=== PATIENT | male | born 1950 | race Caucasian/White ===

== ENCOUNTER 2017-10-07 02:50 | Inpatient (IN) | payer MEDICARE, OTHER ==
[~2017-10-07] VITALS: Ht 167.6 cm; Wt 63.0 kg
[2017-10-07] VITALS (10 sets, daily range): BP systolic 112–140; BP diastolic 73–79; PULSE 90–110; RESP 16–20; TEMP 96.8–99; O2SAT 93–96
[~2017-10-07 02:50] MED LIST: METF500T PO; NALOXONE HCL 0.4 MG/ML AMP IV PUSH PRN; RESP: ALBUTEROL 2.5 MG/IPRATROPIUM 0.5 MG NEB (PRN) NEB; SODIUM CHLORIDE 0.9% FLUSH 10 ML FLUSH IV FLUSH PRN
[2017-10-07] MEDS ORDERED: methylPREDNISolone SOD SUCC 40 MG/1 ML VIAL IV PUSH SCH (06:00)
[2017-10-07] MEDS ORDERED: GLUCAGON 1 MG/ML VIAL OTHER PRN (07:45)
[2017-10-07] MEDS ORDERED: DEXTROSE 50% IN WATER 50 ML VIAL(D50) IV PUSH PRN (07:45)
[2017-10-07] MEDS: RESP: ALBUTEROL 2.5 MG/IPRATROPIUM 0.5 MG NEB (SCH) NEB ×3 (08:00→19:55)
[2017-10-07] MEDS: BUDESONIDE-FORMOTEROL 160/4.5 MCG INHALER INH SCH ×2 (09:00→20:34)
[2017-10-07] MEDS ORDERED: TIOTROPIUM BROMIDE 18 MCG INH INH SCH (09:00)
[2017-10-07] MEDS ORDERED: REMOVE OLD PATCH T-DERMAL SCH (09:00)
[2017-10-07] MEDS ORDERED: NICOTINE 21 MG/24 HR PATCH T-DERMAL SCH (09:00)
[2017-10-07] MEDS: guaiFENesin E.R. 600 MG TAB PO SCH ×2 (09:14→20:34)
[2017-10-07] MEDS: SODIUM CHLORIDE 0.9% FLUSH 10 ML FLUSH IV FLUSH SCH ×2 (09:14→20:34)
[2017-10-07] MEDS: PANTOPRAZOLE SOD 40 MG DELAYED RELEASE TAB PO SCH (09:14)
--- NOTE | 2017-10-07 09:41 | HHI.HP ---
HPI Service [facility] Primary Care Physician [facility] Admission Diagnosis Diagnoses: (1) Diabetes mellitus, type 2 (2) Emphysema of lung (3) Bronchogenic carcinoma of right lung Chief Complaint: Cough and shortness of breath Travel History International Travel<30 Days: No Contact w/Intl Traveler <30 Da: No Traveled to Known Affected Are: No History of Present Illness 67-year-old man with a history of emphysema, diabetes type 2 presented to the ED for evaluation of nonproductive cough 1 month long with shortness of breath associated with costochondritis. Patient states however that since May of last year he has been coughing but it got worse over the past 4 weeks. He denies any febrile episode, hemoptysis. He reports a 20 pound weight loss 4 weeks. She has been smoking since the age of 13, however has quit about a week ago. Initial chest x-ray in ED with finding of large right infrahilar mass and a follow-up CTA with right perihilar mass as well as evidence of metastases Review of Systems Except as stated in HPI: all other systems reviewed are Neg Past Family Social History Past Medical History Diabetes type 2 Hyperlipidemia Emphysema Past Surgical History No prior surgery Reported Medications Metformin Allergies: Coded Allergies: Penicillins (Verified Allergy, Unknown, 10/06/17) Family History Positive for heart disease, alcoholism Social History Quit smoking about a week ago however had smoked since age 13. Denies alcohol or illicit drug intake. Physical Exam Vital Signs Vital Signs Date Time Temp Pulse Resp B/P (MAP) Pulse Ox O2 Delivery O2 Flow Rate FiO2 10/07/17 04:29 109 10/07/17 04:00 98.9 92 16 140/75 (96) 95 10/07/17 03:40 93 Nasal Cannula 2.00 Physical Exam GENERAL: This is a well-nourished, well-developed patient, in no apparent distress. SKIN: No rashes, ecchymoses or lesions. Cool and dry. HEAD: Atraumatic. Normocephalic. No temporal or scalp tenderness. EYES: Pupils equal round and reactive. Extraocular motions intact. No scleral icterus. No injection or drainage. ENT: Nose without bleeding, purulent drainage or septal hematoma. Throat without erythema, tonsillar hypertrophy or exudate. Uvula midline. Airway patent. NECK: Trachea midline. No JVD or lymphadenopathy. Supple, nontender, no meningeal signs. CARDIOVASCULAR: Regular rate and rhythm without murmurs, gallops, or rubs. RESPIRATORY: Clear to auscultation. Breath sounds decrease bilaterally . No wheezes, rales, or rhonchi. GASTROINTESTINAL: Abdomen soft, non-tender, nondistended. No hepato-splenomegaly , or palpable masses. No guarding. MUSCULOSKELETAL: Extremities without clubbing, cyanosis, or edema. No joint tenderness, effusion, or edema noted. No calf tenderness. Negative Homans sign bilaterally. NEUROLOGICAL: Awake and alert. Cranial nerves II through XII intact. Motor and sensory grossly within normal limits. Five out of 5 muscle strength in all muscle groups. Normal speech. Laboratory Laboratory Tests Test 10/07/17 08:45 Septic Shock Reassessment Septic shock perfusion: reassessment completed Caprini VTE Risk Assessment Caprini VTE Risk Assessment: Mod/High Risk (score >= 2) Caprini Risk Assessment Model Point Value = 1 Point Value = 2 Point Value = 3 Point Value = 5 Age 41-60 Minor surgery BMI > 25 kg/m2 Swollen legs Varicose veins or History of unexplained or recurrent spontaneous Oral contraceptives or hormone replacement Sepsis (< 1 month) Serious lung disease, including pneumonia (< 1 month) Abnormal pulmonary function Acute myocardial infarction Congestive heart failure (< 1 month) History of inflammatory bowel disease Medical patient at bed rest Age 61-74 Arthroscopic surgery Major open surgery (> 45 min) Laparoscopic surgery (> 45 min) Malignancy Confined to bed (> 72 hours) Immobilizing plaster cast Central venous access Age >= 75 History of VTE Family history of VTE Factor V Leiden Prothrombin [id number] Lupus anticoagulant Anticardiolipin antibodies Elevated serum homocysteine Heparin-induced thrombocytopenia Other congenital or acquired thrombophilia Stroke (< 1 month) Elective arthroplasty Hip, pelvis, or leg fracture Acute spinal cord injury (< 1 month) Prophylaxis Regimen Total Risk Factor Score Risk Level Prophylaxis Regimen 0-1 Low Early ambulation 2 Moderate Order ONE of the following: *Sequential Compression Device (SCD) *Heparin 5000 units SQ BID 3-4 Higher Order ONE of the following medications: *Heparin 5000 units SQ TID *Enoxaparin/Lovenox 40 mg SQ daily (WT < 150 kg, CrCl > 30 mL/min) *Enoxaparin/Lovenox 30 mg SQ daily (WT < 150 kg, CrCl > 10-29 mL/min) *Enoxaparin/Lovenox 30 mg SQ BID (WT < 150 kg, CrCl > 30 mL/min) AND/OR *Sequential Compression Device (SCD) 5 or more Highest Order ONE of the following medications: *Heparin 5000 units SQ TID (Preferred with Epidurals) *Enoxaparin/Lovenox 40 mg SQ daily (WT < 150 kg, CrCl > 30 mL/min) *Enoxaparin/Lovenox 30 mg SQ daily (WT < 150 kg, CrCl > 10-29 mL/min) *Enoxaparin/Lovenox 30 mg SQ BID (WT < 150 kg, CrCl > 30 mL/min) AND *Sequential Compression Device (SCD) Assessment and Plan Problem List: (1) Bronchogenic carcinoma ICD Code: C34.90 - Malignant neoplasm of unspecified part of unspecified bronchus or lung (2) Postobstructive pneumonia ICD Code: J18.9 - Pneumonia, unspecified organism (3) COPD with exacerbation ICD Code: J44.1 - Chronic obstructive pulmonary disease with (acute) exacerbation (4) Diabetes mellitus, type 2 ICD Code: E11.9 - Type 2 diabetes mellitus without complications (5) Emphysema of lung ICD Code: J43.9 - Emphysema, unspecified Assessment and Plan 67-year-old man with Bronchogenic carcinoma until proven otherwise Chest x-ray noted and review by me with finding of large right infrahilar mass CT angiography noted and review by me with finding of right perihilar mass, metastases mediastinal lymph node and T1 vertebral body distal metastases Pulmonary medicine has been consulted for evaluation for possible bronchoscopy Consult medical oncology Consider Intervention radiology consultation for CT-guided biopsy Check tumor markers Check CT abdomen/pelvic as well as head CT Consider Spine CTs Post obstructive pneumonia Start Levaquin IV and monitor COPD exacerbation Currently on Solu-Medrol, add Spiriva,Symbicort, Mucinex, duo Neb scheduled and when necessary and continue with above antibiotics Consider respiratory walk test at time of discharge Tobacco cessation strongly advised Diabetes type 2 Hold oral hypoglycemic agent Start medium insulin sliding scale Check hemoglobin A1c DVT prophylaxis: B-SCDs Change admission to inpatient Code Status Full code Discussed Condition With Patient Physician Certification 2 Midnight Certification Type: Admission for Inpatient Services Order for Inpatient Services The services are ordered in accordance with Medicare regulations or non- Medicare payer requirements, as applicable. In the case of services not specified as inpatient-only, they are appropriately provided as inpatient services in accordance with the 2-midnight benchmark. Estimated LOS (days): 2 days is the estimated time the patient will need to remain in the hospital, assuming treatment plan goals are met and no additional complications. Post-Hospital Plan: Not yet determined Jaron Middleton MD Oct 07, 2017 09:41
[2017-10-07] MEDS: INSULIN ASPART SUPPLEMENTAL SCALE SQ SCH ×4 (09:52→20:45)
[2017-10-07 10:53] LABS: CARCINOEMBRYONIC ANTIGEN 6.9 NG/ML (0.2-5.0)
[2017-10-07 11:28] LABS: CA 19-9 485.6 U/ML (0.0-35.0)
[2017-10-07] MEDS: DIATRIZOATE MEGLUM/DIATRIZOATE SOD 9 ML CUP PO ONE ×2 (12:00→12:13)
[2017-10-07] MEDS: LEVOFLOXACIN 750 MG TAB PO SCH (12:13)
[2017-10-07 13:21] LABS: CHLORIDE 98 MEQ/L (98-107); SODIUM (NA) 135 MEQ/L (136-145)
[2017-10-07 13:24] LABS: ALBUMIN 2.6 GM/DL (3.4-5.0); BLOOD UREA NITROGEN 16 MG/DL (7-18); CALCIUM 8.8 MG/DL (8.5-10.1); GLUCOSE,RANDOM 164 MG/DL (74-106); PROTHROMBIN TIME - PATIENT 10.1 SEC (9.8-11.6)
[2017-10-07 13:27] LABS: ALT (GPT) 16 U/L (12-78); AST (GOT) 11 U/L (15-37)
[2017-10-07 13:28] LABS: GLOMERULAR FILTRATION RATE 96 ML/MIN (>89)
[2017-10-07 13:29] LABS: TOTAL BILIRUBIN ADULT 0.3 MG/DL (0.2-1.0); TOTAL PROTEIN 7.9 GM/DL (6.4-8.2)
[2017-10-07 13:30] LABS: ALKALINE PHOSPHATASE 89 U/L (45-117)
[2017-10-07] MEDS: methylPREDNISolone SOD SUCC 40 MG/1 ML VIAL IV PUSH SCH ×2 (15:38→20:35)
[2017-10-07] MEDS ORDERED: SODIUM CHLOR 0.45% 1000 ML INJ 1,000 ML IV SCH (16:43)
[2017-10-07] MEDS ORDERED: RESP: LIDOCAINE HCL 4% PF 5 ML NEB NEB SCH (16:45)
[2017-10-07] MEDS ORDERED: RESP: ALBUTEROL CONC 2.5 MG/0.5 ML NEB NEB SCH (16:45)
--- NOTE | 2017-10-07 17:45 | MB ---
cc: Ruiz Arellano MD DATE OF CONSULT: 10/07/2017 ATTENDING PHYSICIAN: Jaron Middleton MD REASON FOR CONSULTATION: Oncology consulted regarding patient with a lung mass. HISTORY OF PRESENT ILLNESS: The patient is a 67-year-old male with history of chronic obstructive pulmonary disease, started experiencing increased nonproductive cough about a month ago. He states that his cough is gradually getting worse and he has increased shortness of breath. He also lost about 20 pounds in the last 4 weeks. He has been seen at [facility] and was supposed to get a chest x-ray; however, symptoms progressively got worse. He went to the emergency room in [place]. A CT showed a large right perihilar mass and he was admitted. He has increased weakness. He denies any headache. Denies any visual changes. Denies any focal numbness or weakness. He denies any significant back pain, no neck pain. Denies any chest pain. Denies any nausea, vomiting, abdominal pain. He said his stool color has been dark. PAST MEDICAL HISTORY: 1. Chronic obstructive pulmonary disease. 2. Diabetes mellitus. 3. Hyperlipidemia. PAST SURGICAL HISTORY: Colonoscopy about 6 years ago. FAMILY HISTORY: Possible heart disease. One sister is healthy. One daughter is also healthy. SOCIAL HISTORY: Smoked at least a pack a day since the age of 13. He just quit a few weeks ago. He lives in a boarding home. He used to drink alcohol but quit 25 years ago. ALLERGIES: PENICILLIN. CURRENT MEDICATIONS: Solu-Medrol, Levaquin, Protonix, Spiriva, Symbicort, guaifenesin. REVIEW OF SYSTEMS: CONSTITUTIONAL: As above. EYES: Negative. ENT: Negative. CARDIOVASCULAR: No chest pressure, palpitation. RESPIRATORY: As above. GASTROINTESTINAL: As above. GENITOURINARY: No dysuria, hematuria. MUSCULOSKELETAL: As above. ENDOCRINE: Negative. HEMATOLOGIC: Negative. DERMATOLOGIC: Negative. PSYCHIATRIC: Negative. NEUROLOGIC: Negative. PHYSICAL EXAMINATION: VITAL SIGNS: Temperature 96.8, blood pressure 112/73, O2 saturation 95% on 2 L nasal cannula. GENERAL: He is alert, oriented x 3, no acute distress. HEENT: Atraumatic, normocephalic. Pupils are equal, round, reactive to light. Extraocular muscles are intact. No scleral icterus. Oropharynx dry mucosa. No lesion, no thrush, no mucositis. NECK: No thyromegaly. No palpable mass. LYMPHATIC: No palpable cervical, clavicular lymph node. He has shotty bilateral axillary lymph node and no palpable inguinal lymph node. CARDIOVASCULAR: Regular S1, S2. No murmur. LUNGS: Slight decreased breath sounds right lung base. ABDOMEN: Soft, nontender. Could not palpate liver or spleen. EXTREMITIES: No cyanosis. Right middle finger partial amputation noted. SKIN: No rash or petechia. NEUROLOGIC: Nonfocal. LABORATORY DATA: Dated 10/06/2017 was reviewed. ASSESSMENT: 1. Right lung mass suspicious for primary bronchogenic carcinoma. He has history of chronic obstructive pulmonary disease. He presented with nonproductive cough which has gradually worsened over the last month. He also has a 20-pound weight loss and increased shortness of breath. CT showed a large 7.1 x 14 x 11.1 cm right perihilar mass. There was also metastatic mediastinal lymphadenopathy with necrotic-appearing subcarinal lymph node measured 2.1 x 3.3 cm. There was AP window lymph node measuring 1.5 x 2.3 cm and a paraesophageal lymph node measuring 1.4 cm. There is also left axillary enlarged lymph node measuring 1.8 cm, which is rather unusual. There is a T1 vertebral destructive lesion associated with left T1-T2 foraminal stenosis. Clinically, however, he has no back pain or neck pain. I told the patient that this is cancer until proven otherwise. A CT abdomen and pelvis as well as CT of the brain is pending at this point, I am going to add a bone scan for further evaluation. I am going to consult radiology to biopsy the right lung mass. The patient is a [place] and is getting all his care at [facility]. He will likely need to follow up with [facility] to be [facility] the [facility] for [facility]. 2. T1 destructive lesion. Clinically, he has no symptoms. I will get a bone scan. He may need an MRI for further evaluation of the spine. 3. Chronic obstructive pulmonary disease. He has increased shortness of breath and cough, likely due to the large lung mass. He possibly has postobstructive pneumonia as well, he is currently on antibiotic. 4. Diabetes mellitus. 5. Hyperlipidemia. RECOMMENDATION: 1. Consult radiology to biopsy right lung mass. 2. Await CT abdomen and pelvis and brain. 3. Arrange for a bone scan and he may need an MRI of the spine depending on the bone scan finding. 4. Consult GI to evaluate the possible distal esophageal mass and change in bowel habit. 5. Consult case sealer as he is going to need a followup with his [facility] physician for treatment once a diagnosis is established. Thank you, Dr. Middleton, for asking me to see this patient. MD NORA Lopez/ANNEL , 05:01 PM , 05:44 PM BONNIE
[2017-10-07] MEDS ORDERED: DIATRIZOATE MEGLUM/DIATRIZOATE SOD 9 ML CUP PO ONE (21:45)
[2017-10-07] MEDS ORDERED: ONDANSETRON HCL 4 MG/2 ML VIAL IV PUSH PRN (23:00)
[2017-10-08] VITALS (9 sets, daily range): BP systolic 110–146; BP diastolic 67–79; PULSE 91–143; RESP 18–20; TEMP 97.4–99.2; O2SAT 94–96
[2017-10-08] MEDS ORDERED: IOHEXOL 350 MG/ML 10 ML VIAL (for RAD DIAG) IVCONTRAST ONE (04:30)
--- NOTE | 2017-10-08 05:15 | RADRPT ---
EXAM DATE/TIME: 10/08/2017 04:11 [facility] COMPARISON: No previous studies available for comparison. INDICATIONS : Evaluate for metastatic disease. IV CONTRAST: 100 cc Omnipaque 350 (iohexol) IV ; Cumulative dose for multiple exams. RADIATION DOSE: 65.57 CTDIvol (mGy) ; Combined studies MEDICAL HISTORY : Chronic obstructive pulmonary disease. Hypertension. Diabetes mellitus type 2. SURGICAL HISTORY : None. ENCOUNTER: Subsequent ACUITY: 2 days PAIN SCALE: 5/10 LOCATION: cranial TECHNIQUE: Multiple contiguous axial images were obtained of the head. Using automated exposure control and adj ustment of the mA and/or kV according to patient size, radiation dose was kept as low as reasonably a chievable to obtain optimal diagnostic quality images. DICOM format image data is available electro nically for review and comparison. FINDINGS: CEREBRUM: The ventricles are normal for age. No evidence of midline shift, cerebral edema or blood products. 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 No extra-axia l fluid collections are seen. POSTERIOR FOSSA: The cerebellum and brainstem are intact. The 4th ventricle is midline. The cerebellar pontine angle is unremarkable. EXTRACRANIAL: The visualized portion of the orbits is intact. SKULL: The calvaria is intact. No evidence of skull fracture. POST CONTRAST: No abnormal areas of parenchymal or dural enhancement. No evidence of blood-brain barrier breakdown. CONCLUSION: 1. 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 2. Nothing acute. Hero Shelton MD on October 08, 2017 at 5:11 Board Certified Radiologist. This report was verified electronically.
--- NOTE | 2017-10-08 05:25 | RADRPT ---
EXAM DATE/TIME: 10/08/2017 04:11 [facility] COMPARISON: No previous studies available for comparison. INDICATIONS : Evaluate for metastatic disease. IV CONTRAST: 100 cc Omnipaque 350 (iohexol) IV ; Cumulative dose for multiple exams. ORAL CONTRAST: Partial prescribed oral contrast ingested. RADIATION DOSE: 5.28 CTDIvol (mGy) MEDICAL HISTORY : Gastroesophageal reflux disease. Diabetes mellitus type 2. Hypertension. SURGICAL HISTORY : None. ENCOUNTER: Subsequent ACUITY: 2 days PAIN SCALE: 5/10 LOCATION: Bilateral upper quadrant lower quadrant TECHNIQUE: Volumetric scanning of the abdomen and pelvis was performed. Using automated exposure control and ad justment of the mA and/or kV according to patient size, radiation dose was kept as low as reasonably achievable to obtain optimal diagnostic quality images. DICOM format image data is available electro nically for review and comparison. FINDINGS: LOWER LUNGS: Confluent, low density airspace consolidation in the right lower lobe. Visualized portions of the lef t lung are clear LIVER: Homogeneous density without lesion. There is no dilation of the biliary tree. No calcified gallston es. SPLEEN: Normal size without lesion. PANCREAS: Within normal limits. KIDNEYS: Normal in size and shape. There is no mass, stone or hydronephrosis. ADRENAL GLANDS: Within normal limits. VASCULAR: There is no aortic aneurysm. BOWEL/MESENTERY: The stomach, small bowel, and colon demonstrate no acute abnormality. There is no free intraperitone al air or fluid. Stool throughout the transverse and descending colon ABDOMINAL WALL: Within normal limits. RETROPERITONEUM: There is no lymphadenopathy. BLADDER: No wall thickening or mass. REPRODUCTIVE: Prominent anterior lobe of the prostate gland. INGUINAL: There is no lymphadenopathy or hernia. MUSCULOSKELETAL: Within normal limits for patient age. There appear to be old healed fracture deformities of the lower left posterior ribs. Low-density confluent airspace disease CONCLUSION: 1. Confluent, low density airspace consolidation in the right lower lobe. 2. Stool throughout the transverse and descending colon possibly representing some degree of constipa tion. 3. Old healed fracture deformities of the posterior left lower ribs. Hero Shelton MD on October 08, 2017 at 5:19 Board Certified Radiologist. This report was verified electronically.
[2017-10-08] MEDS: methylPREDNISolone SOD SUCC 40 MG/1 ML VIAL IV PUSH SCH ×2 (06:04→21:37)
[2017-10-08 06:06] LABS: BASOPHIL % 0.3 % (0.0-2.0); EOSINOPHIL % 0.1 % (0.0-4.0); HEMATOCRIT 34.1 % (39.0-51.0); HEMOGLOBIN 11.2 GM/DL (13.0-17.0); LYMPH % 13.4 % (9.0-44.0); LYMPHOCYTE # 1.4 TH/MM3 (1.0-4.8); MEAN CELL VOLUME 82.3 FL (80.0-100.0); MEAN CORPUSCULAR HGB CONC 32.9 % (32.0-36.0); MEAN PLATELET VOLUME 8.8 FL (7.0-11.0); MONO % 9.2 % (0.0-8.0); MONOCYTE # 0.9 TH/MM3 (0-0.9); PLATELET COUNT 340 TH/MM3 (150-450); RED BLOOD COUNT 4.15 MIL/MM3 (4.50-5.90); RED CELL DISTRIBUTION WIDTH 14.4 % (11.6-17.2); WHITE BLOOD COUNT 10.3 TH/MM3 (4.0-11.0)
[2017-10-08 06:12] LABS: CHLORIDE 100 MEQ/L (98-107); SODIUM (NA) 137 MEQ/L (136-145)
[2017-10-08 06:17] LABS: BICARBONATE 27.2 MEQ/L (21.0-32.0); CALCIUM 8.1 MG/DL (8.5-10.1); GLUCOSE,RANDOM 121 MG/DL (74-106)
[2017-10-08 06:18] LABS: BLOOD UREA NITROGEN 17 MG/DL (7-18)
[2017-10-08 06:21] LABS: CREATININE 0.66 MG/DL (0.60-1.30); GLOMERULAR FILTRATION RATE 120 ML/MIN (>89)
[2017-10-08] MEDS: RESP: ALBUTEROL 2.5 MG/IPRATROPIUM 0.5 MG NEB (SCH) NEB ×3 (07:30→20:59)
[2017-10-08] MEDS: INSULIN ASPART SUPPLEMENTAL SCALE SQ SCH ×4 (08:00→21:00)
[2017-10-08] MEDS: BUDESONIDE-FORMOTEROL 160/4.5 MCG INHALER INH SCH ×2 (09:00→21:37)
[2017-10-08] MEDS: SODIUM CHLORIDE 0.9% FLUSH 10 ML FLUSH IV FLUSH SCH ×2 (09:00→21:37)
--- NOTE | 2017-10-08 09:10 | MB ---
cc: Noah Palmer MD DATE OF CONSULT: 10/07/2017 HISTORY OF PRESENT ILLNESS: Mr. Moreno is a 67-year-old male presents with shortness of breath, cough going on probably several months, although much worse within the last few weeks and on presentation to the ER, had a CT scan which was very abnormal. He has a very large right perihilar mass consistent with a central bronchogenic carcinoma, mediastinal adenopathy and lymphadenopathy in the left axilla, as well as thickening of the distal esophagus. He also has a destructive lesion in the first thoracic vertebra, consistent with a metastatic lesion. The patient has been a smoker since he was 13 years of age, only stopped smoking last week. Considering the findings on the CT scan though, he has been relatively asymptomatic. He has lost some weight, but his appetite is reasonable. He has had no pain in his chest and he denies hemoptysis. He is not particularly short of breath unless he "over exerts." His regular health care is provided at the [place] and he has not been diagnosed with COPD to date. PAST MEDICAL HISTORY: Hypercholesterolemia, type 2 diabetes. He is on metformin. ALLERGIES: PENICILLIN. He also mentions that he had 2 strokes, but they were a long time ago, in his 40s. No recurrence. No obvious residual effect. SOCIAL HISTORY: , once. from his second . He has a daughter who lives in [place]. He is retired from maintenance work. Lived in this area for about 8 years. Stopped drinking alcohol completely 25 years ago. REVIEW OF SYSTEMS: No headache. No other musculoskeletal pain, no swelling in his legs, not aware of fever. MEDICATIONS IN THE HOSPITAL: Reviewed in the EMR. PHYSICAL EXAMINATION: GENERAL: No distress. VITAL SIGNS: Temperature 97 degrees, pulse 90, blood pressure 112/73, respirations 18, O2 saturation 95%, 2 liters. HEENT: Sclerae anicteric. NECK: No adenopathy in the neck or supraclavicular region. PULMONARY: Rales and minimal congestion throughout the right lung. Left lung is clear. No wheezing. CARDIOVASCULAR: No harsh murmur. No audible. ABDOMEN: Soft. No mass or organomegaly. No peripheral edema, cyanosis or clubbing. LABORATORY DATA: Coagulation profile is normal. Arterial blood gas on room air, pO2 65, pH 7.4, pCO2 37. BUN and creatinine are normal. Sodium is 135, albumin is 2.6. Liver functions are normal. IMAGING: CT noted above. DISCUSSION: Mr. Lala presents with a probable large right lung cancer. Heavy prior smoker, probably also has underlying COPD. Actually very well compensated at present. No distress. He has been placed on nebulized aerosol treatments along with Symbicort, Levaquin and methylprednisolone, will continue those. I have had a darcy conversation with him today, told him that I think it is very probable that he has lung cancer and we need to take a biopsy. I have explained to him the options. I have also discussed this with Radiology and it looks like the best initial procedure is going to be to proceed with a diagnostic bronchoscopy. We have discussed the procedure. He is agreeable to proceed. Further diagnostic and/or therapeutic intervention will depend on the results of that study. R. MD SHIKHA Gamboa/LOVE , 05:07 PM , 05:36 PM
[2017-10-08] MEDS: guaiFENesin E.R. 600 MG TAB PO SCH ×2 (09:27→21:36)
[2017-10-08] MEDS: PANTOPRAZOLE SOD 40 MG DELAYED RELEASE TAB PO SCH (09:27)
[2017-10-08] MEDS: LEVOFLOXACIN 750 MG TAB PO SCH (09:27)
--- NOTE | 2017-10-08 09:47 | HHI.PR ---
Subjective Remarks Follow-up questionable Bronchogenic carcinoma 10/08/17-patient currently nothing by mouth [facility] No acute event overnight. Objective Vitals Vital Signs Date Time Temp Pulse Resp B/P (MAP) Pulse Ox O2 Delivery O2 Flow Rate FiO2 10/08/17 08:00 97.5 95 18 146/75 (98) 95 10/08/17 07:30 94 Nasal Cannula 2.00 10/08/17 00:00 97.4 95 18 110/74 (86) 96 10/07/17 20:00 99.0 98 18 129/75 (93) 95 10/07/17 19:55 96 Nasal Cannula 2.00 10/07/17 15:30 97.5 110 20 116/79 (91) 93 10/07/17 13:20 95 Nasal Cannula 2.00 10/07/17 11:50 96.8 90 20 112/73 (86) 96 I/O 10/07/17 10/07/17 10/07/17 10/08/17 10/08/17 10/08/17 07:00 15:00 23:00 07:00 15:00 23:00 Intake Total 240 ml 1320 ml 500 ml Balance 240 ml 1320 ml 500 ml Intake Oral 240 ml 1320 ml 500 ml # Voids 1 4 2 # Bowel Movements 0 Result Diagram: 10/08/1712 10/08/17 0512 Imaging Last Impressions Abdomen/Pelvis CT 10/08/178 Signed Impressions: Service Date/Time: Sunday, October 08, 2017 04:11 - CONCLUSION: 1. Confluent, low density airspace consolidation in the right lower lobe. 2. Stool throughout the transverse and descending colon possibly representing some degree of constipation. 3. Old healed fracture deformities of the posterior left lower ribs. Hero Shelton MD Head CT 10/08/17 0047 Signed Impressions: Service Date/Time: Sunday, October 08, 2017 04:11 - CONCLUSION: 1. 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 2. Nothing acute. Hero Shelton MD Objective Remarks GENERAL: NAD SKIN: Warm and dry. HEAD: Normocephalic. EYES: No scleral icterus. No injection or drainage. NECK: Supple, trachea midline. No JVD or lymphadenopathy. CARDIOVASCULAR: Regular rate and rhythm without murmurs, gallops, or rubs. RESPIRATORY: Breath sounds equal bilaterally. No accessory muscle use. GASTROINTESTINAL: Abdomen soft, non-tender, nondistended. MUSCULOSKELETAL: No cyanosis, or edema. BACK: Nontender without obvious deformity. No CVA tenderness. A/P Problem List: (1) Bronchogenic carcinoma ICD Code: C34.90 - Malignant neoplasm of unspecified part of unspecified bronchus or lung (2) Postobstructive pneumonia ICD Code: J18.9 - Pneumonia, unspecified organism (3) COPD with exacerbation ICD Code: J44.1 - Chronic obstructive pulmonary disease with (acute) exacerbation (4) Diabetes mellitus, type 2 ICD Code: E11.9 - Type 2 diabetes mellitus without complications (5) Emphysema of lung ICD Code: J43.9 - Emphysema, unspecified Assessment and Plan 67-year-old man with Bronchogenic carcinoma until proven otherwise Chest x-ray with finding of large right infrahilar mass CT angiography with finding of right perihilar mass, metastases mediastinal lymph node and T1 vertebral body distal metastases CT abdomen/Pelvic and CT Head reviewed by me without any evidence of metastasis disease Appreciate input from Pulmonary medicine who plan bronchoscopy today 10/08/17 Appreciate input from medical oncology Tumor markers elevated including CA 19-9, CEA and PSA Post obstructive pneumonia Continue Levaquin IV and monitor COPD exacerbation Currently on Solu-Medrol 20 mg daily Q8 hour, Spiriva,Symbicort, Mucinex, duo Neb scheduled and when necessary and continue with above antibiotics Consider respiratory walk test at time of discharge Tobacco cessation strongly advised Diabetes type 2 Hold oral hypoglycemic agent Continue medium insulin sliding scale Hemoglobin A1c pending DVT prophylaxis: B-SCDs Awaiting transfer to [facility] J[facility] Campbell MD Oct 08, 2017 09:47
--- NOTE | 2017-10-08 11:10 | EKG ---
Date Performed: 10/07/2017 Time Performed: 17:15:16 PTAGE: 67 years EKG: SINUS TACHYCARDIA NONSPECIFIC T-WAVE ABNORMALITY ABNORMAL RHYTHM ECG NO PREVIOUS TRACING DOCTOR: Rolando Randolph Interpretating Date/Time 10/08/2017 11:07:30
[2017-10-08] MEDS ORDERED: RESP: ALBUTEROL 2.5 MG/IPRATROPIUM 0.5 MG NEB (PRN) NEB (14:15)
[2017-10-08] MEDS ORDERED: RESP: ALBUTEROL 2.5 MG/3 ML NEB (SCH) ONE (14:22)
--- NOTE | 2017-10-08 14:27 | MP ---
cc: Noah Palmer MD DATE OF OPERATION: 10/08/2017 PROCEDURE PERFORMED: Bronchoscopy. INDICATION FOR PROCEDURE: Suspected lung malignancy. DESCRIPTION OF PROCEDURE: Mr. Armando Fowler underwent diagnostic bronchoscopy with general endotracheal anesthesia after informed consent was obtained. Examination of the mid to distal trachea was abnormal. The distal trachea revealed an irregular mucosa with what appeared to be obvious tumor nodules. Examination of the left main stem bronchus, left upper and lower lobes was essentially unremarkable. No obvious tumor. Examination of the right main stem bronchus was clearly abnormal, irregular nodularity with narrowing. Examination of right upper lobe revealed again narrowing with nodularity suspicious for tumor. Right middle lobe and lower lobe again were very narrow, a lot of mucosal irregularity, although no actual single lung mass was noted. Washings were obtained from the right mid and upper lung region and submitted for cytology and culture. Several needle aspirations were then obtained from various sites along the right tracheobronchial tree and submitted for cytology. Brushings were obtained as well for cytology. Several bronchial biopsies were obtained from the right upper and middle lobes and submitted for routine pathology. In summary, the patient appears to have extensive disease in the right lung, all the way up to the mainstem stef. Multiple specimens are submitted for culture, cytology and routine pathology. He tolerated the procedure well, without apparent complication. Being prepared to go to recovery. Noah Palmer MD RSW/KD , 02:17 PM , 02:26 PM
[2017-10-08] MEDS ORDERED: DO NOT ADM ANY ANTICOAGULANT DRUGS PRN (14:36)
[2017-10-08] MEDS ORDERED: *morphine SULFATE 4 MG/ML PERIprocedure ONLY ONE (14:49)
[2017-10-08 16:20] LABS: HEMOGLOBIN A1C 6.1 % (4.3-6.0)
[2017-10-09] VITALS (28 sets, daily range): BP systolic 107–124; BP diastolic 66–78; PULSE 76–138; RESP 16–20; TEMP 97.5–99.7; O2SAT 94–96
[2017-10-09] MEDS: methylPREDNISolone SOD SUCC 40 MG/1 ML VIAL IV PUSH SCH ×3 (05:38→21:32)
[2017-10-09] MEDS: RESP: ALBUTEROL 2.5 MG/IPRATROPIUM 0.5 MG NEB (SCH) NEB ×4 (07:58→19:36)
[2017-10-09] MEDS: INSULIN ASPART SUPPLEMENTAL SCALE SQ SCH ×4 (08:00→21:30)
[2017-10-09] MEDS: BUDESONIDE-FORMOTEROL 160/4.5 MCG INHALER INH SCH ×2 (09:33→21:31)
[2017-10-09] MEDS: PANTOPRAZOLE SOD 40 MG DELAYED RELEASE TAB PO SCH (09:33)
[2017-10-09] MEDS: guaiFENesin E.R. 600 MG TAB PO SCH ×2 (09:33→21:31)
[2017-10-09] MEDS: SODIUM CHLORIDE 0.9% FLUSH 10 ML FLUSH IV FLUSH SCH ×2 (09:34→21:32)
--- NOTE | 2017-10-09 12:06 | HHI.PR ---
Subjective Remarks Follow-up questionable Bronchogenic carcinoma 10/08/17-patient currently nothing by mouth pending bronchoscopy at the [facility]. No acute event overnight. 10/09/17-patient seen and examined, status post bronchoscopy 10/08/17. Patient denies any chest pain or shortness of breath. Currently afebrile. Objective Vitals Vital Signs Date Time Temp Pulse Resp B/P (MAP) Pulse Ox O2 Delivery O2 Flow Rate FiO2 10/09/17 08:00 94 Nasal Cannula 3.00 10/09/17 06:00 84 10/09/17 05:00 92 10/09/17 04:00 98.3 91 18 107/67 (80) 94 10/09/17 04:00 88 10/09/17 03:00 76 10/09/17 02:00 88 10/09/17 01:00 92 10/09/17 00:00 99.7 96 20 119/76 (90) 96 10/09/17 00:00 96 10/09/17 00:00 96 10/08/17 23:00 143 10/08/17 22:00 96 10/08/17 21:02 96 Nasal Cannula 3.00 10/08/17 21:00 126 10/08/17 20:00 99.2 91 20 115/67 (83) 96 10/08/17 20:00 91 10/08/17 20:00 91 10/08/17 16:45 20 96 Nasal Cannula 3 10/08/17 16:30 102 20 113/59 (77) 97 Nasal Cannula 3 10/08/17 16:00 97.9 100 20 120/65 (83) 95 Nasal Cannula 4 10/08/17 15:45 88 14 114/57 (76) 95 Nasal Cannula 5 10/08/17 15:30 101 14 100/68 (79) 94 Nasal Cannula 5 10/08/17 15:15 99 14 112/65 (81) 92 Nasal Cannula 5 10/08/17 15:00 100 14 107/61 (76) 90 Nasal Cannula 5 10/08/17 14:45 119 14 113/68 (83) 91 Nasal Cannula 5 10/08/17 14:30 98.0 122 14 119/83 (95) 91 Nasal Cannula 5 I/O 10/08/17 10/08/17 10/08/17 10/09/17 10/09/1717/18 07:00 15:00 23:00 07:00 15:00 23:00 Intake Total 500 ml 10 ml 50 ml Output Total 400 ml Balance 500 ml 10 ml -350 ml Intake Oral 500 ml 50 ml IV Total 10 ml Output Urine Total 400 ml # Voids 2 # Bowel Movements 0 Result Diagram: 10/08/17 0512 10/08/17 0512 Imaging Last Impressions Abdomen/Pelvis CT 10/08/178 Signed Impressions: Service Date/Time: Sunday, October 08, 2017 04:11 - CONCLUSION: 1. Confluent, low density airspace consolidation in the right lower lobe. 2. Stool throughout the transverse and descending colon possibly representing some degree of constipation. 3. Old healed fracture deformities of the posterior left lower ribs. Hero Shelton MD Head CT 10/08/17 0047 Signed Impressions: Service Date/Time: Sunday, October 08, 2017 04:11 - CONCLUSION: 1. 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 2. Nothing acute. Hero Shelton MD Objective Remarks GENERAL: NAD SKIN: Warm and dry. HEAD: Normocephalic. EYES: No scleral icterus. No injection or drainage. NECK: Supple, trachea midline. No JVD or lymphadenopathy. CARDIOVASCULAR: Regular rate and rhythm without murmurs, gallops, or rubs. RESPIRATORY: Breath sounds equal bilaterally. No accessory muscle use. GASTROINTESTINAL: Abdomen soft, non-tender, nondistended. MUSCULOSKELETAL: No cyanosis, or edema. BACK: Nontender without obvious deformity. No CVA tenderness. Procedures Bronchoscopy 10/08/17 A/P Problem List: (1) Bronchogenic carcinoma ICD Code: C34.90 - Malignant neoplasm of unspecified part of unspecified bronchus or lung (2) Postobstructive pneumonia ICD Code: J18.9 - Pneumonia, unspecified organism (3) COPD with exacerbation ICD Code: J44.1 - Chronic obstructive pulmonary disease with (acute) exacerbation (4) Diabetes mellitus, type 2 ICD Code: E11.9 - Type 2 diabetes mellitus without complications (5) Emphysema of lung ICD Code: J43.9 - Emphysema, unspecified Assessment and Plan 67-year-old man with Bronchogenic carcinoma until proven otherwise Chest x-ray with finding of large right infrahilar mass CT angiography with finding of right perihilar mass, metastases mediastinal lymph node and T1 vertebral body distal metastases CT abdomen/Pelvic and CT Head reviewed by me without any evidence of metastasis disease Appreciate input from Pulmonary medicine and s/p bronchoscopy 10/08/17 pending biopsy report Appreciate input from medical oncology Plan for bone scan whole body Tumor markers elevated including CA 19-9, CEA and PSA Post obstructive pneumonia Continue Levaquin IV and monitor COPD exacerbation Currently on Solu-Medrol 20 mg daily Q8 hour, Spiriva,Symbicort, Mucinex, duo Neb scheduled and when necessary and continue with above antibiotics Consider respiratory walk test at time of discharge Tobacco cessation strongly advised Diabetes type 2 Hold oral hypoglycemic agent Continue medium insulin sliding scale Hemoglobin A1c 6.1 DVT prophylaxis: Heparin Jaron Middleton MD Oct 09, 2017 12:06
[2017-10-09] MEDS: LEVOFLOXACIN 750 MG TAB PO SCH (12:42)
--- NOTE | 2017-10-09 13:37 | RADRPT ---
EXAM DATE/TIME: 10/09/2017 12:35 [facility] COMPARISON: CT PULMONARY ANGIOGRAM, October 06, 2017, 21:10. PRIOR BONE SCANS: No correlative bone scan available for comparison. INDICATIONS : Lung mass with metastasis. DOSE: 32.4 mCi Tc99m MDP IV MEDICAL HISTORY : Diabetes mellitus type 2. Chronic obstructive pulmonary disease. Cardiovascular disease SURGICAL HISTORY : None. ENCOUNTER: Subsequent ACUITY: 1 week PAIN SCALE: 2/10 LOCATION: Bilateral chest TECHNIQUE: Three hours post intravenous administration of radiotracer, whole body bone scan imaging was performe d. FINDINGS: Blood pool images demonstrate a homogeneous pattern of uptake in the soft tissues. No hyperemic area s are identified. Planar bone scan demonstrates a single focus of increased or decreased tracer upta ke identified within the vicinity of the left scapula with the remainder a normal pattern of uptake. CONCLUSION: Focal abnormal intense radiotracer uptake overlying the region of the right scapula concerning for a site of metastatic disease. Comparison CT demonstrated no osseous destructive process. This may repre sent a metastases to the marrow. Phuong Berger MD on October 09, 2017 at 13:31 Board Certified Radiologist. This report was verified electronically.
[2017-10-10] VITALS (16 sets, daily range): BP systolic 111–127; BP diastolic 70–85; PULSE 82–111; RESP 18–20; TEMP 98–99.1; O2SAT 94–96
[2017-10-10] MEDS: PHENOL 1.4% SOLN 180 ML BTL PO PRN ×2 (02:53→05:03)
[2017-10-10] MEDS: RESP: ALBUTEROL 2.5 MG/IPRATROPIUM 0.5 MG NEB (SCH) NEB ×4 (08:00→19:20)
[2017-10-10] MEDS: INSULIN ASPART SUPPLEMENTAL SCALE SQ SCH ×4 (08:00→21:00)
[2017-10-10] MEDS: methylPREDNISolone SOD SUCC 40 MG/1 ML VIAL IV PUSH SCH ×2 (09:14→21:55)
[2017-10-10] MEDS: PANTOPRAZOLE SOD 40 MG DELAYED RELEASE TAB PO SCH (09:14)
[2017-10-10] MEDS: SODIUM CHLORIDE 0.9% FLUSH 10 ML FLUSH IV FLUSH SCH ×2 (09:14→21:55)
[2017-10-10] MEDS: BUDESONIDE-FORMOTEROL 160/4.5 MCG INHALER INH SCH ×2 (09:20→22:05)
[2017-10-10] MEDS: guaiFENesin E.R. 600 MG TAB PO SCH ×2 (09:20→21:55)
--- NOTE | 2017-10-10 12:02 | HHI.PR ---
Subjective Remarks Follow-up questionable Bronchogenic carcinoma 10/08/17-patient currently nothing by mouth pending bronchoscopy at the [facility]. No acute event overnight. 10/09/17-patient seen and examined, status post bronchoscopy 10/08/17. Patient denies any chest pain or shortness of breath. Currently afebrile. 10/10/17-patient seen and examined, no complaint and stable. Denies any shortness of breath. Bone scan 10/09/17 with uptake in the right scapula Objective Vitals Vital Signs Date Time Temp Pulse Resp B/P (MAP) Pulse Ox O2 Delivery O2 Flow Rate FiO2 10/10/17 09:40 95 Nasal Cannula 2.00 10/10/17 08:30 98.8 102 18 120/71 (87) 95 10/10/17 07:59 90 10/10/17 06:00 90 10/10/17 05:04 98.0 106 20 111/85 (94) 96 10/10/17 05:00 82 10/10/17 04:05 89 10/10/17 03:00 100 10/10/17 02:00 92 10/10/17 01:15 98.7 100 18 127/71 (89) 96 10/10/17 01:00 88 10/10/17 00:02 105 10/09/17 23:00 96 10/09/17 22:00 100 10/09/17 21:26 98.2 102 19 124/77 (93) 95 10/09/17 21:00 94 10/09/17 20:00 99 10/09/17 19:39 96 Nasal Cannula 2.00 10/09/17 19:00 138 10/09/17 18:00 120 10/09/17 17:00 98 10/09/17 16:33 98.9 105 18 111/73 (86) 96 10/09/17 16:00 92 10/09/17 15:00 90 10/09/17 14:00 84 10/09/17 13:30 97.5 92 18 113/78 (90) 96 10/09/17 12:00 94 I/O 10/09/17 10/09/17 10/09/17 10/10/17 10/10/17 10/10/17 07:00 15:00 23:00 07:00 15:00 23:00 Intake Total 50 ml 960 ml 240 ml Output Total 400 ml 650 ml 725 ml Balance -350 ml 310 ml -485 ml Intake Oral 50 ml 960 ml 240 ml Output Urine Total 400 ml 650 ml 725 ml # Voids 2 # Bowel Movements 1 Result Diagram: 10/08/17 0510/08/17511 Imaging Last Impressions Bone Scan Nuclear Medicine 10/09/17 0822 Signed Impressions: Service Date/Time: Monday, October 09, 2017 12:35 - CONCLUSION: Focal abnormal intense radiotracer uptake overlying the region of the right scapula concerning for a site of metastatic disease. Comparison CT demonstrated no osseous destructive process. This may represent a metastases to the marrow. Phuong Berger MD Abdomen/Pelvis CT 10/08/17 0048 Signed Impressions: Service Date/Time: Sunday, October 08, 2017 04:11 - CONCLUSION: 1. Confluent, low density airspace consolidation in the right lower lobe. 2. Stool throughout the transverse and descending colon possibly representing some degree of constipation. 3. Old healed fracture deformities of the posterior left lower ribs. Hero Shelton MD Head CT 10/08/17 0047 Signed Impressions: Service Date/Time: Sunday, October 08, 2017 04:11 - CONCLUSION: 1. 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 2. Nothing acute. Hero Shelton MD Objective Remarks GENERAL: NAD SKIN: Warm and dry. HEAD: Normocephalic. EYES: No scleral icterus. No injection or drainage. NECK: Supple, trachea midline. No JVD or lymphadenopathy. CARDIOVASCULAR: Regular rate and rhythm without murmurs, gallops, or rubs. RESPIRATORY: Breath sounds equal bilaterally. No accessory muscle use. GASTROINTESTINAL: Abdomen soft, non-tender, nondistended. MUSCULOSKELETAL: No cyanosis, or edema. BACK: Nontender without obvious deformity. No CVA tenderness. Procedures Bronchoscopy 10/08/17 A/P Problem List: (1) Bronchogenic carcinoma ICD Code: C34.90 - Malignant neoplasm of unspecified part of unspecified bronchus or lung (2) Postobstructive pneumonia ICD Code: J18.9 - Pneumonia, unspecified organism (3) COPD with exacerbation ICD Code: J44.1 - Chronic obstructive pulmonary disease with (acute) exacerbation (4) Diabetes mellitus, type 2 ICD Code: E11.9 - Type 2 diabetes mellitus without complications (5) Emphysema of lung ICD Code: J43.9 - Emphysema, unspecified Assessment and Plan 67-year-old man with Bronchogenic carcinoma until proven otherwise Chest x-ray with finding of large right infrahilar mass CT angiography with finding of right perihilar mass, metastases mediastinal lymph node and T1 vertebral body distal metastases CT abdomen/Pelvic and CT Head reviewed by me without any evidence of metastasis disease Appreciate input from Pulmonary medicine and s/p bronchoscopy 10/08/17 pending biopsy report Appreciate input from medical oncology Bone scan whole body 10/09/17 with abnormal focal uptake in right scapula pointing toward metastasis disease Tumor markers elevated including CA 19-9, CEA and PSA Post obstructive pneumonia Continue Levaquin IV and monitor COPD exacerbation d/c Solu-Medrol 20 mg daily Q8 hour, start prednisone 10 mg twice a day and continue Spiriva,Symbicort, Mucinex, duo Neb scheduled and when necessary and continue with above antibiotics Tobacco cessation strongly advised Diabetes type 2 Hold oral hypoglycemic agent Continue medium insulin sliding scale Hemoglobin A1c 6.1 DVT prophylaxis: Heparin Jaron Middleton MD Oct 10, 2017 12:02
[2017-10-10] MEDS: LEVOFLOXACIN 750 MG TAB PO SCH ×2 (12:29→13:31)
[2017-10-10] MEDS ORDERED: DOCUSATE SODIUM 50 MG/SENNA 8.6 MG TAB PO PRN (13:00)
[2017-10-10] MEDS ORDERED: MAGNESIUM CITRATE SOLN 300 ML BTL PO ONE (15:00)
[2017-10-11] VITALS (9 sets, daily range): BP systolic 107–126; BP diastolic 60–76; PULSE 80–107; RESP 18–20; TEMP 97.9–101.2; O2SAT 92–95
[2017-10-11] MEDS: INSULIN ASPART SUPPLEMENTAL SCALE SQ SCH ×4 (08:00→21:24)
[2017-10-11] MEDS: RESP: ALBUTEROL 2.5 MG/IPRATROPIUM 0.5 MG NEB (SCH) NEB ×4 (08:00→20:32)
[2017-10-11] MEDS: predniSONE 10 MG TAB PO SCH ×2 (08:44→21:25)
[2017-10-11] MEDS: PANTOPRAZOLE SOD 40 MG DELAYED RELEASE TAB PO SCH (08:44)
[2017-10-11] MEDS: guaiFENesin E.R. 600 MG TAB PO SCH ×2 (08:44→21:25)
[2017-10-11] MEDS: BUDESONIDE-FORMOTEROL 160/4.5 MCG INHALER INH SCH ×2 (08:45→21:25)
[2017-10-11] MEDS: SODIUM CHLORIDE 0.9% FLUSH 10 ML FLUSH IV FLUSH SCH ×2 (08:46→21:27)
--- NOTE | 2017-10-11 10:03 | HHI.PR ---
Subjective Remarks Follow-up questionable Bronchogenic carcinoma 10/08/17-patient currently nothing by mouth pending bronchoscopy at the [facility]. No acute event overnight. 10/09/17-patient seen and examined, status post bronchoscopy 10/08/17. Patient denies any chest pain or shortness of breath. Currently afebrile. 10/10/17-patient seen and examined, no complaint and stable. Denies any shortness of breath. Bone scan 10/09/17 with uptake in the right scapula 10/11/17-patient seen and examined, awaiting for biopsy report. No issues overnight Objective Vitals Vital Signs Date Time Temp Pulse Resp B/P (MAP) Pulse Ox O2 Delivery O2 Flow Rate FiO2 10/11/17 08:29 94 21 10/11/17 04:27 98.6 91 18 126/76 (93) 95 10/11/17 00:31 98.5 95 18 123/65 (84) 95 10/10/17 21:50 98.7 89 18 124/84 (97) 95 10/10/17 19:22 94 10/10/17 16:00 98.2 111 18 123/82 (96) 94 10/10/17 12:21 99.1 99 18 111/70 (84) 96 I/O 10/10/17 10/10/17 10/10/17 10/11/17 10/11/17 10/11/17 07:00 15:00 23:00 07:00 15:00 23:00 Intake Total 240 ml 500 ml 480 ml Output Total 725 ml 750 ml 700 ml Balance -485 ml -250 ml -220 ml Intake Oral 240 ml 500 ml 480 ml Output Urine Total 725 ml 750 ml 700 ml # Bowel Movements 0 Result Diagram: 10/08/17 0512 10/08/17 0512 Objective Remarks GENERAL: NAD SKIN: Warm and dry. HEAD: Normocephalic. EYES: No scleral icterus. No injection or drainage. NECK: Supple, trachea midline. No JVD or lymphadenopathy. CARDIOVASCULAR: Regular rate and rhythm without murmurs, gallops, or rubs. RESPIRATORY: Breath sounds equal bilaterally. No accessory muscle use. GASTROINTESTINAL: Abdomen soft, non-tender, nondistended. MUSCULOSKELETAL: No cyanosis, or edema. BACK: Nontender without obvious deformity. No CVA tenderness. Procedures Bronchoscopy 10/08/17 A/P Problem List: (1) Bronchogenic carcinoma ICD Code: C34.90 - Malignant neoplasm of unspecified part of unspecified bronchus or lung (2) Postobstructive pneumonia ICD Code: J18.9 - Pneumonia, unspecified organism (3) COPD with exacerbation ICD Code: J44.1 - Chronic obstructive pulmonary disease with (acute) exacerbation (4) Diabetes mellitus, type 2 ICD Code: E11.9 - Type 2 diabetes mellitus without complications (5) Emphysema of lung ICD Code: J43.9 - Emphysema, unspecified Assessment and Plan 67-year-old man with Bronchogenic carcinoma until proven otherwise Chest x-ray with finding of large right infrahilar mass CT angiography with finding of right perihilar mass, metastases mediastinal lymph node and T1 vertebral body distal metastases CT abdomen/Pelvic and CT Head reviewed by me without any evidence of metastasis disease Appreciate input from Pulmonary medicine and s/p bronchoscopy 10/08/17 pending biopsy report Appreciate input from medical oncology Bone scan whole body 10/09/17 with abnormal focal uptake in right scapula pointing toward metastasis disease Tumor markers elevated including CA 19-9, CEA and PSA Post obstructive pneumonia Continue Levaquin IV and monitor COPD exacerbation s/p Solu-Medrol 20 mg daily Q8 hour, continue prednisone 10 mg twice a day, Spiriva,Symbicort, Mucinex, duo Neb scheduled and when necessary and continue with above antibiotics Tobacco cessation strongly advised Diabetes type 2 Hold oral hypoglycemic agent Continue medium insulin sliding scale Hemoglobin A1c 6.1 DVT prophylaxis: Heparin Jaron Middleton MD Oct 11, 2017 10:03
[2017-10-12] VITALS (8 sets, daily range): BP systolic 109–129; BP diastolic 63–78; PULSE 80–119; RESP 18; TEMP 98–100.3; O2SAT 92–97
--- NOTE | 2017-10-12 01:50 | RADRPT ---
EXAM DATE/TIME: 10/12/2017 01:10 [facility] COMPARISON: CT PULMONARY ANGIOGRAM, October 06, 2017, 21:10. CHEST PA & LAT, October 06, 2017, 20:18. INDICATIONS : Short of breath for [id number]. MEDICAL HISTORY : Diabetes mellitus type II. Chronic obstructive pulmonary disease. SURGICAL HISTORY : None. ENCOUNTER: Subsequent ACUITY: 1 week PAIN SCORE: 0/10 LOCATION: Bilateral chest FINDINGS: Large mass in the medial right chest measuring excess of 10 cm a similar appearance to prior chest x- ray. Subsequent CT had demonstrated mass highly suspicious for malignancy. The left lung is clear. Left heart border similar to prior. The pressure lateral left clavicle. CONCLUSION: Large right pulmonary mass/consolidation stable from recent chest x-ray. The left lung is clear. New Cooper MD on October 12, 2017 at 1:47 Board Certified Radiologist. This report was verified electronically.
[2017-10-12 02:15] LABS: BASOPHIL % 0.2 % (0.0-2.0); EOSINOPHIL % 0.1 % (0.0-4.0); HEMATOCRIT 34.6 % (39.0-51.0); HEMOGLOBIN 11.6 GM/DL (13.0-17.0); LYMPHOCYTE # 1.1 TH/MM3 (1.0-4.8); MEAN CELL VOLUME 80.9 FL (80.0-100.0); MEAN CORPUSCULAR HEMOGLOBIN 27.2 PG (27.0-34.0); MEAN CORPUSCULAR HGB CONC 33.6 % (32.0-36.0); MEAN PLATELET VOLUME 8.6 FL (7.0-11.0); MONO % 8.9 % (0.0-8.0); MONOCYTE # 1.2 TH/MM3 (0-0.9); NEUT % 82.8 % (16.0-70.0); PLATELET COUNT 287 TH/MM3 (150-450); RED BLOOD COUNT 4.28 MIL/MM3 (4.50-5.90); RED CELL DISTRIBUTION WIDTH 15.2 % (11.6-17.2); WHITE BLOOD COUNT 13.2 TH/MM3 (4.0-11.0)
[2017-10-12 02:17] LABS: BILIRUBIN, URINE NEG (NEG); BLOOD, URINE NEG (NEG); GLUCOSE,URINE NEG (NEG); KETONE, URINE NEG (NEG); MUCUS URINE FEW /lpf (OCC); NITRITE,URINE NEG (NEG); PH, URINE 7.5 (5.0-8.5); SQUAMOUS EPITHELIAL CELL URINE <1 /hpf (0-5); URINE COLOR YELLOW (YELLW/STRAW); URINE LEUKOCYTE ESTERASE NEG (NEG)
[2017-10-12] MEDS: ACETAMINOPHEN 325 MG TAB PO PRN (02:52)
[2017-10-12] MEDS: RESP: ALBUTEROL 2.5 MG/IPRATROPIUM 0.5 MG NEB (SCH) NEB ×4 (07:56→20:09)
[2017-10-12] MEDS: INSULIN ASPART SUPPLEMENTAL SCALE SQ SCH ×3 (08:00→16:06)
[2017-10-12] MEDS: BUDESONIDE-FORMOTEROL 160/4.5 MCG INHALER INH SCH ×2 (09:16→21:53)
[2017-10-12] MEDS: LEVOFLOXACIN 750 MG TAB PO SCH (09:16)
[2017-10-12] MEDS: predniSONE 10 MG TAB PO SCH ×2 (09:16→21:55)
[2017-10-12] MEDS: SODIUM CHLORIDE 0.9% FLUSH 10 ML FLUSH IV FLUSH SCH ×2 (09:16→21:54)
[2017-10-12] MEDS: guaiFENesin E.R. 600 MG TAB PO SCH ×2 (09:16→21:55)
[2017-10-12] MEDS: PANTOPRAZOLE SOD 40 MG DELAYED RELEASE TAB PO SCH (09:16)
--- NOTE | 2017-10-12 10:46 | HHI.PR ---
Subjective Remarks Follow-up questionable Bronchogenic carcinoma 10/08/17-patient currently nothing by mouth pending bronchoscopy at the [facility]. No acute event overnight. 10/09/17-patient seen and examined, status post bronchoscopy 10/08/17. Patient denies any chest pain or shortness of breath. Currently afebrile. 10/10/17-patient seen and examined, no complaint and stable. Denies any shortness of breath. Bone scan 10/09/17 with uptake in the right scapula 10/11/17-patient seen and examined, awaiting for biopsy report. No issues overnight 10/12/17-patient seen and examined, stable, biopsy report discussed with patient. spiking fevers. Awaiting oncology input Objective Vitals Vital Signs Date Time Temp Pulse Resp B/P (MAP) Pulse Ox O2 Delivery O2 Flow Rate FiO2 10/12/17 07:56 92 21 10/12/17 04:00 100.3 10/12/17 03:05 101 18 114/74 (87) 94 10/11/17 23:54 101.2 106 18 112/68 (83) 94 10/11/17 20:34 92 21 10/11/17 19:52 99.7 86 18 115/60 (78) 93 10/11/17 15:53 98.1 106 18 111/69 (83) 94 10/11/17 12:25 98.4 107 18 107/68 (81) 94 I/O 10/11/17 10/11/17 10/11/17 10/12/17 10/12/17 10/12/17 07:00 15:00 23:00 07:00 15:00 23:00 Intake Total 480 ml 360 ml Output Total 700 ml 900 ml 1000 ml Balance -220 ml -900 ml -640 ml Intake Oral 480 ml 360 ml Output Urine Total 700 ml 900 ml 1000 ml # Bowel Movements 0 0 Result Diagram: 10/12/17 0135 10/08/17 0512 Imaging Last Impressions Chest X-Ray 10/12/17 0000 Signed Impressions: Service Date/Time: Thursday, October 12, 2017 01:10 - CONCLUSION: Large right pulmonary mass/consolidation stable from recent chest x-ray. The left lung is clear. New Cooper MD Bone Scan Nuclear Medicine 10/09/17 0822 Signed Impressions: Service Date/Time: Monday, October 09, 2017 12:35 - CONCLUSION: Focal abnormal intense radiotracer uptake overlying the region of the right scapula concerning for a site of metastatic disease. Comparison CT demonstrated no osseous destructive process. This may represent a metastases to the marrow. Phuong Berger MD Abdomen/Pelvis CT 10/08/178 Signed Impressions: Service Date/Time: Sunday, October 08, 2017 04:11 - CONCLUSION: 1. Confluent, low density airspace consolidation in the right lower lobe. 2. Stool throughout the transverse and descending colon possibly representing some degree of constipation. 3. Old healed fracture deformities of the posterior left lower ribs. Hero Shelton MD Head CT 10/08/177 Signed Impressions: Service Date/Time: Sunday, October 08, 2017 04:11 - CONCLUSION: 1. 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 2. Nothing acute. Hero Shelton MD Objective Remarks GENERAL: NAD SKIN: Warm and dry. HEAD: Normocephalic. EYES: No scleral icterus. No injection or drainage. NECK: Supple, trachea midline. No JVD or lymphadenopathy. CARDIOVASCULAR: Regular rate and rhythm without murmurs, gallops, or rubs. RESPIRATORY: Breath sounds equal bilaterally. No accessory muscle use. GASTROINTESTINAL: Abdomen soft, non-tender, nondistended. MUSCULOSKELETAL: No cyanosis, or edema. BACK: Nontender without obvious deformity. No CVA tenderness. Procedures Bronchoscopy 10/08/17 A/P Problem List: (1) Bronchogenic carcinoma ICD Code: C34.90 - Malignant neoplasm of unspecified part of unspecified bronchus or lung (2) Postobstructive pneumonia ICD Code: J18.9 - Pneumonia, unspecified organism (3) COPD with exacerbation ICD Code: J44.1 - Chronic obstructive pulmonary disease with (acute) exacerbation (4) Diabetes mellitus, type 2 ICD Code: E11.9 - Type 2 diabetes mellitus without complications (5) Emphysema of lung ICD Code: J43.9 - Emphysema, unspecified Assessment and Plan 67-year-old man with Adenocarcinoma of the Lung Chest x-ray with finding of large right infrahilar mass CT angiography with finding of right perihilar mass, metastases mediastinal lymph node and T1 vertebral body distal metastases CT abdomen/Pelvic and CT Head reviewed by me without any evidence of metastasis disease Appreciate input from Pulmonary medicine and s/p bronchoscopy 10/08/17 with pathology report positive for adenocarcinoma Appreciate input from medical oncology Bone scan whole body 10/09/17 with abnormal focal uptake in right scapula pointing toward metastasis disease Tumor markers elevated including CA 19-9, CEA and PSA Post obstructive pneumonia-improving Continue Levaquin IV end date 10/14/17 COPD exacerbation s/p Solu-Medrol 20 mg daily Q8 hour, continue prednisone 10 mg twice a day, Spiriva,Symbicort, Mucinex, duo Neb scheduled and when necessary and continue with above antibiotics Tobacco cessation strongly advised Diabetes type 2 Hold oral hypoglycemic agent Continue medium insulin sliding scale Hemoglobin A1c 6.1 DVT prophylaxis: Heparin Jaron Middleton MD Oct 12, 2017 10:46
--- NOTE | 2017-10-12 15:43 | PD.ONC.PN ---
Subjective Subjective Remarks Tmax 101.2 overnight. Patient resting in bed in nad. No complaints. Objective Data Date Time Temp Pulse Resp B/P (MAP) Pulse Ox O2 Delivery O2 Flow Rate FiO2 10/12/17 11:14 98.3 106 18 109/63 (78) 10/12/17 08:00 98.0 80 18 112/78 (89) 96 10/12/17 07:56 92 21 10/12/17 04:00 100.3 10/12/17 03:05 101 18 114/74 (87) 94 10/11/17 23:54 101.2 106 18 112/68 (83) 94 10/11/17 20:34 92 21 10/11/17 19:52 99.7 86 18 115/60 (78) 93 10/11/17 15:53 98.1 106 18 111/69 (83) 94 10/12/17 10/12/17 10/12/17 07:00 15:00 23:00 Intake Total 360 ml Output Total 1000 ml Balance -640 ml Result Diagram: 10/12/17 0135 10/08/17 0512 Laboratory Results Laboratory Tests Test 10/12/17 01:35 10/12/17 01:50 White Blood Count 13.2 TH/MM3 Red Blood Count 4.28 MIL/MM3 Hemoglobin 11.6 GM/DL Hematocrit 34.6 % Mean Corpuscular Volume 80.9 FL Mean Corpuscular Hemoglobin 27.2 PG Mean Corpuscular Hemoglobin Concent 33.6 % Red Cell Distribution Width 15.2 % Platelet Count 287 TH/MM3 Mean Platelet Volume 8.6 FL Neutrophils (%) (Auto) 82.8 % Lymphocytes (%) (Auto) 8.0 % Monocytes (%) (Auto) 8.9 % Eosinophils (%) (Auto) 0.1 % Basophils (%) (Auto) 0.2 % Neutrophils # (Auto) 11.0 TH/MM3 Lymphocytes # (Auto) 1.1 TH/MM3 Monocytes # (Auto) 1.2 TH/MM3 Eosinophils # (Auto) 0.0 TH/MM3 Basophils # (Auto) 0.0 TH/MM3 CBC Comment DIFF FINAL Differential Comment Urine Color YELLOW Urine Turbidity CLEAR Urine pH 7.5 Urine Specific [place] 1.024 Urine Protein TRACE mg/dL Urine Glucose (UA) NEG mg/dL Urine Ketones NEG mg/dL Urine Occult Blood NEG Urine Nitrite NEG Urine Bilirubin NEG Urine Urobilinogen LESS THAN 2.0 MG/DL Urine Leukocyte Esterase NEG Urine RBC LESS THAN 1 /hpf Urine WBC 1 /hpf Urine Squamous Epithelial Cells <1 /hpf Urine Mucus FEW /lpf Microscopic Urinalysis Comment CULT NOT INDICATED Culture Results Microbiology Date/Time Source Procedure Growth Status 10/12/17 01:45 Blood Peripheral Aerobic Blood Culture Pending Received 10/12/17 01:45 Blood Peripheral Anaerobic Blood Culture Pending Received 10/12/17 01:35 Blood Peripheral Aerobic Blood Culture Pending Received 10/12/17 01:35 Blood Peripheral Anaerobic Blood Culture Pending Received Imaging Studies Last 24 hours Impressions Chest X-Ray 10/12/17 0000 Signed Impressions: Service Date/Time: Thursday, October 12, 2017 01:10 - CONCLUSION: Large right pulmonary mass/consolidation stable from recent chest x-ray. The left lung is clear. New Cooper MD Administered Medications Medications (Trade) Dose Ordered Sig/Jeremiah Route PRN Reason Start Time Stop Time Status Last Admin Dose Admin Sodium Chloride (NS Flush) 2 ml BID IV FLUSH 10/07/17 09:00 10/12/17 09:16 Pantoprazole Sodium (Protonix) 40 mg DAILY PO 10/07/17 09:00 10/12/17 09:16 Insulin Aspart (NovoLOG SUPPLEMENTAL SCALE) 1 ACHS SLIDING SCALE SQ 10/07/17 08:00 10/12/17 12:51 Levofloxacin (Levaquin) 750 mg DAILY@1100 PO 10/07/17 11:00 10/12/17 09:16 Budesonide/ Formoterol Fumarate (Symbicort 160-4.5 Mcg Inh) 2 puff Q12HR INH 10/07/17 09:00 10/12/17 09:16 Guaifenesin (Mucinex Er) 600 mg BID PO 10/07/17 09:00 10/12/17 09:16 Phenol (Chloraseptic [place]) 2 spray Q2H PRN PO SORE THROAT 10/10/17 02:00 10/10/17 05:03 Prednisone (Deltasone) 10 mg BID PO 10/11/17 09:00 10/12/17 09:16 Acetaminophen (Tylenol) 650 mg Q4H PRN PO fever >101 10/12/17 02:45 10/12/17 02:52 Albuterol/ Ipratropium (Duoneb Neb) 1 ampule QID NEB NEB 10/12/17 12:00 10/12/17 11:26 Objective Remarks GENERAL: Pleasant middle aged male, sitting up in bed in nad. SKIN: Warm and dry. HEAD: Normocephalic. EYES: No injection or drainage. NECK: Supple, trachea midline. CARDIOVASCULAR: Regular rate and rhythm RESPIRATORY: Breath sounds equal bilaterally. No accessory muscle use. GASTROINTESTINAL: Abdomen soft, non-tender, nondistended. EXTREMITIES: No cyanosis NEUROLOGICAL: awake and alert. normal speech. Assessment/Plan Problem List: (1) Bronchogenic cancer ICD Codes: C34.90 - Malignant neoplasm of unspecified part of unspecified bronchus or lung Plan: --will place port and arrange for follow up in clinic. Assessment 67y/o male with newly diagnosed lung cancer. h/o Chronic obstructive pulmonary disease. Diabetes mellitus.Hyperlipidemia. Plan 1. consult invasive radiology for port placement. 2 face sheet faxed to new patient referrals for follow up. Attending Statement The exam, history, and the medical decision-making described in the above note were completed with the assistance of the mid-level provider. I reviewed and agree with the findings presented. I attest that I had a [id number] encounter with the patient on the same day, and personally performed and documented my assessment and findings in the medical record. No CP or back pain. No neck pain. SOB/cough improving. Reviewed pathology with pt. Discussed diagnosis, staging, prognosis and treatment options. I told him he has stage IV metastatic lung carcinoma and it is not curable. Palliative chemo can prolonged his survival and palliate his symptoms. Reviewed bone scan, CT result with patient. I have also discussed his case at the [facility]. I will have pathology do mutation studies. Will consult IR to place port and plan to start him on palliative chemotherapy. Will consider radiating the T1 lesion if he has symptoms. Kristy Carlin Oct 12, 2017 15:43 Ruiz Arellano MD Oct 12, 2017 16:13
[2017-10-13] VITALS (8 sets, daily range): BP systolic 109–124; BP diastolic 64–77; PULSE 89–118; RESP 18–20; TEMP 97.8–100.1; O2SAT 93–96
[2017-10-13] MEDS: PHENOL 1.4% SOLN 180 ML BTL PO PRN (00:38)
[2017-10-13] MEDS: ACETAMINOPHEN 325 MG TAB PO PRN (00:38)
[2017-10-13] MEDS: INSULIN ASPART SUPPLEMENTAL SCALE SQ SCH ×4 (08:00→20:13)
[2017-10-13] MEDS: BUDESONIDE-FORMOTEROL 160/4.5 MCG INHALER INH SCH ×2 (09:00→20:10)
[2017-10-13] MEDS: SODIUM CHLORIDE 0.9% FLUSH 10 ML FLUSH IV FLUSH SCH ×2 (09:00→20:11)
[2017-10-13] MEDS: RESP: ALBUTEROL 2.5 MG/IPRATROPIUM 0.5 MG NEB (SCH) NEB ×4 (09:31→19:26)
[2017-10-13] MEDS: predniSONE 10 MG TAB PO SCH ×2 (09:33→20:10)
[2017-10-13] MEDS: LEVOFLOXACIN 750 MG TAB PO SCH (09:33)
[2017-10-13] MEDS: PANTOPRAZOLE SOD 40 MG DELAYED RELEASE TAB PO SCH (09:33)
[2017-10-13] MEDS: guaiFENesin E.R. 600 MG TAB PO SCH ×2 (09:33→20:10)
--- NOTE | 2017-10-13 10:16 | HHI.PR ---
Subjective Remarks Follow-up Bronchogenic carcinoma 10/08/17-patient currently nothing by mouth pending bronchoscopy at the [facility]. No acute event overnight. 10/09/17-patient seen and examined, status post bronchoscopy 10/08/17. Patient denies any chest pain or shortness of breath. Currently afebrile. 10/10/17-patient seen and examined, no complaint and stable. Denies any shortness of breath. Bone scan 10/09/17 with uptake in the right scapula 10/11/17-patient seen and examined, awaiting for biopsy report. No issues overnight 10/12/17-patient seen and examined, stable, biopsy report discussed with patient. spiking fevers. Awaiting oncology input 10/13/17-patient seen and examined him a MAXIMUM TEMPERATURE 100.1 at midnight however currently afebrile. Denies any shortness of breath. Objective Vitals Vital Signs Date Time Temp Pulse Resp B/P (MAP) Pulse Ox O2 Delivery O2 Flow Rate FiO2 10/13/17 09:33 93 Nasal Cannula 2.00 10/13/17 07:34 98.5 89 20 112/75 (87) 95 10/13/17 04:00 97.8 94 18 109/70 (83) 96 10/13/17 00:00 100.1 118 18 116/64 (81) 94 10/12/17 21:00 99.1 119 18 129/64 (85) 94 10/12/17 20:11 93 21 10/12/17 16:06 98.5 93 18 109/67 (81) 97 10/12/17 11:14 98.3 106 18 109/63 (78) I/O 10/12/17 10/12/17 10/12/17 10/13/17 10/13/17 10/13/17 07:00 15:00 23:00 07:00 15:00 23:00 Intake Total 360 ml Output Total 1000 ml 650 ml Balance -640 ml -650 ml Intake Oral 360 ml Output Urine Total 1000 ml 650 ml # Bowel Movements 0 Result Diagram: 10/12/17 0135 Objective Remarks GENERAL: NAD SKIN: Warm and dry. HEAD: Normocephalic. EYES: No scleral icterus. No injection or drainage. NECK: Supple, trachea midline. No JVD or lymphadenopathy. CARDIOVASCULAR: Regular rate and rhythm without murmurs, gallops, or rubs. RESPIRATORY: Breath sounds equal bilaterally. No accessory muscle use. GASTROINTESTINAL: Abdomen soft, non-tender, nondistended. MUSCULOSKELETAL: No cyanosis, or edema. BACK: Nontender without obvious deformity. No CVA tenderness. Procedures Bronchoscopy 10/08/17 A/P Problem List: (1) Bronchogenic carcinoma ICD Code: C34.90 - Malignant neoplasm of unspecified part of unspecified bronchus or lung (2) Postobstructive pneumonia ICD Code: J18.9 - Pneumonia, unspecified organism (3) COPD with exacerbation ICD Code: J44.1 - Chronic obstructive pulmonary disease with (acute) exacerbation (4) Diabetes mellitus, type 2 ICD Code: E11.9 - Type 2 diabetes mellitus without complications (5) Emphysema of lung ICD Code: J43.9 - Emphysema, unspecified Assessment and Plan 67-year-old man with Bronchogenic carcinoma Appreciate input from Pulmonary medicine and s/p bronchoscopy 10/08/17 with pathology report positive for adenocarcinoma Appreciate input from medical oncology Bone scan whole body 10/09/17 with abnormal focal uptake in right scapula pointing toward metastasis disease Tumor markers elevated including CA 19-9, CEA and PSA Bronchial washings positive for yeast Plan for port infusion placement 10/14/17 Post obstructive pneumonia-improving Continue Levaquin IV end date 10/14/17 COPD exacerbation s/p Solu-Medrol 20 mg daily Q8 hour, continue prednisone 10 mg twice a day, Spiriva,Symbicort, Mucinex, duo Neb scheduled and when necessary and Levaquin Tobacco cessation strongly advised Leukocytosis Likely secondary to steroid treatment versus infectious process Diabetes type 2 Hold oral hypoglycemic agent Continue medium insulin sliding scale Hemoglobin A1c 6.1 DVT prophylaxis: Heparin Jaron Middleton MD Oct 13, 2017 10:16
--- NOTE | 2017-10-13 12:00 | PD.ONC.PN ---
Subjective Subjective Remarks Afebrile overnight. Patient resting in bed in nad. No complaints. wants to know when he will go home. Objective Data Date Time Temp Pulse Resp B/P (MAP) Pulse Ox O2 Delivery O2 Flow Rate FiO2 10/13/17 09:33 93 Nasal Cannula 2.00 10/13/17 07:34 98.5 89 20 112/75 (87) 95 10/13/17 04:00 97.8 94 18 109/70 (83) 96 10/13/17 00:00 100.1 118 18 116/64 (81) 94 10/12/17 21:00 99.1 119 18 129/64 (85) 94 10/12/17 20:11 93 21 10/12/17 16:06 98.5 93 18 109/67 (81) 97 10/13/17 10/13/17 10/13/17 07:00 15:00 23:00 Output Total 650 ml Balance -650 ml Result Diagram: 10/12/17 0135 Culture Results Microbiology Date/Time Source Procedure Growth Status 10/12/17 01:45 Blood Peripheral Aerobic Blood Culture - Preliminary NO GROWTH IN 1 DAY Resulted 10/12/17 01:45 Blood Peripheral Anaerobic Blood Culture - Preliminary NO GROWTH IN 1 DAY Resulted 10/12/17 01:35 Blood Peripheral Aerobic Blood Culture - Preliminary NO GROWTH IN 1 DAY Resulted 10/12/17 01:35 Blood Peripheral Anaerobic Blood Culture - Preliminary NO GROWTH IN 1 DAY Resulted Administered Medications Medications (Trade) Dose Ordered Sig/Jeremiah Route PRN Reason Start Time Stop Time Status Last Admin Dose Admin Sodium Chloride (NS Flush) 2 ml BID IV FLUSH 10/07/17 09:00 10/13/17 09:00 Pantoprazole Sodium (Protonix) 40 mg DAILY PO 10/07/17 09:00 10/13/17 09:33 Insulin Aspart (NovoLOG SUPPLEMENTAL SCALE) 1 ACHS SLIDING SCALE SQ 10/07/17 08:00 10/13/17 11:40 Levofloxacin (Levaquin) 750 mg DAILY@1100 PO 10/07/17 11:00 10/13/17 09:33 Budesonide/ Formoterol Fumarate (Symbicort 160-4.5 Mcg Inh) 2 puff Q12HR INH 10/07/17 09:00 10/13/17 09:00 Guaifenesin (Mucinex Er) 600 mg BID PO 10/07/17 09:00 10/13/17 09:33 Phenol (Chloraseptic [place]) 2 spray Q2H PRN PO SORE THROAT 10/10/17 02:00 10/13/17 00:38 Acetaminophen (Tylenol) 650 mg Q4H PRN PO fever >101 10/12/17 02:45 10/13/17 00:38 Albuterol/ Ipratropium (Duoneb Neb) 1 ampule QID NEB NEB 10/12/17 12:00 10/13/17 11:53 Prednisone (Deltasone) 30 mg BID PO 10/12/17 21:00 10/13/17 09:33 Objective Remarks GENERAL: Middle aged male, sitting up in bed in nad. SKIN: Warm and dry. HEAD: Normocephalic. EYES: No injection or drainage. NECK: Supple, trachea midline. CARDIOVASCULAR: Regular rate and rhythm RESPIRATORY: diminished at right base. GASTROINTESTINAL: Abdomen soft, non-tender, nondistended. EXTREMITIES: No cyanosis MUSCULOSKELETAL: Adequate muscle tone. NEUROLOGICAL: awake and alert. normal speech. Assessment/Plan Problem List: (1) Bronchogenic cancer ICD Codes: C34.90 - Malignant neoplasm of unspecified part of unspecified bronchus or lung Plan: --will place port and arrange for follow up in clinic. Assessment 67y/o male with newly diagnosed lung cancer. h/o Chronic obstructive pulmonary disease. Diabetes mellitus.Hyperlipidemia. Plan 1. clear for discharge after port placement. 2. follow up in clinic once discharged Attending Statement The exam, history, and the medical decision-making described in the above note were completed with the assistance of the mid-level provider. I reviewed and agree with the findings presented. I attest that I had a [id number] encounter with the patient on the same day, and personally performed and documented my assessment and findings in the medical record. No CP. SOB/cough improved. Wanted to go home. Will have port placement today. F/u oncology clinic after d/c to start treatment. Kristy Carlin Oct 13, 2017 12:00 uRiz Arellano MD Oct 13, 2017 12:22
[2017-10-14] VITALS (9 sets, daily range): BP systolic 92–145; BP diastolic 62–89; PULSE 91–107; RESP 16–18; TEMP 97.7–98.6; O2SAT 91–95
[2017-10-14] MEDS: RESP: ALBUTEROL 2.5 MG/IPRATROPIUM 0.5 MG NEB (SCH) NEB ×3 (07:57→15:51)
[2017-10-14] MEDS: INSULIN ASPART SUPPLEMENTAL SCALE SQ SCH ×4 (08:00→17:38)
[2017-10-14 09:07] LABS: AUTOMATED NEUTROPHIL # 11.3 TH/MM3 (1.8-7.7); BASOPHIL % 0.3 % (0.0-2.0); EOSINOPHIL % 0.1 % (0.0-4.0); HEMATOCRIT 36.5 % (39.0-51.0); HEMOGLOBIN 12.1 GM/DL (13.0-17.0); LYMPH % 8.4 % (9.0-44.0); LYMPHOCYTE # 1.1 TH/MM3 (1.0-4.8); MEAN CELL VOLUME 81.3 FL (80.0-100.0); MEAN CORPUSCULAR HGB CONC 33.2 % (32.0-36.0); MEAN PLATELET VOLUME 9.1 FL (7.0-11.0); MONO % 7.4 % (0.0-8.0); NEUT % 83.8 % (16.0-70.0); PLATELET COUNT 305 TH/MM3 (150-450); RED BLOOD COUNT 4.48 MIL/MM3 (4.50-5.90); RED CELL DISTRIBUTION WIDTH 15.7 % (11.6-17.2); WHITE BLOOD COUNT 13.4 TH/MM3 (4.0-11.0)
[2017-10-14] MEDS: guaiFENesin E.R. 600 MG TAB PO SCH (09:17)
[2017-10-14] MEDS: predniSONE 10 MG TAB PO SCH (09:17)
[2017-10-14] MEDS: PANTOPRAZOLE SOD 40 MG DELAYED RELEASE TAB PO SCH (09:18)
[2017-10-14] MEDS: SODIUM CHLORIDE 0.9% FLUSH 10 ML FLUSH IV FLUSH SCH (09:19)
[2017-10-14] MEDS: BUDESONIDE-FORMOTEROL 160/4.5 MCG INHALER INH SCH (09:19)
[2017-10-14] MEDS ORDERED: VANCOMYCIN INJ 1,000 MG in SODIUM CHLOR 0.9% 250 ML INJ 250 ML IV SCH (09:30)
[2017-10-14 09:36] LABS: BICARBONATE 24.2 MEQ/L (21.0-32.0); CALCIUM 8.9 MG/DL (8.5-10.1); CREATININE 0.74 MG/DL (0.60-1.30)
--- NOTE | 2017-10-14 10:17 | HHI.PR ---
Subjective Remarks Follow-up Bronchogenic carcinoma 10/08/17-patient currently nothing by mouth pending bronchoscopy at the [facility]. No acute event overnight. 10/09/17-patient seen and examined, status post bronchoscopy 10/08/17. Patient denies any chest pain or shortness of breath. Currently afebrile. 10/10/17-patient seen and examined, no complaint and stable. Denies any shortness of breath. Bone scan 10/09/17 with uptake in the right scapula 10/11/17-patient seen and examined, awaiting for biopsy report. No issues overnight 10/12/17-patient seen and examined, stable, biopsy report discussed with patient. spiking fevers. Awaiting oncology input 10/13/17-patient seen and examined him a MAXIMUM TEMPERATURE 100.1 at midnight however currently afebrile. Denies any shortness of breath. 10/14/17-patient seen and examined, he was tearful and wanted to know about his options. He is concerned about the side effect of possible chemotherapy therapy Objective Vitals Vital Signs Date Time Temp Pulse Resp B/P (MAP) Pulse Ox O2 Delivery O2 Flow Rate FiO2 10/14/17 07:58 93 10/14/17 07:25 97.7 104 18 116/84 (95) 94 10/14/17 04:08 98.0 91 16 111/71 (84) 95 10/14/17 00:00 98.2 91 16 122/75 (91) 94 10/13/17 20:06 98.2 104 20 124/74 (91) 96 10/13/17 19:27 94 21 10/13/17 17:06 98.6 91 20 123/74 (90) 95 10/13/17 12:00 98.0 95 20 124/77 (93) 95 I/O 10/13/17 10/13/17 10/13/17 10/14/17 10/14/17 10/14/17 06:59 14:59 22:59 06:59 14:59 22:59 Output Total 650 ml 300 ml Balance -650 ml -300 ml Output Urine Total 650 ml 300 ml Result Diagram: 10/14/17 0809 10/14/17 0809 Imaging Last Impressions Chest X-Ray 10/12/17 0000 Signed Impressions: Service Date/Time: Thursday, October 12, 2017 01:10 - CONCLUSION: Large right pulmonary mass/consolidation stable from recent chest x-ray. The left lung is clear. New Cooper MD Bone Scan Nuclear Medicine 10/09/17 0822 Signed Impressions: Service Date/Time: Monday, October 09, 2017 12:35 - CONCLUSION: Focal abnormal intense radiotracer uptake overlying the region of the right scapula concerning for a site of metastatic disease. Comparison CT demonstrated no osseous destructive process. This may represent a metastases to the marrow. Phuong Berger MD Abdomen/Pelvis CT 10/08/17 0048 Signed Impressions: Service Date/Time: Sunday, October 08, 2017 04:11 - CONCLUSION: 1. Confluent, low density airspace consolidation in the right lower lobe. 2. Stool throughout the transverse and descending colon possibly representing some degree of constipation. 3. Old healed fracture deformities of the posterior left lower ribs. Hero Shelton MD Head CT 10/08/17 0047 Signed Impressions: Service Date/Time: Sunday, October 08, 2017 04:11 - CONCLUSION: 1. 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 2. Nothing acute. Hero Shelton MD Objective Remarks GENERAL: NAD SKIN: Warm and dry. HEAD: Normocephalic. EYES: No scleral icterus. No injection or drainage. NECK: Supple, trachea midline. No JVD or lymphadenopathy. CARDIOVASCULAR: Regular rate and rhythm without murmurs, gallops, or rubs. RESPIRATORY: Breath sounds equal bilaterally. No accessory muscle use. GASTROINTESTINAL: Abdomen soft, non-tender, nondistended. MUSCULOSKELETAL: No cyanosis, or edema. BACK: Nontender without obvious deformity. No CVA tenderness. Procedures Bronchoscopy 10/08/17 A/P Problem List: (1) Bronchogenic carcinoma ICD Code: C34.90 - Malignant neoplasm of unspecified part of unspecified bronchus or lung (2) Postobstructive pneumonia ICD Code: J18.9 - Pneumonia, unspecified organism (3) COPD with exacerbation ICD Code: J44.1 - Chronic obstructive pulmonary disease with (acute) exacerbation (4) Diabetes mellitus, type 2 ICD Code: E11.9 - Type 2 diabetes mellitus without complications (5) Emphysema of lung ICD Code: J43.9 - Emphysema, unspecified Assessment and Plan 67-year-old man with Bronchogenic carcinoma Appreciate input from Pulmonary medicine and s/p bronchoscopy 10/08/17 with pathology report positive for adenocarcinoma Appreciate input from medical oncology Bone scan whole body 10/09/17 with abnormal focal uptake in right scapula pointing toward metastasis disease Tumor markers elevated including CA 19-9, CEA and PSA Bronchial washings positive for yeast Plan for port infusion placement today 10/14/17 Post obstructive pneumonia-improving Continue Levaquin IV end date 10/14/17 COPD exacerbation-resolved s/p Solu-Medrol 20 mg daily Q8 hour, continue prednisone 10 mg twice a day, Spiriva,Symbicort, Mucinex, duo Neb scheduled and when necessary and Levaquin Tobacco cessation strongly advised Leukocytosis Likely secondary to steroid treatment versus infectious process Diabetes type 2 Hold oral hypoglycemic agent Continue medium insulin sliding scale Hemoglobin A1c 6.1 DVT prophylaxis: Heparin Jaron Middleton MD Oct 14, 2017 10:17
--- NOTE | 2017-10-14 10:20 | HHI.DS ---
Discharge Summary Admission Date Oct 07, 2017 at 09:47 Discharge Date: Oct 14, 2017 Admitting Diagnosis (1) Bronchogenic carcinoma ICD Code: C34.90 - Malignant neoplasm of unspecified part of unspecified bronchus or lung (2) Postobstructive pneumonia ICD Code: J18.9 - Pneumonia, unspecified organism (3) COPD with exacerbation ICD Code: J44.1 - Chronic obstructive pulmonary disease with (acute) exacerbation (4) Diabetes mellitus, type 2 ICD Code: E11.9 - Type 2 diabetes mellitus without complications (5) Emphysema of lung ICD Code: J43.9 - Emphysema, unspecified Procedures Bronchoscopy 10/08/17 Brief History - From Admission 67-year-old man with a history of emphysema, diabetes type 2 presented to the ED for evaluation of nonproductive cough 1 month long with shortness of breath associated with costochondritis. Patient states however that since May of last year he has been coughing but it got worse over the past 4 weeks. He denies any febrile episode, hemoptysis. He reports a 20 pound weight loss 4 weeks. She has been smoking since the age of 13, however has quit about a week ago. Initial chest x-ray in ED with finding of large right infrahilar mass and a follow-up CTA with right perihilar mass as well as evidence of metastases CBC/BMP: 10/14/17 0809 10/14/17 0809 Significant Findings Laboratory Tests Test 10/12/17 01:35 10/12/17 01:50 10/14/17 08:09 White Blood Count 13.2 TH/MM3 (4.0-11.0) 13.4 TH/MM3 (4.0-11.0) Red Blood Count 4.28 MIL/MM3 (4.50-5.90) 4.48 MIL/MM3 (4.50-5.90) Hemoglobin 11.6 GM/DL (13.0-17.0) 12.1 GM/DL (13.0-17.0) Hematocrit 34.6 % (39.0-51.0) 36.5 % (39.0-51.0) Neutrophils (%) (Auto) 82.8 % (16.0-70.0) 83.8 % (16.0-70.0) Lymphocytes (%) (Auto) 8.0 % (9.0-44.0) 8.4 % (9.0-44.0) Monocytes (%) (Auto) 8.9 % (0.0-8.0) Neutrophils # (Auto) 11.0 TH/MM3 (1.8-7.7) 11.3 TH/MM3 (1.8-7.7) Monocytes # (Auto) 1.2 TH/MM3 (0-0.9) 1.0 TH/MM3 (0-0.9) Urine Mucus FEW /lpf (OCC) Blood Urea Nitrogen 23 MG/DL (7-18) Random Glucose 117 MG/DL (74-106) Sodium Level 135 MEQ/L (136-145) Imaging Last Impressions Chest X-Ray 10/12/17 0000 Signed Impressions: Service Date/Time: Thursday, October 12, 2017 01:10 - CONCLUSION: Large right pulmonary mass/consolidation stable from recent chest x-ray. The left lung is clear. New Cooper MD Bone Scan Nuclear Medicine 10/09/17 0822 Signed Impressions: Service Date/Time: Monday, October 09, 2017 12:35 - CONCLUSION: Focal abnormal intense radiotracer uptake overlying the region of the right scapula concerning for a site of metastatic disease. Comparison CT demonstrated no osseous destructive process. This may represent a metastases to the marrow. Phuong Berger MD Abdomen/Pelvis CT 10/08/17 0048 Signed Impressions: Service Date/Time: Sunday, October 08, 2017 04:11 - CONCLUSION: 1. Confluent, low density airspace consolidation in the right lower lobe. 2. Stool throughout the transverse and descending colon possibly representing some degree of constipation. 3. Old healed fracture deformities of the posterior left lower ribs. Hero Shelton MD Head CT 10/08/17 0047 Signed Impressions: Service Date/Time: Sunday, October 08, 2017 04:11 - CONCLUSION: 1. 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 2. Nothing acute. Hero Shelton MD PE at Discharge GENERAL: NAD SKIN: Warm and dry. HEAD: Normocephalic. EYES: No scleral icterus. No injection or drainage. NECK: Supple, trachea midline. No JVD or lymphadenopathy. CARDIOVASCULAR: Regular rate and rhythm without murmurs, gallops, or rubs. RESPIRATORY: Breath sounds equal bilaterally. No accessory muscle use. GASTROINTESTINAL: Abdomen soft, non-tender, nondistended. MUSCULOSKELETAL: No cyanosis, or edema. BACK: Nontender without obvious deformity. No CVA tenderness. Hospital Course While in the hospital, patient was treated for Bronchogenic carcinoma Appreciate input from Pulmonary medicine and s/p bronchoscopy 10/08/17 with pathology and the report came back positive for adenocarcinoma Appreciate input from medical oncology Bone scan whole body 10/09/17 with abnormal focal uptake in right scapula pointing toward metastasis disease Tumor markers elevated including CA 19-9, CEA and PSA Bronchial washings culture negative Port infusion was placed on 10/14/17 Post obstructive pneumonia-improving Treated with Levaquin IV end date 10/14/17 COPD exacerbation-resolved Initially on Solu-Medrol IV then switched to prednisone . He responded well to Spiriva,Symbicort, Mucinex, duo Neb scheduled and when necessary and Levaquin Tobacco cessation strongly advised Diabetes type 2 Hold oral hypoglycemic agent Treated with medium insulin sliding scale Hemoglobin A1c 6.1 DVT prophylaxis: Heparin Pt Condition on Discharge: Fair Discharge Disposition: Discharge Home Discharge Time: > 30 minutes Discharge Instructions DIET: Follow Instructions for: Diabetic Diet Activities you can perform: Regular-No Restrictions Follow up Referrals: Oncology/Hematology - 1 Week with Ruiz Arellano MD PCP Follow-up - 1 Week New Medications: Albuterol 18 GM Inh (Ventolin Hfa 18 GM Inh) 90 Mcg/Act Aer 2 PUFF INH Q4-6H PRN for SHORTNESS OF BREATH, #1 INHALER 3 Refills Ipratropium HFA 12.9 GM Inh (Atrovent HFA 12.9 GM Inh) 17 Mcg/Actuation Aer 2 PUFF INH Q6HR PRN for SHORTNESS OF BREATH, #1 INHALER 3 Refills Prednisone (Prednisone) 10 Mg Tab 10 MG PO DAILY for Breathing Treatment, #7 TAB 0 Refills Tiotropium Inh (Spiriva Handihaler) 18 Mcg Cap 18 MCG INH DAILY for COPD, #30 CAP 3 Refills 1 capsule = 18 mcg [Budeson-Formot 160-4.5 Mcg Inh] () 60 PUFF AERO 2 PUFF INH Q12HR, #20 3 Refills [guaiFENesin ER] () 600 MG TABCR 600 MG PO BID for Infection, #20 Continued Medications: Metformin (Metformin) 500 Mg Tab 500 MG PO DAILY for Blood Sugar Management, #30 TAB 0 Refills With a meal Jaron Middleton MD Oct 14, 2017 10:20
[2017-10-14] MEDS ORDERED: PRED10 PO (10:25)
[2017-10-14] MEDS ORDERED: Budeson-Formot 160-4.5 Mcg Inh INH (10:25)
[2017-10-14] MEDS ORDERED: VENTAER INH (10:25)
[2017-10-14] MEDS ORDERED: SPIRCAP INH (10:25)
[2017-10-14] MEDS ORDERED: IPRA17I INH (10:25)
[2017-10-14] MEDS ORDERED: guaiFENesin ER PO (10:25)
[2017-10-14] MEDS ORDERED: MIDAZOLAM HCL 2 MG/2 ML VIAL ONE ×2 (11:50)
[2017-10-14] MEDS ORDERED: fentaNYL CITRATE 250 MCG/5 ML AMP ONE (11:51)
[2017-10-14] MEDS ORDERED: LIDOCAINE 1%/EPINEPHrine 1:100,000 SOLN 30 ML VIAL ONE (12:08)
--- NOTE | 2017-10-14 12:51 | PD.RAD ---
Post Procedure Progress Note Pre Procedure Diagnosis: (1) Bronchogenic carcinoma Post Procedure Diagnosis: (1) Bronchogenic carcinoma Procedure Date: Oct 14, 2017 Supervising Radiologist: Tawanda Faulkner Estimated blood loss: 2cc Plan of Activity Patient to Unit: [facility] Patient Condition: Fair Additional Comments: Right subclavian port placed without difficulty. New port in good position OK for use. Full dictated report to follow See PACS Report for procedural detail/treatment Tawanda Faulkner MD Oct 14, 2017 12:51
[2017-10-14] MEDS ORDERED: SODIUM CHLORIDE 0.9% FLUSH 10 ML FLUSH IVF PRN (13:00)
--- NOTE | 2017-10-14 15:29 | PD.ONC.PN ---
Subjective Subjective Remarks Denies CP. SOB/cough continue to improve. eager to go home. Objective Data Date Time Temp Pulse Resp B/P (MAP) Pulse Ox O2 Delivery O2 Flow Rate FiO2 10/14/17 13:45 105 16 145/89 (107) 92 10/14/17 13:15 103 16 135/78 (97) 94 10/14/17 13:00 97.9 107 16 127/73 (91) 91 10/14/17 11:12 98.6 104 16 105/67 (80) 94 10/14/17 07:58 93 10/14/17 07:25 97.7 104 18 116/84 (95) 94 10/14/17 04:08 98.0 91 16 111/71 (84) 95 10/14/17 00:00 98.2 91 16 122/75 (91) 94 10/13/17 20:06 98.2 104 20 124/74 (91) 96 10/13/17 19:27 94 21 10/13/17 17:06 98.6 91 20 123/74 (90) 95 Result Diagram: 10/14/17 0809 10/14/17 0809 Laboratory Results Laboratory Tests Test 10/14/17 08:09 White Blood Count 13.4 TH/MM3 Red Blood Count 4.48 MIL/MM3 Hemoglobin 12.1 GM/DL Hematocrit 36.5 % Mean Corpuscular Volume 81.3 FL Mean Corpuscular Hemoglobin 27.0 PG Mean Corpuscular Hemoglobin Concent 33.2 % Red Cell Distribution Width 15.7 % Platelet Count 305 TH/MM3 Mean Platelet Volume 9.1 FL Neutrophils (%) (Auto) 83.8 % Lymphocytes (%) (Auto) 8.4 % Monocytes (%) (Auto) 7.4 % Eosinophils (%) (Auto) 0.1 % Basophils (%) (Auto) 0.3 % Neutrophils # (Auto) 11.3 TH/MM3 Lymphocytes # (Auto) 1.1 TH/MM3 Monocytes # (Auto) 1.0 TH/MM3 Eosinophils # (Auto) 0.0 TH/MM3 Basophils # (Auto) 0.0 TH/MM3 CBC Comment DIFF FINAL Differential Comment Blood Urea Nitrogen 23 MG/DL Creatinine 0.74 MG/DL Random Glucose 117 MG/DL Calcium Level 8.9 MG/DL Sodium Level 135 MEQ/L Potassium Level 4.1 MEQ/L Chloride Level 100 MEQ/L Carbon Dioxide Level 24.2 MEQ/L Anion Gap 11 MEQ/L Estimat Glomerular Filtration Rate 106 ML/MIN Culture Results Microbiology Date/Time Source Procedure Growth Status 10/12/17 01:45 Blood Peripheral Aerobic Blood Culture - Preliminary NO GROWTH IN 2 DAYS Resulted 10/12/17 01:45 Blood Peripheral Anaerobic Blood Culture - Preliminary NO GROWTH IN 2 DAYS Resulted 10/12/17 01:35 Blood Peripheral Aerobic Blood Culture - Preliminary NO GROWTH IN 2 DAYS Resulted 10/12/17 01:35 Blood Peripheral Anaerobic Blood Culture - Preliminary NO GROWTH IN 2 DAYS Resulted Administered Medications Medications (Trade) Dose Ordered Sig/Jeremiah Route PRN Reason Start Time Stop Time Status Last Admin Dose Admin Sodium Chloride (NS Flush) 2 ml BID IV FLUSH 10/07/17 09:00 10/14/17 09:19 Pantoprazole Sodium (Protonix) 40 mg DAILY PO 10/07/17 09:00 10/14/17 09:18 Insulin Aspart (NovoLOG SUPPLEMENTAL SCALE) 1 ACHS SLIDING SCALE SQ 10/07/17 08:00 10/13/17 20:13 Levofloxacin (Levaquin) 750 mg DAILY@1100 PO 10/07/17 11:00 10/13/17 09:33 Budesonide/ Formoterol Fumarate (Symbicort 160-4.5 Mcg Inh) 2 puff Q12HR INH 10/07/17 09:00 10/14/17 09:19 Guaifenesin (Mucinex Er) 600 mg BID PO 10/07/17 09:00 10/14/17 09:17 Phenol (Chloraseptic [place]) 2 spray Q2H PRN PO SORE THROAT 10/10/17 02:00 10/13/17 00:38 Senna/Docusate Sodium (Hanh-Colace) 2 tab DAILY PRN PO CONSTIPATION 10/10/17 13:00 10/13/17 23:34 Acetaminophen (Tylenol) 650 mg Q4H PRN PO fever >101 10/12/17 02:45 10/13/17 00:38 Albuterol/ Ipratropium (Duoneb Neb) 1 ampule QID NEB NEB 10/12/17 12:00 10/14/17 11:22 Prednisone (Deltasone) 30 mg BID PO 10/12/17 21:00 10/14/17 09:17 Objective Remarks GENERAL: Well-nourished, well-developed patient. SKIN: Warm and dry. HEAD: Normocephalic. EYES: No scleral icterus. No injection or drainage. NECK: Supple, trachea midline. No JVD or lymphadenopathy. LYMPHATIC: No adenopathy. CARDIOVASCULAR: Regular rate and rhythm without murmurs. RESPIRATORY: Breath sounds equal bilaterally. No accessory muscle use. GASTROINTESTINAL: Abdomen soft, non-tender, nondistended. EXTREMITIES: No cyanosis, or edema. MUSCULOSKELETAL: Adequate muscle tone. NEUROLOGICAL: No obvious focal deficit. Awake, alert, and oriented x3. PSYCHIATRIC: Appropriate mood and affect; insight and judgment normal. Assessment/Plan Problem List: (1) Bronchogenic cancer ICD Codes: C34.90 - Malignant neoplasm of unspecified part of unspecified bronchus or lung Plan: --will place port and arrange for follow up in clinic. Assessment 67y/o male with newly diagnosed lung cancer. h/o Chronic obstructive pulmonary disease. Diabetes mellitus.Hyperlipidemia. Plan 1. clear for discharge after port placement. 2. follow up in clinic once discharged to start chemotherapy 3. Mutation studies pending. Ruiz Arellano MD Oct 14, 2017 15:29
--- NOTE | 2017-10-14 16:13 | RADRPT ---
EXAM DATE/TIME: 10/14/2017 12:10 [facility] COMPARISON: No previous studies available for comparison. INDICATIONS : Patient with right lung mass in need of [id number] placement. MEDICAL HISTORY : Diabetes, HLD, Emphysema, Right perihilar mass with metastates mediastinal lymph node and T1 vertebra l body, HTN SURGICAL HISTORY : Bronchoscopy ENCOUNTER: Initial ACUITY: 1 week PAIN SCORE: 0/10 FLUORO TIME: 1.2 minutes IMAGE SERIES: 1 SEDATION TIME: 30 minutes ACCESS: Right subclavian vein SEDATION: 1.) 3.5 mg midazolam (Versed) IV 2.) 200 mcg fentanyl (Sublimaze) IV Prophylactic antibiotics were administered with appropriate pre-procedure timing. Vancomycin within 2 hours of procedure, Ancef (or alternative) within 1 hour of procedure. DEVICE: 1. 8 [place]e single lumen Xcela plus port PROCEDURE : 1. Continuous pulse oximetry and EKG monitoring. 2. Intravenous conscious sedation. 3. Ultrasound guidance for venous access. 4. Fluoroscopic guided implantable central venous port placement. The patient was placed supine. The neck was prepped in sterile fashion. Full sterile technique was u sed, including cap, mask, sterile gloves and gown, and a large sterile sheet. Hand hygiene and 2% ch lorhexidine Betadine was utilized per protocol for cutaneous antisepsis with appropriate dry time for site. Sterile gel and sterile probe cover were utilized for ultrasound guidance. The skin and sub cutaneous tissues were infiltrated with local anesthetic solution. Under direct ultrasound guidance, central venous access was accomplished in the right subclavian vein . The ultrasound images depicting access guidance were stored and saved to PACS for permanent record . A subcutaneous pocket was created using blunt dissection. The port was introduced to the pocket. The catheter tubing was fed through a subcutaneous tunnel to the venotomy site. The catheter tubing was cut to a suitable length and then was introduced through a valved Peel-Away sheath and positione d with catheter tubing tip at the cavo-atrial junction level. The pocket incision was closed with quiles bcuticular Vicryl suture. Steri-Strips were applied. The port was flushed and locked with heparin s olution per protocol. Sterile dressing was applied to the site. The patient tolerated the procedure well. Conscious sedation was performed with the prescribed dosages and duration as above in the presence of an independent trained radiology nurse to assist in the monitoring of the patient. EKG and oximetry remained stable throughout the procedure. The patient tolerated the procedure well and there were no complications. The patient was sent to post anesthesia recovery in stable condition. CONCLUSION: Uncomplicated ultrasound and fluoroscopic guided implanted central venous port catheter placement as described in detail above. An 8 Nepalese Power port was placed. Tawanda Faulkner MD on October 14, 2017 at 16:10 Board Certified Radiologist. This report was verified electronically.
[2017-10-14] MEDS: LEVOFLOXACIN 750 MG TAB PO SCH (17:35)
== END 2017-10-14 19:08 | disposition home or self-care (01) | DRG 180 ==
LOC: PHEDDLT 02:50 → PH3B 03:00 → OBSVTOIN 09:47 → HRIP 10-08 11:19 → N07B 10-08 12:16 → HRIP 10-08 12:33 → HCIN 10-08 16:50
PROVIDERS: ADMIT Hospitalist; ATTEND Hospitalist
PROC: 0BC58ZZ Extirpation of Matter from Right Middle Lobe Bronchus, Via Natural or Artificial Opening Endoscopic (ICD-10-PCS; 2017-10-08)
PROC: 0BC48ZZ Extirpation of Matter from Right Upper Lobe Bronchus, Via Natural or Artificial Opening Endoscopic (ICD-10-PCS; 2017-10-08)
PROC: 0BC38ZZ Extirpation of Matter from Right Main Bronchus, Via Natural or Artificial Opening Endoscopic (ICD-10-PCS; 2017-10-08)
PROC: 0BD58ZX Extraction of Right Middle Lobe Bronchus, Via Natural or Artificial Opening Endoscopic, Diagnostic (ICD-10-PCS; 2017-10-08)
PROC: 0BDC8ZX Extraction of Right Upper Lung Lobe, Via Natural or Artificial Opening Endoscopic, Diagnostic (ICD-10-PCS; 2017-10-08)
PROC: 02HV33Z Insertion of Infusion Device into Superior Vena Cava, Percutaneous Approach (ICD-10-PCS; principal; 2017-10-14)
PROC: B548ZZA Ultrasonography of Superior Vena Cava, Guidance (ICD-10-PCS; 2017-10-14)
PROC: 0JHD3WZ Insertion of Totally Implantable Vascular Access Device into Right Upper Arm Subcutaneous Tissue and Fascia, Percutaneous Approach (ICD-10-PCS; 2017-10-14)
DX: C34.91 Malignant neoplasm of unspecified part of right bronchus or lung (principal); J18.9 Pneumonia, unspecified organism; J44.0 Chronic obstructive pulmonary disease with (acute) lower respiratory infection; M48.04 Spinal stenosis, thoracic region; J44.1 Chronic obstructive pulmonary disease with (acute) exacerbation; M48.8X4 Other specified spondylopathies, thoracic region; E11.9 Type 2 diabetes mellitus without complications; E78.5 Hyperlipidemia, unspecified; M94.0 Chondrocostal junction syndrome [Tietze]; R63.4 Abnormal weight loss; R59.0 Localized enlarged lymph nodes; E78.00 Pure hypercholesterolemia, unspecified; Z87.891 Personal history of nicotine dependence; Z86.73 Personal history of transient ischemic attack (TIA), and cerebral infarction without residual deficits; Z79.84 Long term (current) use of oral hypoglycemic drugs
CPT/HCPCS: 31625; 36561; 36600; 70470; 71046; 71275; 74177; 76937; 77001; 78306; 80048; 80053; 81001; 82105; 82378; 82805; 82948; 83036; 83615; 83880; 84153; 84484; 85025; 85049; 85610; 85730; 86301; 87015; 87040; 87070; 87102; 87116; 87205; 87206; 88112; 88172; 88173; 88305; 88333; 88341; 88342; 88360; 88377; 93005; 94640; 94664; 96374; 99152; 99153; A9503; C1788; J1642; J1815; J2250; J2270; J2920; J2930; J3010; J7512; J7613; Q9963; Q9967

== ENCOUNTER 2017-10-17 15:05 | Inpatient (IN) | payer MEDICARE, OTHER ==
[~2017-10-17] VITALS: Ht 167.6 cm; Wt 60.5 kg
[~2017-10-17 15:05] MED LIST changes: +Budeson-Formot 160-4.5 Mcg Inh INH; +IPRA17I INH; -NALOXONE HCL 0.4 MG/ML AMP IV PUSH PRN; +PRED10 PO; -RESP: ALBUTEROL 2.5 MG/IPRATROPIUM 0.5 MG NEB (PRN) NEB; -SODIUM CHLORIDE 0.9% FLUSH 10 ML FLUSH IV FLUSH PRN; +SPIRCAP INH; +VENTAER INH; +guaiFENesin ER PO
[2017-10-17] MEDS ORDERED: ONDANSETRON HCL 4 MG/2 ML VIAL IVP PRN (16:30)
[2017-10-17] MEDS ORDERED: MORPHINE SULFATE 2 MG/ML SYRINGE IV PUSH PRN ×2 (16:30)
[2017-10-17] MEDS ORDERED: NITROGLYCERIN 0.4 MG SL 25 TABS/BTL SL PRN (16:30)
[2017-10-17] MEDS ORDERED: NALOXONE HCL 0.4 MG/ML AMP IV PUSH PRN (16:30)
[2017-10-17] MEDS: SODIUM CHLORIDE 0.9% FLUSH 10 ML FLUSH IV FLUSH SCH (23:29)
[2017-10-17] MEDS: ENOXAPARIN SODIUM 40 MG/0.4 ML SYRINGE SQ SCH (23:29)
[2017-10-18] VITALS (10 sets, daily range): BP systolic 97–112; BP diastolic 54–67; PULSE 55–130; RESP 16–24; TEMP 97.5–98.3; O2SAT 92–98
[2017-10-18 05:33] LABS: ALBUMIN 1.7 GM/DL (3.4-5.0); AST (GOT) 19 U/L (15-37); BICARBONATE 24.2 MEQ/L (21.0-32.0); BLOOD UREA NITROGEN 17 MG/DL (7-18); CALCIUM 8.4 MG/DL (8.5-10.1); CHLORIDE 97 MEQ/L (98-107); CREATININE 0.71 MG/DL (0.60-1.30); GLOMERULAR FILTRATION RATE 111 ML/MIN (>89); GLUCOSE,RANDOM 200 MG/DL (74-106); SODIUM (NA) 133 MEQ/L (136-145)
[2017-10-18 05:39] LABS: ALKALINE PHOSPHATASE 76 U/L (45-117); ALT (GPT) 16 U/L (12-78); TOTAL BILIRUBIN ADULT 0.4 MG/DL (0.2-1.0); TOTAL PROTEIN 6.4 GM/DL (6.4-8.2); TROPONIN I LESS THAN 0.02 NG/ML (0.02-0.05)
[2017-10-18 06:20] LABS: BASOPHIL % 0.1 % (0.0-2.0); HEMATOCRIT 35.4 % (39.0-51.0); HEMOGLOBIN 11.8 GM/DL (13.0-17.0); LYMPH % 5.2 % (9.0-44.0); LYMPHOCYTE # 0.8 TH/MM3 (1.0-4.8); MEAN CELL VOLUME 81.2 FL (80.0-100.0); MEAN CORPUSCULAR HEMOGLOBIN 27.1 PG (27.0-34.0); MEAN CORPUSCULAR HGB CONC 33.4 % (32.0-36.0); MEAN PLATELET VOLUME 9.2 FL (7.0-11.0); MONO % 5.4 % (0.0-8.0); MONOCYTE # 0.8 TH/MM3 (0-0.9); NEUT % 89.3 % (16.0-70.0); PLATELET COUNT 243 TH/MM3 (150-450); RED BLOOD COUNT 4.36 MIL/MM3 (4.50-5.90); RED CELL DISTRIBUTION WIDTH 15.8 % (11.6-17.2); WHITE BLOOD COUNT 15.7 TH/MM3 (4.0-11.0)
[2017-10-18] MEDS ORDERED: IPRATROPIUM BROMIDE 17 MCG/ACT 12.9 GM INHALER INH PRN (10:15)
--- NOTE | 2017-10-18 10:24 | HHI.HP ---
[facility] Service [facility] Primary Care Physician [facility] Admission Diagnosis Diagnoses: Chief Complaint: SOB, cough, back pain Travel History International Travel<30 Days: No Contact w/Intl Traveler <30 Da: No History of Present Illness Written by Vera Johnson, acting as scribe for Dr. Judge on 10/18/17 at 10: 20. 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 The patient was recently admitted 10/07-10/14, diagnosed with metastatic bronchogenic adenocarcinoma, port placed 10/14, seen by Dr. Arellano and Dr. Palmer, discharged home with outpatient f/up planned for chemotherapy to start 10/21. The patient reports ever since he was discharged, he has had worsening symptoms. He reports increasing diffuse mid back pain, worse with deep inspiration and cough. He's also had worsening shortness of breath since discharge. He does not recall having any chest pain. He reports subjective fevers/chills with sweats. He has a dry hacking cough, no sputum production. Denies any abdominal pain, nausea, vomiting. His last BM was 3 days ago, but he does not feel constipated. Denies diarrhea. He does endorse lightheadedness that has been intermittent over the past month. He has felt like he's going to pass out a few times. He endorses 20+ lbs weight loss. He has no other medical complaints at this time. Review of Systems Except as stated in HPI: all other systems reviewed are Neg Past Family Social History Past Medical History COPD recently diagnosed stage IV adenocarcinoma of lung with metastases Hx of CVA Nephrolithiasis GERD Past Surgical History Bronchoscopy 10/08/17 Port placement 10/14/17 Reported Medications Spiriva Handihaler (Tiotropium Inh) 18 Mcg Cap 18 Mcg INH DAILY 1 capsule = 18 mcg Ventolin Hfa 18 GM Inh (Albuterol Sulfate) 90 Mcg/Act Aer 2 Puff INH Q4-6H PRN Atrovent HFA 12.9 GM Inh (Ipratropium [place]) 17 Mcg/Actuation Aer 2 Puff INH Q6HR PRN Prednisone 10 Mg Tab 10 Mg PO DAILY [Budeson-Formot 160-4.5 Mcg Inh] 60 PUFF Aero 2 Puff INH Q12HR Metformin (Metformin HCl) 500 Mg Tab 500 Mg PO DAILY With a meal Allergies: Coded Allergies: Penicillins (Verified Allergy, Unknown, 10/17/17) Active Ordered Medications Current Medications Medications (Trade) Dose Ordered Sig/Jeremiah Route Start Time Stop Time Status Last Admin (NS Flush) 2 ml UNSCH PRN IV FLUSH 10/17/17 16:30 (NS Flush) 2 ml BID IV FLUSH 10/17/17 21:00 10/18/17 12:23 (Zofran Inj) 4 mg Q6H PRN IVP 10/17/17 16:30 (Lovenox Inj) 40 mg Q24H SQ 10/17/17 17:00 10/17/17 23:29 (Morphine Inj) 2 mg Q3H PRN IV PUSH 10/17/17 16:30 (Morphine Inj) 4 mg Q3H PRN IV PUSH 10/17/17 16:30 (Narcan Inj) 0.4 mg UNSCH PRN IV PUSH 10/17/17 16:30 (Milk Of Magnesia Liq) 30 ml Q12H PRN PO 10/17/17 16:30 (Aspirin) 325 mg DAILY PO 10/19/17 09:00 (Nitrostat Sl) 0.4 mg Q5M PRN SL 10/17/17 16:30 (Symbicort 160-4.5 Mcg Inh) 2 puff Q12HR INH 10/18/17 13:00 10/18/17 12:23 (Atrovent Neb) 0.5 mg Q6HR NEB PRN NEB 10/18/17 13:00 (Deltasone) 20 mg BID PO 10/18/17 21:00 (Atrovent Neb) 0.5 mg TID NEB NEB 10/18/17 14:00 Family History Mother with alcoholism, Father with heart disease, when the patient was 9 years old Social History Quit smoking 1 week ago, previously smoked 2PPD since age 18 Quit drinking alcohol 25 years ago Denies any illicit drug use Patient is in recovery, 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 SKIN: Warm and dry. No rash. HEAD: Normocephalic. Atraumatic. EYES: Pupils equal and round. No scleral icterus. No injection or drainage. ENT: No nasal bleeding or discharge. Mucous membranes pink and moist. NECK: Supple. Trachea midline. CARDIOVASCULAR: Regular rate and rhythm. S1, S2 noted. No murmur appreciated. RESPIRATORY: No accessory muscle use. Diminished breath sounds with crackles at bilateral bases. Breath sounds equal bilaterally. GASTROINTESTINAL: Abdomen soft, non-tender, nondistended. Normoactive bowel sounds x4. MUSCULOSKELETAL: No obvious deformities. Extremities without clubbing, cyanosis , or edema. NEUROLOGICAL: Awake and alert. No obvious cranial nerve deficits. Motor grossly within normal limits. Normal speech. PSYCHIATRIC: Appropriate mood and affect; insight and judgment normal. Laboratory Laboratory Tests Test 10/17/17 23:05 10/18/17 04:16 Troponin I LESS THAN 0.02 LESS THAN 0.02 White Blood Count 15.7 Red Blood Count 4.36 Hemoglobin 11.8 Hematocrit 35.4 Mean Corpuscular Volume 81.2 Mean Corpuscular Hemoglobin 27.1 Mean Corpuscular Hemoglobin Concent 33.4 Red Cell Distribution Width 15.8 Platelet Count 243 Mean Platelet Volume 9.2 Neutrophils (%) (Auto) 89.3 Lymphocytes (%) (Auto) 5.2 Monocytes (%) (Auto) 5.4 Eosinophils (%) (Auto) 0.0 Basophils (%) (Auto) 0.1 Neutrophils # (Auto) 14.0 Lymphocytes # (Auto) 0.8 Monocytes # (Auto) 0.8 Eosinophils # (Auto) 0.0 Basophils # (Auto) 0.0 CBC Comment DIFF FINAL Differential Comment Blood Urea Nitrogen 17 Creatinine 0.71 Random Glucose 200 Total Protein 6.4 Albumin 1.7 Calcium Level 8.4 Alkaline Phosphatase 76 Aspartate Amino Transf (AST/SGOT) 19 Alanine Aminotransferase (ALT/SGPT) 16 Total Bilirubin 0.4 Sodium Level 133 Potassium Level 4.5 Chloride Level 97 Carbon Dioxide Level 24.2 Anion Gap 12 Estimat Glomerular Filtration Rate 111 Result Diagram: 10/18/176 10/18/17415 Caprini VTE Risk Assessment Caprini VTE Risk Assessment: Mod/High Risk (score >= 2) Caprini Risk Assessment Model Point Value = 1 Point Value = 2 Point Value = 3 Point Value = 5 Age 41-60 Minor surgery BMI > 25 kg/m2 Swollen legs Varicose veins or History of unexplained or recurrent spontaneous Oral contraceptives or hormone replacement Sepsis (< 1 month) Serious lung disease, including pneumonia (< 1 month) Abnormal pulmonary function Acute myocardial infarction Congestive heart failure (< 1 month) History of inflammatory bowel disease Medical patient at bed rest Age 61-74 Arthroscopic surgery Major open surgery (> 45 min) Laparoscopic surgery (> 45 min) Malignancy Confined to bed (> 72 hours) Immobilizing plaster cast Central venous access Age >= 75 History of VTE Family history of VTE Factor V Leiden Prothrombin [id number] Lupus anticoagulant Anticardiolipin antibodies Elevated serum homocysteine Heparin-induced thrombocytopenia Other congenital or acquired thrombophilia Stroke (< 1 month) Elective arthroplasty Hip, pelvis, or leg fracture Acute spinal cord injury (< 1 month) Prophylaxis Regimen Total Risk Factor Score Risk Level Prophylaxis Regimen 0-1 Low Early ambulation 2 Moderate Order ONE of the following: *Sequential Compression Device (SCD) *Heparin 5000 units SQ BID 3-4 Higher Order ONE of the following medications: *Heparin 5000 units SQ TID *Enoxaparin/Lovenox 40 mg SQ daily (WT < 150 kg, CrCl > 30 mL/min) *Enoxaparin/Lovenox 30 mg SQ daily (WT < 150 kg, CrCl > 10-29 mL/min) *Enoxaparin/Lovenox 30 mg SQ BID (WT < 150 kg, CrCl > 30 mL/min) AND/OR *Sequential Compression Device (SCD) 5 or more Highest Order ONE of the following medications: *Heparin 5000 units SQ TID (Preferred with Epidurals) *Enoxaparin/Lovenox 40 mg SQ daily (WT < 150 kg, CrCl > 30 mL/min) *Enoxaparin/Lovenox 30 mg SQ daily (WT < 150 kg, CrCl > 10-29 mL/min) *Enoxaparin/Lovenox 30 mg SQ BID (WT < 150 kg, CrCl > 30 mL/min) AND *Sequential Compression Device (SCD) Assessment and Plan Problem List: (1) Stage IV adenocarcinoma of the lung Assessment and Plan 67-year-old male with history of tobacco use, COPD, recently diagnosed stage IV adenocarcinoma of lung with metastases, presents with worsening back pain and shortness of breath. Stage IV Bronchogenic Adenocarcinoma: recently diagnosed this month September 2017. Returned to ED with worsening shortness of breath, cough, back pains. Symptoms likely all related to advanced cancer. -Repeat CT-PA today 10/18 negative for PE, showed again large infiltrative right lung mass; mediastinal and left axillary lymphadenopathy, lytic destructive lesion of left T1 vertebral body, and noncalcified nodules within LLL; no significant change compared to previous CT -Continue duonebs -Incentive spirometer -Continue pain control with [place] prn and IV morphine prn breakthrough pain -Consult palliative care, pulmonology, and oncology, appreciate assistance COPD with mild exacerbation: imaging as above. -continue duonebs -continue steroids with prednisone 20mg bid for now -monitor for improvement Tobacco use: patient quit 1 week ago. Smokes tobacco 2PPD since age 18 -counseled on continued cessation Borderline Diabetes: patient on metformin. Last HgbA1c 6.1 on 10/08/17. Expect higher blood glucose while on steroids. -monitor accu-cheks and cover with SSI Weight Loss, Protein Calorie Malnutrition: suspect secondary to cancer -consult manager dental -add Ensure to meals DVT Prophylaxis: Lovenox sq Code Status DNR He states he has an advanced directive at the [place]. Discussed Condition With Patient, patient's friend at bedside, RN Attending Statement This note was transcribed by evgeny Johnson. I, Dr. Jeet Judge personally performed the history, physical exam, and medical decision making; and confirmed the accuracy of the information in the transcribed note. Authenticated by Dr. Jeet Judge on 10/18/17 at 19:21. Vera Johnson PA-C Oct 18, 2017 10:24 Jeet Judge MD Oct 18, 2017 19:22
[2017-10-18] MEDS ORDERED: predniSONE 10 MG TAB PO SCH (12:00)
[2017-10-18] MEDS ORDERED: IOHEXOL 350 MG/ML 10 ML VIAL (for RAD DIAG) IVCONTRAST ONE (12:07)
[2017-10-18] MEDS: BUDESONIDE-FORMOTEROL 160/4.5 MCG INHALER INH SCH ×2 (12:23→22:12)
[2017-10-18] MEDS: SODIUM CHLORIDE 0.9% FLUSH 10 ML FLUSH IV FLUSH SCH ×2 (12:23→22:13)
--- NOTE | 2017-10-18 12:25 | RADRPT ---
EXAM DATE/TIME: 10/18/2017 11:56 [facility] COMPARISON: CT PULMONARY ANGIOGRAM, October 06, 2017, 21:10. INDICATIONS : Chest pain IV CONTRAST: 69 cc Omnipaque 350 (iohexol) IV RADIATION DOSE: 9.50 CTDIvol (mGy) MEDICAL HISTORY : Cerebrovascular disease. Chronic obstructive pulmonary disease. Emphysema.Diabetes, Stroke, Stage 4 l nazario cancer SURGICAL HISTORY : None. ENCOUNTER: Initial ACUITY: 1 day PAIN SCALE: 5/10 LOCATION: Bilateral chest TECHNIQUE: Volumetric scanning of the chest was performed using a pulmonary embolism protocol MIP images were re constructed. Using automated exposure control and adjustment of the mA and/or kV according to patien t size, radiation dose was kept as low as reasonably achievable to obtain optimal diagnostic quality images. DICOM format image data is available electronically for review and comparison. Follow-up recommendations for detected pulmonary nodules are based at a minimum on nodule size and pa tient risk factors according to Fleischner Society Guidelines. FINDINGS: PULMONARY ARTERIES: No filling defects are seen in the pulmonary arteries through the segmental level. LUNGS: There is no significant change in the very large infiltrative right lung mass compared to the previou s examination. Tiny noncalcified nodules are also noted within the left lower lobe measuring 10 and 6 mm. PLEURAE: There is no pleural thickening or pleural effusion. MEDIASTINUM: There is good visualization of the great vessels of the middle mediastinum. There is stable mediastin al lymphadenopathy. Left axillary lymphadenopathy is also again noted. MUSCULOSKELETAL: Lytic destructive lesion is again noted on the left at T1 and is stable. MISCELLANEOUS: The visualized upper abdominal organs demonstrate no acute abnormality. CONCLUSION: 1. No evidence of pulmonary embolism. 2. No significant change in the extensive infiltrative mass of the right lung, mediastinal and left a xillary lymphadenopathy, lytic destructive lesion of the left T1 vertebral body, and noncalcified nod ules within the left lower lobe. Yair Munguia MD on October 18, 2017 at 12:16 Board Certified Radiologist. This report was verified electronically.
[2017-10-18] MEDS ORDERED: RESP: IPRATROPIUM 0.5 MG/2.5 ML NEB NEB PRN (13:00)
--- NOTE | 2017-10-18 14:14 | PD.CONS ---
Consult Service Palliative Care Consult Requested By Chayito Johnson . Primary Care Physician [facility] . Reason for Consultation a. To assist with evaluation and management of symptoms including: Pain b. To assist medical decision maker(s) with: better understanding of current medical conditions; weighing benefits/burdens of medical treatment options; making medical treatment decisions. . HPI History of Present Illness This 67-year-old male, with a past history of stage IV adenocarcinoma of the lung, COPD, diabetes, malnutrition, and agent orange exposure, initially presented to this hospital on 10/07/17 because of cough, shortness of breath, and a 20 pound weight loss. A scan at that time revealed a 7 x 14 x 11 cm lung tumor with adenopathy and a T1 vertebral lesion. Biopsy revealed adenocarcinoma , and the patient had a port placed and was sent home on 10/14/17. Arrangements had been made to begin chemotherapy through Dr. Arellano's office on 10/21/17. He returned to the emergency department on 10/17/17 because of back pain and possible chest pain. His shortness of breath was not worse than usual, and the cough was the same. The pain was constant and not reproducible or positional. In the emergency department findings included: * Alert, oriented * Afebrile * White count 15.7, hemoglobin 11.8 * Sodium 133, creatinine 0.71, albumin 1.7 * Troponin less than 0.02 * CTA of the chest revealed the same lung mass, adenopathy, and T1 vertebral lesion, but also noted were a couple small noncalcified nodules in the left lower lobe The patient was admitted for further evaluation of his chest/back pain. Follow- up troponin remained less than 0.02. The patient has no pain today. Palliative Care was consulted to assist with symptom management, and to enter into the discussions with the patient regarding his illness, the prognosis, advanced directives, and the benefits and burdens of the various treatment choices. . Function/Cognitive Trajectory Although the patient has lost 20 pounds over the last few months and is somewhat weaker, he is independently ambulatory and provides his own self-care. . Review of Systems Constitutional: COMPLAINS OF: Weight loss Endocrine: DENIES: Polyuria Eyes: DENIES: Eye inflammation Ears, nose, mouth, throat: DENIES: Epistaxis Respiratory: COMPLAINS OF: Cough, Shortness of breath Cardiovascular: COMPLAINS OF: Chest pain, Dyspnea on Exertion, DENIES: Syncope , Lower Extremity Edema Gastrointestinal: DENIES: Black stools, Bloody stools, Constipation, Diarrhea, Vomiting Genitourinary: DENIES: Hematuria Musculoskeletal: COMPLAINS OF: Back pain Integumentary: DENIES: Rash Hematologic/Lymphatics: DENIES: Lymphadenopathy Immunologic/Allergic: DENIES: Urticaria Neurologic: DENIES: Localized weakness, Seizures Psychiatric: DENIES: Confusion, Depression, Hallucinations Past Family Social History Coded Allergies: Penicillins (Verified Allergy, Unknown, 10/17/17) Past Medical History * COPD * Agent Bailey exposure in [place] * Diabetes * Hyperlipidemia * Malnutrition, albumin 1.7 * History of alcoholism and drug abuse, sober for 25 years with the assistance of Narcotics Anonymous * Remote history of CVA * History of nephrolithiasis . Past Surgical History * Amputation, accidental, right long finger many years ago * Lung biopsy September 2017 * Port placement right chest September 2017 . Reported Medications Reported Meds & Active Scripts Active Spiriva Handihaler (Tiotropium Inh) 18 Mcg Cap 18 Mcg INH DAILY 1 capsule = 18 mcg Ventolin Hfa 18 GM Inh (Albuterol Sulfate) 90 Mcg/Act Aer 2 Puff INH Q4-6H PRN Atrovent HFA 12.9 GM Inh (Ipratropium [place]) 17 Mcg/Actuation Aer 2 Puff INH Q6HR PRN Prednisone 10 Mg Tab 10 Mg PO DAILY [Budeson-Formot 160-4.5 Mcg Inh] 60 PUFF Aero 2 Puff INH Q12HR Reported Metformin (Metformin HCl) 500 Mg Tab 500 Mg PO DAILY With a meal . Vital Signs Date Time Temp Pulse Resp B/P (MAP) Pulse Ox O2 Delivery O2 Flow Rate FiO2 10/18/17 10:53 97.5 111 24 104/59 (74) 95 10/18/17 09:16 98.3 55 16 101/67 (78) 96 10/18/17 08:00 130 10/18/17 07:27 97 Nasal Cannula 2.00 10/18/17 04:02 98.3 69 18 112/60 (77) 98 10/18/17 00:42 97.8 85 18 106/54 (71) 97 Current Medications Medications (Trade) Dose Ordered Sig/Jeremiah Route Start Time Stop Time Status Last Admin (NS Flush) 2 ml UNSCH PRN IV FLUSH 10/17/17 16:30 (NS Flush) 2 ml BID IV FLUSH 10/17/17 21:00 10/18/17 12:23 (Zofran Inj) 4 mg Q6H PRN IVP 10/17/17 16:30 (Lovenox Inj) 40 mg Q24H SQ 10/17/17 17:00 10/17/17 23:29 (Morphine Inj) 2 mg Q3H PRN IV PUSH 10/17/17 16:30 (Morphine Inj) 4 mg Q3H PRN IV PUSH 10/17/17 16:30 (Narcan Inj) 0.4 mg UNSCH PRN IV PUSH 10/17/17 16:30 (Milk Of Magnmagui Liq) 30 ml Q12H PRN PO 10/17/17 16:30 (Aspirin) 325 mg DAILY PO 10/19/17 09:00 (Nitrostat Sl) 0.4 mg Q5M PRN SL 10/17/17 16:30 (Symbicort 160-4.5 Mcg Inh) 2 puff Q12HR INH 10/18/17 13:00 10/18/17 12:23 (Atrovent Neb) 0.5 mg Q6HR NEB PRN NEB 10/18/17 13:00 (Deltasone) 20 mg BID PO 10/18/17 21:00 UNV (Atrovent Neb) 0.5 mg TID NEB NEB 10/18/17 14:00 UNV Family History The patient's father suddenly of heart disease at age 60, and his mother of complications of alcoholism. The patient has 2 brothers and a sister living in [place], but he is uncertain about their health or medical history. . Substance Use Tobacco: He has smoked since the age of 13 until he says he quit earlier this month. Alcohol: History of alcoholism, sober for 25 years Prescription med abuse: None Illicits: History of drug abuse in [place] and after the war, but off of all illicit drugs for 25 years with the help of Narcotics Anonymous . Psychosocial History Originally from [place], moved to [place] many years ago, and then came to this part of [place] about 7 years ago. He has lived in numerous places, and was [place] where he has a room now. He says he is about to move in with his former roommate in a different part of [place]. The patient was a [employer] and served in [place] for a year, where he says he was exposed to agent orange. He has been on some level of disability because of that the past several years. 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 The patient has been twice, and reports that he is still legally to his second but they have been and have not seen each other were spoken for at least 20 years. He has one daughter from his first marriage, Razia Long, living in [place], and he stays in close contact with her. . Spiritual/Cultural Factors The patient has a remote Hindu background, but says his current spirituality is due to his connection with [employer], and he has no connection with any particular quaker or denomination. He welcomes director of consumer affairs visits while he is here at the hospital. . Living Will: Completed, but not made available Health Care Surrogate: Completed, but not made available Durable Power of Qa Analyst: Never completed Health Care Surrogate(s): The patient has designated his daughter Razia as healthcare surrogate . Documented care wishes: The patient says he has a living [place], and he would "not want heroics when it will not help." . Today's verbally stated goals: The patient plans on proceeding with chemotherapy later this week: "I am hoping that it will slow it down where shrink it, but I do understand that it is stage IV." He definitely would not want to be resuscitated if he were to suffer a cardiac or respiratory arrest: "Just let me go peacefully if that happens." . Ethical and Legal Issues There are no ethical issues that would impact his care were decision-making at this time. The patient has capacity for decision-making, and he has named his daughter Razia as healthcare surrogate. . Physical Exam Vital Signs Date Time Temp Pulse Resp B/P (MAP) Pulse Ox O2 Delivery O2 Flow Rate FiO2 10/18/17 10:53 97.5 111 24 104/59 (74) 95 10/18/17 09:16 98.3 55 16 101/67 (78) 96 10/18/17 08:00 130 10/18/17 07:27 97 Nasal Cannula 2.00 10/18/17 04:02 98.3 69 18 112/60 (77) 98 10/18/17 00:42 97.8 85 18 106/54 (71) 97 Exam CONSTITUTIONAL/GENERAL: This is a thin patient, in no apparent distress. TUBES/LINES/DRAINS: Supplemental O2, peripheral IV SKIN: No jaundice, rashes, or lesions. Ecchymoses on upper extremities. No wounds seen anteriorly. Skin temperature appropriate. Not diaphoretic. HEAD: Atraumatic. Normocephalic. EYES: Pupils equal and round and reactive. Extraocular motions intact. No scleral icterus. No injection or drainage. Fundi not examined. ENT: Hearing grossly normal. Nose without bleeding or purulent drainage. Throat without visible erythema, exudates, masses, or lesions. NECK: Trachea midline. Supple, nontender. No palpable thyroid enlargement or nodularity. CARDIOVASCULAR: Regular rate and rhythm without murmurs, gallops, or rubs. No JVD. Peripheral pulses symmetric. RESPIRATORY/CHEST: Symmetric, unlabored respirations. Clear but diminished respirations. GASTROINTESTINAL: Abdomen soft, non-tender, nondistended. No hepato-splenomegaly , or palpable masses. No guarding. Bowel sounds present. GENITOURINARY: Without palpable bladder distension. Lopez catheter in place. MUSCULOSKELETAL: Extremities without clubbing, cyanosis, or edema. No joint tenderness or effusion noted. No calf tenderness. No mottling or clubbing. LYMPHATICS: No palpable cervical or supraclavicular adenopathy. NEUROLOGICAL: Awake and alert. Motor and sensory grossly within normal limits. Follows commands. Cognitively sharp. Moves all extremities. PSYCHIATRIC: No obvious anxiety/depression. no apparent hallucinations or other psychotic thought process. . Diagnostic Tests Laboratory Laboratory Tests Test 10/17/17 23:05 10/18/17 04:16 Troponin I LESS THAN 0.02 NG/ML LESS THAN 0.02 NG/ML White Blood Count 15.7 TH/MM3 (4.0-11.0) Red Blood Count 4.36 MIL/MM3 (4.50-5.90) Hemoglobin 11.8 GM/DL (13.0-17.0) Hematocrit 35.4 % (39.0-51.0) Mean Corpuscular Volume 81.2 FL (80.0-100.0) Mean Corpuscular Hemoglobin 27.1 PG (27.0-34.0) Mean Corpuscular Hemoglobin Concent 33.4 % (32.0-36.0) Red Cell Distribution Width 15.8 % (11.6-17.2) Platelet Count 243 TH/MM3 (150-450) Mean Platelet Volume 9.2 FL (7.0-11.0) Neutrophils (%) (Auto) 89.3 % (16.0-70.0) Lymphocytes (%) (Auto) 5.2 % (9.0-44.0) Monocytes (%) (Auto) 5.4 % (0.0-8.0) Eosinophils (%) (Auto) 0.0 % (0.0-4.0) Basophils (%) (Auto) 0.1 % (0.0-2.0) Neutrophils # (Auto) 14.0 TH/MM3 (1.8-7.7) Lymphocytes # (Auto) 0.8 TH/MM3 (1.0-4.8) Monocytes # (Auto) 0.8 TH/MM3 (0-0.9) Eosinophils # (Auto) 0.0 TH/MM3 (0-0.4) Basophils # (Auto) 0.0 TH/MM3 (0-0.2) CBC Comment DIFF FINAL Differential Comment Blood Urea Nitrogen 17 MG/DL (7-18) Creatinine 0.71 MG/DL (0.60-1.30) Random Glucose 200 MG/DL (74-106) Total Protein 6.4 GM/DL (6.4-8.2) Albumin 1.7 GM/DL (3.4-5.0) Calcium Level 8.4 MG/DL (8.5-10.1) Alkaline Phosphatase 76 U/L (45-117) Aspartate Amino Transf (AST/SGOT) 19 U/L (15-37) Alanine Aminotransferase (ALT/SGPT) 16 U/L (12-78) Total Bilirubin 0.4 MG/DL (0.2-1.0) Sodium Level 133 MEQ/L (136-145) Potassium Level 4.5 MEQ/L (3.5-5.1) Chloride Level 97 MEQ/L (98-107) Carbon Dioxide Level 24.2 MEQ/L (21.0-32.0) Anion Gap 12 MEQ/L (5-15) Estimat Glomerular Filtration Rate 111 ML/MIN (>89) Result Diagram: 10/18/1741510/18/17415 Imaging CTA of the chest: 1. No evidence of pulmonary embolism. 2. No significant change in the extensive infiltrative mass of the right lung, mediastinal and left axillary lymphadenopathy, lytic destructive lesion of the left T1 vertebral body, and noncalcified nodules within the left lower lobe. . Patient/Family Conference Present at Family Conference: The patient and me . Family Conference Time (mins): 58 Family Conference Location: Bedside Issues Discussed: * Palliative care role, purpose, approach * Hospice care role, purpose, approach * Additional medical, psychosocial, and spiritual history * Patients general health, functional status, and cognitive changes in the months leading up to the current hospitalization * Patient/family understanding of the current medical problems * Patient/family understanding of prognosis * Patients goals of care as best understood from advance directives and/or conversations and/or values * Current medical treatment options and benefits/burdens of those options * Likely scenarios comparing ongoing aggressive care with a transition to comfort measures only * Questions answered to the best of my ability * Palliative care contact information provided Patient requests DNR status, wants to continue with the chemotherapy that is scheduled for later this week, and will consider hospice services "when the chemo is not working or when I get too weak for chemo." . Assessment and Plan Disease Oriented Problem List: (1) Chest pain, likely noncardiac (2) Stage IV adenocarcinoma of the lung (3) Anticipating initiating chemotherapy later this week (4) COPD (5) Exposure to Agent Bailey in [place] (6) Diabetes (7) Hyperlipidemia (8) Malnutrition, albumin 1.7 (9) History of alcohol and drug abuse, sober with [employer] for 25 years (10) History of nephrolithiasis Symptom Scale: (1) Dyspnea 0-10 Scale: 0 (2) Pain 0-10 Scale: 0 (Chest pain is resolved) Pertinent Non-Medical Issues Psychosocial: Former [employer] in [place], worked various odd jobs, on disability due to COPD and agent orange exposure, legally but long-time , 1 daughter living in [place] Spiritual: The patient has a remote Hindu background, but says his current spirituality is due to his connection with Narcotics Anonymous, and he has no connection with any particular quaker or denomination. He welcomes director of consumer affairs visits while he is here at the hospital. Legal: The patient has capacity for decision-making. He has designated his daughter Razia Long as healthcare surrogate. Ethical issues impacting care: None . Important Contacts Daughter: Razia Long, in [place], . Prognosis The patient has stage IV adenocarcinoma and has underlying COPD with 20 pounds of recent weight loss, so his overall prognosis is poor. . Code Status: No Code Plan * DO NOT RESUSCITATE, per request of patient 10/18/17 * DECISION-MAKING: The patient has capacity for decision-making. He has designated his daughter Razia Long as healthcare surrogate. * GOALS: The patient clearly does not want to be resuscitated if he should suffer an arrest. He has named his daughter Razia as healthcare surrogate. He does want to proceed with the chemotherapy that is planned to start later this week. He says he would opt for hospice services if the chemotherapy does not help or if he becomes too weak for further chemotherapy or other aggressive treatment. * SYMPTOMS: His pain seems to have resolved, and he is not dyspneic now here in his hospital room. I have no additional medication recommendations at this time. * Plastic Production Machine Setter consult placed at patient's request. * Palliative Care will continue to follow the patient during this hospitalization. . Time Spent Total Floor Time (mins): 76 Face to Face Time (mins): 58 >50% Counseling/Coord of Care: Yes Thank you for the opportunity to participate in the care of Mr. Lala. Giana Cruz MD Oct 18, 2017 14:13
[2017-10-18] MEDS ORDERED: DEXTROSE 50% IN WATER 50 ML VIAL(D50) IV PUSH PRN (14:45)
[2017-10-18] MEDS ORDERED: GLUCAGON 1 MG/ML VIAL OTHER PRN (14:45)
[2017-10-18] MEDS: RESP: IPRATROPIUM 0.5 MG/2.5 ML NEB NEB SCH ×2 (14:53→20:37)
[2017-10-18] MEDS ORDERED: ACETAMINOPHEN/HYDROcodone 325 MG/7.5 MG TAB PO PRN (15:00)
[2017-10-18] MEDS ORDERED: MORPHINE SULFATE 2 MG/ML SYRINGE IV PUSH PRN (15:00)
[2017-10-18] MEDS: INSULIN ASPART SUPPLEMENTAL SCALE SQ SCH ×2 (17:00→22:25)
[2017-10-18] MEDS: ENOXAPARIN SODIUM 40 MG/0.4 ML SYRINGE SQ SCH (17:45)
[2017-10-18] MEDS: predniSONE 20 MG TAB PO SCH (22:13)
[2017-10-19] VITALS (17 sets, daily range): BP systolic 99–112; BP diastolic 61–74; PULSE 67–111; RESP 15–20; TEMP 97.6–98.2; O2SAT 94–97
[2017-10-19 07:24] LABS: AUTOMATED NEUTROPHIL # 13.2 TH/MM3 (1.8-7.7); BASOPHIL % 0.3 % (0.0-2.0); HEMATOCRIT 34.7 % (39.0-51.0); HEMOGLOBIN 11.4 GM/DL (13.0-17.0); LYMPHOCYTE # 1.1 TH/MM3 (1.0-4.8); MEAN CELL VOLUME 81.6 FL (80.0-100.0); MEAN CORPUSCULAR HEMOGLOBIN 26.7 PG (27.0-34.0); MEAN CORPUSCULAR HGB CONC 32.8 % (32.0-36.0); MEAN PLATELET VOLUME 9.4 FL (7.0-11.0); MONO % 5.5 % (0.0-8.0); MONOCYTE # 0.8 TH/MM3 (0-0.9); NEUT % 87.2 % (16.0-70.0); PLATELET COUNT 268 TH/MM3 (150-450); RED BLOOD COUNT 4.25 MIL/MM3 (4.50-5.90); RED CELL DISTRIBUTION WIDTH 15.8 % (11.6-17.2); WHITE BLOOD COUNT 15.1 TH/MM3 (4.0-11.0)
[2017-10-19] MEDS: RESP: IPRATROPIUM 0.5 MG/2.5 ML NEB NEB SCH ×3 (07:28→18:57)
[2017-10-19 07:45] LABS: BICARBONATE 26.5 MEQ/L (21.0-32.0); CALCIUM 8.1 MG/DL (8.5-10.1); CREATININE 0.68 MG/DL (0.60-1.30)
[2017-10-19] MEDS: INSULIN ASPART SUPPLEMENTAL SCALE SQ SCH ×4 (08:00→20:40)
--- NOTE | 2017-10-19 08:23 | MB ---
cc: Noah Palmer MD DATE: 10/18/2017 HISTORY OF PRESENT ILLNESS: Mr. Lala is a 67-year-old white male whom I saw earlier this month, who presented with a large lung mass in the right perihilar region, with mediastinal adenopathy very suspicious for malignancy. He was a smoker right up to the time of presentation. Regular medical care had been at the [place]. This was his first [facility] presentation. He was discharged home last week stable, with followup plans with Dr. Arellano to begin chemotherapy for an adenocarcinoma documented at bronchoscopy on October 08. The patient, however, became more short of breath, presented back to the emergency room yesterday. He has had no chest pain, no hemoptysis just shortness of breath. He probably does have underlying COPD, as well as this is a very significant lung cancer contributing to the problem. He has a prior history of type 2 diabetes and elevated cholesterol, but no significant cardiovascular history. ALLERGIES: PENICILLIN. SOCIAL HISTORY: Lives alone, has to manage his own affairs. REVIEW OF SYSTEMS: Other than that noted above, no fever, no swelling. PHYSICAL EXAMINATION: GENERAL: Comfortable at rest. VITAL SIGNS: Respirations 18, pulse 100, blood pressure 110/70, O2 saturation 95-98% on 2 liters. HEENT: Sclerae anicteric. NECK: No palpable adenopathy in the neck or supraclavicular region. PULMONARY: Breath sounds are diminished, but quite clear. No congestion or wheezing. Regular. CARDIOVASCULAR: Regular rhythm. No harsh murmur. EXTREMITIES: No peripheral edema or calf tenderness. DISCUSSION: Mr. Lala presents back with advanced malignancy, adenocarcinoma of the lung. Dyspnea is probably related to underlying COPD along with an extensive malignancy. The patient will be readmitted, continued on corticosteroids and aerosolized bronchodilators, as well as oxygen and Oncology is consulted to consider proceeding with therapy. Further diagnostic and/or therapeutic intervention will depend on his ongoing clinical course. MD SHIKHA Rodriugez/LOVE , 05:41 PM , 06:03 PM
[2017-10-19] MEDS: predniSONE 20 MG TAB PO SCH ×2 (08:30→20:33)
[2017-10-19] MEDS: SODIUM CHLORIDE 0.9% FLUSH 10 ML FLUSH IV FLUSH SCH ×2 (08:30→20:33)
[2017-10-19] MEDS: BUDESONIDE-FORMOTEROL 160/4.5 MCG INHALER INH SCH ×2 (08:30→20:35)
[2017-10-19] MEDS: ASPIRIN 325 MG TAB PO SCH (08:30)
--- NOTE | 2017-10-19 08:34 | MB ---
cc: Ruiz Arellano MD DATE: 10/19/2017 ATTENDING PHYSICIAN: Dr. Judge. REASON FOR CONSULTATION: Oncology consulted to render opinion regarding patient with a newly diagnosed lung cancer admitted with back pain and shortness of breath. HISTORY OF PRESENT ILLNESS: Mr. Lala is a 67-year-old male admitted to the hospital about 2 weeks ago with shortness of breath and cough. He was found to have a large mass in the right perihilar area with metastatic mediastinal lymphadenopathy and left axillary adenopathy. He had a bronchoscopy which showed extensive disease in the right lung bronchus all the way up to the mainstem stef. A biopsy showed adenocarcinoma. A mutation study has been sent, results are still pending. The patient, at that time, decided to try palliative chemotherapy and a port was placed. He was discharged home 5 days ago. He was supposed to follow up in the clinic to start his treatment. The patient, however, started having worsening shortness of breath again. He also had pain across his shoulder blade. The pain is worse with inspiration and cough. His cough is mostly nonproductive. He denies any hemoptysis. He still has a decreased appetite and lost about 20 pounds. He is brought in to the hospital. This morning, he is feeling better. He denies any fever or chills. He denies any chest pressure or palpitation. He denies a headache. He denies any focal weakness of his hands or feet. PAST MEDICAL HISTORY: 1. Newly diagnosed metastatic non-small cell lung carcinoma. 2. Chronic obstructive pulmonary disease. 3. Diabetes mellitus. 4. Hyperlipidemia. PAST SURGICAL HISTORY: 1. Colonoscopy 6 years ago. 2. Recent bronchoscopy and biopsy. 3. Port placement. FAMILY HISTORY: Positive for heart disease. One sister is healthy. One daughter is also healthy. SOCIAL HISTORY: He smoked at least a pack a day since age 13. He quit a few weeks ago. He lives in a boarding home. He is in the process of moving. He used to drink alcohol, but quit 25 years ago. His daughter lives in [place]. ALLERGIES: PENICILLIN. CURRENT MEDICATIONS: 1. Aspirin. 2. Prednisone. 3. Insulin sliding scale. 4. Symbicort. 5. Lovenox. REVIEW OF SYSTEMS: CONSTITUTION: As above. EYES: Negative. ENT: Negative. CARDIOVASCULAR: No chest pain or pressure, palpitation. RESPIRATORY: As above. GASTROINTESTINAL: Negative. GENITOURINARY: Negative. MUSCULOSKELETAL: As above. ENDOCRINE: Negative. HEMATOLOGY: Negative. DERMATOLOGY: Negative. PSYCHIATRIC: Negative. NEUROLOGIC: As above. PHYSICAL EXAM: VITAL SIGNS: Temperature 98, blood pressure 112/70, O2 saturation 97% on 2 liters nasal cannula. GENERAL: He is alert, oriented x 3, no acute distress. HEENT: Atraumatic, normocephalic. Pupils are equal, round, reactive to light. Extraocular muscles intact. No scleral icterus. Oropharynx dry mucosa. No lesion, no thrush or mucositis. NECK: No thyromegaly. No palpable mass. LYMPHATIC: No palpable cervical, clavicular, axillary, or inguinal lymph nodes. CARDIOVASCULAR: Regular S1, S2. No murmur. LUNGS: Decreased breath sounds right lung with no significant wheezing. ABDOMEN: Soft, nontender. Cannot palpate liver or spleen. EXTREMITIES: No cyanosis. No significant edema. No calf tenderness. BACK: No paravertebral tenderness. SKIN: Right chest wall port site. No erythema. Dressing is dry. NEUROLOGIC: Nonfocal. LABORATORY DATA: WBC 15.1, hemoglobin 11.4, platelet count 268. Creatinine 0.71. Liver transaminase within normal limits. ASSESSMENT AND PLAN: 1. Metastatic non-small cell lung carcinoma. He presented 2 weeks ago with constitutional symptoms of shortness of breath and a nonproductive cough. He has lost about 20 pounds since the onset of symptoms. A CT showed a 7.1 x 14 x 11.1 cm right perihilar mass. There was adenopathy in the subcarinal AP window in the paraesophageal and left axillary area. There was also a T1 vertebral destructive lesion associated with left T1 and T2 foraminal stenosis. He had a bronchoscopy, which showed a nodularity and irregular mucosa throughout the right lung bronchus. Biopsy showed adenocarcinoma consistent with a lung primary. We have sent for mutation study. The result is still pending. During his last admission, the patient stated he wanted aggressive palliative chemotherapy. A port was placed and he was supposed to follow up as an outpatient to plan for treatment. Unfortunately, he has progressive symptoms and was readmitted to the hospital yesterday. I had another extensive discussion with the patient regarding his diagnosis, staging, prognosis and treatment options. Given his worsening symptoms, I recommend that we start him on chemotherapy right away. I plan to treat him with carboplatin and Taxol. I went over the potential side effect, which include, but are not limited to, alopecia, myelosuppression, GI toxicity, toxicity, infusional reaction, neurotoxicity and so on. After some discussion, the patient stated that he needs some time to think over his options. He stated that he is in the process of moving out of the boarding home and he wants to talk to his daughter first before trying chemotherapy. I also talked to him about best supportive care with hospice if he decided not to try chemotherapy. He stated that he is willing to talk to hospice to explore his option. As such, we will hold off on giving him chemotherapy and consult hospice to provide him with more information. 2. Back pain. He has pain across his shoulder blade that is controlled at this point. He had a T1 destructive lesion causing foraminal stenosis at the T1 and T2 level. Bone scan did not show significant uptake, but bone scan showed another hypermetabolic area in the right scapula area concerning for another metastatic focus. If the patient does not want palliative chemotherapy and his pain is not controlled, I would consider giving him palliative radiation. 4. Chronic obstructive pulmonary disease. He appeared to have another episode of exacerbation and his symptoms have improve with steroids. 5. Diabetes mellitus. 6. Hyperlipidemia. RECOMMENDATIONS: 1. Extensive discussion with the patient as above. 2. He will need some time to think over his options and discussed with his daughter before he decides to try chemotherapy. 2. Consult hospice to provide him with more information. 3. Continue supportive care. 4. Continue deep venous thrombosis prophylaxis. Thank you, Dr. Judge, for asking me to see this patient. MD NORA Lopez/ORION , 07:45 AM , 08:32 AM BONNIE
--- NOTE | 2017-10-19 14:56 | HHI.HCPN ---
Palliative care received a call from daughter Razia Long #[phone]. She presents overwhelmed, requesting additional information regarding her father's medical condition, prognosis, options, etc. She understands he has asked to speak with hospice regarding options should he forgo chemotherapy treatment. She would like to speak with oncology. Attempted to set up meeting with patient , hospice, palliative care, and her via telephone as [place]. She declines meeting at this time due to scheduling. She requests medical follow -up, palliative care MD aware. Essentially she wants to support her father in his wishes but would like additional information regarding his medical condition , prognosis to better discuss with him. Answered her questions and concerns to the best of my ability. Palliative care MD to follow-up. Palliative care will continue to follow throughout hospitalization. Dena Mark, GEOSCIENCES ASSOCIATE PROFESSOR Oct 19, 2017 14:56
--- NOTE | 2017-10-19 15:37 | HHI.PR ---
Subjective Remarks Patient seen this afternoon around 2:30 PM. Says he is feeling all right. Denies any chest pain or shortness of breath. Reports pain is controlled. Objective Vital Signs Date Time Temp Pulse Resp B/P (MAP) Pulse Ox O2 Delivery O2 Flow Rate FiO2 10/19/17 15:20 97.9 93 18 100/69 (79) 95 10/19/17 14:00 95 10/19/17 13:09 97.7 98 18 109/74 (86) 97 10/19/17 10:51 97.6 96 20 100/61 (74) 97 10/19/17 09:14 97.7 88 16 99/62 (74) 96 10/19/17 08:00 111 10/19/17 04:00 86 10/19/17 03:52 98.0 67 16 112/70 (84) 97 10/19/17 00:39 98.2 100 18 111/67 (82) 94 10/19/17 00:00 95 10/18/17 23:45 97 Nasal Cannula 2.00 10/18/17 21:31 93 17 107/65 (79) 96 10/18/17 20:00 109 I/O 10/18/17 10/18/17 10/18/17 10/19/17 10/19/17 10/19/17 06:59 14:59 22:59 06:59 14:59 22:59 Intake Total 800 ml 500 ml Balance 800 ml 500 ml Intake Oral 800 ml 500 ml # Voids 2 Result Diagram: 10/19/17 0620 10/19/17 0612 Objective Remarks GENERAL: Patient sitting up in bed. Appears comfortable. SKIN: Warm and dry. HEAD: Normocephalic. EYES: No scleral icterus. No injection or drainage. NECK: Supple, trachea midline. No JVD. CARDIOVASCULAR: Regular rate and rhythm without murmurs, gallops, or rubs. RESPIRATORY: Breath sounds equal bilaterally. No accessory muscle use. GASTROINTESTINAL: Abdomen soft, non-tender, nondistended. MUSCULOSKELETAL: No cyanosis, or edema. BACK: Nontender without obvious deformity. No CVA tenderness. A/P Assessment and Plan 67-year-old male with history of tobacco use, COPD, recently diagnosed stage IV adenocarcinoma of lung with metastases, presents with worsening back pain and shortness of breath. Stage IV Bronchogenic Adenocarcinoma: recently diagnosed this month September 2017. Returned to ED with worsening shortness of breath, cough, back pains. Symptoms likely all related to advanced cancer. -Repeat CT-PA today 10/18 negative for PE, showed again large infiltrative right lung mass; mediastinal and left axillary lymphadenopathy, lytic destructive lesion of left T1 vertebral body, and noncalcified nodules within LLL; no significant change compared to previous CT -Continue duonebs -Incentive spirometer -Continue pain control with [place] prn and IV morphine prn breakthrough pain -Consult palliative care, pulmonology, and oncology, appreciate assistance = Hospice consult pending. Appreciate hospice, oncology, palliative care assistance. COPD with mild exacerbation: imaging as above. -continue duonebs -continue steroids with prednisone 20mg bid for now -monitor for improvement = Improving. Continue on current treatment. Tobacco use: patient quit 1 week ago. Smokes tobacco 2PPD since age 18 -counseled on continued cessation Borderline Diabetes: patient on metformin. Last HgbA1c 6.1 on 10/08/17. Expect higher blood glucose while on steroids. -monitor accu-cheks and cover with SSI Weight Loss, Protein Calorie Malnutrition: suspect secondary to cancer -consult miner operator -Continue ensure to meals DVT Prophylaxis: Lovenox sq Discharge Planning Pending hospice discussion with family Pending hospice evaluation. Pending oncology clearance. Jeet Judge MD Oct 19, 2017 15:37
--- NOTE | 2017-10-19 15:46 | HHI.HCPN ---
Reason for visit a. To assist with evaluation and management of symptoms including: Pain b. To assist medical decision maker(s) with: better understanding of current medical conditions; weighing benefits/burdens of medical treatment options; making medical treatment decisions. . Subjective/Interval History Pt on my visit endorses he feels better now compare to before this hospitalization. He does endorse some right scapular pain, made worse if raising his arm somewhat. He state that he still has not reach a decision yet regarding chemotherapy and want to speak more and discuss with his daughter. He states his pain is "manageble". He declined any narcotics at this time and prefer just prednisone. He gave me permission to speak with daughter. Family/friend interactions Daughter have spoke to palliative renal social worker. Listen to her questions and answered. She did speak with oncology earlier. Appreciative of phone call. She says she plans on arriving to [place] on wednesday with abby. Advance Directives Living Will: Completed, but not made available Health Care Surrogate: Completed, but not made available Durable Power of Consumer Banker: Never completed Advance Directive Specifics Health Care Surrogate(s): The patient has designated his daughter Razia as healthcare surrogate . Documented care wishes: The patient says he has a living will that he completed at the [facility], and he would "not want heroics when it will not help." . Objective Vital Signs Date Time Temp Pulse Resp B/P (MAP) Pulse Ox O2 Delivery O2 Flow Rate FiO2 10/19/17 15:20 97.9 93 18 100/69 (79) 95 10/19/17 14:00 95 10/19/17 13:09 97.7 98 18 109/74 (86) 97 10/19/17 10:51 97.6 96 20 100/61 (74) 97 10/19/17 09:14 97.7 88 16 99/62 (74) 96 10/19/17 08:00 111 10/19/17 04:00 86 10/19/17 03:52 98.0 67 16 112/70 (84) 97 10/19/17 00:39 98.2 100 18 111/67 (82) 94 10/19/17 00:00 95 10/18/17 23:45 97 Nasal Cannula 2.00 10/18/17 21:31 93 17 107/65 (79) 96 10/18/17 20:00 109 Intake & Output 10/19/17 10/19/17 07:00 19:00 Intake Total 500 ml Balance 500 ml Intake Oral 500 ml Physical Exam CONSTITUTIONAL/GENERAL: This is a thin patient, in no apparent distress. TUBES/LINES/DRAINS: Supplemental O2, peripheral IV SKIN: No jaundice, rashes, or lesions. Ecchymoses on upper extremities. No wounds seen anteriorly. Skin temperature appropriate. Not diaphoretic. HEAD: Atraumatic. Normocephalic. EYES: Pupils equal and round and reactive. Extraocular motions intact. No scleral icterus. No injection or drainage. Fundi not examined. ENT: Hearing grossly normal. Nose without bleeding or purulent drainage. Throat without visible erythema, exudates, masses, or lesions. NECK: Trachea midline. Supple, nontender. No palpable thyroid enlargement or nodularity. CARDIOVASCULAR: Regular rate and rhythm without murmurs, gallops, or rubs. No JVD. Peripheral pulses symmetric. RESPIRATORY/CHEST: Symmetric, unlabored respirations. Clear but diminished respirations. GASTROINTESTINAL: Abdomen soft, non-tender, nondistended. No hepato-splenomegaly , or palpable masses. No guarding. Bowel sounds present. GENITOURINARY: Without palpable bladder distension. Lopez catheter in place. MUSCULOSKELETAL: Extremities without clubbing, cyanosis, or edema. No joint tenderness or effusion noted. No calf tenderness. No mottling or clubbing. LYMPHATICS: No palpable cervical or supraclavicular adenopathy. NEUROLOGICAL: Awake and alert. Motor and sensory grossly within normal limits. Follows commands. Cognitively sharp. Moves all extremities. PSYCHIATRIC: No obvious anxiety/depression. no apparent hallucinations or other psychotic thought process. . Diagnostic Tests Laboratory Laboratory Tests Test 10/17/17 23:05 10/18/17 04:16 10/19/17 06:12 10/19/17 06:20 Troponin I LESS THAN 0.02 NG/ML LESS THAN 0.02 NG/ML White Blood Count 15.7 TH/MM3 (4.0-11.0) 15.1 TH/MM3 (4.0-11.0) Red Blood Count 4.36 MIL/MM3 (4.50-5.90) 4.25 MIL/MM3 (4.50-5.90) Hemoglobin 11.8 GM/DL (13.0-17.0) 11.4 GM/DL (13.0-17.0) Hematocrit 35.4 % (39.0-51.0) 34.7 % (39.0-51.0) Mean Corpuscular Volume 81.2 FL (80.0-100.0) 81.6 FL (80.0-100.0) Mean Corpuscular Hemoglobin 27.1 PG (27.0-34.0) 26.7 PG (27.0-34.0) Mean Corpuscular Hemoglobin Concent 33.4 % (32.0-36.0) 32.8 % (32.0-36.0) Red Cell Distribution Width 15.8 % (11.6-17.2) 15.8 % (11.6-17.2) Platelet Count 243 TH/MM3 (150-450) 268 TH/MM3 (150-450) Mean Platelet Volume 9.2 FL (7.0-11.0) 9.4 FL (7.0-11.0) Neutrophils (%) (Auto) 89.3 % (16.0-70.0) 87.2 % (16.0-70.0) Lymphocytes (%) (Auto) 5.2 % (9.0-44.0) 7.0 % (9.0-44.0) Monocytes (%) (Auto) 5.4 % (0.0-8.0) 5.5 % (0.0-8.0) Eosinophils (%) (Auto) 0.0 % (0.0-4.0) 0.0 % (0.0-4.0) Basophils (%) (Auto) 0.1 % (0.0-2.0) 0.3 % (0.0-2.0) Neutrophils # (Auto) 14.0 TH/MM3 (1.8-7.7) 13.2 TH/MM3 (1.8-7.7) Lymphocytes # (Auto) 0.8 TH/MM3 (1.0-4.8) 1.1 TH/MM3 (1.0-4.8) Monocytes # (Auto) 0.8 TH/MM3 (0-0.9) 0.8 TH/MM3 (0-0.9) Eosinophils # (Auto) 0.0 TH/MM3 (0-0.4) 0.0 TH/MM3 (0-0.4) Basophils # (Auto) 0.0 TH/MM3 (0-0.2) 0.0 TH/MM3 (0-0.2) CBC Comment DIFF FINAL DIFF FINAL Differential Comment Blood Urea Nitrogen 17 MG/DL (7-18) 19 MG/DL (7-18) Creatinine 0.71 MG/DL (0.60-1.30) 0.68 MG/DL (0.60-1.30) Random Glucose 200 MG/DL (74-106) 158 MG/DL (74-106) Total Protein 6.4 GM/DL (6.4-8.2) Albumin 1.7 GM/DL (3.4-5.0) Calcium Level 8.4 MG/DL (8.5-10.1) 8.1 MG/DL (8.5-10.1) Alkaline Phosphatase 76 U/L (45-117) Aspartate Amino Transf (AST/SGOT) 19 U/L (15-37) Alanine Aminotransferase (ALT/SGPT) 16 U/L (12-78) Total Bilirubin 0.4 MG/DL (0.2-1.0) Sodium Level 133 MEQ/L (136-145) 135 MEQ/L (136-145) Potassium Level 4.5 MEQ/L (3.5-5.1) 4.6 MEQ/L (3.5-5.1) Chloride Level 97 MEQ/L (98-107) 101 MEQ/L (98-107) Carbon Dioxide Level 24.2 MEQ/L (21.0-32.0) 26.5 MEQ/L (21.0-32.0) Anion Gap 12 MEQ/L (5-15) 8 MEQ/L (5-15) Estimat Glomerular Filtration Rate 111 ML/MIN (>89) 116 ML/MIN (>89) Result Diagram: 10/19/1720 10/19/17611 Assessment and Plan Disease Oriented Problem List: (1) Chest pain, likely noncardiac (2) Stage IV adenocarcinoma of the lung (3) Anticipating initiating chemotherapy later this week (4) COPD (5) Exposure to Agent [place] in [place] (6) Diabetes (7) Hyperlipidemia (8) Malnutrition, albumin 1.7 (9) History of alcohol and drug abuse, sober with Narcotics Anonymous for 25 years (10) History of nephrolithiasis Symptom Scale: (1) Dyspnea 0-10 Scale: 0 (2) Pain 0-10 Scale: 0 (Chest pain is resolved) Pertinent Non-Medical Issues Psychosocial: Former [employer] in [place], worked various odd jobs, on disability due to COPD and agent orange exposure, legally but long-time , 1 daughter living in [place] Spiritual: The patient has a remote [employer]ian background, but says his current spirituality is due to his connection with [employer], and he has no connection with any particular quaker or denomination. 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 Legal: The patient has capacity for decision-making. He has designated his daughter Razia Long as healthcare surrogate. Ethical issues impacting care: None . Important Contacts Daughter: Razia Long, in [place], . Prognosis The patient has stage IV adenocarcinoma and has underlying COPD with 20 pounds of recent weight loss, so his overall prognosis is poor. . Code Status: No Code Plan * DO NOT RESUSCITATE, per request of patient 10/18/17 * DECISION-MAKING: The patient has capacity for decision-making. He has designated his daughter Razia Long as healthcare surrogate. * GOALS: The patient clearly does not want to be resuscitated if he should suffer an arrest. He has named his daughter Razia as healthcare surrogate. He stated he is still deciding on chemotherapy on my visit today and wants to speak with daughter. Patient is still deciding. * Family Goals: Spoke with Razia her daughter. She said she is supportive of her dad. She has spoken with oncology just a few minuets ago. She states dad is just upset overall of his situation. Listen and offered support. * SYMPTOMS: His pain seems to have resolved, and he is not dyspneic now here in his hospital room. Pain in scapula may be muskuloskeltal vs some refered pain from mets. Continue steroids. PRN opiate available, but pt so far refuse it. * Palliative Care will continue to follow the patient during this hospitalization. . Attestation To help prompt me to consider important information that might be impacting today's encounter and assessment, information from prior notes written by myself or my colleagues may have been "brought forward" into today's note. My signature on this note, however, is an attestation that I personally performed the exam, history, and/or decision-making noted today, and, unless otherwise indicated, the interactions with patient, family, and staff as well as the review of records all occurred today. I also attest that the listed assessment and stated plan reflect my best clinical judgment today based on the combination of historical information, prior notes, and today's exam/ interactions. When time spent is documented, it refers only to time spent today by the signer, or if indicated, combined time spent today by collaborating physician/nurse practitioner. Chance Bailey MD Oct 19, 2017 15:46
[2017-10-19] MEDS: ENOXAPARIN SODIUM 40 MG/0.4 ML SYRINGE SQ SCH (17:20)
[2017-10-20] VITALS (26 sets, daily range): BP systolic 92–127; BP diastolic 47–78; PULSE 46–128; RESP 15–18; TEMP 97.6–98.5; O2SAT 94–99
[2017-10-20 06:00] LABS: AUTOMATED NEUTROPHIL # 12.8 TH/MM3 (1.8-7.7); BASOPHIL % 0.3 % (0.0-2.0); HEMATOCRIT 34.4 % (39.0-51.0); HEMOGLOBIN 11.3 GM/DL (13.0-17.0); LYMPH % 7.5 % (9.0-44.0); LYMPHOCYTE # 1.1 TH/MM3 (1.0-4.8); MEAN CELL VOLUME 82.3 FL (80.0-100.0); MEAN CORPUSCULAR HEMOGLOBIN 27.1 PG (27.0-34.0); MEAN CORPUSCULAR HGB CONC 32.9 % (32.0-36.0); MEAN PLATELET VOLUME 8.9 FL (7.0-11.0); MONO % 5.2 % (0.0-8.0); MONOCYTE # 0.8 TH/MM3 (0-0.9); PLATELET COUNT 323 TH/MM3 (150-450); RED BLOOD COUNT 4.17 MIL/MM3 (4.50-5.90); WHITE BLOOD COUNT 14.8 TH/MM3 (4.0-11.0)
[2017-10-20 06:11] LABS: BICARBONATE 23.7 MEQ/L (21.0-32.0); CALCIUM 8.4 MG/DL (8.5-10.1); CREATININE 0.63 MG/DL (0.60-1.30); MAGNESIUM 2.2 MG/DL (1.5-2.5); PHOSPHORUS 3.1 MG/DL (2.5-4.9)
[2017-10-20 06:19] LABS: ALBUMIN 1.7 GM/DL (3.4-5.0)
[2017-10-20] MEDS: predniSONE 20 MG TAB PO SCH ×2 (07:45→19:53)
[2017-10-20] MEDS: INSULIN ASPART SUPPLEMENTAL SCALE SQ SCH ×4 (07:45→19:54)
[2017-10-20] MEDS: BUDESONIDE-FORMOTEROL 160/4.5 MCG INHALER INH SCH ×2 (07:45→19:55)
[2017-10-20] MEDS: MAGNESIUM HYDROXIDE SUSP 30 ML CUP PO PRN (07:45)
[2017-10-20] MEDS: ASPIRIN 325 MG TAB PO SCH (07:45)
[2017-10-20] MEDS: SODIUM CHLORIDE 0.9% FLUSH 10 ML FLUSH IV FLUSH SCH ×2 (07:46→19:53)
[2017-10-20] MEDS: RESP: IPRATROPIUM 0.5 MG/2.5 ML NEB NEB SCH ×3 (08:59→20:35)
--- NOTE | 2017-10-20 10:37 | PD.ONC.PN ---
Subjective Subjective Remarks Afebrile "I feel ready to " Patient reports he wishes to speak with his daughter via conference call tomorrow prior to making any further decisions on treatment versus hospice Objective Data Date Time Temp Pulse Resp B/P (MAP) Pulse Ox O2 Delivery O2 Flow Rate FiO2 10/20/17 09:01 96 21 10/20/17 09:00 116 10/20/17 08:00 46 10/20/17 07:18 98.0 84 18 99/47 (64) 96 10/20/17 07:13 98.0 83 18 106/72 (83) 96 10/20/17 07:00 72 10/20/17 06:00 85 10/20/17 05:00 92 10/20/17 04:00 97.6 84 16 112/75 (87) 95 10/20/17 04:00 91 10/20/17 04:00 80 10/20/17 03:00 82 10/20/17 02:00 84 10/20/17 00:00 98.3 94 15 104/75 (85) 95 10/19/17 23:00 90 10/19/17 22:00 96 10/19/17 21:00 98 10/19/17 20:00 96 10/19/17 20:00 97.9 95 15 111/73 (86) 95 10/19/17 18:57 97 21 10/19/17 18:00 84 10/19/17 17:00 84 10/19/17 15:20 97.9 93 18 100/69 (79) 95 10/19/17 14:00 95 10/19/17 13:09 97.7 98 18 109/74 (86) 97 10/19/17 10:51 97.6 96 20 100/61 (74) 97 10/20/17 10/20/17 10/20/17 07:00 15:00 23:00 Intake Total 480 ml Balance 480 ml Result Diagram: 10/20/17 0500 10/20/17 0500 Laboratory Results Laboratory Tests Test 10/20/17 05:00 White Blood Count 14.8 TH/MM3 Red Blood Count 4.17 MIL/MM3 Hemoglobin 11.3 GM/DL Hematocrit 34.4 % Mean Corpuscular Volume 82.3 FL Mean Corpuscular Hemoglobin 27.1 PG Mean Corpuscular Hemoglobin Concent 32.9 % Red Cell Distribution Width 16.0 % Platelet Count 323 TH/MM3 Mean Platelet Volume 8.9 FL Neutrophils (%) (Auto) 87.0 % Lymphocytes (%) (Auto) 7.5 % Monocytes (%) (Auto) 5.2 % Eosinophils (%) (Auto) 0.0 % Basophils (%) (Auto) 0.3 % Neutrophils # (Auto) 12.8 TH/MM3 Lymphocytes # (Auto) 1.1 TH/MM3 Monocytes # (Auto) 0.8 TH/MM3 Eosinophils # (Auto) 0.0 TH/MM3 Basophils # (Auto) 0.0 TH/MM3 CBC Comment DIFF FINAL Differential Comment Blood Urea Nitrogen 14 MG/DL Creatinine 0.63 MG/DL Random Glucose 136 MG/DL Albumin 1.7 GM/DL Calcium Level 8.4 MG/DL Phosphorus Level 3.1 MG/DL Magnesium Level 2.2 MG/DL Sodium Level 136 MEQ/L Potassium Level 4.3 MEQ/L Chloride Level 102 MEQ/L Carbon Dioxide Level 23.7 MEQ/L Anion Gap 10 MEQ/L Estimat Glomerular Filtration Rate 127 ML/MIN Administered Medications Medications (Trade) Dose Ordered Sig/Jeremiah Route PRN Reason Start Time Stop Time Status Last Admin Dose Admin Sodium Chloride (NS Flush) 2 ml BID IV FLUSH 10/17/17 21:00 10/20/17 07:46 Enoxaparin Sodium (Lovenox Inj) 40 mg Q24H SQ 10/17/17 17:00 10/19/17 17:20 Magnesium Hydroxide (Milk Of Magnmagui Liq) 30 ml Q12H PRN PO Mild constipation 10/17/17 16:30 10/20/17 07:45 Aspirin (Aspirin) 325 mg DAILY PO 10/19/17 09:00 10/20/17 07:45 Budesonide/ Formoterol Fumarate (Symbicort 160-4.5 Mcg Inh) 2 puff Q12HR INH 10/18/17 13:00 10/20/17 07:45 Prednisone (Deltasone) 20 mg BID PO 10/18/17 21:00 10/20/17 07:45 Ipratropium [place] (Atrovent Neb) 0.5 mg TID NEB NEB 10/18/17 14:00 10/20/17 08:59 Insulin Aspart (NovoLOG SUPPLEMENTAL SCALE) 1 ACHS SLIDING SCALE SQ 10/18/17 17:00 10/20/17 07:45 Objective Remarks GENERAL: Weak, older male resting in bed in no obvious distress SKIN: Warm and dry. HEAD: Normocephalic. EYES: No injection or drainage. NECK: Supple, trachea midline. CARDIOVASCULAR: Regular rate and rhythm without murmurs. RESPIRATORY: Clear anteriorly. Breathing unlabored at rest. GASTROINTESTINAL: Abdomen soft, non-tender, nondistended. EXTREMITIES: No cyanosis, or edema. MUSCULOSKELETAL: Generalized weakness with muscle wasting noted NEUROLOGICAL: No obvious focal deficit. Awake, alert, and oriented x3. Assessment/Plan Problem List: (1) Stage IV adenocarcinoma of the lung Plan: --Patient deciding between treatment versus hospice --Patient also has a T1 destructive lesion causing foraminal stenosis at the T1- T2 level. --As he is complaining of back pain, we would ask radiation oncology to evaluate him for palliative radiation if he decides against hospice. Hx/Workup: Patient originally presented 2 weeks ago with constitutional symptoms of shortness of breath, a nonproductive cough and a [address] scan showed a 7.1 x 14 x 11.1 cm right perihilar mass. There was adenopathy in the subcarinal AP window in the periesophageal and left axillary area. Pathology showed adenocarcinoma consistent with lung primary. Mutational studies are pending. The patient was discharged home but returned as his symptoms became progressive. We are offering chemo with carboplatin and Taxol however the patient is now deciding for hospice versus chemotherapy. Assessment 67 y/o male with newer diagnosis of stage IV adenocarcinoma of the lung admitted for progressive symptoms Plan 1. Await patient's decision on hospice versus palliative treatment 2. Per the patient his daughter is not coming into town until Wednesday of next week; however he is planning to have a conference call with her tomorrow Discussed with Dr. Bailey Attending Statement The exam, history, and the medical decision-making described in the above note were completed with the assistance of the mid-level provider. I reviewed and agree with the findings presented. I attest that I had a [id number] encounter with the patient on the same day, and personally performed and documented my assessment and findings in the medical record. No CP/ SOB improved. He has not decided on whether to have chemotherapy. He wants to talk to his daughter. He stated that he is ready to and he is doing all these for his daughter. Audrey Hopper Oct 20, 2017 10:37 Ruiz Arellano MD Oct 20, 2017 16:33
--- NOTE | 2017-10-20 11:42 | HHI.HCPN ---
Reason for visit a. To assist with evaluation and management of symptoms including: Pain b. To assist medical decision maker(s) with: better understanding of current medical conditions; weighing benefits/burdens of medical treatment options; making medical treatment decisions. . Subjective/Interval History Pt endorses pain is overall well controlled. He did say he wants to do a conference call with her daughter and brother tomorrow, before making a decision on chemotherapy. He does have concern about quality of life, and home support. Reviewed with him about the option are chemotherapy or hospice. Family/friend interactions spoke with carlos Randle. Trying to set up family meeting tomorrow. Advance Directives Living Will: Completed, but not made available Health Care Surrogate: Completed, but not made available Durable Power of Pile Header: Never completed Advance Directive Specifics Health Care Surrogate(s): The patient has designated his daughter Razia as healthcare surrogate . Documented care wishes: The patient says he has a living will that he completed at the [place], and he would "not want heroics when it will not help." . Objective Vital Signs Date Time Temp Pulse Resp B/P (MAP) Pulse Ox O2 Delivery O2 Flow Rate FiO2 10/20/17 09:01 96 21 10/20/17 09:00 116 10/20/17 08:00 46 10/20/17 07:18 98.0 84 18 99/47 (64) 96 10/20/17 07:13 98.0 83 18 106/72 (83) 96 10/20/17 07:00 72 10/20/17 06:00 85 10/20/17 05:00 92 10/20/17 04:00 97.6 84 16 112/75 (87) 95 10/20/17 04:00 91 10/20/17 04:00 80 10/20/17 03:00 82 10/20/17 02:00 84 10/20/17 00:00 98.3 94 15 104/75 (85) 95 10/19/17 23:00 90 10/19/17 22:00 96 10/19/17 21:00 98 10/19/17 20:00 96 10/19/17 20:00 97.9 95 15 111/73 (86) 95 10/19/17 18:57 97 21 10/19/17 18:00 84 10/19/17 17:00 84 10/19/17 15:20 97.9 93 18 100/69 (79) 95 10/19/17 14:00 95 10/19/17 13:09 97.7 98 18 109/74 (86) 97 Intake & Output 10/20/17 10/20/17 07:00 19:00 Intake Total 480 ml Balance 480 ml Intake Oral 480 ml # Voids 2 Physical Exam CONSTITUTIONAL/GENERAL: This is a thin patient, in no apparent distress. TUBES/LINES/DRAINS: Supplemental O2, peripheral IV SKIN: No jaundice, rashes, or lesions. Ecchymoses on upper extremities. No wounds seen anteriorly. Skin temperature appropriate. Not diaphoretic. HEAD: Atraumatic. Normocephalic. EYES: Pupils equal and round and reactive. Extraocular motions intact. No scleral icterus. No injection or drainage. Fundi not examined. ENT: Hearing grossly normal. Nose without bleeding or purulent drainage. Throat without visible erythema, exudates, masses, or lesions. NECK: Trachea midline. Supple, nontender. No palpable thyroid enlargement or nodularity. CARDIOVASCULAR: Regular rate and rhythm without murmurs, gallops, or rubs. No JVD. Peripheral pulses symmetric. RESPIRATORY/CHEST: Symmetric, unlabored respirations. Clear but diminished respirations. GASTROINTESTINAL: Abdomen soft, non-tender, nondistended. No hepato-splenomegaly , or palpable masses. No guarding. Bowel sounds present. GENITOURINARY: Without palpable bladder distension. Lopze catheter in place. MUSCULOSKELETAL: Extremities without clubbing, cyanosis, or edema. No joint tenderness or effusion noted. No calf tenderness. No mottling or clubbing. LYMPHATICS: No palpable cervical or supraclavicular adenopathy. NEUROLOGICAL: Awake and alert. Motor and sensory grossly within normal limits. Follows commands. Cognitively sharp. Moves all extremities. PSYCHIATRIC: No obvious anxiety/depression. no apparent hallucinations or other psychotic thought process. . Diagnostic Tests Laboratory Laboratory Tests Test 10/17/17 23:05 10/18/17 04:16 10/19/17 06:12 10/19/17 06:20 Troponin I LESS THAN 0.02 NG/ML LESS THAN 0.02 NG/ML White Blood Count 15.7 TH/MM3 (4.0-11.0) 15.1 TH/MM3 (4.0-11.0) Red Blood Count 4.36 MIL/MM3 (4.50-5.90) 4.25 MIL/MM3 (4.50-5.90) Hemoglobin 11.8 GM/DL (13.0-17.0) 11.4 GM/DL (13.0-17.0) Hematocrit 35.4 % (39.0-51.0) 34.7 % (39.0-51.0) Mean Corpuscular Volume 81.2 FL (80.0-100.0) 81.6 FL (80.0-100.0) Mean Corpuscular Hemoglobin 27.1 PG (27.0-34.0) 26.7 PG (27.0-34.0) Mean Corpuscular Hemoglobin Concent 33.4 % (32.0-36.0) 32.8 % (32.0-36.0) Red Cell Distribution Width 15.8 % (11.6-17.2) 15.8 % (11.6-17.2) Platelet Count 243 TH/MM3 (150-450) 268 TH/MM3 (150-450) Mean Platelet Volume 9.2 FL (7.0-11.0) 9.4 FL (7.0-11.0) Neutrophils (%) (Auto) 89.3 % (16.0-70.0) 87.2 % (16.0-70.0) Lymphocytes (%) (Auto) 5.2 % (9.0-44.0) 7.0 % (9.0-44.0) Monocytes (%) (Auto) 5.4 % (0.0-8.0) 5.5 % (0.0-8.0) Eosinophils (%) (Auto) 0.0 % (0.0-4.0) 0.0 % (0.0-4.0) Basophils (%) (Auto) 0.1 % (0.0-2.0) 0.3 % (0.0-2.0) Neutrophils # (Auto) 14.0 TH/MM3 (1.8-7.7) 13.2 TH/MM3 (1.8-7.7) Lymphocytes # (Auto) 0.8 TH/MM3 (1.0-4.8) 1.1 TH/MM3 (1.0-4.8) Monocytes # (Auto) 0.8 TH/MM3 (0-0.9) 0.8 TH/MM3 (0-0.9) Eosinophils # (Auto) 0.0 TH/MM3 (0-0.4) 0.0 TH/MM3 (0-0.4) Basophils # (Auto) 0.0 TH/MM3 (0-0.2) 0.0 TH/MM3 (0-0.2) CBC Comment DIFF FINAL DIFF FINAL Differential Comment Blood Urea Nitrogen 17 MG/DL (7-18) 19 MG/DL (7-18) Creatinine 0.71 MG/DL (0.60-1.30) 0.68 MG/DL (0.60-1.30) Random Glucose 200 MG/DL (74-106) 158 MG/DL (74-106) Total Protein 6.4 GM/DL (6.4-8.2) Albumin 1.7 GM/DL (3.4-5.0) Calcium Level 8.4 MG/DL (8.5-10.1) 8.1 MG/DL (8.5-10.1) Alkaline Phosphatase 76 U/L (45-117) Aspartate Amino Transf (AST/SGOT) 19 U/L (15-37) Alanine Aminotransferase (ALT/SGPT) 16 U/L (12-78) Total Bilirubin 0.4 MG/DL (0.2-1.0) Sodium Level 133 MEQ/L (136-145) 135 MEQ/L (136-145) Potassium Level 4.5 MEQ/L (3.5-5.1) 4.6 MEQ/L (3.5-5.1) Chloride Level 97 MEQ/L (98-107) 101 MEQ/L (98-107) Carbon Dioxide Level 24.2 MEQ/L (21.0-32.0) 26.5 MEQ/L (21.0-32.0) Anion Gap 12 MEQ/L (5-15) 8 MEQ/L (5-15) Estimat Glomerular Filtration Rate 111 ML/MIN (>89) 116 ML/MIN (>89) Test 10/20/17 05:00 White Blood Count 14.8 TH/MM3 (4.0-11.0) Red Blood Count 4.17 MIL/MM3 (4.50-5.90) Hemoglobin 11.3 GM/DL (13.0-17.0) Hematocrit 34.4 % (39.0-51.0) Mean Corpuscular Volume 82.3 FL (80.0-100.0) Mean Corpuscular Hemoglobin 27.1 PG (27.0-34.0) Mean Corpuscular Hemoglobin Concent 32.9 % (32.0-36.0) Red Cell Distribution Width 16.0 % (11.6-17.2) Platelet Count 323 TH/MM3 (150-450) Mean Platelet Volume 8.9 FL (7.0-11.0) Neutrophils (%) (Auto) 87.0 % (16.0-70.0) Lymphocytes (%) (Auto) 7.5 % (9.0-44.0) Monocytes (%) (Auto) 5.2 % (0.0-8.0) Eosinophils (%) (Auto) 0.0 % (0.0-4.0) Basophils (%) (Auto) 0.3 % (0.0-2.0) Neutrophils # (Auto) 12.8 TH/MM3 (1.8-7.7) Lymphocytes # (Auto) 1.1 TH/MM3 (1.0-4.8) Monocytes # (Auto) 0.8 TH/MM3 (0-0.9) Eosinophils # (Auto) 0.0 TH/MM3 (0-0.4) Basophils # (Auto) 0.0 TH/MM3 (0-0.2) CBC Comment DIFF FINAL Differential Comment Blood Urea Nitrogen 14 MG/DL (7-18) Creatinine 0.63 MG/DL (0.60-1.30) Random Glucose 136 MG/DL (74-106) Albumin 1.7 GM/DL (3.4-5.0) Calcium Level 8.4 MG/DL (8.5-10.1) Phosphorus Level 3.1 MG/DL (2.5-4.9) Magnesium Level 2.2 MG/DL (1.5-2.5) Sodium Level 136 MEQ/L (136-145) Potassium Level 4.3 MEQ/L (3.5-5.1) Chloride Level 102 MEQ/L (98-107) Carbon Dioxide Level 23.7 MEQ/L (21.0-32.0) Anion Gap 10 MEQ/L (5-15) Estimat Glomerular Filtration Rate 127 ML/MIN (>89) Result Diagram: 10/20/17 0500 10/20/17 0500 Assessment and Plan Disease Oriented Problem List: (1) Chest pain, likely noncardiac (2) Stage IV adenocarcinoma of the lung (3) Anticipating initiating chemotherapy later this week (4) COPD (5) Exposure to Agent [place] in [place] (6) Diabetes (7) Hyperlipidemia (8) Malnutrition, albumin 1.7 (9) History of alcohol and drug abuse, sober with Narcotics Anonymous for 25 years (10) History of nephrolithiasis Symptom Scale: (1) Dyspnea 0-10 Scale: 0 (2) Pain 0-10 Scale: 0 (Chest pain is resolved) Pertinent Non-Medical Issues Psychosocial: Former [employer] in [place], worked various odd jobs, on disability due to COPD and agent orange exposure, legally but long-time , 1 daughter living in [place] Spiritual: The patient has a remote [employer] background, but says his current spirituality is due to his connection with [email or web address], and he has no connection with any particular caodaism or denomination. He welcomes student success coach visits while he is here at the hospital. Legal: The patient has capacity for decision-making. He has designated his daughter Razia Long as healthcare surrogate. Ethical issues impacting care: None . Important Contacts Daughter: Razia Long, in [place], . Prognosis The patient has stage IV adenocarcinoma and has underlying COPD with 20 pounds of recent weight loss, so his overall prognosis is poor. . Code Status: No Code Plan * DO NOT RESUSCITATE, per request of patient 10/18/17 * DECISION-MAKING: The patient has capacity for decision-making. He has designated his daughter Razia Long as healthcare surrogate. * GOALS: The patient clearly does not want to be resuscitated if he should suffer an arrest. He has named his daughter Razia as healthcare surrogate. . He did say he wants to do a conference call with her daughter and brother tomorrow at 11am before making final decision. Palliative will be there, and I have notified oncology.. He does have concern about quality of life, and home support. Reviewed with him that the option are chemotherapy or hospice. He did tell me more than likely he is opting for chemotherapy, final decision will commence tomorrow. * SYMPTOMS: His pain seems to have resolved, and he is not dyspneic now here in his hospital room. Pain in scapula may be musculoskeletal vs some refered pain from mets. Continue steroids. PRN opiate available, but pt so far refuse it. * Palliative Care will continue to follow the patient during this hospitalization. . Attestation To help prompt me to consider important information that might be impacting today's encounter and assessment, information from prior notes written by myself or my colleagues may have been "brought forward" into today's note. My signature on this note, however, is an attestation that I personally performed the exam, history, and/or decision-making noted today, and, unless otherwise indicated, the interactions with patient, family, and staff as well as the review of records all occurred today. I also attest that the listed assessment and stated plan reflect my best clinical judgment today based on the combination of historical information, prior notes, and today's exam/ interactions. When time spent is documented, it refers only to time spent today by the signer, or if indicated, combined time spent today by collaborating physician/nurse practitioner. Chance Bailey MD Oct 20, 2017 11:41
--- NOTE | 2017-10-20 13:05 | HHI.PR ---
Subjective Remarks Patient reports he is feeling okay today. Pain is controlled. Breathing comfortably. Objective Vitals Vital Signs Date Time Temp Pulse Resp B/P (MAP) Pulse Ox O2 Delivery O2 Flow Rate FiO2 10/20/17 12:02 86 10/20/17 11:35 98.4 90 18 122/71 (88) 95 10/20/17 10:00 90 10/20/17 09:01 96 21 10/20/17 09:00 116 10/20/17 08:00 46 10/20/17 07:18 98.0 84 18 99/47 (64) 96 10/20/17 07:13 98.0 83 18 106/72 (83) 96 10/20/17 07:00 72 10/20/17 06:00 85 10/20/17 05:00 92 10/20/17 04:00 97.6 84 16 112/75 (87) 95 10/20/17 04:00 91 10/20/17 04:00 80 10/20/17 03:00 82 10/20/17 02:00 84 10/20/17 00:00 98.3 94 15 104/75 (85) 95 10/19/17 23:00 90 10/19/17 22:00 96 10/19/17 21:00 98 10/19/17 20:00 96 10/19/17 20:00 97.9 95 15 111/73 (86) 95 10/19/17 18:57 97 21 10/19/17 18:00 84 10/19/17 17:00 84 10/19/17 15:20 97.9 93 18 100/69 (79) 95 10/19/17 14:00 95 10/19/17 13:09 97.7 98 18 109/74 (86) 97 I/O 10/19/17 10/19/17 10/19/17 10/20/17 10/20/17 10/20/17 07:00 15:00 23:00 07:00 15:00 23:00 Intake Total 500 ml 240 ml 480 ml Output Total 300 ml Balance 500 ml -60 ml 480 ml Intake Oral 500 ml 240 ml 480 ml Output Urine Total 300 ml # Voids 2 Result Diagram: 10/20/17 0500 10/20/17 0500 Objective Remarks GENERAL: Frail-appearing male CARDIOVASCULAR: Normal rate and regular rhythm without murmurs, gallops, or rubs. RESPIRATORY: Good respiratory efforts. Breath sounds equal and clear to auscultation bilaterally. GASTROINTESTINAL: Abdomen soft, non-tender, non-distended. Normal active bowel sounds MUSCULOSKELETAL: Extremities without cyanosis, or edema. NEURO: Alert & Oriented x4 to person, place, time, situation. Moves all ext x4 PSYCH: Appropriate mood and affect. A/P Problem List: (1) Stage IV adenocarcinoma of the lung Assessment and Plan 67-year-old male with history of tobacco use, COPD, recently diagnosed stage IV adenocarcinoma of lung with metastases, presents with worsening back pain and shortness of breath. Stage IV Bronchogenic Adenocarcinoma: recently diagnosed this month September 2017. Returned to ED with worsening shortness of breath, cough, back pains. Symptoms likely all related to advanced cancer. -Repeat CT-PA today 10/18 negative for PE, showed again large infiltrative right lung mass; mediastinal and left axillary lymphadenopathy, lytic destructive lesion of left T1 vertebral body, and noncalcified nodules within LLL; no significant change compared to previous CT -Continue duonebs -Incentive spirometer -Continue pain control with [place] prn and IV morphine prn breakthrough pain -Appreciate palliative care following. Hospice consulted: Patient seems to be agreeable to hospice but is deferring to discuss this with daughter and hospice tomorrow COPD with mild exacerbation: imaging as above. -continue duonebs -continue steroids with prednisone 20mg bid for now -monitor for improvement Improving. Continue on current treatment. Tobacco use: patient quit 1 week ago. Smokes tobacco 2PPD since age 18 -counseled on continued cessation Borderline Diabetes: patient on metformin. Last HgbA1c 6.1 on 10/08/17. Expect higher blood glucose while on steroids. -monitor accu-cheks and cover with SSI Weight Loss, Protein Calorie Malnutrition: suspect secondary to cancer -Encourage oral intake. DVT Prophylaxis: Lovenox sq Discharge Planning Family meeting with hospice plan for tomorrow. Rosaline Peacock MD Oct 20, 2017 13:05
[2017-10-20] MEDS: ENOXAPARIN SODIUM 40 MG/0.4 ML SYRINGE SQ SCH (16:24)
[2017-10-21] VITALS (22 sets, daily range): BP systolic 101–120; BP diastolic 67–79; PULSE 80–146; RESP 16–20; TEMP 97.5–98.9; O2SAT 93–98
[2017-10-21] MEDS: INSULIN ASPART SUPPLEMENTAL SCALE SQ SCH ×4 (07:55→20:35)
[2017-10-21] MEDS: predniSONE 20 MG TAB PO SCH ×2 (07:56→20:34)
[2017-10-21] MEDS: BUDESONIDE-FORMOTEROL 160/4.5 MCG INHALER INH SCH ×2 (07:57→20:35)
[2017-10-21] MEDS: ASPIRIN 325 MG TAB PO SCH (07:57)
[2017-10-21] MEDS: SODIUM CHLORIDE 0.9% FLUSH 10 ML FLUSH IV FLUSH SCH ×2 (07:57→20:34)
[2017-10-21] MEDS: RESP: IPRATROPIUM 0.5 MG/2.5 ML NEB NEB SCH ×3 (08:53→21:00)
--- NOTE | 2017-10-21 11:27 | HHI.PR ---
Subjective Remarks Patient reports he is doing okay today. Patient and family to meet with palliative care today. Objective Vitals Vital Signs Date Time Temp Pulse Resp B/P (MAP) Pulse Ox O2 Delivery O2 Flow Rate FiO2 10/21/17 09:00 88 10/21/17 08:55 93 21 10/21/17 08:30 98.4 84 16 120/79 (93) 97 10/21/17 08:00 98 10/21/17 07:28 82 10/21/17 06:00 86 10/21/17 05:00 80 10/21/17 04:50 98.2 88 17 105/75 (85) 97 10/21/17 04:00 92 10/21/17 01:00 96 10/21/17 00:00 98 10/21/17 00:00 98.9 100 17 107/78 (88) 95 10/20/17 23:00 106 10/20/17 21:00 100 10/20/17 20:36 99 Nasal Cannula 2.00 10/20/17 20:00 98 10/20/17 20:00 98.5 93 16 127/78 (94) 95 10/20/17 19:00 108 10/20/17 18:00 128 10/20/17 17:00 100 10/20/17 16:00 98 10/20/17 15:20 97.9 104 16 92/63 (73) 94 10/20/17 14:00 96 10/20/17 13:00 88 10/20/17 12:02 86 10/20/17 11:35 98.4 90 18 122/71 (88) 95 I/O 10/20/17 10/20/17 10/20/17 10/21/17 10/21/17 10/21/17 07:00 15:00 23:00 07:00 15:00 23:00 Intake Total 480 ml 960 ml 200 ml Output Total 1100 ml 1000 ml Balance 480 ml -140 ml -800 ml Intake Oral 480 ml 960 ml 200 ml Output Urine Total 1100 ml 1000 ml # Voids 2 # Bowel Movements 0 Result Diagram: 10/20/17 0500 10/20/17 0500 Objective Remarks GENERAL: Frail-appearing male CARDIOVASCULAR: Normal rate and regular rhythm without murmurs, gallops, or rubs. RESPIRATORY: Good respiratory efforts. Breath sounds equal and clear to auscultation bilaterally. GASTROINTESTINAL: Abdomen soft, non-tender, non-distended. Normal active bowel sounds MUSCULOSKELETAL: Extremities without cyanosis, or edema. NEURO: Alert & Oriented x4 to person, place, time, situation. Moves all ext x4 PSYCH: Appropriate mood and affect. A/P Problem List: (1) Stage IV adenocarcinoma of the lung Assessment and Plan 67-year-old male with history of tobacco use, COPD, recently diagnosed stage IV adenocarcinoma of lung with metastases, presents with worsening back pain and shortness of breath. Stage IV Bronchogenic Adenocarcinoma: recently diagnosed this month September 2017. Returned to ED with worsening shortness of breath, cough, back pains. Symptoms likely all related to advanced cancer. -Repeat CT-PA today 10/18 negative for PE, showed again large infiltrative right lung mass; mediastinal and left axillary lymphadenopathy, lytic destructive lesion of left T1 vertebral body, and noncalcified nodules within LLL; no significant change compared to previous CT -Continue duonebs -Incentive spirometer -Continue pain control with [place] prn and IV morphine prn breakthrough pain -Appreciate palliative care following. Discussed with oncology team. If the patient goals do not align with hospice and he wants to consider treatment, chemo can be started tomorrow. Hospice consulted: Patient seems to be agreeable to hospice but is deferring to discuss this with daughter and palliative care/hospice today COPD with mild exacerbation: imaging as above. -continue duonebs -continue steroids with prednisone 20mg bid for now -monitor for improvement Improving. Continue on current treatment. Tobacco use: patient quit 1 week prior to admission. Smokes tobacco 2PPD since age 18 -counseled on continued cessation Borderline Diabetes: patient on metformin. Last HgbA1c 6.1 on 10/08/17. Expect higher blood glucose while on steroids. -monitor accu-cheks and cover with SSI Weight Loss, Protein Calorie Malnutrition: suspect secondary to cancer -Encourage oral intake. DVT Prophylaxis: Lovenox sq Discharge Planning Pending family meeting with palliative care/hospice Rosaline Peacock MD Oct 21, 2017 11:27
--- NOTE | 2017-10-21 11:46 | HHI.HCSW ---
Mapping Supervisor Visit Cognitive Functioning Briefly met with Mr. Long prior to family meeting with palliative care and oncology. He is alert, oriented, and able to make his needs known. Gently discussed Five Wishes with him after discussion with daughter, he is amendable to copy to further assist in conversation with daughter regarding his wishes. . Significant Family/Friend 1030am-- received call from daughter Razia. She inquires to confirm meeting today at 11am. She inquires about providers to be present at meeting, wants to speak with oncology. Asks about living will. Discussed Five Wishes as well. Questioning about chemotherapy vs hospice. Answered her questions and concerns to the best of my ability and to her satisfaction. . Advance Directive Health care surrogate and Community DNR previously completed. . Proposed Soc Wrk Intervention Daughter could continue to benefit from ongoing emotional support as she is struggling with patient's overall medical condition, prognosis, and decisions to be made regarding his goals of care. While she appears to support him in his wishes, she also struggles with being out of state and receiving information/ decisions over the phone. . Follow Up Visit Palliative care will continue to follow throughout hospitalization. . Dena Mark, LUSTER REPAIRER Oct 21, 2017 11:46
--- NOTE | 2017-10-21 11:49 | HHI.HCPN ---
Reason for visit a. To assist with evaluation and management of symptoms including: Pain b. To assist medical decision maker(s) with: better understanding of current medical conditions; weighing benefits/burdens of medical treatment options; making medical treatment decisions. . Subjective/Interval History Pt endorses pain is overall well controlled. No complaints.. Family/friend interactions Had extensive family meeting with patient, oncology, palliative care, pt's daughter Razia (health care surrogate) and pt's sister. Patient has made the decision to: == want to try and pursue chemotherapy. as this is the case, it is important logistics such as transportation, care, would need to be arranged. case managment phone number had been provided to daughter, who is made aware the challenges. ==Pt will complete a living will today. == If pt does not do well with chemothearpy or does not want further chemo, he understands he can do that. In that case hospice will be brought back into the picture. Advance Directives Living Will: Completed, but not made available Health Care Surrogate: Copy in medical record Durable Power of Headmaster/Mistress: Never completed Advance Directive Specifics Health Care Surrogate(s): The patient has designated his daughter Razia as healthcare surrogate . Documented care wishes: The patient says he has a living will that he completed at the [facility], and he would "not want heroics when it will not help." . Objective Vital Signs Date Time Temp Pulse Resp B/P (MAP) Pulse Ox O2 Delivery O2 Flow Rate FiO2 10/21/17 09:00 88 10/21/17 08:55 93 21 10/21/17 08:30 98.4 84 16 120/79 (93) 97 10/21/17 08:00 98 10/21/17 07:28 82 10/21/17 06:00 86 10/21/17 05:00 80 10/21/17 04:50 98.2 88 17 105/75 (85) 97 10/21/17 04:00 92 10/21/17 01:00 96 10/21/17 00:00 98 10/21/17 00:00 98.9 100 17 107/78 (88) 95 10/20/17 23:00 106 10/20/17 21:00 100 10/20/17 20:36 99 Nasal Cannula 2.00 10/20/17 20:00 98 10/20/17 20:00 98.5 93 16 127/78 (94) 95 10/20/17 19:00 108 10/20/17 18:00 128 10/20/17 17:00 100 10/20/17 16:00 98 10/20/17 15:20 97.9 104 16 92/63 (73) 94 10/20/17 14:00 96 10/20/17 13:00 88 10/20/17 12:02 86 Intake & Output 10/21/17 10/21/17 07:00 19:00 Intake Total 200 ml Output Total 1200 ml Balance -1000 ml Intake Oral 200 ml Output Urine Total 1200 ml Physical Exam CONSTITUTIONAL/GENERAL: This is a thin patient, in no apparent distress. TUBES/LINES/DRAINS: Supplemental O2, peripheral IV SKIN: No jaundice, rashes, or lesions. Ecchymoses on upper extremities. No wounds seen anteriorly. Skin temperature appropriate. Not diaphoretic. HEAD: Atraumatic. Normocephalic. EYES: Pupils equal and round and reactive. Extraocular motions intact. No scleral icterus. No injection or drainage. Fundi not examined. ENT: Hearing grossly normal. Nose without bleeding or purulent drainage. Throat without visible erythema, exudates, masses, or lesions. NECK: Trachea midline. Supple, nontender. No palpable thyroid enlargement or nodularity. CARDIOVASCULAR: Regular rate and rhythm without murmurs, gallops, or rubs. No JVD. Peripheral pulses symmetric. RESPIRATORY/CHEST: Symmetric, unlabored respirations. Clear but diminished respirations. GASTROINTESTINAL: Abdomen soft, non-tender, nondistended. No hepato-splenomegaly , or palpable masses. No guarding. Bowel sounds present. GENITOURINARY: Without palpable bladder distension. Lopez catheter in place. MUSCULOSKELETAL: Extremities without clubbing, cyanosis, or edema. No joint tenderness or effusion noted. No calf tenderness. No mottling or clubbing. LYMPHATICS: No palpable cervical or supraclavicular adenopathy. NEUROLOGICAL: Awake and alert. Motor and sensory grossly within normal limits. Follows commands. Cognitively sharp. Moves all extremities. PSYCHIATRIC: No obvious anxiety/depression. no apparent hallucinations or other psychotic thought process. . Diagnostic Tests Laboratory Laboratory Tests Test 10/19/17 06:12 10/19/17 06:20 10/20/17 05:00 Blood Urea Nitrogen 19 MG/DL (7-18) 14 MG/DL (7-18) Creatinine 0.68 MG/DL (0.60-1.30) 0.63 MG/DL (0.60-1.30) Random Glucose 158 MG/DL (74-106) 136 MG/DL (74-106) Calcium Level 8.1 MG/DL (8.5-10.1) 8.4 MG/DL (8.5-10.1) Sodium Level 135 MEQ/L (136-145) 136 MEQ/L (136-145) Potassium Level 4.6 MEQ/L (3.5-5.1) 4.3 MEQ/L (3.5-5.1) Chloride Level 101 MEQ/L (98-107) 102 MEQ/L (98-107) Carbon Dioxide Level 26.5 MEQ/L (21.0-32.0) 23.7 MEQ/L (21.0-32.0) Anion Gap 8 MEQ/L (5-15) 10 MEQ/L (5-15) Estimat Glomerular Filtration Rate 116 ML/MIN (>89) 127 ML/MIN (>89) White Blood Count 15.1 TH/MM3 (4.0-11.0) 14.8 TH/MM3 (4.0-11.0) Red Blood Count 4.25 MIL/MM3 (4.50-5.90) 4.17 MIL/MM3 (4.50-5.90) Hemoglobin 11.4 GM/DL (13.0-17.0) 11.3 GM/DL (13.0-17.0) Hematocrit 34.7 % (39.0-51.0) 34.4 % (39.0-51.0) Mean Corpuscular Volume 81.6 FL (80.0-100.0) 82.3 FL (80.0-100.0) Mean Corpuscular Hemoglobin 26.7 PG (27.0-34.0) 27.1 PG (27.0-34.0) Mean Corpuscular Hemoglobin Concent 32.8 % (32.0-36.0) 32.9 % (32.0-36.0) Red Cell Distribution Width 15.8 % (11.6-17.2) 16.0 % (11.6-17.2) Platelet Count 268 TH/MM3 (150-450) 323 TH/MM3 (150-450) Mean Platelet Volume 9.4 FL (7.0-11.0) 8.9 FL (7.0-11.0) Neutrophils (%) (Auto) 87.2 % (16.0-70.0) 87.0 % (16.0-70.0) Lymphocytes (%) (Auto) 7.0 % (9.0-44.0) 7.5 % (9.0-44.0) Monocytes (%) (Auto) 5.5 % (0.0-8.0) 5.2 % (0.0-8.0) Eosinophils (%) (Auto) 0.0 % (0.0-4.0) 0.0 % (0.0-4.0) Basophils (%) (Auto) 0.3 % (0.0-2.0) 0.3 % (0.0-2.0) Neutrophils # (Auto) 13.2 TH/MM3 (1.8-7.7) 12.8 TH/MM3 (1.8-7.7) Lymphocytes # (Auto) 1.1 TH/MM3 (1.0-4.8) 1.1 TH/MM3 (1.0-4.8) Monocytes # (Auto) 0.8 TH/MM3 (0-0.9) 0.8 TH/MM3 (0-0.9) Eosinophils # (Auto) 0.0 TH/MM3 (0-0.4) 0.0 TH/MM3 (0-0.4) Basophils # (Auto) 0.0 TH/MM3 (0-0.2) 0.0 TH/MM3 (0-0.2) CBC Comment DIFF FINAL DIFF FINAL Differential Comment Albumin 1.7 GM/DL (3.4-5.0) Phosphorus Level 3.1 MG/DL (2.5-4.9) Magnesium Level 2.2 MG/DL (1.5-2.5) Result Diagram: 10/20/17 0500 10/20/17 [address] Angiography 10/18/17 0000 Signed Impressions: Service Date/Time: Wednesday, October 18, 2017 11:56 - CONCLUSION: 1. No evidence of pulmonary embolism. 2. No significant change in the extensive infiltrative mass of the right lung, mediastinal and left axillary lymphadenopathy, lytic destructive lesion of the left T1 vertebral body, and noncalcified nodules within the left lower lobe. Yair Munguia MD Assessment and Plan Disease Oriented Problem List: (1) Chest pain, likely noncardiac (2) Stage IV adenocarcinoma of the lung (3) Anticipating initiating chemotherapy later this week (4) COPD (5) Exposure to Agent [place] in [place] (6) Diabetes (7) Hyperlipidemia (8) Malnutrition, albumin 1.7 (9) History of alcohol and drug abuse, sober with Narcotics Anonymous for 25 years (10) History of nephrolithiasis Symptom Scale: (1) Dyspnea 0-10 Scale: 0 (2) Pain 0-10 Scale: 0 (Chest pain is resolved) Pertinent Non-Medical Issues Psychosocial: Former [employer] in [place], worked various odd jobs, on disability due to COPD and agent orange exposure, legally but long-time , 1 daughter living in [place] Spiritual: The patient has a remote Lutheran background, but says his current spirituality is due to his connection with [employer], and he has no connection with any particular alevism or denomination. 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 Legal: The patient has capacity for decision-making. He has designated his daughter Razia Long as healthcare surrogate. Ethical issues impacting care: None . Important Contacts Daughter: Razia Long, in [place], . Prognosis The patient has stage IV adenocarcinoma and has underlying COPD with 20 pounds of recent weight loss, so his overall prognosis is poor. . Code Status: No Code Plan * DO NOT RESUSCITATE, per request of patient 10/18/17. Community DNR signed. * DECISION-MAKING: The patient has capacity for decision-making. He has designated his daughter Razia Long as healthcare surrogate. * GOALS: Had extensive family meeting with patient, oncology, palliative care, pt's daughter Razia (health care surrogate) and pt's sister. Patient has made the decision to: == want to try and pursue chemotherapy. as this is the case, it is important logistics such as transportation, care, would need to be arranged. case managment phone number had been provided to daughter, who is made aware the challenges. ==Pt will complete a living will today. == If pt does not do well with chemothearpy or does not want further chemo, he understands can stop chemo. In that case he is amenable to hospice. * SYMPTOMS: His pain seems to have resolved, and he is not dyspneic now here in his hospital room. Pain in scapula may be musculoskeletal vs some referred pain from mets. Continue steroids. PRN opiate available, but pt so far refuse it. * Palliative Care will continue to follow the patient during this hospitalization. . Attestation To help prompt me to consider important information that might be impacting today's encounter and assessment, information from prior notes written by myself or my colleagues may have been "brought forward" into today's note. My signature on this note, however, is an attestation that I personally performed the exam, history, and/or decision-making noted today, and, unless otherwise indicated, the interactions with patient, family, and staff as well as the review of records all occurred today. I also attest that the listed assessment and stated plan reflect my best clinical judgment today based on the combination of historical information, prior notes, and today's exam/ interactions. When time spent is documented, it refers only to time spent today by the signer, or if indicated, combined time spent today by collaborating physician/nurse practitioner. Chance Bailey MD Oct 21, 2017 11:49
--- NOTE | 2017-10-21 11:58 | PD.ONC.PN ---
Subjective Subjective Remarks Afebrile overnight. Patient resting in bed in nad. No complaints. Objective Data Date Time Temp Pulse Resp B/P (MAP) Pulse Ox O2 Delivery O2 Flow Rate FiO2 10/21/17 09:00 88 10/21/17 08:55 93 21 10/21/17 08:30 98.4 84 16 120/79 (93) 97 10/21/17 08:00 98 10/21/17 07:28 82 10/21/17 06:00 86 10/21/17 05:00 80 10/21/17 04:50 98.2 88 17 105/75 (85) 97 10/21/17 04:00 92 10/21/17 01:00 96 10/21/17 00:00 98 10/21/17 00:00 98.9 100 17 107/78 (88) 95 10/20/17 23:00 106 10/20/17 21:00 100 10/20/17 20:36 99 Nasal Cannula 2.00 10/20/17 20:00 98 10/20/17 20:00 98.5 93 16 127/78 (94) 95 10/20/17 19:00 108 10/20/17 18:00 128 10/20/17 17:00 100 10/20/17 16:00 98 10/20/17 15:20 97.9 104 16 92/63 (73) 94 10/20/17 14:00 96 10/20/17 13:00 88 10/20/17 12:02 86 10/21/17 10/21/17 10/21/17 07:00 15:00 23:00 Intake Total 200 ml Output Total 1000 ml Balance -800 ml Result Diagram: 10/20/17 0500 10/20/17 0500 Administered Medications Medications (Trade) Dose Ordered Sig/Jeremiah Route PRN Reason Start Time Stop Time Status Last Admin Dose Admin Sodium Chloride (NS Flush) 2 ml BID IV FLUSH 10/17/17 21:00 10/21/17 07:57 Enoxaparin Sodium (Lovenox Inj) 40 mg Q24H SQ 10/17/17 17:00 10/20/17 16:24 Magnesium Hydroxide (Milk Of Magnesia Liq) 30 ml Q12H PRN PO Mild constipation 10/17/17 16:30 10/20/17 07:45 Aspirin (Aspirin) 325 mg DAILY PO 10/19/17 09:00 10/21/17 07:57 Budesonide/ Formoterol Fumarate (Symbicort 160-4.5 Mcg Inh) 2 puff Q12HR INH 10/18/17 13:00 10/21/17 07:57 Prednisone (Deltasone) 20 mg BID PO 10/18/17 21:00 10/21/17 07:56 Ipratropium [place] (Atrovent Neb) 0.5 mg TID NEB NEB 10/18/17 14:00 10/21/17 08:53 Insulin Aspart (NovoLOG SUPPLEMENTAL SCALE) 1 ACHS SLIDING SCALE SQ 10/18/17 17:00 10/20/17 19:54 Objective Remarks GENERAL: Middle aged male, sitting up in bed in nad. SKIN: Warm and dry. HEAD: Normocephalic. EYES: No injection or drainage. NECK: Supple, trachea midline. EXTREMITIES: No cyanosis NEUROLOGICAL: awake and alert. normal speech. Assessment/Plan Problem List: (1) Stage IV adenocarcinoma of the lung Plan: --plan for outpatient carbo/taxol Hx/Workup: Patient originally presented 2 weeks ago with constitutional symptoms of shortness of breath, a nonproductive cough and a [address] scan showed a 7.1 x 14 x 11.1 cm right perihilar mass. There was adenopathy in the subcarinal AP window in the periesophageal and left axillary area. Pathology showed adenocarcinoma consistent with lung primary. Mutational studies are pending. The patient was discharged home but returned as his symptoms became progressive. We are offering chemo with carboplatin and Taxol however the patient is now deciding for hospice versus chemotherapy. Assessment 67 y/o male with newer diagnosis of stage IV adenocarcinoma of the lung admitted for progressive symptoms Plan 1. family meeting held with patient, Dr. Bailey and patient's daughter Malathi on the phone. Patient would like to pursue chemotherapy. however, patient currently has nowhere to go after he leaves the hospital and will not have transportation to and from clinic appointments. If he were to take [place], he would have to be on the bus and waiting for the bus all day on clinic days since he lives in [place]. Therefore, I discussed with the patient and his daughter that until he has a place to stay and a caregiver, it is really not safe for him to have chemotherapy and be discharged from the hospital. 2. I recommended to the patient and daughter 1.) finding an oncologist close to where the patient lives, 2.) finding a place for Mr. Lala to stay and 3.) finding a caregiver for Mr. Laal while he is undergoing treatment, such as the daughter. 3. Malathi, the patient's daughter stated she would work on that today and get back to me with the name of the oncologist that they have chosen, so that I can send the patient's records over/coordinate follow up. d/w Loretta Chavez (case monitor), patient, patient's daughter and Dr. Arellano. Attending Statement The exam, history, and the medical decision-making described in the above note were completed with the assistance of the mid-level provider. I reviewed and agree with the findings presented. I attest that I had a [id number] encounter with the patient on the same day, and personally performed and documented my assessment and findings in the medical record. Pt denies CP. SOB improved. Pt has questions regarding chemotherapy which were answered. He had a conference with his daughter this morning and he has decided to try chemotherapy. However, he has no stable place to live. He lives in [place] and he has no transportation. His daughter is going to find a stable place for him to stay and find an oncologist in [place] area for treatment. Kristy Carlin Oct 21, 2017 11:58 Ruiz Arellano MD Oct 21, 2017 16:01
[2017-10-21] MEDS: ENOXAPARIN SODIUM 40 MG/0.4 ML SYRINGE SQ SCH (16:29)
[2017-10-22] VITALS (14 sets, daily range): BP systolic 105–137; BP diastolic 65–80; PULSE 73–120; RESP 16–22; TEMP 97.8–99.6; O2SAT 95–99
[2017-10-22] MEDS: ACETAMINOPHEN/HYDROcodone 325 MG/5 MG TAB PO PRN ×2 (00:30→19:20)
[2017-10-22] MEDS: RESP: IPRATROPIUM 0.5 MG/2.5 ML NEB NEB SCH ×3 (07:19→20:38)
[2017-10-22] MEDS: INSULIN ASPART SUPPLEMENTAL SCALE SQ SCH ×4 (08:00→21:29)
[2017-10-22] MEDS: SODIUM CHLORIDE 0.9% FLUSH 10 ML FLUSH IV FLUSH SCH ×2 (08:05→19:22)
[2017-10-22] MEDS: ASPIRIN 325 MG TAB PO SCH (08:05)
[2017-10-22] MEDS: predniSONE 20 MG TAB PO SCH (08:05)
[2017-10-22] MEDS: BUDESONIDE-FORMOTEROL 160/4.5 MCG INHALER INH SCH ×2 (08:05→19:21)
--- NOTE | 2017-10-22 08:28 | PD.ONC.PN ---
Subjective Subjective Remarks Afebrile overnight. Patient resting in bed in nad. No complaints. Objective Data Date Time Temp Pulse Resp B/P (MAP) Pulse Ox O2 Delivery O2 Flow Rate FiO2 10/22/17 08:07 97.8 79 16 107/69 (82) 96 10/22/17 04:30 75 10/22/17 04:09 98.7 73 18 122/73 (89) 95 10/22/17 00:23 99.6 120 22 115/66 (82) 96 10/22/17 00:09 102 10/21/17 23:00 146 10/21/17 22:00 96 10/21/17 21:01 93 21 10/21/17 21:00 98 10/21/17 20:25 98.4 112 20 117/74 (88) 94 10/21/17 20:03 95 10/21/17 19:00 116 10/21/17 16:20 98.0 98 20 110/67 (81) 95 10/21/17 16:16 111 10/21/17 13:30 96 10/21/17 11:50 97.5 88 16 101/67 (78) 98 10/21/17 09:00 88 10/21/17 08:55 93 21 10/21/17 08:30 98.4 84 16 120/79 (93) 97 10/22/17 10/22/17 10/22/17 07:00 15:00 23:00 Intake Total 240 ml Output Total 325 ml Balance -85 ml Result Diagram: 10/20/17 0500 10/20/17 0500 Administered Medications Medications (Trade) Dose Ordered Sig/Jeremiah Route PRN Reason Start Time Stop Time Status Last Admin Dose Admin Sodium Chloride (NS Flush) 2 ml BID IV FLUSH 10/17/17 21:00 10/22/17 08:05 Enoxaparin Sodium (Lovenox Inj) 40 mg Q24H SQ 10/17/17 17:00 10/21/17 16:29 Magnesium Hydroxide (Milk Of Magnesia Liq) 30 ml Q12H PRN PO Mild constipation 10/17/17 16:30 10/20/17 07:45 Aspirin (Aspirin) 325 mg DAILY PO 10/19/17 09:00 10/22/17 08:05 Budesonide/ Formoterol Fumarate (Symbicort 160-4.5 Mcg Inh) 2 puff Q12HR INH 10/18/17 13:00 10/22/17 08:05 Prednisone (Deltasone) 20 mg BID PO 10/18/17 21:00 10/22/17 08:05 Ipratropium [place] (Atrovent Neb) 0.5 mg TID NEB NEB 10/18/17 14:00 10/22/17 07:19 Acetaminophen/ Hydrocodone Bitart ([place] 5-325 Mg) 1 tab Q4H PRN PO PAIN SCALE 3 TO 5 10/18/17 15:00 10/22/17 00:30 Insulin Aspart (NovoLOG SUPPLEMENTAL SCALE) 1 ACHS SLIDING SCALE SQ 10/18/17 17:00 10/21/17 20:35 Objective Remarks GENERAL: Middle aged male, sitting up in bed in [facility]. SKIN: Warm and dry. HEAD: Normocephalic. EYES: No injection or drainage. NECK: Supple, trachea midline. CARDIOVASCULAR: Regular rate and rhythm RESPIRATORY: Breath sounds equal bilaterally. No accessory muscle use. GASTROINTESTINAL: Abdomen soft, non-tender, nondistended. EXTREMITIES: No cyanosis NEUROLOGICAL: awake and alert. normal speech. moving all extremities. Assessment/Plan Problem List: (1) Stage IV adenocarcinoma of the lung Plan: --plan for outpatient carbo/taxol Hx/Workup: Patient originally presented 2 weeks ago with constitutional symptoms of shortness of breath, a nonproductive cough and a [address] scan showed a 7.1 x 14 x 11.1 cm right perihilar mass. There was adenopathy in the subcarinal AP window in the periesophageal and left axillary area. Pathology showed adenocarcinoma consistent with lung primary. Mutational studies are pending. The patient was discharged home but returned as his symptoms became progressive. We are offering chemo with carboplatin and Taxol however the patient is now deciding for hospice versus chemotherapy. Assessment 67 y/o male with newer diagnosis of stage IV adenocarcinoma of the lung admitted for progressive symptoms Plan 1. continue supportive care. 2. plan is for outpatient carbo/taxol once patient/daughter have found an oncologist in [place], a place for him to live, and a caregiver. Attending Statement The exam, history, and the medical decision-making described in the above note were completed with the assistance of the mid-level provider. I reviewed and agree with the findings presented. I attest that I had a [id number] encounter with the patient on the same day, and personally performed and documented my assessment and findings in the medical record. Pt denies CP. SOB improved. Mild cough. He has decided to try chemotherapy but awaiting his daughter to help him find a place to stay and he will find an oncologist in [facility] for treatment. His questions were answered today. Kristy Carlin Oct 22, 2017 08:28 Ruiz Arellano MD Oct 22, 2017 11:53
--- NOTE | 2017-10-22 13:08 | HHI.PR ---
Subjective Remarks Patient reports he is doing okay. Resting in bed. Objective Vitals Vital Signs Date Time Temp Pulse Resp B/P (MAP) Pulse Ox O2 Delivery O2 Flow Rate FiO2 10/22/17 12:36 100 10/22/17 12:11 98.0 93 17 105/68 (80) 96 10/22/17 08:07 97.8 79 16 107/69 (82) 96 10/22/17 08:00 81 10/22/17 07:20 96 10/22/17 04:30 75 10/22/17 04:09 98.7 73 18 122/73 (89) 95 10/22/17 00:23 99.6 120 22 115/66 (82) 96 10/22/17 00:09 102 10/21/17 23:00 146 10/21/17 22:00 96 10/21/17 21:01 93 21 10/21/17 21:00 98 10/21/17 20:25 98.4 112 20 117/74 (88) 94 10/21/17 20:03 95 10/21/17 19:00 116 10/21/17 16:20 98.0 98 20 110/67 (81) 95 10/21/17 16:16 111 10/21/17 13:30 96 I/O 10/21/17 10/21/17 10/21/17 10/22/17 10/22/17 10/22/17 07:00 15:00 23:00 07:00 15:00 23:00 Intake Total 200 ml 940 ml 240 ml Output Total 1000 ml 1050 ml 325 ml Balance -800 ml -110 ml -85 ml Intake Oral 200 ml 240 ml IV Total 940 ml Output Urine Total 1000 ml 1050 ml 325 ml Result Diagram: 10/20/17 0500 10/20/17 0500 Objective Remarks GENERAL: Frail-appearing male CARDIOVASCULAR: Normal rate and regular rhythm without murmurs, gallops, or rubs. RESPIRATORY: Good respiratory efforts. Breath sounds equal and clear to auscultation bilaterally. GASTROINTESTINAL: Abdomen soft, non-tender, non-distended. Normal active bowel sounds MUSCULOSKELETAL: Extremities without cyanosis, or edema. NEURO: Alert & Oriented x4 to person, place, time, situation. Moves all ext x4 PSYCH: Appropriate mood and affect. A/P Problem List: (1) Stage IV adenocarcinoma of the lung Assessment and Plan 67-year-old male with history of tobacco use, COPD, recently diagnosed stage IV adenocarcinoma of lung with metastases, presents with worsening back pain and shortness of breath. Stage IV Bronchogenic Adenocarcinoma: recently diagnosed this month September 2017. Returned to ED with worsening shortness of breath, cough, back pains. Symptoms likely all related to advanced cancer. -Repeat CT-PA today 10/18 negative for PE, showed again large infiltrative right lung mass; mediastinal and left axillary lymphadenopathy, lytic destructive lesion of left T1 vertebral body, and noncalcified nodules within LLL; no significant change compared to previous CT -Continue duonebs -Incentive spirometer -Continue pain control with [place] prn and IV morphine prn breakthrough pain -Appreciate palliative care following. Discussed with oncology team. Patient and family wants to proceed with chemotherapy. He needs to find a place to stay and an oncologist in the [place] area. Case management aware. COPD with mild exacerbation: imaging as above. -continue duonebs -Wean off steroids. -monitor for improvement Improving. Continue on current treatment. Tobacco use: patient quit 1 week prior to admission. Smokes tobacco 2PPD since age 18 -counseled on continued cessation Borderline Diabetes: patient on metformin. Last HgbA1c 6.1 on 10/08/17. Expect higher blood glucose while on steroids. -monitor accu-cheks and cover with SSI Weight Loss, Protein Calorie Malnutrition: suspect secondary to cancer -Encourage oral intake. DVT Prophylaxis: Lovenox sq Discharge Planning Patient needs a safe discharge plan. Needs a place to stay. Case management will discuss with daughter. Rosaline Peacock MD Oct 22, 2017 13:08
[2017-10-22] MEDS: ENOXAPARIN SODIUM 40 MG/0.4 ML SYRINGE SQ SCH (17:11)
[2017-10-23] VITALS (22 sets, daily range): BP systolic 103–111; BP diastolic 62–70; PULSE 82–124; RESP 16–22; TEMP 98–98.4; O2SAT 95–96
[2017-10-23] MEDS: ACETAMINOPHEN/HYDROcodone 325 MG/5 MG TAB PO PRN ×3 (00:32→17:35)
[2017-10-23] MEDS: RESP: IPRATROPIUM 0.5 MG/2.5 ML NEB NEB SCH ×3 (07:37→19:56)
[2017-10-23] MEDS: INSULIN ASPART SUPPLEMENTAL SCALE SQ SCH ×4 (07:59→20:18)
[2017-10-23] MEDS: BUDESONIDE-FORMOTEROL 160/4.5 MCG INHALER INH SCH ×2 (08:43→20:18)
[2017-10-23] MEDS: predniSONE 20 MG TAB PO SCH (08:44)
[2017-10-23] MEDS: ASPIRIN 325 MG TAB PO SCH (08:44)
[2017-10-23] MEDS: SODIUM CHLORIDE 0.9% FLUSH 10 ML FLUSH IV FLUSH SCH ×2 (08:44→20:18)
--- NOTE | 2017-10-23 11:16 | HHI.PR ---
Subjective Remarks Patient reports he is feeling okay. No new complaints. Objective Vitals Vital Signs Date Time Temp Pulse Resp B/P (MAP) Pulse Ox O2 Delivery O2 Flow Rate FiO2 10/23/17 07:57 98.3 95 18 103/69 (80) 95 10/23/17 07:39 95 21 10/23/17 07:00 82 10/23/17 05:24 98.4 100 18 110/65 (80) 95 10/23/17 04:02 90 10/23/17 00:19 98.3 85 18 111/65 (80) 96 10/23/17 00:12 124 10/22/17 20:40 99 21 10/22/17 20:06 103 10/22/17 19:18 97.9 93 18 137/80 (99) 98 10/22/17 16:14 83 10/22/17 16:00 98.2 92 16 108/65 (79) 95 10/22/17 12:36 100 10/22/17 12:11 98.0 93 17 105/68 (80) 96 I/O 10/22/17 10/22/17 10/22/17 10/23/17 10/23/17 10/23/17 07:00 15:00 23:00 07:00 15:00 23:00 Intake Total 240 ml 240 ml 240 ml Output Total 325 ml 1400 ml 350 ml Balance -85 ml -1160 ml -110 ml Intake Oral 240 ml 240 ml 240 ml Output Urine Total 325 ml 1400 ml 350 ml Stool Total 0 ml # Bowel Movements 1 Result Diagram: 10/20/17 0500 10/20/17 0500 Objective Remarks GENERAL: Frail-appearing male CARDIOVASCULAR: Normal rate and regular rhythm without murmurs, gallops, or rubs. RESPIRATORY: Good respiratory efforts. Breath sounds equal and clear to auscultation bilaterally. GASTROINTESTINAL: Abdomen soft, non-tender, non-distended. Normal active bowel sounds MUSCULOSKELETAL: Extremities without cyanosis, or edema. NEURO: Alert & Oriented x4 to person, place, time, situation. Moves all ext x4 PSYCH: Appropriate mood and affect. A/P Problem List: (1) Stage IV adenocarcinoma of the lung Assessment and Plan 67-year-old male with history of tobacco use, COPD, recently diagnosed stage IV adenocarcinoma of lung with metastases, presents with worsening back pain and shortness of breath. Stage IV Bronchogenic Adenocarcinoma: recently diagnosed this month September 2017. Returned to ED with worsening shortness of breath, cough, back pains. Symptoms likely all related to advanced cancer. -Repeat CT-PA today 10/18 negative for PE, showed again large infiltrative right lung mass; mediastinal and left axillary lymphadenopathy, lytic destructive lesion of left T1 vertebral body, and noncalcified nodules within LLL; no significant change compared to previous CT -Continue duonebs -Incentive spirometer -Continue pain control with [place] prn and IV morphine prn breakthrough pain -Appreciate palliative care following. Discussed with oncology team. Patient and family wants to proceed with chemotherapy. He needs to find a place to stay and an oncologist in the [place] area. Case management aware. COPD with mild exacerbation: imaging as above. -continue duonebs -Wean off steroids. -monitor for improvement Improving. Continue on current treatment. Tobacco use: patient quit 1 week prior to admission. Smokes tobacco 2PPD since age 18 -counseled on continued cessation Borderline Diabetes: patient on metformin. Last HgbA1c 6.1 on 10/08/17. Expect higher blood glucose while on steroids. -monitor accu-cheks and cover with SSI Weight Loss, Protein Calorie Malnutrition: suspect secondary to cancer -Encourage oral intake. DVT Prophylaxis: Lovenox sq Discharge Planning Patient needs a safe discharge plan. Needs a place to stay. Case management to discuss with daughter. Rosaline Peacock MD Oct 23, 2017 11:16
[2017-10-23] MEDS: ENOXAPARIN SODIUM 40 MG/0.4 ML SYRINGE SQ SCH (17:35)
[2017-10-23] MEDS: MAGNESIUM HYDROXIDE SUSP 30 ML CUP PO PRN (20:44)
[2017-10-24] VITALS (28 sets, daily range): BP systolic 98–126; BP diastolic 67–79; PULSE 76–141; RESP 18–22; TEMP 98.1–98.7; O2SAT 94–98
[2017-10-24] MEDS: ACETAMINOPHEN/HYDROcodone 325 MG/5 MG TAB PO PRN ×3 (00:29→23:56)
[2017-10-24] MEDS: INSULIN ASPART SUPPLEMENTAL SCALE SQ SCH ×4 (08:00→20:51)
[2017-10-24] MEDS: RESP: IPRATROPIUM 0.5 MG/2.5 ML NEB NEB SCH ×3 (08:12→20:23)
[2017-10-24] MEDS: SODIUM CHLORIDE 0.9% FLUSH 10 ML FLUSH IV FLUSH SCH ×2 (08:39→20:45)
[2017-10-24] MEDS: BUDESONIDE-FORMOTEROL 160/4.5 MCG INHALER INH SCH ×2 (08:39→20:44)
[2017-10-24] MEDS: ASPIRIN 325 MG TAB PO SCH (08:39)
[2017-10-24] MEDS: predniSONE 20 MG TAB PO SCH (08:39)
--- NOTE | 2017-10-24 09:57 | HHI.PR ---
Subjective Remarks Patient reports he is feeling ok today. Pain is controlled. Objective Vitals Vital Signs Date Time Temp Pulse Resp B/P (MAP) Pulse Ox O2 Delivery O2 Flow Rate FiO2 10/24/17 08:14 95 21 10/24/17 08:07 82 10/24/17 07:58 98.1 93 18 98/78 (85) 95 10/24/17 07:00 76 10/24/17 05:59 18 10/24/17 05:02 98.2 102 22 126/73 (90) 96 10/24/17 01:19 104 10/24/17 00:33 98 20 117/79 (92) 97 10/23/17 20:30 98.3 96 22 110/70 (83) 96 10/23/17 19:57 96 21 10/23/17 18:14 113 10/23/17 17:00 90 10/23/17 16:09 98.0 91 18 106/62 (77) 96 10/23/17 16:00 82 10/23/17 15:00 89 10/23/17 14:00 108 10/23/17 13:00 92 10/23/17 12:01 98.2 95 16 104/64 (77) 96 10/23/17 12:00 98 10/23/17 11:00 83 10/23/17 10:00 98 I/O 10/23/17 10/23/17 10/23/17 10/24/17 10/24/17 10/24/17 07:00 15:00 23:00 07:00 15:00 23:00 Intake Total 240 ml 1800 ml 240 ml Output Total 350 ml 950 ml 350 ml Balance -110 ml 850 ml -110 ml Intake Oral 240 ml 1800 ml 240 ml Output Urine Total 350 ml 950 ml 350 ml # Bowel Movements 1 Result Diagram: 10/20/17 0500 10/20/17 0500 Objective Remarks GENERAL: Frail-appearing male CARDIOVASCULAR: Normal rate and regular rhythm without murmurs, gallops, or rubs. RESPIRATORY: Good respiratory efforts. Breath sounds equal and clear to auscultation bilaterally. GASTROINTESTINAL: Abdomen soft, non-tender, non-distended. Normal active bowel sounds MUSCULOSKELETAL: Extremities without cyanosis, or edema. NEURO: Alert & Oriented x4 to person, place, time, situation. Moves all ext x4 PSYCH: Appropriate mood and affect. A/P Problem List: (1) Stage IV adenocarcinoma of the lung Assessment and Plan 67-year-old male with history of tobacco use, COPD, recently diagnosed stage IV adenocarcinoma of lung with metastases, presents with worsening back pain and shortness of breath. Stage IV Bronchogenic Adenocarcinoma: recently diagnosed this month September 2017. Returned to ED with worsening shortness of breath, cough, back pains. Symptoms likely all related to advanced cancer. -Repeat CT-PA today 10/18 negative for PE, showed again large infiltrative right lung mass; mediastinal and left axillary lymphadenopathy, lytic destructive lesion of left T1 vertebral body, and noncalcified nodules within LLL; no significant change compared to previous CT -Continue duonebs -Incentive spirometer -Continue pain control with [place] prn and IV morphine prn breakthrough pain -Appreciate palliative care following. Discussed with oncology team. Patient and family wants to proceed with chemotherapy. He needs to find a place to stay and an oncologist in the [place] area. Case management aware. COPD with mild exacerbation: imaging as above. -continue duonebs -Wean off steroids. -monitor for improvement Improving. Continue on current treatment. Tobacco use: patient quit 1 week prior to admission. Smokes tobacco 2PPD since age 18 -counseled on continued cessation Borderline Diabetes: patient on metformin. Last HgbA1c 6.1 on 10/08/17. Expect higher blood glucose while on steroids. -monitor accu-cheks and cover with SSI Weight Loss, Protein Calorie Malnutrition: suspect secondary to cancer -Encourage oral intake. Colace for GI PPx. DVT Prophylaxis: Lovenox sq Discharge Planning Patient needs a safe discharge plan. Needs a place to stay. Case management will discuss with daughter. Rosaline Peacock MD Oct 24, 2017 09:56
[2017-10-24] MEDS: ENOXAPARIN SODIUM 40 MG/0.4 ML SYRINGE SQ SCH (18:13)
[2017-10-25] VITALS (22 sets, daily range): BP systolic 102–128; BP diastolic 64–73; PULSE 83–113; RESP 18–20; TEMP 98.2–100.1; O2SAT 95–98
[2017-10-25] MEDS: RESP: IPRATROPIUM 0.5 MG/2.5 ML NEB NEB SCH ×3 (07:30→20:41)
[2017-10-25] MEDS: INSULIN ASPART SUPPLEMENTAL SCALE SQ SCH ×4 (08:00→21:28)
[2017-10-25] MEDS: ASPIRIN 325 MG TAB PO SCH (08:06)
[2017-10-25] MEDS: DOCUSATE SODIUM 50 MG/SENNA 8.6 MG TAB PO SCH (08:06)
[2017-10-25] MEDS: ACETAMINOPHEN/HYDROcodone 325 MG/5 MG TAB PO PRN ×2 (08:06→21:29)
[2017-10-25] MEDS: predniSONE 20 MG TAB PO SCH (08:06)
[2017-10-25] MEDS: BUDESONIDE-FORMOTEROL 160/4.5 MCG INHALER INH SCH ×2 (08:08→21:24)
[2017-10-25] MEDS: SODIUM CHLORIDE 0.9% FLUSH 10 ML FLUSH IV FLUSH SCH ×2 (08:14→21:29)
--- NOTE | 2017-10-25 11:57 | HHI.PR ---
Subjective Remarks Patient reports he is doing okay. States his daughter will come into town tomorrow to assist with placement. Objective Vitals Vital Signs Date Time Temp Pulse Resp B/P (MAP) Pulse Ox O2 Delivery O2 Flow Rate FiO2 10/25/17 08:39 98.2 96 18 108/64 (79) 95 10/25/17 07:32 95 10/25/17 07:00 93 10/25/17 06:05 101 10/25/17 05:00 101 10/25/17 04:07 98 10/25/17 03:24 100.1 96 18 108/68 (81) 96 10/25/17 03:04 98 10/25/17 02:05 98 10/25/17 01:06 106 10/25/17 00:12 18 126/73 (90) 10/25/17 00:01 105 10/24/17 23:28 98.7 110 18 98 10/24/17 23:00 112 10/24/17 22:09 119 10/24/17 21:09 108 10/24/17 20:41 98.3 100 18 108/78 (88) 96 10/24/17 20:22 94 21 10/24/17 20:01 103 10/24/17 19:08 107 10/24/17 19:02 141 10/24/17 18:00 112 10/24/17 17:00 88 10/24/17 16:15 98.7 99 18 111/74 (86) 96 10/24/17 16:00 100 10/24/17 15:00 107 10/24/17 14:00 92 10/24/17 13:00 100 10/24/17 12:39 98.2 85 18 111/67 (82) 96 10/24/17 12:00 86 I/O 10/24/17 10/24/17 10/24/17 10/25/17 10/25/17 10/25/17 07:00 15:00 23:00 07:00 15:00 23:00 Intake Total 240 ml 240 ml 360 ml Output Total 350 ml 200 ml 1200 ml Balance -110 ml 40 ml -840 ml Intake Oral 240 ml 240 ml 360 ml Output Urine Total 350 ml 200 ml 1200 ml # Bowel Movements 1 0 Objective Remarks GENERAL: Frail-appearing male CARDIOVASCULAR: Normal rate and regular rhythm without murmurs, gallops, or rubs. RESPIRATORY: Good respiratory efforts. Breath sounds equal and clear to auscultation bilaterally. GASTROINTESTINAL: Abdomen soft, non-tender, non-distended. Normal active bowel sounds A/P Problem List: (1) Stage IV adenocarcinoma of the lung Assessment and Plan 67-year-old male with history of tobacco use, COPD, recently diagnosed stage IV adenocarcinoma of lung with metastases, presents with worsening back pain and shortness of breath. Stage IV Bronchogenic Adenocarcinoma: recently diagnosed this month September 2017. Returned to ED with worsening shortness of breath, cough, back pains. Symptoms likely all related to advanced cancer. -Repeat CT-PA today 10/18 negative for PE, showed again large infiltrative right lung mass; mediastinal and left axillary lymphadenopathy, lytic destructive lesion of left T1 vertebral body, and noncalcified nodules within LLL; no significant change compared to previous CT -Continue duonebs -Incentive spirometer -Continue pain control with [place] prn and IV morphine prn breakthrough pain -Appreciate palliative care following. Discussed with oncology team. Patient and family wants to proceed with chemotherapy. He needs to find a place to stay and an oncologist in the [place] area. Case management aware. Daughter will arrive tomorrow. Discussed with case management to have further discussions with the patient's daughter. COPD with mild exacerbation: imaging as above. -continue duonebs -Wean off steroids. -monitor for improvement Improving. Continue on current treatment. Tobacco use: patient quit 1 week prior to admission. Smokes tobacco 2PPD since age 18 -counseled on continued cessation Borderline Diabetes: patient on metformin. Last HgbA1c 6.1 on 10/08/17. Expect higher blood glucose while on steroids. -monitor accu-cheks and cover with SSI Weight Loss, Protein Calorie Malnutrition: suspect secondary to cancer -Encourage oral intake. Colace for GI PPx. DVT Prophylaxis: Lovenox sq Discharge Planning Patient needs a safe discharge plan. Needs a place to stay. Case management will discuss with daughter. Rosaline Peacock MD Oct 25, 2017 11:57
--- NOTE | 2017-10-25 16:11 | HHI.HCPN ---
Met with Mr. Long for ongoing palliative care follow-up and support. He is currently lying in bed. No friends/family at bedside. Alert and oriented, able to make his needs known, and continues to have insight into his medical condition. Inquired about completing living will, he declines stating "I think we have it all covered". Confirms he has been speaking with his daughter regarding his wishes. They have agreed to a trial of chemotherapy and understand hospice is available when they are ready. Daughter is supposed to arrive into town tomorrow, Wednesday10/26/17. Case management currently working with daughter on safe discharge, securing oncologist, caregivers, and transportation to/from oncology. In conversation with Mr. Long it appears he has been pursuing assistance from the [facility] for benefits, etc. Will provide him with information on [facility] to possible assist with benefits. Palliative care will continue to follow throughout hospitalization. Dena Mark, LEAD J[employer] J[employer]EE DEVELOPER Oct 25, 2017 16:11
[2017-10-25] MEDS: ENOXAPARIN SODIUM 40 MG/0.4 ML SYRINGE SQ SCH (17:28)
[2017-10-26] VITALS (23 sets, daily range): BP systolic 93–125; BP diastolic 57–73; PULSE 84–138; RESP 18; TEMP 98.2–101.1; O2SAT 93–97
[2017-10-26] MEDS: SODIUM CHLORIDE 0.9% FLUSH 10 ML FLUSH IV FLUSH PRN ×2 (02:24)
[2017-10-26 02:47] LABS: AUTOMATED NEUTROPHIL # 9.5 TH/MM3 (1.8-7.7); BASOPHIL # 0.1 TH/MM3 (0-0.2); BASOPHIL % 0.4 % (0.0-2.0); EOSINOPHIL % 0.3 % (0.0-4.0); LYMPH % 16.2 % (9.0-44.0); MEAN CELL VOLUME 80.9 FL (80.0-100.0); MEAN CORPUSCULAR HEMOGLOBIN 26.2 PG (27.0-34.0); MEAN CORPUSCULAR HGB CONC 32.4 % (32.0-36.0); MEAN PLATELET VOLUME 8.7 FL (7.0-11.0); MONO % 6.7 % (0.0-8.0); MONOCYTE # 0.8 TH/MM3 (0-0.9); NEUT % 76.4 % (16.0-70.0); PLATELET COUNT 338 TH/MM3 (150-450); RED CELL DISTRIBUTION WIDTH 15.9 % (11.6-17.2); WHITE BLOOD COUNT 12.4 TH/MM3 (4.0-11.0)
[2017-10-26 02:54] LABS: BILIRUBIN, URINE NEG (NEG); BLOOD, URINE NEG (NEG); GLUCOSE,URINE TRACE mg/dL (NEG); KETONE, URINE NEG (NEG); MUCUS URINE MANY /lpf (OCC); NITRITE,URINE NEG (NEG); URINE COLOR YELLOW (YELLW/STRAW); URINE LEUKOCYTE ESTERASE NEG (NEG)
[2017-10-26] MEDS: ACETAMINOPHEN 325 MG TAB PO PRN (02:56)
[2017-10-26] MEDS: ACETAMINOPHEN/HYDROcodone 325 MG/5 MG TAB PO PRN (02:57)
[2017-10-26 03:03] LABS: BICARBONATE 26.6 MEQ/L (21.0-32.0); CALCIUM 8.3 MG/DL (8.5-10.1); CREATININE 0.61 MG/DL (0.60-1.30)
--- NOTE | 2017-10-26 03:53 | RADRPT ---
EXAM DATE/TIME: 10/26/2017 03:07 [place] COMPARISON: CHEST SINGLE AP, October 17, 2017, 12:00. INDICATIONS : Short of breath. MEDICAL HISTORY : Carcinoma, lung. SURGICAL HISTORY : None. ENCOUNTER: Subsequent ACUITY: 2 weeks PAIN SCORE: 0/10 LOCATION: Bilateral chest FINDINGS: Near-complete opacification of the right chest is now present, increased in severity from the prior e xam. Left lung remains grossly clear. Right chest port is stable in satisfactory position and is acce ssed. CONCLUSION: Increasing consolidative density in the right chest. Titus Sparks MD on October 26, 2017 at 3:49 Board Certified Radiologist. This report was verified electronically.
[2017-10-26] MEDS ORDERED: VANCOMYCIN INJ 1,000 MG in SODIUM CHLOR 0.9% 250 ML INJ 250 ML IV ONE (04:00)
[2017-10-26] MEDS ORDERED: [UNRECOGNIZED DRUG - OTHER] IV ONE (04:15)
[2017-10-26] MEDS ORDERED: VANCOMYCIN 1 GM/200 ML INJ 200 ML IV ONE (04:15)
[2017-10-26] MEDS ORDERED: Vancomycin Consult Pharmacy 1 EA OTHER SCH (04:15)
[2017-10-26] MEDS ORDERED: VANCOMYCIN IV ONE (04:15)
[2017-10-26] MEDS ORDERED: RESP: ALBUTEROL 2.5 MG/IPRATROPIUM 0.5 MG NEB (PRN) NEB (04:15)
[2017-10-26] MEDS: CEFEPIME INJ 2,000 MG in SODIUM CHLORIDE 0.9% INJ 100 ML IV SCH ×3 (05:52→22:17)
[2017-10-26] MEDS: RESP: IPRATROPIUM 0.5 MG/2.5 ML NEB NEB SCH ×3 (08:00→21:04)
[2017-10-26] MEDS: BUDESONIDE-FORMOTEROL 160/4.5 MCG INHALER INH SCH ×2 (09:00→22:18)
[2017-10-26] MEDS: SODIUM CHLORIDE 0.9% FLUSH 10 ML FLUSH IV FLUSH SCH ×2 (09:00→22:18)
[2017-10-26] MEDS: ASPIRIN 325 MG TAB PO SCH (09:36)
[2017-10-26] MEDS: predniSONE 20 MG TAB PO SCH (09:36)
[2017-10-26] MEDS: DOCUSATE SODIUM 50 MG/SENNA 8.6 MG TAB PO SCH (09:37)
[2017-10-26] MEDS: INSULIN ASPART SUPPLEMENTAL SCALE SQ SCH ×4 (09:37→22:17)
[2017-10-26] MEDS: RESP: ALBUTEROL 2.5 MG/IPRATROPIUM 0.5 MG NEB (SCH) NEB ×3 (09:47→21:05)
--- NOTE | 2017-10-26 10:45 | HHI.PR ---
Subjective Remarks Fever overnight. Xray showing increasing consolidative changes right chest. States he is feeling ok this morning. No increased in SOB. Started on antibiotics. Blood cultures ordered. Objective Vitals Vital Signs Date Time Temp Pulse Resp B/P (MAP) Pulse Ox O2 Delivery O2 Flow Rate FiO2 10/26/17 09:49 97 21 10/26/17 08:00 98.7 117 18 93/66 (75) 96 10/26/17 06:05 85 10/26/17 05:04 84 10/26/17 04:03 96 10/26/17 03:30 100.9 101 18 123/69 (87) 93 10/26/17 03:14 100 10/26/17 02:13 97 10/26/17 02:01 138 10/26/17 01:05 96 10/26/17 00:52 101.1 98 18 107/64 (78) 95 10/26/17 00:05 100 10/25/17 23:04 96 10/25/17 22:08 113 10/25/17 21:01 100 10/25/17 20:41 95 21 10/25/17 20:10 103 10/25/17 19:35 98.4 97 20 128/69 (88) 95 10/25/17 19:05 101 10/25/17 17:54 98.2 85 20 112/69 (83) 98 10/25/17 17:16 92 10/25/17 12:34 98.2 83 18 102/64 (77) 95 I/O 10/25/17 10/25/17 10/25/17 10/26/17 10/26/17 10/26/17 07:00 15:00 23:00 07:00 15:00 23:00 Intake Total 240 ml 360 ml 1250 ml 220 ml 340 ml Output Total 200 ml 1200 ml 1200 ml 600 ml Balance 40 ml -840 ml 50 ml 220 ml -260 ml Intake Oral 240 ml 360 ml 1250 ml 240 ml IV Total 220 ml 100 ml Output Urine Total 200 ml 1200 ml 1200 ml 600 ml # Bowel Movements 0 Result Diagram: 10/26/1720410/26/17 020 Objective Remarks GENERAL: Frail-appearing male CARDIOVASCULAR: Normal rate and regular rhythm without murmurs, gallops, or rubs. RESPIRATORY: Good respiratory efforts. Breath sounds clear except for some occasional rhonchi on the right lower lung tam. GASTROINTESTINAL: Abdomen soft, non-tender, non-distended. Normal active bowel sounds EXT: No cyanosis or edema. A/P Problem List: (1) Stage IV adenocarcinoma of the lung Assessment and Plan 67-year-old male with history of tobacco use, COPD, recently diagnosed stage IV adenocarcinoma of lung with metastases, presents with worsening back pain and shortness of breath. Stage IV Bronchogenic Adenocarcinoma: recently diagnosed this month September 2017. Returned to ED with worsening shortness of breath, cough, back pains. Symptoms likely all related to advanced cancer. -Repeat CT-PA today 10/18 negative for PE, showed again large infiltrative right lung mass; mediastinal and left axillary lymphadenopathy, lytic destructive lesion of left T1 vertebral body, and noncalcified nodules within LLL; no significant change compared to previous CT -Continue duonebs -Incentive spirometer -Continue pain control with [place] prn and IV morphine prn breakthrough pain -Appreciate palliative care following. Discussed with oncology team. Patient and family wants to proceed with chemotherapy. He needs to find a place to stay and an oncologist in the [place] area. Case management aware. Daughter will arrive tomorrow. Discussed with case management to have further discussions with the patient's daughter. Fever:Worsening consolidation R lung. PNA vs ?Cancer burden - Started on Vanc, Cefepime. Blood cultures - Would consider transitioning to oral antibiotics if cultures neg at 48 hrs. Needs follow up outpatient for cancer treatment. COPD with mild exacerbation: imaging as above. -continue duonebs -Wean off steroids. -monitor for improvement Improving. Continue on current treatment. Tobacco use: patient quit 1 week prior to admission. Smokes tobacco 2PPD since age 18 -counseled on continued cessation Borderline Diabetes: patient on metformin. Last HgbA1c 6.1 on 10/08/17. Expect higher blood glucose while on steroids. -monitor accu-cheks and cover with SSI Weight Loss, Protein Calorie Malnutrition: suspect secondary to cancer -Encourage oral intake. Colace for GI PPx. DVT Prophylaxis: Lovenox sq Discharge Planning Patient needs a safe discharge plan. Needs a place to stay. Case management will follow up with daughter. Continue IV antibiotics for now. If blood cultures negative at 48 hours, consider transitioning to oral and resume prior discharge plans. Rosaline Peacock MD Oct 26, 2017 10:45
[2017-10-26] MEDS: VANCOMYCIN INJ 1,250 MG in SODIUM CHLOR 0.9% 250 ML INJ 250 ML IV SCH (14:28)
--- NOTE | 2017-10-26 14:40 | HHI.HCPN ---
Supportive visit and follow-up with Mr. Long in his room 234. He is standing at the door upon my arrival with IV pump beeping. Inquires about shutting alarm off. Notified nurse and she came in to provide assistance and care. Mr. Long is alert, oriented, and able to make his needs known. He is appropriate in conversation and continues with good insight into his medical condition. Denies any pain, discomfort, or concerns at this time. No questions. Provided him with information for [facility] as discussed at yesterday's visit. Mr. Long reports his daughter is supposed to arrival after 5pm tonight. Spoke with CM regarding discharge plans. CM reports daughter has been informed she needs to find an oncologist in his area ([place]) and private caregivers prior to Mr. Long discharging from the hospital. No update on this status at this time. Palliative care will continue to follow throughout hospitalization. Dena Mark, AIRLINE STEWARDESS Oct 26, 2017 14:40
[2017-10-26] MEDS: ENOXAPARIN SODIUM 40 MG/0.4 ML SYRINGE SQ SCH (17:00)
[2017-10-27] VITALS (31 sets, daily range): BP systolic 103–126; BP diastolic 66–72; PULSE 84–118; RESP 16–22; TEMP 97.9–101.2; O2SAT 95–97
[2017-10-27] MEDS: ACETAMINOPHEN 325 MG TAB PO PRN (00:49)
[2017-10-27] MEDS: RESP: ALBUTEROL 2.5 MG/IPRATROPIUM 0.5 MG NEB (SCH) NEB ×3 (03:04→20:59)
[2017-10-27] MEDS: VANCOMYCIN INJ 1,250 MG in SODIUM CHLOR 0.9% 250 ML INJ 250 ML IV SCH ×3 (03:54→23:33)
[2017-10-27] MEDS: SODIUM CHLORIDE 0.9% FLUSH 10 ML FLUSH IV FLUSH PRN ×2 (03:54→06:45)
[2017-10-27] MEDS: CEFEPIME INJ 2,000 MG in SODIUM CHLORIDE 0.9% INJ 100 ML IV SCH ×3 (05:15→20:49)
[2017-10-27] MEDS: RESP: IPRATROPIUM 0.5 MG/2.5 ML NEB NEB SCH ×2 (08:00→20:00)
[2017-10-27] MEDS: INSULIN ASPART SUPPLEMENTAL SCALE SQ SCH ×4 (09:43→21:06)
[2017-10-27] MEDS: predniSONE 20 MG TAB PO SCH (09:44)
[2017-10-27] MEDS: ASPIRIN 325 MG TAB PO SCH (09:44)
[2017-10-27] MEDS: DOCUSATE SODIUM 50 MG/SENNA 8.6 MG TAB PO SCH ×2 (09:44→20:53)
[2017-10-27] MEDS: BUDESONIDE-FORMOTEROL 160/4.5 MCG INHALER INH SCH ×2 (09:44→20:49)
[2017-10-27] MEDS: SODIUM CHLORIDE 0.9% FLUSH 10 ML FLUSH IV FLUSH SCH ×2 (09:45→20:57)
--- NOTE | 2017-10-27 10:12 | HHI.PR ---
Subjective Remarks 4-3 Fever overnight. Xray showing increasing consolidative changes right chest. States he is feeling ok this morning. No increased in SOB. Started on antibiotics. Blood cultures ordered. 4-4 NO FEVERS TODAY on vanco and cefepime DW RN AND PT AND CM PT AND CONSTIPATION MEDS Objective Vitals Vital Signs Date Time Temp Pulse Resp B/P (MAP) Pulse Ox O2 Delivery O2 Flow Rate FiO2 10/27/17 09:27 95 10/27/17 06:01 94 10/27/17 05:00 97 10/27/17 04:03 99 10/27/17 04:00 98.9 100 16 116/67 (83) 97 10/27/17 03:02 95 10/27/17 02:02 107 10/27/17 01:11 118 10/27/17 00:43 101.2 101 18 126/71 (89) 97 10/27/17 00:02 104 10/26/17 23:09 103 10/26/17 22:02 105 10/26/17 21:07 96 10/26/17 21:01 101 10/26/17 20:26 98.4 96 18 125/73 (90) 96 10/26/17 20:25 98.6 10/26/17 20:04 100 10/26/17 19:05 115 10/26/17 16:08 92 10/26/17 16:00 98.2 111 18 106/66 (79) 96 10/26/17 12:00 98.7 106 18 105/57 (73) 96 10/26/17 12:00 94 I/O 10/26/17 10/26/17 10/26/17 10/27/17 10/27/17 10/27/17 07:00 15:00 23:00 07:00 15:00 23:00 Intake Total 220 ml 340 ml 960 ml 500 ml Output Total 600 ml 500 ml 650 ml Balance 220 ml -260 ml 460 ml -150 ml Intake Oral 240 ml 960 ml 400 ml IV Total 220 ml 100 ml 100 ml Output Urine Total 600 ml 500 ml 650 ml # Voids 4 Result Diagram: 10/26/17 0205 10/26/17 0205 Other Results Laboratory Tests Test 10/26/17 02:00 10/26/17 02:05 Urine Color YELLOW Urine Turbidity CLEAR Urine pH 6.0 Urine Specific [place] 1.028 Urine Protein TRACE mg/dL Urine Glucose (UA) TRACE mg/dL Urine Ketones NEG mg/dL Urine Occult Blood NEG Urine Nitrite NEG Urine Bilirubin NEG Urine Urobilinogen LESS THAN 2.0 MG/DL Urine Leukocyte Esterase NEG Urine RBC 1 /hpf Urine WBC 2 /hpf Urine Mucus MANY /lpf Microscopic Urinalysis Comment CULT NOT INDICATED White Blood Count 12.4 TH/MM3 Red Blood Count 4.20 MIL/MM3 Hemoglobin 11.0 GM/DL Hematocrit 34.0 % Mean Corpuscular Volume 80.9 FL Mean Corpuscular Hemoglobin 26.2 PG Mean Corpuscular Hemoglobin Concent 32.4 % Red Cell Distribution Width 15.9 % Platelet Count 338 TH/MM3 Mean Platelet Volume 8.7 FL Neutrophils (%) (Auto) 76.4 % Lymphocytes (%) (Auto) 16.2 % Monocytes (%) (Auto) 6.7 % Eosinophils (%) (Auto) 0.3 % Basophils (%) (Auto) 0.4 % Neutrophils # (Auto) 9.5 TH/MM3 Lymphocytes # (Auto) 2.0 TH/MM3 Monocytes # (Auto) 0.8 TH/MM3 Eosinophils # (Auto) 0.0 TH/MM3 Basophils # (Auto) 0.1 TH/MM3 CBC Comment DIFF FINAL Differential Comment Blood Urea Nitrogen 20 MG/DL Creatinine 0.61 MG/DL Random Glucose 88 MG/DL Calcium Level 8.3 MG/DL Sodium Level 135 MEQ/L Potassium Level 4.3 MEQ/L Chloride Level 98 MEQ/L Carbon Dioxide Level 26.6 MEQ/L Anion Gap 10 MEQ/L Estimat Glomerular Filtration Rate 132 ML/MIN Imaging Last Impressions Chest X-Ray 10/26/17 0000 Signed Impressions: Service Date/Time: Thursday, October 26, 2017 03:07 - CONCLUSION: Increasing consolidative density in the right chest. Titus Sparks MD CT Angiography 10/18/17 0000 Signed Impressions: Service Date/Time: Wednesday, October 18, 2017 11:56 - CONCLUSION: 1. No evidence of pulmonary embolism. 2. No significant change in the extensive infiltrative mass of the right lung, mediastinal and left axillary lymphadenopathy, lytic destructive lesion of the left T1 vertebral body, and noncalcified nodules within the left lower lobe. Yair Munguia MD Objective Remarks GENERAL: Awake alert and oriented 3 talkative and cooperative SKIN: Warm and dry. HEAD: Atraumatic. Normocephalic. EYES: Pupils equal and round. No scleral icterus. No injection or drainage. Extraocular muscles intact ENT: No nasal bleeding or discharge. Mucous membranes pink and moist. Tongue is midline NECK: Trachea midline. No JVD. Supple CARDIOVASCULAR: Regular rate and rhythm. S1-S2 no S3 or S4 no heave or thrill or rub or gallop RESPIRATORY: No accessory muscle use. Clear to auscultation. Breath sounds equal bilaterally. GASTROINTESTINAL: Abdomen soft, non-tender, nondistended. Hepatic and splenic margins not palpable. MUSCULOSKELETAL: Extremities without clubbing, cyanosis, or edema. No obvious deformities. NEUROLOGICAL: Awake and alert. No obvious cranial nerve deficits. Motor grossly within normal limits. Five out of 5 muscle strength in the arms and legs. Normal speech. PSYCHIATRIC: Appropriate mood and affect; insight and judgment normal. Procedures NONE Medications and IVs Current Medications Sodium Chloride (NS Flush) 2 ml UNSCH PRN IV FLUSH FLUSH AFTER USING IV ACCESS Last administered on 10/27/17at 03:54; Start 10/17/17 at 16:30 Sodium Chloride (NS Flush) 2 ml BID IV FLUSH Last administered on 10/27/17at 09: 45; Start 10/17/17 at 21:00 Ondansetron HCl (Zofran Inj) 4 mg Q6H PRN IVP NAUSEA OR VOMITING; Start at 16:30 Enoxaparin Sodium (Lovenox Inj) 40 mg Q24H SQ Last administered on 10/26/17at 17: 00; Start 10/17/17 at 17:00 Morphine Sulfate (Morphine Inj) 2 mg Q3H PRN IV PUSH Pain 3-5; if unable to take PO; Start 10/17/17 at 16:30; Stop 10/18/17 at 14:40; Status DC Morphine Sulfate (Morphine Inj) 4 mg Q3H PRN IV PUSH Pain 6-10;if unable to take PO; Start 10/17/17 at 16:30; Stop 10/18/17 at 14:40; Status DC Naloxone HCl (Narcan Inj) 0.4 mg UNSCH PRN IV PUSH SEE LABEL COMMENTS; Start at 16:30 Magnesium Hydroxide (Milk Of Magnesia Liq) 30 ml Q12H PRN PO Mild constipation Last administered on 10/23/17 20:44; Start 10/17/17 at 16:30 Aspirin (Aspirin) 325 mg DAILY PO Last administered on 10/27/17 09:44; Start at 09:00 Nitroglycerin (Nitrostat Sl) 0.4 mg Q5M PRN SL X 3 doses for chest pain; Start 10/17/17 at 16:30 Ipratropium [place] (Atrovent Hfa Inh) 2 puff Q6HR PRN INH SHORTNESS OF BREATH ; Start 10/18/17 at 10:15; Status Cancel Prednisone (Deltasone) 10 mg DAILY PO Last administered on 10/18/17 12:23; Start 10/18/17 at 12:00; Stop 10/18/17 at 13:16; Status DC Budesonide/ Formoterol Fumarate (Symbicort 160-4.5 Mcg Inh) 2 puff Q12HR INH Last administered on 10/27/17 09:44; Start 10/18/17 at 13:00 Iohexol (Omnipaque 350 Inj) 69 ml STK-MED ONCE IVCONTRAST Last administered on 10/18/17 12:07; Start 10/18/17 at 12:07; Stop 10/18/17 at 12:08; Status DC Ipratropium [place] (Atrovent Neb) 0.5 mg Q6HR NEB PRN NEB SHORTNESS OF BREATH Last administered on 10/23/17 18:36; Start 10/18/17 at 13:00 Prednisone (Deltasone) 20 mg BID PO Last administered on 10/22/17 08:05; Start 10/18/17 at 21:00; Stop 10/22/17 at 15:21; Status DC Ipratropium [place] (Atrovent Neb) 0.5 mg TID NEB NEB Last administered on 10/26 21:04; Start 10/18/17 at 14:00 Acetaminophen/ Hydrocodone Bitart ([place] 5-325 Mg) 1 tab Q4H PRN PO PAIN SCALE 3 TO 5 Last administered on 10/26/17 02:57; Start 10/18/17 at 15:00 Acetaminophen/ Hydrocodone Bitart ([place] 7.5-325 Mg) 1 tab Q4H PRN PO PAIN SCALE 6 TO 10; Start 10/18/17 at 15:00 Morphine Sulfate (Morphine Inj) 2 mg Q3H PRN IV PUSH BREAKTHROUGH PAIN; Start 10/18/17 at 15:00 Dextrose (D50w (Vial) Inj) 50 ml UNSCH PRN IV PUSH HYPOGLYCEMIA-SEE COMMENTS; Start 10/18/17 at 14:45 Glucagon (Glucagon Inj) 1 mg UNSCH PRN OTHER HYPOGLYCEMIA-SEE COMMENTS; Start 10/18/17 at 14:45 Insulin Aspart (NovoLOG SUPPLEMENTAL SCALE) 1 ACHS SLIDING SCALE SQ Last administered on 10/27/17at 09:43; Start 10/18/17 at 17:00 Heparin Sodium (Porcine) (Heparin Central Flush) 250 units UNSCH PRN IV FLUSH SEE PROTOCOL TABLE; Start 10/20/17 at 11:30 Heparin Sodium (Porcine) (Heparin Central Flush) 500 units UNSCH IV FLUSH Last administered on 10/26/17at 02:24; Start 10/20/17 at 11:30 Sodium Chloride (NS Flush) 5 ml UNSCH PRN IV FLUSH SEE DOSE INSTRUCTIONS Last administered on 10/27/17at 06:45; Start 10/20/17 at 11:30 Prednisone (Deltasone) 20 mg DAILY PO Last administered on 10/27/17 09:44; Start 10/23/17 at 09:00 Senna/Docusate Sodium (Hanh-Colace) 1 tab DAILY PO Last administered on at 09:44; Start 10/25/17 at 09:00 Acetaminophen (Tylenol) 650 mg Q4H PRN PO temperature > 100.4 Last administered on 10/27/17at 00:49; Start 10/26/17 at 01:45 Vancomycin HCl 1000 mg/Sodium Chloride 250 ml @ 250 mls/hr ONCE ONCE IV ; Start 10/26/17 at 04:00; Stop 10/26/17 at 04:02; Status DC Cefepime HCl 2000 mg/Sodium Chloride 100 ml @ 200 mls/hr Q8H IV Last administered on 10/27/17at 05:15; Start 10/26/17 at 05:00 Pharmacy Profile Note 0 ml @ 0 mls/hr UNSCH OTHER ; Start 10/26/17 at 04:15 Vancomycin HCl 1000 mg/ Vancomycin/Sodium Chloride 200 ml @ 200 mls/hr ONCE ONCE IV ; Start 10/26/17 at 04:15; Stop 10/26/17 at 04:15; Status DC Albuterol/ Ipratropium (Duoneb Neb) 1 ampule Q6HR NEB NEB Last administered on 10/27/17at 09:24; Start 10/26/17 at 10:00 Albuterol/ Ipratropium (Duoneb Neb) 1 ampule Q4HR NEB PRN NEB sob/wheezing; Start 10/26/17 at 04:15 Vancomycin/Sodium Chloride 200 ml @ 200 mls/hr ONCE ONCE IV Last administered on 10/26/17at 04:54; Start 10/26/17 at 04:15; Stop 10/26/17 at 05:14; Status DC Vancomycin HCl 1250 mg/Sodium Chloride 262.5 ml @ 250 mls/hr Q12H IV Last administered on 10/27/17at 03:54; Start 10/26/17 at 15:00 Miscellaneous Information SPECIFIC LAB TO BE DRAWN:VANCOMYCIN TROUGH DATE TO... ONCE ONCE .XX ; Start 10/27/17 at 14:45; Stop 10/27/17 at 14:46 Guaifenesin (Mucinex Er) 600 mg BID PO ; Start 10/27/17 at 10:15; Status UNV A/P Problem List: (1) Stage IV adenocarcinoma of the lung Assessment and Plan 67-year-old male with history of tobacco use, COPD, recently diagnosed stage IV adenocarcinoma of lung with metastases, presents with worsening back pain and shortness of breath. Stage IV Bronchogenic Adenocarcinoma: recently diagnosed this month September 2017. Returned to ED with worsening shortness of breath, cough, back pains. Symptoms likely all related to advanced cancer. -Repeat CT-PA today 10/18 negative for PE, showed again large infiltrative right lung mass; mediastinal and left axillary lymphadenopathy, lytic destructive lesion of left T1 vertebral body, and noncalcified nodules within LLL; no significant change compared to previous CT -Continue duonebs -Incentive spirometer -Continue pain control with [place] prn and IV morphine prn breakthrough pain -Appreciate palliative care following. Discussed with oncology team. Patient and family wants to proceed with chemotherapy. He needs to find a place to stay and an oncologist in the [place] area. Case management aware. Daughter will arrive tomorrow. Discussed with case management to have further discussions with the patient's daughter. Continue on Vanco cefepime Fever:Worsening consolidation R lung. PNA vs ?Cancer burden - Started on Vanc, Cefepime. Blood cultures - Would consider transitioning to oral antibiotics if cultures neg at 48 hrs. Needs follow up outpatient for cancer treatment. Incentive spirometry Physical therapy Mucinex Duo nebs COPD with mild exacerbation: imaging as above. -continue duonebs -Wean off steroids. -monitor for improvement Duo nebs Mucinex Improving. Continue on current treatment. Tobacco use: patient quit 1 week prior to admission. Smokes tobacco 2PPD since age 18 -counseled on continued cessation Borderline Diabetes: patient on metformin. Last HgbA1c 6.1 on 10/08/17. Expect higher blood glucose while on steroids. -monitor accu-cheks and cover with SSI Weight Loss, Protein Calorie Malnutrition: suspect secondary to cancer -Encourage oral intake. Colace for GI PPx. DVT Prophylaxis: Lovenox sq Discharge Planning Pending afebrile for another day or so Anshul Ley DO Oct 27, 2017 10:12
[2017-10-27] MEDS ORDERED: BISACODYL 10 MG SUPP RECTAL PRN (10:30)
[2017-10-27] MEDS ORDERED: NALOXONE HCL 0.4 MG/ML AMP IV PUSH PRN (10:30)
[2017-10-27] MEDS ORDERED: LACTULOSE SYRUP 20 GM/30 ML CUP PO PRN (10:30)
[2017-10-27] MEDS ORDERED: MAGNESIUM HYDROXIDE SUSP 30 ML CUP PO PRN (10:30)
[2017-10-27] MEDS ORDERED: SENNOSIDES 8.6 MG TAB PO PRN (10:30)
--- NOTE | 2017-10-27 12:26 | HHI.HCPN ---
Met with Mr. Long for follow-up. Daughter and daughter's fiance at bedside. Mr. Long continues to be alert, oriented, and able to make his needs known. Verbalizes he is feeling more tired today. No other concerns. Denies pain at visit. Daughter inquires about meeting with palliative care tomorrow, at 330pm. My [place] and family would like assistance with talking to patient' s significant other. Patient and family wish to review overall medical condition and options for continued medical care vs transition to comfort focused care. Daughter continues to explore options for an oncologist in the [place] area, placement, private caregivers, etc. Again, wishing to meet tomorrow to further discuss options. Answered questions and concerns to the best of my ability. Family plans to follow-up with [facility] to assist with getting Mr. Long [facility]. Mr. Long inquires about changing his health care surrogate to appointment his significant other as alternate health care surrogate. Will provide another copy for him to complete. Palliative care will meet with Mr. Long and family tomorrow, 10/28 at 330pm. Palliative care will continue to follow throughout hospitalization. Dena Mark, BLOW PIT OPERATOR Oct 27, 2017 12:26
[2017-10-27] MEDS: guaiFENesin E.R. 600 MG TAB PO SCH ×2 (13:23→20:48)
[2017-10-27] MEDS ORDERED: PHARMACY ORDERED LAB ONE (14:45)
[2017-10-27] MEDS: ENOXAPARIN SODIUM 40 MG/0.4 ML SYRINGE SQ SCH (18:19)
[2017-10-27] MEDS: TIOTROPIUM BROMIDE 18 MCG INH INH SCH (18:20)
[2017-10-28] VITALS (28 sets, daily range): BP systolic 102–123; BP diastolic 56–73; PULSE 84–128; RESP 18–22; TEMP 97.5–100.1; O2SAT 95–98
[2017-10-28] MEDS: RESP: ALBUTEROL 2.5 MG/IPRATROPIUM 0.5 MG NEB (SCH) NEB ×4 (02:27→19:26)
[2017-10-28] MEDS: CEFEPIME INJ 2,000 MG in SODIUM CHLORIDE 0.9% INJ 100 ML IV SCH ×3 (04:07→21:14)
[2017-10-28 05:33] LABS: AUTOMATED NEUTROPHIL # 6.9 TH/MM3 (1.8-7.7); BASOPHIL % 0.3 % (0.0-2.0); EOSINOPHIL % 0.3 % (0.0-4.0); HEMATOCRIT 28.9 % (39.0-51.0); HEMOGLOBIN 9.6 GM/DL (13.0-17.0); LYMPH % 16.6 % (9.0-44.0); LYMPHOCYTE # 1.5 TH/MM3 (1.0-4.8); MEAN CELL VOLUME 81.8 FL (80.0-100.0); MEAN CORPUSCULAR HEMOGLOBIN 27.3 PG (27.0-34.0); MEAN CORPUSCULAR HGB CONC 33.4 % (32.0-36.0); MEAN PLATELET VOLUME 8.7 FL (7.0-11.0); MONO % 7.8 % (0.0-8.0); MONOCYTE # 0.7 TH/MM3 (0-0.9); PLATELET COUNT 225 TH/MM3 (150-450); RED BLOOD COUNT 3.53 MIL/MM3 (4.50-5.90); RED CELL DISTRIBUTION WIDTH 15.9 % (11.6-17.2); WHITE BLOOD COUNT 9.2 TH/MM3 (4.0-11.0)
[2017-10-28 06:06] LABS: ALBUMIN 1.5 GM/DL (3.4-5.0); ALT (GPT) 45 U/L (12-78); AST (GOT) 35 U/L (15-37); BICARBONATE 25.2 MEQ/L (21.0-32.0); BLOOD UREA NITROGEN 13 MG/DL (7-18); CALCIUM 7.8 MG/DL (8.5-10.1); CHLORIDE 101 MEQ/L (98-107); GLOMERULAR FILTRATION RATE 134 ML/MIN (>89); GLUCOSE,RANDOM 102 MG/DL (74-106); MAGNESIUM 1.9 MG/DL (1.5-2.5); SODIUM (NA) 134 MEQ/L (136-145)
[2017-10-28 06:16] LABS: ALKALINE PHOSPHATASE 76 U/L (45-117); FREE T4 1.04 NG/DL (0.76-1.46); PHOSPHORUS 2.1 MG/DL (2.5-4.9); TOTAL BILIRUBIN ADULT 0.4 MG/DL (0.2-1.0); TOTAL PROTEIN 5.8 GM/DL (6.4-8.2)
[2017-10-28] MEDS: INSULIN ASPART SUPPLEMENTAL SCALE SQ SCH ×4 (07:54→21:14)
[2017-10-28] MEDS: predniSONE 20 MG TAB PO SCH (07:55)
[2017-10-28] MEDS: VANCOMYCIN INJ 1,250 MG in SODIUM CHLOR 0.9% 250 ML INJ 250 ML IV SCH ×3 (07:55→23:25)
[2017-10-28] MEDS: ASPIRIN 325 MG TAB PO SCH (07:56)
[2017-10-28] MEDS: SODIUM CHLORIDE 0.9% FLUSH 10 ML FLUSH IV FLUSH SCH ×2 (07:56→21:15)
[2017-10-28] MEDS: TIOTROPIUM BROMIDE 18 MCG INH INH SCH (07:58)
[2017-10-28] MEDS: BUDESONIDE-FORMOTEROL 160/4.5 MCG INHALER INH SCH ×2 (07:58→21:15)
[2017-10-28] MEDS: guaiFENesin E.R. 600 MG TAB PO SCH ×2 (08:00→21:14)
[2017-10-28] MEDS: DOCUSATE SODIUM 50 MG/SENNA 8.6 MG TAB PO SCH ×2 (08:00→21:21)
[2017-10-28] MEDS: RESP: IPRATROPIUM 0.5 MG/2.5 ML NEB NEB SCH ×3 (08:00→20:00)
--- NOTE | 2017-10-28 10:51 | HHI.PR ---
Subjective Remarks 4-3 Fever overnight. Xray showing increasing consolidative changes right chest. States he is feeling ok this morning. No increased in SOB. Started on antibiotics. Blood cultures ordered. 4-4 NO FEVERS TODAY on vanco and cefepime DW RN AND PT AND CM PT AND CONSTIPATION MEDS 4-5 PATIENT MET WITH PALLIATIVE CARE YESTERDAY AND FAMILY TO MEET WITH PALLIATIVE CARE LATER TODAY CONTINUE CURRENT TREATMENTS ON ANTIBIOTICS DW RN AND PT AND CM STILL HAVING BORDERLINE FEVERS TODAY Objective Vitals Vital Signs Date Time Temp Pulse Resp B/P (MAP) Pulse Ox O2 Delivery O2 Flow Rate FiO2 10/28/17 09:57 98 21 10/28/17 07:45 99.1 104 18 113/56 (75) 96 10/28/17 04:04 100.1 111 22 107/69 (82) 95 10/28/17 04:00 114 10/28/17 03:00 106 10/28/17 02:00 102 10/28/17 01:00 128 10/28/17 00:00 98.3 100 22 115/65 (82) 96 10/28/17 00:00 100 10/27/17 23:00 108 10/27/17 22:00 106 10/27/17 21:00 98 10/27/17 20:59 96 10/27/17 20:39 98.4 100 22 114/66 (82) 95 10/27/17 20:00 111 10/27/17 19:00 114 10/27/17 18:00 84 10/27/17 18:00 98.0 86 22 107/72 (84) 95 10/27/17 17:00 86 10/27/17 16:00 86 10/27/17 15:00 92 10/27/17 14:00 88 10/27/17 13:00 92 10/27/17 12:45 97.9 95 22 103/68 (80) 97 10/27/17 12:00 90 10/27/17 11:00 102 I/O 10/27/17 10/27/17 10/27/17 10/28/17 10/28/17 10/28/17 07:00 15:00 23:00 07:00 15:00 23:00 Intake Total 500 ml 340 ml 362.5 ml Output Total 650 ml 300 ml 200 ml Balance -150 ml 40 ml 162.5 ml Intake Oral 400 ml 240 ml IV Total 100 ml 100 ml 362.5 ml Output Urine Total 650 ml 300 ml 200 ml Result Diagram: 10/28/17 0500 10/28/17 0500 Other Results Laboratory Tests Test 10/26/17 02:00 10/26/17 02:05 10/27/17 14:43 10/28/17 05:00 Urine Color YELLOW Urine Turbidity CLEAR Urine pH 6.0 Urine Specific [place] 1.028 Urine Protein TRACE mg/dL Urine Glucose (UA) TRACE mg/dL Urine Ketones NEG mg/dL Urine Occult Blood NEG Urine Nitrite NEG Urine Bilirubin NEG Urine Urobilinogen LESS THAN 2.0 MG/DL Urine Leukocyte Esterase NEG Urine RBC 1 /hpf Urine WBC 2 /hpf Urine Mucus MANY /lpf Microscopic Urinalysis Comment CULT NOT INDICATED White Blood Count 12.4 TH/MM3 9.2 TH/MM3 Red Blood Count 4.20 MIL/MM3 3.53 MIL/MM3 Hemoglobin 11.0 GM/DL 9.6 GM/DL Hematocrit 34.0 % 28.9 % Mean Corpuscular Volume 80.9 FL 81.8 FL Mean Corpuscular Hemoglobin 26.2 PG 27.3 PG Mean Corpuscular Hemoglobin Concent 32.4 % 33.4 % Red Cell Distribution Width 15.9 % 15.9 % Platelet Count 338 TH/MM3 225 TH/MM3 Mean Platelet Volume 8.7 FL 8.7 FL Neutrophils (%) (Auto) 76.4 % 75.0 % Lymphocytes (%) (Auto) 16.2 % 16.6 % Monocytes (%) (Auto) 6.7 % 7.8 % Eosinophils (%) (Auto) 0.3 % 0.3 % Basophils (%) (Auto) 0.4 % 0.3 % Neutrophils # (Auto) 9.5 TH/MM3 6.9 TH/MM3 Lymphocytes # (Auto) 2.0 TH/MM3 1.5 TH/MM3 Monocytes # (Auto) 0.8 TH/MM3 0.7 TH/MM3 Eosinophils # (Auto) 0.0 TH/MM3 0.0 TH/MM3 Basophils # (Auto) 0.1 TH/MM3 0.0 TH/MM3 CBC Comment DIFF FINAL DIFF FINAL Differential Comment Blood Urea Nitrogen 20 MG/DL 13 MG/DL Creatinine 0.61 MG/DL 0.60 MG/DL Random Glucose 88 MG/DL 102 MG/DL Calcium Level 8.3 MG/DL 7.8 MG/DL Sodium Level 135 MEQ/L 134 MEQ/L Potassium Level 4.3 MEQ/L 4.2 MEQ/L Chloride Level 98 MEQ/L 101 MEQ/L Carbon Dioxide Level 26.6 MEQ/L 25.2 MEQ/L Anion Gap 10 MEQ/L 8 MEQ/L Estimat Glomerular Filtration Rate 132 ML/MIN 134 ML/MIN Vancomycin Level Trough 9.0 MCG/ML Total Protein 5.8 GM/DL Albumin 1.5 GM/DL Phosphorus Level 2.1 MG/DL Magnesium Level 1.9 MG/DL Alkaline Phosphatase 76 U/L Aspartate Amino Transf (AST/SGOT) 35 U/L Alanine Aminotransferase (ALT/SGPT) 45 U/L Total Bilirubin 0.4 MG/DL Free Thyroxine 1.04 NG/DL Thyroid Stimulating Hormone 3rd Gen 1.640 uIU/ML Imaging Last Impressions Chest X-Ray 10/26/17 0000 Signed Impressions: Service Date/Time: Thursday, October 26, 2017 03:07 - CONCLUSION: Increasing consolidative density in the right chest. Titus Sparks MD CT Angiography 10/18/17 0000 Signed Impressions: Service Date/Time: Wednesday, October 18, 2017 11:56 - CONCLUSION: 1. No evidence of pulmonary embolism. 2. No significant change in the extensive infiltrative mass of the right lung, mediastinal and left axillary lymphadenopathy, lytic destructive lesion of the left T1 vertebral body, and noncalcified nodules within the left lower lobe. Yair Munguia MD Objective Remarks GENERAL: Awake alert and oriented 3 talkative and cooperative SKIN: Warm and dry. HEAD: Atraumatic. Normocephalic. EYES: Pupils equal and round. No scleral icterus. No injection or drainage. Extraocular muscles intact ENT: No nasal bleeding or discharge. Mucous membranes pink and moist. Tongue is midline NECK: Trachea midline. No JVD. Supple CARDIOVASCULAR: Regular rate and rhythm. S1-S2 no S3 or S4 no heave or thrill or rub or gallop RESPIRATORY: No accessory muscle use. Clear to auscultation. Breath sounds equal bilaterally. GASTROINTESTINAL: Abdomen soft, non-tender, nondistended. Hepatic and splenic margins not palpable. MUSCULOSKELETAL: Extremities without clubbing, cyanosis, or edema. No obvious deformities. NEUROLOGICAL: Awake and alert. No obvious cranial nerve deficits. Motor grossly within normal limits. Five out of 5 muscle strength in the arms and legs. Normal speech. PSYCHIATRIC: Appropriate mood and affect; insight and judgment normal. Procedures NONE Medications and IVs Current Medications Sodium Chloride (NS Flush) 2 ml UNSCH PRN IV FLUSH FLUSH AFTER USING IV ACCESS Last administered on 10/27/17 03:54; Start 10/17/17 at 16:30 Sodium Chloride (NS Flush) 2 ml BID IV FLUSH Last administered on 10/28/17 07: 56; Start 10/17/17 at 21:00 Ondansetron HCl (Zofran Inj) 4 mg Q6H PRN IVP NAUSEA OR VOMITING; Start at 16:30 Enoxaparin Sodium (Lovenox Inj) 40 mg Q24H SQ Last administered on 10/27/17 18: 19; Start 10/17/17 at 17:00 Morphine Sulfate (Morphine Inj) 2 mg Q3H PRN IV PUSH Pain 3-5; if unable to take PO; Start 10/17/17 at 16:30; Stop 10/18/17 at 14:40; Status DC Morphine Sulfate (Morphine Inj) 4 mg Q3H PRN IV PUSH Pain 6-10;if unable to take PO; Start 10/17/17 at 16:30; Stop 10/18/17 at 14:40; Status DC Naloxone HCl (Narcan Inj) 0.4 mg UNSCH PRN IV PUSH SEE LABEL COMMENTS; Start at 16:30; Stop 10/27/17 at 11:15; Status DC Magnesium Hydroxide (Milk Of Magnesia Liq) 30 ml Q12H PRN PO Mild constipation Last administered on 10/23/17at 20:44; Start 10/17/17 at 16:30; Stop 10/27/17 at 11:16; Status DC Aspirin (Aspirin) 325 mg DAILY PO Last administered on 10/28/17 07:56; Start at 09:00 Nitroglycerin (Nitrostat Sl) 0.4 mg Q5M PRN SL X 3 doses for chest pain; Start 10/17/17 at 16:30 Ipratropium [place] (Atrovent Hfa Inh) 2 puff Q6HR PRN INH SHORTNESS OF BREATH ; Start 10/18/17 at 10:15; Status Cancel Prednisone (Deltasone) 10 mg DAILY PO Last administered on 10/18/17at 12:23; Start 10/18/17 at 12:00; Stop 10/18/17 at 13:16; Status DC Budesonide/ Formoterol Fumarate (Symbicort 160-4.5 Mcg Inh) 2 puff Q12HR INH Last administered on 10/28/17 07:58; Start 10/18/17 at 13:00 Iohexol (Omnipaque 350 Inj) 69 ml STK-MED ONCE IVCONTRAST Last administered on 10/18/17at 12:07; Start 10/18/17 at 12:07; Stop 10/18/17 at 12:08; Status DC Ipratropium [place] (Atrovent Neb) 0.5 mg Q6HR NEB PRN NEB SHORTNESS OF BREATH Last administered on 10/23/17at 18:36; Start 10/18/17 at 13:00 Prednisone (Deltasone) 20 mg BID PO Last administered on 10/22/17at 08:05; Start 10/18/17 at 21:00; Stop 10/22/17 at 15:21; Status DC Ipratropium [place] (Atrovent Neb) 0.5 mg TID NEB NEB Last administered on 10/26 21:04; Start 10/18/17 at 14:00 Acetaminophen/ Hydrocodone Bitart ([place] 5-325 Mg) 1 tab Q4H PRN PO PAIN SCALE 3 TO 5 Last administered on 10/26/17 02:57; Start 10/18/17 at 15:00 Acetaminophen/ Hydrocodone Bitart ([place] 7.5-325 Mg) 1 tab Q4H PRN PO PAIN SCALE 6 TO 10; Start 10/18/17 at 15:00 Morphine Sulfate (Morphine Inj) 2 mg Q3H PRN IV PUSH BREAKTHROUGH PAIN; Start 10/18/17 at 15:00 Dextrose (D50w (Vial) Inj) 50 ml UNSCH PRN IV PUSH HYPOGLYCEMIA-SEE COMMENTS; Start 10/18/17 at 14:45 Glucagon (Glucagon Inj) 1 mg UNSCH PRN OTHER HYPOGLYCEMIA-SEE COMMENTS; Start 10/18/17 at 14:45 Insulin Aspart (NovoLOG SUPPLEMENTAL SCALE) 1 ACHS SLIDING SCALE SQ Last administered on 4/4/18at 21:06; Start 10/18/17 at 17:00 Heparin Sodium (Porcine) (Heparin Central Flush) 250 units UNSCH PRN IV FLUSH SEE PROTOCOL TABLE; Start 10/20/17 at 11:30 Heparin Sodium (Porcine) (Heparin Central Flush) 500 units UNSCH IV FLUSH Last administered on 10/26/17at 02:24; Start 10/20/17 at 11:30 Sodium Chloride (NS Flush) 5 ml UNSCH PRN IV FLUSH SEE DOSE INSTRUCTIONS Last administered on 10/27/17at 06:45; Start 10/20/17 at 11:30 Prednisone (Deltasone) 20 mg DAILY PO Last administered on 10/28/17at 07:55; Start 10/23/17 at 09:00 Senna/Docusate Sodium ([place]-Colace) 1 tab DAILY PO Last administered on at 09:44; Start 10/25/17 at 09:00; Stop 10/27/17 at 10:25; Status DC Acetaminophen (Tylenol) 650 mg Q4H PRN PO temperature > 100.4 Last administered on 10/27/17at 00:49; Start 10/26/17 at 01:45 Vancomycin HCl 1000 mg/Sodium Chloride 250 ml @ 250 mls/hr ONCE ONCE IV ; Start 10/26/17 at 04:00; Stop 10/26/17 at 04:02; Status DC Cefepime HCl 2000 mg/Sodium Chloride 100 ml @ 200 mls/hr Q8H IV Last administered on 10/28/17at 04:07; Start 10/26/17 at 05:00 Pharmacy Profile Note 0 ml @ 0 mls/hr UNSCH OTHER ; Start 10/26/17 at 04:15 Vancomycin HCl 1000 mg/ Vancomycin/Sodium Chloride 200 ml @ 200 mls/hr ONCE ONCE IV ; Start 10/26/17 at 04:15; Stop 10/26/17 at 04:15; Status DC Albuterol/ Ipratropium (Duoneb Neb) 1 ampule Q6HR NEB NEB Last administered on 10/28/17at 09:56; Start 10/26/17 at 10:00 Albuterol/ Ipratropium (Duoneb Neb) 1 ampule Q4HR NEB PRN NEB sob/wheezing; Start 10/26/17 at 04:15 Vancomycin/Sodium Chloride 200 ml @ 200 mls/hr ONCE ONCE IV Last administered on 10/26/17at 04:54; Start 10/26/17 at 04:15; Stop 10/26/17 at 05:14; Status DC Vancomycin HCl 1250 mg/Sodium Chloride 262.5 ml @ 250 mls/hr Q12H IV Last administered on 10/27/17at 14:48; Start 10/26/17 at 15:00; Stop 10/27/17 at 16:42; Status DC Miscellaneous Information SPECIFIC LAB TO BE DRAWN:VANCOMYCIN TROUGH DATE TO... ONCE ONCE .XX Last administered on 10/27/17at 14:43; Start 10/27/17 at 14:45; Stop 10/27/17 at 14:46; Status DC Guaifenesin (Mucinex Er) 600 mg BID PO Last administered on 10/28/17at 08:00; Start 10/27/17 at 11:30 Senna/Docusate Sodium (Hanh-Colace) 2 tab BID PO ; Start 10/27/17 at 21:00 Tiotropium [place] (Spiriva Inh) 18 mcg DAILY INH Last administered on at 07:58; Start 10/27/17 at 12:00 Naloxone HCl (Narcan Inj) 0.4 mg UNSCH PRN IV PUSH SEE LABEL COMMENTS; Start at 10:30 Magnesium Hydroxide (Milk Of Magnesia Liq) 30 ml Q12H PRN PO Mild constipation ; Start 10/27/17 at 10:30 Sennosides (Senokot) 17.2 mg Q12H PRN PO Moderate constipation; Start 10/27/17 at 10:30 Bisacodyl (Dulcolax Supp) 10 mg DAILY PRN RECTAL SEVERE CONSITIPATION; Start at 10:30 Lactulose (Lactulose Liq) 30 ml DAILY PRN PO SEVERE CONSITIPATION; Start at 10:30 Vancomycin HCl 1250 mg/Sodium Chloride 262.5 ml @ 250 mls/hr Q8H IV Last administered on 10/28/17at 07:55; Start 10/28/17 at 00:00 Miscellaneous Information SPECIFIC LAB TO BE DRAWN:VANCOMYCIN TROUGH DATE TO... ONCE ONCE .XX ; Start 4/5/18 at 23:45; Stop 10/28/17 at 23:46 A/P Problem List: (1) Stage IV adenocarcinoma of the lung Assessment and Plan 67-year-old male with history of tobacco use, COPD, recently diagnosed stage IV adenocarcinoma of lung with metastases, presents with worsening back pain and shortness of breath. Stage IV Bronchogenic Adenocarcinoma: recently diagnosed this month September 2017. Returned to ED with worsening shortness of breath, cough, back pains. Symptoms likely all related to advanced cancer. -Repeat CT-PA today 10/18 negative for PE, showed again large infiltrative right lung mass; mediastinal and left axillary lymphadenopathy, lytic destructive lesion of left T1 vertebral body, and noncalcified nodules within LLL; no significant change compared to previous CT -Continue duonebs -Incentive spirometer -Continue pain control with [place] prn and IV morphine prn breakthrough pain -Appreciate palliative care following. Discussed with oncology team. Patient and family wants to proceed with chemotherapy. He needs to find a place to stay and an oncologist in the [place] area. Case management aware. Daughter will arrive tomorrow. Discussed with case management to have further discussions with the patient's daughter. Continue on Vanco cefepime Fever:Worsening consolidation R lung. PNA vs ?Cancer burden - Started on Vanc, Cefepime. Blood cultures - Would consider transitioning to oral antibiotics if cultures neg at 48 hrs. Needs follow up outpatient for cancer treatment. Incentive spirometry Physical therapy Mucinex Leslie richter STILL HAD BORDERLINE FEVERS ON 5-5 COPD with mild exacerbation: imaging as above. -continue duonebs -Wean off steroids. -monitor for improvement Leslie richter Mucinex Improving. Continue on current treatment. Tobacco use: patient quit 1 week prior to admission. Smokes tobacco 2PPD since age 18 -counseled on continued cessation Borderline Diabetes: patient on metformin. Last HgbA1c 6.1 on 10/08/17. Expect higher blood glucose while on steroids. -monitor accu-cheks and cover with SSI Weight Loss, Protein Calorie Malnutrition: suspect secondary to cancer -Encourage oral intake. Colace for GI PPx. DVT Prophylaxis: Lovenox sq Discharge Planning Pending afebrile for another day or so Anshul Ley DO Oct 28, 2017 10:51
[2017-10-28 17:17] LABS: HEMOGLOBIN A1C 6.5 % (4.3-6.0)
[2017-10-28] MEDS: ENOXAPARIN SODIUM 40 MG/0.4 ML SYRINGE SQ SCH (17:49)
--- NOTE | 2017-10-28 21:09 | HHI.HCPN ---
Reason for visit a. To assist with evaluation and management of symptoms including: Pain; dyspnea b. To assist medical decision maker(s) with: better understanding of current medical conditions; weighing benefits/burdens of medical treatment options; making medical treatment decisions. . Subjective/Interval History Patient denies pain at time of my visit. He last needed opioid on 10/26/17. Tmax was 100.1 around 0400 this AM. CXR of 10/26 showed increasing consolidation. Blood cultures from 10/26 continue to show no growth. He is on vancomycin and cefepime. Patient denies SOB while resting in bed, but does become breathless with exertion. He is not using 02 at time of my visit. Appetite is poor -- he doesn't like the food either. Hg has dropped to 9.6. Albumin even lower at 1.5. Palliative care social service agency director and myself spoke to patient privately before arrival of daughter and his housemate. Patient is ambivalent about pursuing cancer directed treatment. He is most concerned about being a burden to his daughter. Patient has 20% [place] coverage but has [place] exposure and now has a cancer which may make him eligible for additional benefits. We disccussed benefits/burdens of aggressive care vs "comfort oriented care." . Family/friend interactions Spoke with daughter, housemate along with FUASTO Obando for about 50 minutes. They had multiple questions regarding aggressive care vs hospice, care at home vs facility care, VA coverage, coverage, etc. Daughter is appearing overwhelmed. We went through issues one by one. Recommended that they update VA on patient's condition and see if he is eligible for additional services given cancer diagnosis and [place] exposure. They plan on contacting elder ip attorney. Will be completing [employer] later today. . Advance Directives Living Will: Completed, but not made available Health Care Surrogate: Copy in medical record Durable Power of Online Marketing Analyst: Never completed Advance Directive Specifics Health Care Surrogate(s): The patient has designated his daughter Razia as healthcare surrogate . Documented care wishes: The patient says he has a living will that he completed at the OR, and he would "not want heroics when it will not help." . Objective Vital Signs Date Time Temp Pulse Resp B/P (MAP) Pulse Ox O2 Delivery O2 Flow Rate FiO2 10/28/17 19:00 100 10/28/17 18:04 97.5 101 18 110/66 (81) 96 10/28/17 18:00 100 10/28/17 17:00 102 10/28/17 16:00 84 10/28/17 15:00 90 10/28/17 14:00 94 10/28/17 13:00 96 10/28/17 12:07 98.1 105 20 123/72 (89) 96 10/28/17 12:00 122 10/28/17 11:00 104 10/28/17 10:00 96 10/28/17 09:57 98 21 10/28/17 09:00 96 10/28/17 08:00 100 10/28/17 07:45 99.1 104 18 113/56 (75) 96 10/28/17 04:04 100.1 111 22 107/69 (82) 95 10/28/17 04:00 114 10/28/17 03:00 106 10/28/17 02:00 102 10/28/17 01:00 128 10/28/17 00:00 98.3 100 22 115/65 (82) 96 10/28/17 00:00 100 10/27/17 23:00 108 10/27/17 22:00 106 10/27/17 21:00 98 10/27/17 20:59 96 . Physical Exam CONSTITUTIONAL/GENERAL: This is a thin patient, in no apparent distress. TUBES/LINES/DRAINS: peripheral IV SKIN: No jaundice, rashes, or lesions. No wounds seen anteriorly. Skin temperature appropriate. Not diaphoretic. EYES: Pupils equal and round. Extraocular motions intact. No scleral icterus. No injection or drainage. Fundi not examined. ENT: Hearing grossly normal. Nose without bleeding or purulent drainage. Throat without visible erythema, exudates, masses, or lesions. NECK: Trachea midline. Supple, nontender. CARDIOVASCULAR: Regular rate and rhythm without murmurs, gallops, or rubs. No JVD. RESPIRATORY/CHEST: Symmetric, unlabored respirations. Breath sounds diminished bilaterally but less air movement on right. GASTROINTESTINAL: Abdomen soft, non-tender, nondistended. No hepato-splenomegaly , or palpable masses. No guarding. Bowel sounds present. GENITOURINARY: Without palpable bladder distension. MUSCULOSKELETAL: Extremities without clubbing, cyanosis, or edema. LYMPHATICS: Not examined. NEUROLOGICAL: Awake and alert. Motor and sensory grossly within normal limits. Follows commands. Cognitively sharp. Moves all extremities. PSYCHIATRIC: No obvious anxiety/depression. no apparent hallucinations or other psychotic thought process. . Diagnostic Tests Laboratory Laboratory Tests Test 10/26/17 02:00 10/26/17 02:05 10/27/17 14:43 10/28/17 05:00 Urine Color YELLOW (YELLW/STRAW) Urine Turbidity CLEAR (CLEAR) Urine pH 6.0 (5.0-8.5) Urine Specific [place] 1.028 (1.002-1.035) Urine Protein TRACE mg/dL (NEG-TRACE) Urine Glucose (UA) TRACE mg/dL (NEG) Urine Ketones NEG mg/dL (NEG) Urine Occult Blood NEG (NEG) Urine Nitrite NEG (NEG) Urine Bilirubin NEG (NEG) Urine Urobilinogen LESS THAN 2.0 MG/DL (LESS Urine Leukocyte Esterase NEG (NEG) Urine RBC 1 /hpf (0-3) Urine WBC 2 /hpf (0-5) Urine Mucus MANY /lpf (OCC) Microscopic Urinalysis Comment CULT NOT INDICATED White Blood Count 12.4 TH/MM3 (4.0-11.0) 9.2 TH/MM3 (4.0-11.0) Red Blood Count 4.20 MIL/MM3 (4.50-5.90) 3.53 MIL/MM3 (4.50-5.90) Hemoglobin 11.0 GM/DL (13.0-17.0) 9.6 GM/DL (13.0-17.0) Hematocrit 34.0 % (39.0-51.0) 28.9 % (39.0-51.0) Mean Corpuscular Volume 80.9 FL (80.0-100.0) 81.8 FL (80.0-100.0) Mean Corpuscular Hemoglobin 26.2 PG (27.0-34.0) 27.3 PG (27.0-34.0) Mean Corpuscular Hemoglobin Concent 32.4 % (32.0-36.0) 33.4 % (32.0-36.0) Red Cell Distribution Width 15.9 % (11.6-17.2) 15.9 % (11.6-17.2) Platelet Count 338 TH/MM3 (150-450) 225 TH/MM3 (150-450) Mean Platelet Volume 8.7 FL (7.0-11.0) 8.7 FL (7.0-11.0) Neutrophils (%) (Auto) 76.4 % (16.0-70.0) 75.0 % (16.0-70.0) Lymphocytes (%) (Auto) 16.2 % (9.0-44.0) 16.6 % (9.0-44.0) Monocytes (%) (Auto) 6.7 % (0.0-8.0) 7.8 % (0.0-8.0) Eosinophils (%) (Auto) 0.3 % (0.0-4.0) 0.3 % (0.0-4.0) Basophils (%) (Auto) 0.4 % (0.0-2.0) 0.3 % (0.0-2.0) Neutrophils # (Auto) 9.5 TH/MM3 (1.8-7.7) 6.9 TH/MM3 (1.8-7.7) Lymphocytes # (Auto) 2.0 TH/MM3 (1.0-4.8) 1.5 TH/MM3 (1.0-4.8) Monocytes # (Auto) 0.8 TH/MM3 (0-0.9) 0.7 TH/MM3 (0-0.9) Eosinophils # (Auto) 0.0 TH/MM3 (0-0.4) 0.0 TH/MM3 (0-0.4) Basophils # (Auto) 0.1 TH/MM3 (0-0.2) 0.0 TH/MM3 (0-0.2) CBC Comment DIFF FINAL DIFF FINAL Differential Comment Blood Urea Nitrogen 20 MG/DL (7-18) 13 MG/DL (7-18) Creatinine 0.61 MG/DL (0.60-1.30) 0.60 MG/DL (0.60-1.30) Random Glucose 88 MG/DL (74-106) 102 MG/DL (74-106) Calcium Level 8.3 MG/DL (8.5-10.1) 7.8 MG/DL (8.5-10.1) Sodium Level 135 MEQ/L (136-145) 134 MEQ/L (136-145) Potassium Level 4.3 MEQ/L (3.5-5.1) 4.2 MEQ/L (3.5-5.1) Chloride Level 98 MEQ/L (98-107) 101 MEQ/L (98-107) Carbon Dioxide Level 26.6 MEQ/L (21.0-32.0) 25.2 MEQ/L (21.0-32.0) Anion Gap 10 MEQ/L (5-15) 8 MEQ/L (5-15) Estimat Glomerular Filtration Rate 132 ML/MIN (>89) 134 ML/MIN (>89) Vancomycin Level Trough 9.0 MCG/ML (5.0-10.0) Total Protein 5.8 GM/DL (6.4-8.2) Albumin 1.5 GM/DL (3.4-5.0) Phosphorus Level 2.1 MG/DL (2.5-4.9) Magnesium Level 1.9 MG/DL (1.5-2.5) Alkaline Phosphatase 76 U/L (45-117) Aspartate Amino Transf (AST/SGOT) 35 U/L (15-37) Alanine Aminotransferase (ALT/SGPT) 45 U/L (12-78) Total Bilirubin 0.4 MG/DL (0.2-1.0) Hemoglobin A1c 6.5 % (4.3-6.0) Free Thyroxine 1.04 NG/DL (0.76-1.46) Thyroid Stimulating Hormone 3rd Gen 1.640 uIU/ML (0.358-3.740) . Result Diagram: 10/28/17 0500 10/28/17 0500 Microbiology Microbiology Date/Time Source Procedure Growth Status 10/26/17 02:15 Blood Line Aerobic Blood Culture - Preliminary NO GROWTH IN 2 DAYS Resulted 10/26/17 02:15 Blood Line Anaerobic Blood Culture - Preliminary NO GROWTH IN 2 DAYS Resulted 10/26/17 02:05 Blood Peripheral Aerobic Blood Culture - Preliminary NO GROWTH IN 2 DAYS Resulted 10/26/17 02:05 Blood Peripheral Anaerobic Blood Culture - Preliminary NO GROWTH IN 2 DAYS Resulted . Imaging Last Impressions Chest X-Ray 10/26/17 0000 Signed Impressions: Service Date/Time: Thursday, October 26, 2017 03:07 - CONCLUSION: Increasing consolidative density in the right chest. Titus Sparks MD CT Angiography 10/18/17 0000 Signed Impressions: Service Date/Time: Wednesday, October 18, 2017 11:56 - CONCLUSION: 1. No evidence of pulmonary embolism. 2. No significant change in the extensive infiltrative mass of the right lung, mediastinal and left axillary lymphadenopathy, lytic destructive lesion of the left T1 vertebral body, and noncalcified nodules within the left lower lobe. Yair Munguia MD . Assessment and Plan Disease Oriented Problem List: (1) Chest pain, likely noncardiac (2) Stage IV adenocarcinoma of the lung (3) COPD (4) Exposure to [place] in [place] (5) Diabetes (6) Hyperlipidemia (7) Malnutrition, albumin 1.7 Comment: Now down to 1.5 . (8) History of alcohol and drug abuse, sober with Narcotics Anonymous for 25 years (9) History of nephrolithiasis Symptom Scale: (1) Dyspnea 0-10 Scale: 0 (2) Pain 0-10 Scale: 0 (Chest pain is resolved) Pertinent Non-Medical Issues Psychosocial: Former [employer] in [place], worked various odd jobs, on disability due to COPD and agent [place] exposure, legally but long-time , 1 daughter living in [place] Spiritual: The patient has a remote Jewish background, but says his current spirituality is due to his connection with [employer], and he has no connection with any particular lutheran or denomination. He welcomes technical sme visits while he is here at the hospital. Legal: The patient has capacity for decision-making. He has designated his daughter Razia Long as healthcare surrogate. Ethical issues impacting care: None . Important Contacts Daughter: Razia Long, in [place], . Prognosis The patient has stage IV adenocarcinoma and has underlying COPD with 20 pounds of recent weight loss, so his overall prognosis is poor. . Code Status: No Code Plan * DO NOT RESUSCITATE, per request of patient 10/18/17. Community DNR signed. * DECISION-MAKING: The patient has capacity for decision-making. He has designated his daughter Razia Long as healthcare surrogate. * GOALS: remains ambivalent about chemotherapy vs hospice. If he is eligible for additional services through OR given his cancer diagnosis and [place] exposure, he may choose to pursue a trial of chemo. He does not want to be a burden to his daughter. * * SYMPTOMS: His pain seems to have resolved, and he is not dyspneic now here in his hospital room. Pain in scapula may be musculoskeletal vs some referred pain from [facility]. Continue steroids. Current pain regimen appears adequate. No further recommendations at this time. * public health social worker working closely with family and case management to further define options for patient given goals. * Discharge timing will depend on finding appropriate discharge plan and adequately treating acute infection. * * Palliative care will continue to follow to assist with symptom management and to further clarify goals of medical treatment as the clinical course evolves. . . Time Spent Total Floor Time (mins): 60 (Total fluoroscopy time included chart review, patient exam, bedside conversation with patient, and meeting with healthcare surrogate as noted above.) Face to Face Time (mins): 20 >50% Counseling/Coord of Care: Yes Attestation To help prompt me to consider important information that might be impacting today's encounter and assessment, information from prior notes written by myself or my colleagues may have been "brought forward" into today's note. My signature on this note, however, is an attestation that I personally performed the exam, history, and/or decision-making noted today, and, unless otherwise indicated, the interactions with patient, family, and staff as well as the review of records all occurred today. I also attest that the listed assessment and stated plan reflect my best clinical judgment today based on the combination of historical information, prior notes, and today's exam/ interactions. When time spent is documented, it refers only to time spent today by the signer, or if indicated, combined time spent today by collaborating physician/nurse practitioner. . Jesús Lynch MD Oct 28, 2017 21:09
[2017-10-28] MEDS ORDERED: PHARMACY ORDERED LAB ONE (23:45)
[2017-10-29] VITALS (27 sets, daily range): BP systolic 98–135; BP diastolic 60–77; PULSE 86–132; RESP 16–22; TEMP 97.5–99.8; O2SAT 94–97
[2017-10-29 00:28] LABS: ALBUMIN 1.5 GM/DL (3.4-5.0); ALT (GPT) 52 U/L (12-78); AST (GOT) 37 U/L (15-37); BICARBONATE 27.2 MEQ/L (21.0-32.0); BLOOD UREA NITROGEN 11 MG/DL (7-18); CALCIUM 7.9 MG/DL (8.5-10.1); CHLORIDE 99 MEQ/L (98-107); CREATININE 0.54 MG/DL (0.60-1.30); GLOMERULAR FILTRATION RATE 152 ML/MIN (>89); GLUCOSE,RANDOM 60 MG/DL (74-106); SODIUM (NA) 134 MEQ/L (136-145)
[2017-10-29 00:31] LABS: ALKALINE PHOSPHATASE 81 U/L (45-117); PHOSPHORUS 2.1 MG/DL (2.5-4.9); TOTAL BILIRUBIN ADULT 0.4 MG/DL (0.2-1.0); TOTAL PROTEIN 6.1 GM/DL (6.4-8.2); VANCOMYCIN TROUGH 20.9 MCG/ML (5.0-10.0)
[2017-10-29] MEDS: RESP: ALBUTEROL 2.5 MG/IPRATROPIUM 0.5 MG NEB (SCH) NEB ×4 (03:30→21:17)
[2017-10-29] MEDS: CEFEPIME INJ 2,000 MG in SODIUM CHLORIDE 0.9% INJ 100 ML IV SCH ×3 (04:00→21:25)
[2017-10-29] MEDS: ACETAMINOPHEN/HYDROcodone 325 MG/5 MG TAB PO PRN (04:09)
[2017-10-29 04:51] LABS: AUTOMATED NEUTROPHIL # 7.1 TH/MM3 (1.8-7.7); BASOPHIL % 0.5 % (0.0-2.0); EOSINOPHIL % 0.1 % (0.0-4.0); HEMATOCRIT 29.5 % (39.0-51.0); HEMOGLOBIN 9.7 GM/DL (13.0-17.0); LYMPH % 17.2 % (9.0-44.0); LYMPHOCYTE # 1.6 TH/MM3 (1.0-4.8); MEAN CELL VOLUME 81.2 FL (80.0-100.0); MEAN CORPUSCULAR HEMOGLOBIN 26.7 PG (27.0-34.0); MEAN CORPUSCULAR HGB CONC 32.8 % (32.0-36.0); MEAN PLATELET VOLUME 9.6 FL (7.0-11.0); MONO % 7.6 % (0.0-8.0); MONOCYTE # 0.7 TH/MM3 (0-0.9); NEUT % 74.6 % (16.0-70.0); PLATELET COUNT 226 TH/MM3 (150-450); RED BLOOD COUNT 3.63 MIL/MM3 (4.50-5.90); RED CELL DISTRIBUTION WIDTH 15.5 % (11.6-17.2); WHITE BLOOD COUNT 9.5 TH/MM3 (4.0-11.0)
[2017-10-29] MEDS: INSULIN ASPART SUPPLEMENTAL SCALE SQ SCH ×4 (08:00→20:26)
[2017-10-29] MEDS: SODIUM CHLORIDE 0.9% FLUSH 10 ML FLUSH IV FLUSH SCH ×2 (09:07→20:27)
[2017-10-29] MEDS: guaiFENesin E.R. 600 MG TAB PO SCH ×2 (09:07→20:27)
[2017-10-29] MEDS: predniSONE 20 MG TAB PO SCH (09:07)
[2017-10-29] MEDS: ASPIRIN 325 MG TAB PO SCH (09:07)
[2017-10-29] MEDS: DOCUSATE SODIUM 50 MG/SENNA 8.6 MG TAB PO SCH ×2 (09:07→20:27)
[2017-10-29] MEDS: TIOTROPIUM BROMIDE 18 MCG INH INH SCH (09:08)
[2017-10-29] MEDS: BUDESONIDE-FORMOTEROL 160/4.5 MCG INHALER INH SCH ×2 (09:08→20:27)
[2017-10-29] MEDS: VANCOMYCIN INJ 1,250 MG in SODIUM CHLOR 0.9% 250 ML INJ 250 ML IV SCH ×2 (09:14→18:06)
--- NOTE | 2017-10-29 10:28 | HHI.PR ---
Subjective Remarks 4-3 Fever overnight. Xray showing increasing consolidative changes right chest. States he is feeling ok this morning. No increased in SOB. Started on antibiotics. Blood cultures ordered. 4-4 NO FEVERS TODAY on vanco and cefepime DW RN AND PT AND CM PT AND CONSTIPATION MEDS 4-5 PATIENT MET WITH PALLIATIVE CARE YESTERDAY AND FAMILY TO MEET WITH PALLIATIVE CARE LATER TODAY CONTINUE CURRENT TREATMENTS ON ANTIBIOTICS DW RN AND PT AND CM STILL HAVING BORDERLINE FEVERS TODAY 4-6 needs a safe discharge Lives in [place] area Still on IV antibiotics Family has not found a safe place for him to be discharged to Discussed with family caseworker and patient Patient has not selected hospice yet is considering Chemotherapy but does not have a oncologists in [place] YET Objective Vitals Vital Signs Date Time Temp Pulse Resp B/P (MAP) Pulse Ox O2 Delivery O2 Flow Rate FiO2 10/29/17 10:05 96 21 10/29/17 08:45 98.2 95 16 107/70 (82) 96 10/29/17 05:00 102 10/29/17 04:00 99.8 110 22 110/68 (82) 94 10/29/17 04:00 109 10/29/17 03:00 110 10/29/17 02:00 114 10/29/17 01:00 110 10/29/17 00:00 98.8 104 22 135/77 (96) 95 10/29/17 00:00 108 10/28/17 23:00 100 10/28/17 22:00 96 10/28/17 21:03 99.6 108 102/73 (83) 96 10/28/17 21:00 92 10/28/17 20:00 116 10/28/17 19:27 97 10/28/17 19:00 100 10/28/17 18:04 97.5 101 18 110/66 (81) 96 10/28/17 18:00 100 10/28/17 17:00 102 10/28/17 16:00 84 10/28/17 15:00 90 10/28/17 14:00 94 10/28/17 13:00 96 10/28/17 12:07 98.1 105 20 123/72 (89) 96 10/28/17 12:00 122 10/28/17 11:00 104 I/O 4/5/18 410/28/17 10/29/17 10/29/17 10/29/17 07:00 15:00 23:00 07:00 15:00 23:00 Intake Total 362.5 ml 220 ml 1362.5 ml Output Total 200 ml 1250 ml 600 ml Balance 162.5 ml -1030 ml 762.5 ml Intake Oral 120 ml 1000 ml IV Total 362.5 ml 100 ml 362.5 ml Output Urine Total 200 ml 1250 ml 600 ml Result Diagram: 10/29/17 0415 10/28/17 2330 Other Results Laboratory Tests Test 10/27/17 14:43 10/28/17 05:00 10/28/17 23:30 10/29/17 04:15 Vancomycin Level Trough 9.0 MCG/ML 20.9 MCG/ML White Blood Count 9.2 TH/MM3 9.5 TH/MM3 Red Blood Count 3.53 MIL/MM3 3.63 MIL/MM3 Hemoglobin 9.6 GM/DL 9.7 GM/DL Hematocrit 28.9 % 29.5 % Mean Corpuscular Volume 81.8 FL 81.2 FL Mean Corpuscular Hemoglobin 27.3 PG 26.7 PG Mean Corpuscular Hemoglobin Concent 33.4 % 32.8 % Red Cell Distribution Width 15.9 % 15.5 % Platelet Count 225 TH/MM3 226 TH/MM3 Mean Platelet Volume 8.7 FL 9.6 FL Neutrophils (%) (Auto) 75.0 % 74.6 % Lymphocytes (%) (Auto) 16.6 % 17.2 % Monocytes (%) (Auto) 7.8 % 7.6 % Eosinophils (%) (Auto) 0.3 % 0.1 % Basophils (%) (Auto) 0.3 % 0.5 % Neutrophils # (Auto) 6.9 TH/MM3 7.1 TH/MM3 Lymphocytes # (Auto) 1.5 TH/MM3 1.6 TH/MM3 Monocytes # (Auto) 0.7 TH/MM3 0.7 TH/MM3 Eosinophils # (Auto) 0.0 TH/MM3 0.0 TH/MM3 Basophils # (Auto) 0.0 TH/MM3 0.0 TH/MM3 CBC Comment DIFF FINAL DIFF FINAL Differential Comment Blood Urea Nitrogen 13 MG/DL 11 MG/DL Creatinine 0.60 MG/DL 0.54 MG/DL Random Glucose 102 MG/DL 60 MG/DL Total Protein 5.8 GM/DL 6.1 GM/DL Albumin 1.5 GM/DL 1.5 GM/DL Calcium Level 7.8 MG/DL 7.9 MG/DL Phosphorus Level 2.1 MG/DL 2.1 MG/DL Magnesium Level 1.9 MG/DL 2.0 MG/DL Alkaline Phosphatase 76 U/L 81 U/L Aspartate Amino Transf (AST/SGOT) 35 U/L 37 U/L Alanine Aminotransferase (ALT/SGPT) 45 U/L 52 U/L Total Bilirubin 0.4 MG/DL 0.4 MG/DL Sodium Level 134 MEQ/L 134 MEQ/L Potassium Level 4.2 MEQ/L 4.0 MEQ/L Chloride Level 101 MEQ/L 99 MEQ/L Carbon Dioxide Level 25.2 MEQ/L 27.2 MEQ/L Anion Gap 8 MEQ/L 8 MEQ/L Estimat Glomerular Filtration Rate 134 ML/MIN 152 ML/MIN Hemoglobin A1c 6.5 % Free Thyroxine 1.04 NG/DL Thyroid Stimulating Hormone 3rd Gen 1.640 uIU/ML Imaging Last Impressions Chest X-Ray 10/26/17 0000 Signed Impressions: Service Date/Time: Thursday, October 26, 2017 03:07 - CONCLUSION: Increasing consolidative density in the right chest. Titus Sparks MD CT Angiography 10/18/17 0000 Signed Impressions: Service Date/Time: Wednesday, October 18, 2017 11:56 - CONCLUSION: 1. No evidence of pulmonary embolism. 2. No significant change in the extensive infiltrative mass of the right lung, mediastinal and left axillary lymphadenopathy, lytic destructive lesion of the left T1 vertebral body, and noncalcified nodules within the left lower lobe. Yair Munguia MD Objective Remarks GENERAL: Awake alert and oriented 3 talkative and cooperative SKIN: Warm and dry. HEAD: Atraumatic. Normocephalic. EYES: Pupils equal and round. No scleral icterus. No injection or drainage. Extraocular muscles intact ENT: No nasal bleeding or discharge. Mucous membranes pink and moist. Tongue is midline NECK: Trachea midline. No JVD. Supple CARDIOVASCULAR: Regular rate and rhythm. S1-S2 no S3 or S4 no heave or thrill or rub or gallop RESPIRATORY: No accessory muscle use. Clear to auscultation. Breath sounds equal bilaterally. GASTROINTESTINAL: Abdomen soft, non-tender, nondistended. Hepatic and splenic margins not palpable. MUSCULOSKELETAL: Extremities without clubbing, cyanosis, or edema. No obvious deformities. NEUROLOGICAL: Awake and alert. No obvious cranial nerve deficits. Motor grossly within normal limits. Five out of 5 muscle strength in the arms and legs. Normal speech. PSYCHIATRIC: Appropriate mood and affect; insight and judgment normal. Procedures NONE Medications and IVs Current Medications Sodium Chloride (NS Flush) 2 ml UNSCH PRN IV FLUSH FLUSH AFTER USING IV ACCESS Last administered on 10/27/17 03:54; Start 10/17/17 at 16:30 Sodium Chloride (NS Flush) 2 ml BID IV FLUSH Last administered on 10/29/17 09: 07; Start 10/17/17 at 21:00 Ondansetron HCl (Zofran Inj) 4 mg Q6H PRN IVP NAUSEA OR VOMITING; Start at 16:30 Enoxaparin Sodium (Lovenox Inj) 40 mg Q24H SQ Last administered on 10/28/17at 17: 49; Start 10/17/17 at 17:00 Morphine Sulfate (Morphine Inj) 2 mg Q3H PRN IV PUSH Pain 3-5; if unable to take PO; Start 10/17/17 at 16:30; Stop 10/18/17 at 14:40; Status DC Morphine Sulfate (Morphine Inj) 4 mg Q3H PRN IV PUSH Pain 6-10;if unable to take PO; Start 10/17/17 at 16:30; Stop 10/18/17 at 14:40; Status DC Naloxone HCl (Narcan Inj) 0.4 mg UNSCH PRN IV PUSH SEE LABEL COMMENTS; Start at 16:30; Stop 10/27/17 at 11:15; Status DC Magnesium Hydroxide (Milk Of Magnesia Liq) 30 ml Q12H PRN PO Mild constipation Last administered on 10/23/17at 20:44; Start 10/17/17 at 16:30; Stop 10/27/17 at 11:16; Status DC Aspirin (Aspirin) 325 mg DAILY PO Last administered on 10/29/17 09:07; Start at 09:00 Nitroglycerin (Nitrostat Sl) 0.4 mg Q5M PRN SL X 3 doses for chest pain; Start 10/17/17 at 16:30 Ipratropium [place] (Atrovent Hfa Inh) 2 puff Q6HR PRN INH SHORTNESS OF BREATH ; Start 10/18/17 at 10:15; Status Cancel Prednisone (Deltasone) 10 mg DAILY PO Last administered on 10/18/17at 12:23; Start 10/18/17 at 12:00; Stop 10/18/17 at 13:16; Status DC Budesonide/ Formoterol Fumarate (Symbicort 160-4.5 Mcg Inh) 2 puff Q12HR INH Last administered on 10/29/17at 09:08; Start 10/18/17 at 13:00 Iohexol (Omnipaque 350 Inj) 69 ml STK-MED ONCE IVCONTRAST Last administered on 10/18/17at 12:07; Start 10/18/17 at 12:07; Stop 10/18/17 at 12:08; Status DC Ipratropium [place] (Atrovent Neb) 0.5 mg Q6HR NEB PRN NEB SHORTNESS OF BREATH Last administered on 10/23/17at 18:36; Start 10/18/17 at 13:00; Stop 10/29/17 at 01:32; Status DC Prednisone (Deltasone) 20 mg BID PO Last administered on 10/22/17at 08:05; Start 10/18/17 at 21:00; Stop 10/22/17 at 15:21; Status DC Ipratropium [place] (Atrovent Neb) 0.5 mg TID NEB NEB Last administered on 10/26at 21:04; Start 10/18/17 at 14:00; Stop 10/29/17 at 01:32; Status DC Acetaminophen/ Hydrocodone Bitart ([place] 5-325 Mg) 1 tab Q4H PRN PO PAIN SCALE 3 TO 5 Last administered on 10/29/17at 04:09; Start 10/18/17 at 15:00 Acetaminophen/ Hydrocodone Bitart ([place] 7.5-325 Mg) 1 tab Q4H PRN PO PAIN SCALE 6 TO 10; Start 10/18/17 at 15:00 Morphine Sulfate (Morphine Inj) 2 mg Q3H PRN IV PUSH BREAKTHROUGH PAIN; Start 10/18/17 at 15:00 Dextrose (D50w (Vial) Inj) 50 ml UNSCH PRN IV PUSH HYPOGLYCEMIA-SEE COMMENTS; Start 10/18/17 at 14:45 Glucagon (Glucagon Inj) 1 mg UNSCH PRN OTHER HYPOGLYCEMIA-SEE COMMENTS; Start 10/18/17 at 14:45 Insulin Aspart (NovoLOG SUPPLEMENTAL SCALE) 1 ACHS SLIDING SCALE SQ Last administered on 10/28/17at 21:14; Start 10/18/17 at 17:00 Heparin Sodium (Porcine) (Heparin Central Flush) 250 units UNSCH PRN IV FLUSH SEE PROTOCOL TABLE; Start 10/20/17 at 11:30 Heparin Sodium (Porcine) (Heparin Central Flush) 500 units UNSCH IV FLUSH Last administered on 10/26/17at 02:24; Start 10/20/17 at 11:30 Sodium Chloride (NS Flush) 5 ml UNSCH PRN IV FLUSH SEE DOSE INSTRUCTIONS Last administered on 10/27/17at 06:45; Start 10/20/17 at 11:30 Prednisone (Deltasone) 20 mg DAILY PO Last administered on 10/29/17at 09:07; Start 10/23/17 at 09:00 Senna/Docusate Sodium (Hanh-Colace) 1 tab DAILY PO Last administered on at 09:44; Start 10/25/17 at 09:00; Stop 10/27/17 at 10:25; Status DC Acetaminophen (Tylenol) 650 mg Q4H PRN PO temperature > 100.4 Last administered on 10/27/17at 00:49; Start 10/26/17 at 01:45 Vancomycin HCl 1000 mg/Sodium Chloride 250 ml @ 250 mls/hr ONCE ONCE IV ; Start 10/26/17 at 04:00; Stop 10/26/17 at 04:02; Status DC Cefepime HCl 2000 mg/Sodium Chloride 100 ml @ 200 mls/hr Q8H IV Last administered on 10/29/17at 04:00; Start 10/26/17 at 05:00 Pharmacy Profile Note 0 ml @ 0 mls/hr UNSCH OTHER ; Start 10/26/17 at 04:15 Vancomycin HCl 1000 mg/ Vancomycin/Sodium Chloride 200 ml @ 200 mls/hr ONCE ONCE IV ; Start 10/26/17 at 04:15; Stop 10/26/17 at 04:15; Status DC Albuterol/ Ipratropium (Duoneb Neb) 1 ampule Q6HR NEB NEB Last administered on 10/29/17at 10:03; Start 10/26/17 at 10:00 Albuterol/ Ipratropium (Duoneb Neb) 1 ampule Q4HR NEB PRN NEB sob/wheezing; Start 10/26/17 at 04:15 Vancomycin/Sodium Chloride 200 ml @ 200 mls/hr ONCE ONCE IV Last administered on 10/26/17at 04:54; Start 10/26/17 at 04:15; Stop 10/26/17 at 05:14; Status DC Vancomycin HCl 1250 mg/Sodium Chloride 262.5 ml @ 250 mls/hr Q12H IV Last administered on 10/27/17at 14:48; Start 10/26/17 at 15:00; Stop 10/27/17 at 16:42; Status DC Miscellaneous Information SPECIFIC LAB TO BE DRAWN:VANCOMYCIN TROUGH DATE TO... ONCE ONCE .XX Last administered on 10/27/17at 14:43; Start 10/27/17 at 14:45; Stop 10/27/17 at 14:46; Status DC Guaifenesin (Mucinex Er) 600 mg BID PO Last administered on 10/29/17at 09:07; Start 10/27/17 at 11:30 Senna/Docusate Sodium (Hanh-Colace) 2 tab BID PO Last administered on 10/29/17at 09:07; Start 10/27/17 at 21:00 Tiotropium [place] (Spiriva Inh) 18 mcg DAILY INH Last administered on at 09:08; Start 10/27/17 at 12:00 Naloxone HCl (Narcan Inj) 0.4 mg UNSCH PRN IV PUSH SEE LABEL COMMENTS; Start at 10:30 Magnesium Hydroxide (Milk Of Magnesia Liq) 30 ml Q12H PRN PO Mild constipation ; Start 10/27/17 at 10:30 Sennosides (Senokot) 17.2 mg Q12H PRN PO Moderate constipation; Start 10/27/17 at 10:30 Bisacodyl (Dulcolax Supp) 10 mg DAILY PRN RECTAL SEVERE CONSITIPATION; Start at 10:30 Lactulose (Lactulose Liq) 30 ml DAILY PRN PO SEVERE CONSITIPATION; Start at 10:30 Vancomycin HCl 1250 mg/Sodium Chloride 262.5 ml @ 250 mls/hr Q8H IV Last administered on 10/29/17at 09:14; Start 10/28/17 at 00:00 Miscellaneous Information SPECIFIC LAB TO BE DRAWN:VANCOMYCIN TROUGH DATE TO... ONCE ONCE .XX Last administered on 10/28/17at 23:24; Start 10/28/17 at 23:45; Stop 10/28/17 at 23:46; Status DC A/P Problem List: (1) Stage IV adenocarcinoma of the lung Assessment and Plan 67-year-old male with history of tobacco use, COPD, recently diagnosed stage IV adenocarcinoma of lung with metastases, presents with worsening back pain and shortness of breath. Stage IV Bronchogenic Adenocarcinoma: recently diagnosed this month September 2017. Returned to ED with worsening shortness of breath, cough, back pains. Symptoms likely all related to advanced cancer. -Repeat CT-PA today 10/18 negative for PE, showed again large infiltrative right lung mass; mediastinal and left axillary lymphadenopathy, lytic destructive lesion of left T1 vertebral body, and noncalcified nodules within LLL; no significant change compared to previous CT -Continue duonebs -Incentive spirometer -Continue pain control with [place] prn and IV morphine prn breakthrough pain -Appreciate palliative care following. Discussed with oncology team. Patient and family wants to proceed with chemotherapy. He needs to find a place to stay and an oncologist in the [place] area. Case management aware. Daughter will arrive tomorrow. Discussed with case management to have further discussions with the patient's daughter. Continue on Vanco cefepime Needs safe place for discharge otherwise Fever:Worsening consolidation R lung. PNA vs ?Cancer burden - Started on Vanc, Cefepime. Blood cultures - Would consider transitioning to oral antibiotics if cultures neg at 48 hrs. Needs follow up outpatient for cancer treatment. Incentive spirometry Physical therapy Mucinex Duo nebsidney STILL HAD BORDERLINE FEVERS ON 5-5 COPD with mild exacerbation: imaging as above. -continue duonebs -Wean off steroids. -monitor for improvement Duo tristans Mucinex Improving. Continue on current treatment. Tobacco use: patient quit 1 week prior to admission. Smokes tobacco 2PPD since age 18 -counseled on continued cessation Borderline Diabetes: patient on metformin. Last HgbA1c 6.1 on 3/16/18. Expect higher blood glucose while on steroids. -monitor accu-cheks and cover with SSI Weight Loss, Protein Calorie Malnutrition: suspect secondary to cancer -Encourage oral intake. Colace for GI PPx. Needs a safe place for discharge lives in [place] May need SNF versus assisted living DVT Prophylaxis: Lovenox sq Discharge Planning Pending afebrile for another day or so Anshul Ley DO Oct 29, 2017 10:28
--- NOTE | 2017-10-29 16:28 | HHI.HCPN ---
Met with Mr. Long and family. Mr. Long is in good spirits today, denies any pain, discomfort, shortness of breath. He is alert, oriented, and able to make his needs known. Daughter and daughter's fiance at bedside. She is currently working on paperwork for the [facility] to update them on patient's medical condition, new dx, and attempt to obtain additional benefits for him. Reports she met with someone from the [facility] today and has another meeting with a environmental monitoring specialist on Wednesday. Spoke with CM to inform them of possible assistance needed to provide [facility] with patient's medical records to update them on patient's medical condition. Plan to follow-up Wednesday. Daughter is planning to surprise the patient and get Wednesday at 3pm so her father can be present. Patient and family continue to work on [employer] and discuss patient's wishes regarding end of life care. Mr. Long has completed health care surrogate designation. * Razia Long, daughter, primary health care surrogate: [phone] * Jarad Mcclure, friend/roommate, alternate health care surrogate: [phone] Palliative care to continue to follow throughout hospitalization. Dena Mark [employer]ALL [employer] DEPARTMENT SUPERVISOR, [employer]ER OPERATOR HELPER Oct 29, 2017 16:28
[2017-10-29] MEDS: ENOXAPARIN SODIUM 40 MG/0.4 ML SYRINGE SQ SCH (18:01)
[2017-10-30] VITALS (18 sets, daily range): BP systolic 99–116; BP diastolic 57–96; PULSE 84–114; RESP 18–22; TEMP 97.8–100; O2SAT 95–97
[2017-10-30] MEDS: VANCOMYCIN INJ 1,250 MG in SODIUM CHLOR 0.9% 250 ML INJ 250 ML IV SCH ×3 (00:40→18:41)
[2017-10-30] MEDS: RESP: ALBUTEROL 2.5 MG/IPRATROPIUM 0.5 MG NEB (SCH) NEB ×2 (04:49→09:17)
[2017-10-30] MEDS: CEFEPIME INJ 2,000 MG in SODIUM CHLORIDE 0.9% INJ 100 ML IV SCH ×3 (05:46→20:04)
[2017-10-30] MEDS: INSULIN ASPART SUPPLEMENTAL SCALE SQ SCH ×4 (08:00→20:24)
--- NOTE | 2017-10-30 10:37 | HHI.PR ---
Subjective Remarks 4-3 Fever overnight. Xray showing increasing consolidative changes right chest. States he is feeling ok this morning. No increased in SOB. Started on antibiotics. Blood cultures ordered. 4-4 NO FEVERS TODAY on vanco and cefepime DW RN AND PT AND CM PT AND CONSTIPATION MEDS 4-5 PATIENT MET WITH PALLIATIVE CARE YESTERDAY AND FAMILY TO MEET WITH PALLIATIVE CARE LATER TODAY CONTINUE CURRENT TREATMENTS ON ANTIBIOTICS DW RN AND PT AND CM STILL HAVING BORDERLINE FEVERS TODAY 4-6 needs a safe discharge Lives in [place] area Still on IV antibiotics Family has not found a safe place for him to be discharged to Discussed with disability case manager and patient Patient has not selected hospice yet is considering Chemotherapy but does not have a oncologists in [place] YET 4-7 NOTHING SET UP OUTPATIENT YET STILL NEEDS SAFE PLACEMENT DW CM AND RN AND PT NOT SELECTED HOSPICE YET Objective Vitals Vital Signs Date Time Temp Pulse Resp B/P (MAP) Pulse Ox O2 Delivery O2 Flow Rate FiO2 10/30/17 09:17 95 21 10/30/17 09:00 99.2 105 18 99/57 (71) 96 10/30/17 06:00 94 10/30/17 05:44 98.4 101 20 116/70 (85) 96 10/30/17 05:00 98 10/30/17 04:08 97 10/30/17 03:00 110 10/30/17 03:00 16 10/30/17 02:00 114 10/30/17 01:00 114 10/30/17 00:38 100.0 111 20 114/96 (102) 97 10/29/17 23:53 110 10/29/17 23:00 106 10/29/17 22:00 108 10/29/17 21:17 94 10/29/17 21:00 132 10/29/17 20:23 98.2 103 22 123/63 (83) 96 10/29/17 20:10 106 10/29/17 19:00 120 10/29/17 17:00 98 10/29/17 16:00 100 10/29/17 16:00 98.0 103 18 111/60 (77) 95 10/29/17 15:00 99 10/29/17 14:00 92 10/29/17 13:00 92 10/29/17 12:28 97.5 92 18 108/67 (81) 97 10/29/17 12:00 93 10/29/17 12:00 92 10/29/17 11:00 100 I/O 10/29/17 10/29/17 10/29/17 10/30/17 10/30/17 10/30/17 07:00 15:00 23:00 07:00 15:00 23:00 Intake Total 1362.5 ml 250 ml 480 ml 240 ml Output Total 600 ml 300 ml 200 ml Balance 762.5 ml 250 ml 180 ml 40 ml Intake Oral 1000 ml 480 ml 240 ml IV Total 362.5 ml 250 ml Output Urine Total 600 ml 300 ml 200 ml # Bowel Movements 1 Result Diagram: 10/29/17 0415 10/28/17 2330 Other Results Laboratory Tests Test 10/27/17 14:43 10/28/17 05:00 10/28/17 23:30 10/29/17 04:15 Vancomycin Level Trough 9.0 MCG/ML 20.9 MCG/ML White Blood Count 9.2 TH/MM3 9.5 TH/MM3 Red Blood Count 3.53 MIL/MM3 3.63 MIL/MM3 Hemoglobin 9.6 GM/DL 9.7 GM/DL Hematocrit 28.9 % 29.5 % Mean Corpuscular Volume 81.8 FL 81.2 FL Mean Corpuscular Hemoglobin 27.3 PG 26.7 PG Mean Corpuscular Hemoglobin Concent 33.4 % 32.8 % Red Cell Distribution Width 15.9 % 15.5 % Platelet Count 225 TH/MM3 226 TH/MM3 Mean Platelet Volume 8.7 FL 9.6 FL Neutrophils (%) (Auto) 75.0 % 74.6 % Lymphocytes (%) (Auto) 16.6 % 17.2 % Monocytes (%) (Auto) 7.8 % 7.6 % Eosinophils (%) (Auto) 0.3 % 0.1 % Basophils (%) (Auto) 0.3 % 0.5 % Neutrophils # (Auto) 6.9 TH/MM3 7.1 TH/MM3 Lymphocytes # (Auto) 1.5 TH/MM3 1.6 TH/MM3 Monocytes # (Auto) 0.7 TH/MM3 0.7 TH/MM3 Eosinophils # (Auto) 0.0 TH/MM3 0.0 TH/MM3 Basophils # (Auto) 0.0 TH/MM3 0.0 TH/MM3 CBC Comment DIFF FINAL DIFF FINAL Differential Comment Blood Urea Nitrogen 13 MG/DL 11 MG/DL Creatinine 0.60 MG/DL 0.54 MG/DL Random Glucose 102 MG/DL 60 MG/DL Total Protein 5.8 GM/DL 6.1 GM/DL Albumin 1.5 GM/DL 1.5 GM/DL Calcium Level 7.8 MG/DL 7.9 MG/DL Phosphorus Level 2.1 MG/DL 2.1 MG/DL Magnesium Level 1.9 MG/DL 2.0 MG/DL Alkaline Phosphatase 76 U/L 81 U/L Aspartate Amino Transf (AST/SGOT) 35 U/L 37 U/L Alanine Aminotransferase (ALT/SGPT) 45 U/L 52 U/L Total Bilirubin 0.4 MG/DL 0.4 MG/DL Sodium Level 134 MEQ/L 134 MEQ/L Potassium Level 4.2 MEQ/L 4.0 MEQ/L Chloride Level 101 MEQ/L 99 MEQ/L Carbon Dioxide Level 25.2 MEQ/L 27.2 MEQ/L Anion Gap 8 MEQ/L 8 MEQ/L Estimat Glomerular Filtration Rate 134 ML/MIN 152 ML/MIN Hemoglobin A1c 6.5 % Free Thyroxine 1.04 NG/DL Thyroid Stimulating Hormone 3rd Gen 1.640 uIU/ML Imaging Last Impressions Chest X-Ray 10/26/17 0000 Signed Impressions: Service Date/Time: Thursday, October 26, 2017 03:07 - CONCLUSION: Increasing consolidative density in the right chest. Titus Sparks MD CT Angiography 10/18/17 0000 Signed Impressions: Service Date/Time: Wednesday, October 18, 2017 11:56 - CONCLUSION: 1. No evidence of pulmonary embolism. 2. No significant change in the extensive infiltrative mass of the right lung, mediastinal and left axillary lymphadenopathy, lytic destructive lesion of the left T1 vertebral body, and noncalcified nodules within the left lower lobe. Yair Munguia MD Objective Remarks GENERAL: Awake alert and oriented 3 talkative and cooperative SKIN: Warm and dry. HEAD: Atraumatic. Normocephalic. EYES: Pupils equal and round. No scleral icterus. No injection or drainage. Extraocular muscles intact ENT: No nasal bleeding or discharge. Mucous membranes pink and moist. Tongue is midline NECK: Trachea midline. No JVD. Supple CARDIOVASCULAR: Regular rate and rhythm. S1-S2 no S3 or S4 no heave or thrill or rub or gallop RESPIRATORY: No accessory muscle use. Clear to auscultation. Breath sounds equal bilaterally. GASTROINTESTINAL: Abdomen soft, non-tender, nondistended. Hepatic and splenic margins not palpable. MUSCULOSKELETAL: Extremities without clubbing, cyanosis, or edema. No obvious deformities. NEUROLOGICAL: Awake and alert. No obvious cranial nerve deficits. Motor grossly within normal limits. Five out of 5 muscle strength in the arms and legs. Normal speech. PSYCHIATRIC: Appropriate mood and affect; insight and judgment normal. Procedures NONE Medications and IVs Current Medications Sodium Chloride (NS Flush) 2 ml UNSCH PRN IV FLUSH FLUSH AFTER USING IV ACCESS Last administered on 10/27/17 03:54; Start 10/17/17 at 16:30 Sodium Chloride (NS Flush) 2 ml BID IV FLUSH Last administered on 10/29/17at 20: 27; Start 10/17/17 at 21:00 Ondansetron HCl (Zofran Inj) 4 mg Q6H PRN IVP NAUSEA OR VOMITING; Start at 16:30 Enoxaparin Sodium (Lovenox Inj) 40 mg Q24H SQ Last administered on 10/29/17at 18: 01; Start 10/17/17 at 17:00 Morphine Sulfate (Morphine Inj) 2 mg Q3H PRN IV PUSH Pain 3-5; if unable to take PO; Start 10/17/17 at 16:30; Stop 10/18/17 at 14:40; Status DC Morphine Sulfate (Morphine Inj) 4 mg Q3H PRN IV PUSH Pain 6-10;if unable to take PO; Start 10/17/17 at 16:30; Stop 10/18/17 at 14:40; Status DC Naloxone HCl (Narcan Inj) 0.4 mg UNSCH PRN IV PUSH SEE LABEL COMMENTS; Start at 16:30; Stop 10/27/17 at 11:15; Status DC Magnesium Hydroxide (Milk Of Magnesia Liq) 30 ml Q12H PRN PO Mild constipation Last administered on 10/23/17at 20:44; Start 10/17/17 at 16:30; Stop 10/27/17 at 11:16; Status DC Aspirin (Aspirin) 325 mg DAILY PO Last administered on 10/29/17at 09:07; Start at 09:00 Nitroglycerin (Nitrostat Sl) 0.4 mg Q5M PRN SL X 3 doses for chest pain; Start 10/17/17 at 16:30 Ipratropium [place] (Atrovent Hfa Inh) 2 puff Q6HR PRN INH SHORTNESS OF BREATH ; Start 10/18/17 at 10:15; Status Cancel Prednisone (Deltasone) 10 mg DAILY PO Last administered on 10/18/17at 12:23; Start 10/18/17 at 12:00; Stop 10/18/17 at 13:16; Status DC Budesonide/ Formoterol Fumarate (Symbicort 160-4.5 Mcg Inh) 2 puff Q12HR INH Last administered on 10/29/17at 20:27; Start 10/18/17 at 13:00 Iohexol (Omnipaque 350 Inj) 69 ml STK-MED ONCE IVCONTRAST Last administered on 10/18/17at 12:07; Start 10/18/17 at 12:07; Stop 10/18/17 at 12:08; Status DC Ipratropium [place] (Atrovent Neb) 0.5 mg Q6HR NEB PRN NEB SHORTNESS OF BREATH Last administered on 10/23/17at 18:36; Start 10/18/17 at 13:00; Stop 10/29/17 at 01:32; Status DC Prednisone (Deltasone) 20 mg BID PO Last administered on 10/22/17at 08:05; Start 10/18/17 at 21:00; Stop 10/22/17 at 15:21; Status DC Ipratropium [place] (Atrovent Neb) 0.5 mg TID NEB NEB Last administered on 10/26at 21:04; Start 10/18/17 at 14:00; Stop 10/29/17 at 01:32; Status DC Acetaminophen/ Hydrocodone Bitart ([place] 5-325 Mg) 1 tab Q4H PRN PO PAIN SCALE 3 TO 5 Last administered on 10/29/17at 04:09; Start 10/18/17 at 15:00 Acetaminophen/ Hydrocodone Bitart ([place] 7.5-325 Mg) 1 tab Q4H PRN PO PAIN SCALE 6 TO 10 Last administered on 10/30/17at 02:01; Start 10/18/17 at 15:00 Morphine Sulfate (Morphine Inj) 2 mg Q3H PRN IV PUSH BREAKTHROUGH PAIN; Start 10/18/17 at 15:00 Dextrose (D50w (Vial) Inj) 50 ml UNSCH PRN IV PUSH HYPOGLYCEMIA-SEE COMMENTS; Start 10/18/17 at 14:45 Glucagon (Glucagon Inj) 1 mg UNSCH PRN OTHER HYPOGLYCEMIA-SEE COMMENTS; Start 10/18/17 at 14:45 Insulin Aspart (NovoLOG SUPPLEMENTAL SCALE) 1 ACHS SLIDING SCALE SQ Last administered on 10/29/17 20:26; Start 10/18/17 at 17:00 Heparin Sodium (Porcine) (Heparin Central Flush) 250 units UNSCH PRN IV FLUSH SEE PROTOCOL TABLE Last administered on 10/29/17 21:25; Start 10/20/17 at 11:30 Heparin Sodium (Porcine) (Heparin Central Flush) 500 units UNSCH IV FLUSH Last administered on 10/26/17 02:24; Start 10/20/17 at 11:30 Sodium Chloride (NS Flush) 5 ml UNSCH PRN IV FLUSH SEE DOSE INSTRUCTIONS Last administered on 10/27/17 06:45; Start 10/20/17 at 11:30 Prednisone (Deltasone) 20 mg DAILY PO Last administered on 10/29/17 09:07; Start 10/23/17 at 09:00 Senna/Docusate Sodium (Hanh-Colace) 1 tab DAILY PO Last administered on 09:44; Start 10/25/17 at 09:00; Stop 10/27/17 at 10:25; Status DC Acetaminophen (Tylenol) 650 mg Q4H PRN PO temperature > 100.4 Last administered on 10/27/17at 00:49; Start 10/26/17 at 01:45 Vancomycin HCl 1000 mg/Sodium Chloride 250 ml @ 250 mls/hr ONCE ONCE IV ; Start 10/26/17 at 04:00; Stop 10/26/17 at 04:02; Status DC Cefepime HCl 2000 mg/Sodium Chloride 100 ml @ 200 mls/hr Q8H IV Last administered on 10/30/17at 05:46; Start 10/26/17 at 05:00 Pharmacy Profile Note 0 ml @ 0 mls/hr UNSCH OTHER ; Start 10/26/17 at 04:15 Vancomycin HCl 1000 mg/ Vancomycin/Sodium Chloride 200 ml @ 200 mls/hr ONCE ONCE IV ; Start 10/26/17 at 04:15; Stop 10/26/17 at 04:15; Status DC Albuterol/ Ipratropium (Duoneb Neb) 1 ampule Q6HR NEB NEB Last administered on 10/30/17at 04:49; Start 10/26/17 at 10:00; Stop 10/30/17 at 09:59; Status DC Albuterol/ Ipratropium (Duoneb Neb) 1 ampule Q4HR NEB PRN NEB sob/wheezing; Start 10/26/17 at 04:15 Vancomycin/Sodium Chloride 200 ml @ 200 mls/hr ONCE ONCE IV Last administered on 10/26/17at 04:54; Start 10/26/17 at 04:15; Stop 10/26/17 at 05:14; Status DC Vancomycin HCl 1250 mg/Sodium Chloride 262.5 ml @ 250 mls/hr Q12H IV Last administered on 10/27/17at 14:48; Start 10/26/17 at 15:00; Stop 10/27/17 at 16:42; Status DC Miscellaneous Information SPECIFIC LAB TO BE DRAWN:VANCOMYCIN TROUGH DATE TO... ONCE ONCE .XX Last administered on 10/27/17at 14:43; Start 10/27/17 at 14:45; Stop 10/27/17 at 14:46; Status DC Guaifenesin (Mucinex Er) 600 mg BID PO Last administered on 10/29/17at 20:27; Start 10/27/17 at 11:30 Senna/Docusate Sodium (Hanh-Colace) 2 tab BID PO Last administered on 10/29/17at 20:27; Start 10/27/17 at 21:00 Tiotropium [place] (Spiriva Inh) 18 mcg DAILY INH Last administered on at 09:08; Start 10/27/17 at 12:00 Naloxone HCl (Narcan Inj) 0.4 mg UNSCH PRN IV PUSH SEE LABEL COMMENTS; Start at 10:30 Magnesium Hydroxide (Milk Of Magnesia Liq) 30 ml Q12H PRN PO Mild constipation Last administered on 10/29/17at 18:22; Start 10/27/17 at 10:30 Sennosides (Senokot) 17.2 mg Q12H PRN PO Moderate constipation; Start 10/27/17 at 10:30 Bisacodyl (Dulcolax Supp) 10 mg DAILY PRN RECTAL SEVERE CONSITIPATION; Start at 10:30 Lactulose (Lactulose Liq) 30 ml DAILY PRN PO SEVERE CONSITIPATION; Start at 10:30 Vancomycin HCl 1250 mg/Sodium Chloride 262.5 ml @ 250 mls/hr Q8H IV Last administered on 10/30/17at 00:40; Start 10/28/17 at 00:00 Miscellaneous Information SPECIFIC LAB TO BE DRAWN:VANCOMYCIN TROUGH DATE TO... ONCE ONCE .XX Last administered on 10/28/17at 23:24; Start 10/28/17 at 23:45; Stop 10/28/17 at 23:46; Status DC A/P Problem List: (1) Stage IV adenocarcinoma of the lung Assessment and Plan 67-year-old male with history of tobacco use, COPD, recently diagnosed stage IV adenocarcinoma of lung with metastases, presents with worsening back pain and shortness of breath. Stage IV Bronchogenic Adenocarcinoma: recently diagnosed this month September 2017. Returned to ED with worsening shortness of breath, cough, back pains. Symptoms likely all related to advanced cancer. -Repeat CT-PA today 10/18 negative for PE, showed again large infiltrative right lung mass; mediastinal and left axillary lymphadenopathy, lytic destructive lesion of left T1 vertebral body, and noncalcified nodules within LLL; no significant change compared to previous CT -Continue duonebs -Incentive spirometer -Continue pain control with [place] prn and IV morphine prn breakthrough pain -Appreciate palliative care following. Discussed with oncology team. Patient and family wants to proceed with chemotherapy. He needs to find a place to stay and an oncologist in the [place] area. Case management aware. Daughter will arrive tomorrow. Discussed with case management to have further discussions with the patient's daughter. Continue on Vanco cefepime Needs safe place for discharge otherwise Fever:Worsening consolidation R lung. PNA vs ?Cancer burden - Started on Vanc, Cefepime. Blood cultures - Would consider transitioning to oral antibiotics if cultures neg at 48 hrs. Needs follow up outpatient for cancer treatment. Incentive spirometry Physical therapy Mucinex Duo nebs STILL HAD BORDERLINE FEVERS ON 5-5 COPD with mild exacerbation: imaging as above. -continue duonebs -Wean off steroids. -monitor for improvement Duo nebs Mucinex Improving. Continue on current treatment. Tobacco use: patient quit 1 week prior to admission. Smokes tobacco 2PPD since age 18 -counseled on continued cessation Borderline Diabetes: patient on metformin. Last HgbA1c 6.1 on 10/08/17. Expect higher blood glucose while on steroids. -monitor accu-cheks and cover with SSI Weight Loss, Protein Calorie Malnutrition: suspect secondary to cancer -Encourage oral intake. Colace for GI PPx. Needs a safe place for discharge lives in [place] May need SNF versus assisted living DVT Prophylaxis: Lovenox sq Discharge Planning PENDING SAFE DISCHARGE Anshul Ley DO Oct 30, 2017 10:37
[2017-10-30] MEDS: guaiFENesin E.R. 600 MG TAB PO SCH ×2 (10:44→20:03)
[2017-10-30] MEDS: ASPIRIN 325 MG TAB PO SCH (10:45)
[2017-10-30] MEDS: DOCUSATE SODIUM 50 MG/SENNA 8.6 MG TAB PO SCH ×2 (10:45→20:03)
[2017-10-30] MEDS: predniSONE 20 MG TAB PO SCH (10:45)
[2017-10-30] MEDS: SODIUM CHLORIDE 0.9% FLUSH 10 ML FLUSH IV FLUSH SCH ×2 (10:46→20:17)
[2017-10-30] MEDS: BUDESONIDE-FORMOTEROL 160/4.5 MCG INHALER INH SCH ×2 (10:46→20:04)
[2017-10-30] MEDS: TIOTROPIUM BROMIDE 18 MCG INH INH SCH (10:47)
[2017-10-30] MEDS: ENOXAPARIN SODIUM 40 MG/0.4 ML SYRINGE SQ SCH (18:41)
[2017-10-30] MEDS: ACETAMINOPHEN/HYDROcodone 325 MG/5 MG TAB PO PRN (20:03)
[2017-10-31] VITALS (16 sets, daily range): BP systolic 96–138; BP diastolic 65–82; PULSE 82–108; RESP 16–22; TEMP 98–100.1; O2SAT 95–98
[2017-10-31] MEDS: VANCOMYCIN INJ 1,250 MG in SODIUM CHLOR 0.9% 250 ML INJ 250 ML IV SCH ×3 (00:16→17:43)
[2017-10-31] MEDS: CEFEPIME INJ 2,000 MG in SODIUM CHLORIDE 0.9% INJ 100 ML IV SCH ×3 (04:32→21:22)
[2017-10-31 06:09] LABS: AUTOMATED NEUTROPHIL # 7.8 TH/MM3 (1.8-7.7); BASOPHIL % 0.3 % (0.0-2.0); EOSINOPHIL % 0.4 % (0.0-4.0); HEMATOCRIT 28.2 % (39.0-51.0); HEMOGLOBIN 9.4 GM/DL (13.0-17.0); LYMPH % 19.6 % (9.0-44.0); LYMPHOCYTE # 2.1 TH/MM3 (1.0-4.8); MEAN CELL VOLUME 80.6 FL (80.0-100.0); MEAN CORPUSCULAR HEMOGLOBIN 26.7 PG (27.0-34.0); MEAN CORPUSCULAR HGB CONC 33.1 % (32.0-36.0); MEAN PLATELET VOLUME 9.8 FL (7.0-11.0); MONO % 6.7 % (0.0-8.0); MONOCYTE # 0.7 TH/MM3 (0-0.9); PLATELET COUNT 283 TH/MM3 (150-450); RED CELL DISTRIBUTION WIDTH 15.9 % (11.6-17.2); WHITE BLOOD COUNT 10.7 TH/MM3 (4.0-11.0)
[2017-10-31] MEDS: INSULIN ASPART SUPPLEMENTAL SCALE SQ SCH ×4 (08:00→21:46)
[2017-10-31 08:03] LABS: ALBUMIN 1.4 GM/DL (3.4-5.0); ALT (GPT) 54 U/L (12-78); AST (GOT) 30 U/L (15-37); BICARBONATE 26.6 MEQ/L (21.0-32.0); BLOOD UREA NITROGEN 11 MG/DL (7-18); CALCIUM 7.8 MG/DL (8.5-10.1); CHLORIDE 100 MEQ/L (98-107); CREATININE 0.53 MG/DL (0.60-1.30); GLOMERULAR FILTRATION RATE 155 ML/MIN (>89); GLUCOSE,RANDOM 92 MG/DL (74-106); MAGNESIUM 2.1 MG/DL (1.5-2.5); PHOSPHORUS 2.2 MG/DL (2.5-4.9); SODIUM (NA) 136 MEQ/L (136-145)
[2017-10-31 08:06] LABS: ALKALINE PHOSPHATASE 77 U/L (45-117); TOTAL BILIRUBIN ADULT 0.3 MG/DL (0.2-1.0); TOTAL PROTEIN 5.8 GM/DL (6.4-8.2)
[2017-10-31] MEDS: ASPIRIN 325 MG TAB PO SCH (08:47)
[2017-10-31] MEDS: DOCUSATE SODIUM 50 MG/SENNA 8.6 MG TAB PO SCH ×2 (08:47→21:22)
[2017-10-31] MEDS: predniSONE 20 MG TAB PO SCH (08:47)
[2017-10-31] MEDS: guaiFENesin E.R. 600 MG TAB PO SCH ×2 (08:47→21:22)
[2017-10-31] MEDS: ACETAMINOPHEN/HYDROcodone 325 MG/5 MG TAB PO PRN (08:48)
--- NOTE | 2017-10-31 10:23 | HHI.PR ---
Subjective Remarks 4-3 Fever overnight. Xray showing increasing consolidative changes right chest. States he is feeling ok this morning. No increased in SOB. Started on antibiotics. Blood cultures ordered. 4-4 NO FEVERS TODAY on vanco and cefepime DW RN AND PT AND CM PT AND CONSTIPATION MEDS 4-5 PATIENT MET WITH PALLIATIVE CARE YESTERDAY AND FAMILY TO MEET WITH PALLIATIVE CARE LATER TODAY CONTINUE CURRENT TREATMENTS ON ANTIBIOTICS DW RN AND PT AND CM STILL HAVING BORDERLINE FEVERS TODAY 4-6 needs a safe discharge Lives in [place] area Still on IV antibiotics Family has not found a safe place for him to be discharged to Discussed with telephonic case manager and patient Patient has not selected hospice yet is considering Chemotherapy but does not have a oncologists in [place] YET 4-7 NOTHING SET UP OUTPATIENT YET STILL NEEDS SAFE PLACEMENT DW CM AND RN AND PT NOT SELECTED HOSPICE YET 4-[address] DC WILL NEED SNF PROBABLY DW RN AND PT AND CM LIVES ALONE DOES NOT SOUND LIKE WANTS CHEMO HAD SOME ATYPICAL PAIN IN CHEST RESOLVED AND SOME FEVERS Objective Vitals Vital Signs Date Time Temp Pulse Resp B/P (MAP) Pulse Ox O2 Delivery O2 Flow Rate FiO2 10/31/17 08:45 100.0 98 18 96/65 (75) 97 10/31/17 06:00 106 10/31/17 05:00 104 10/31/17 04:25 100.1 108 22 108/66 (80) 97 10/31/17 04:00 105 10/31/17 03:00 98 10/31/17 02:00 94 10/31/17 01:00 88 10/31/17 00:11 98.5 99 112/67 (82) 95 10/31/17 00:00 103 10/30/17 23:00 94 10/30/17 22:00 104 10/30/17 21:00 110 10/30/17 20:00 111 10/30/17 20:00 98.6 110 22 111/69 (83) 96 10/30/17 19:20 21 10/30/17 19:00 106 10/30/17 12:37 97.8 98 18 101/65 (77) 97 10/30/17 12:00 103 I/O 4/7/18 4/7/18 4/7/18 4/8/18 4/8/18 4/8/18 07:00 15:00 23:00 07:00 15:00 23:00 Intake Total 240 ml 1200 ml 922.5 ml Output Total 200 ml 1350 ml 800 ml Balance 40 ml -150 ml 122.5 ml Intake Oral 240 ml 1200 ml 460 ml IV Total 462.5 ml Output Urine Total 200 ml 1350 ml 800 ml # Voids 1 # Bowel Movements 1 0 1 Result Diagram: 10/31/17 0445 10/31/17 0445 Other Results Laboratory Tests Test 10/28/17 23:30 10/29/17 04:15 10/31/17 04:45 Blood Urea Nitrogen 11 MG/DL 11 MG/DL Creatinine 0.54 MG/DL 0.53 MG/DL Random Glucose 60 MG/DL 92 MG/DL Total Protein 6.1 GM/DL 5.8 GM/DL Albumin 1.5 GM/DL 1.4 GM/DL Calcium Level 7.9 MG/DL 7.8 MG/DL Phosphorus Level 2.1 MG/DL 2.2 MG/DL Magnesium Level 2.0 MG/DL 2.1 MG/DL Alkaline Phosphatase 81 U/L 77 U/L Aspartate Amino Transf (AST/SGOT) 37 U/L 30 U/L Alanine Aminotransferase (ALT/SGPT) 52 U/L 54 U/L Total Bilirubin 0.4 MG/DL 0.3 MG/DL Sodium Level 134 MEQ/L 136 MEQ/L Potassium Level 4.0 MEQ/L 4.2 MEQ/L Chloride Level 99 MEQ/L 100 MEQ/L Carbon Dioxide Level 27.2 MEQ/L 26.6 MEQ/L Anion Gap 8 MEQ/L 9 MEQ/L Estimat Glomerular Filtration Rate 152 ML/MIN 155 ML/MIN Vancomycin Level Trough 20.9 MCG/ML White Blood Count 9.5 TH/MM3 10.7 TH/MM3 Red Blood Count 3.63 MIL/MM3 3.50 MIL/MM3 Hemoglobin 9.7 GM/DL 9.4 GM/DL Hematocrit 29.5 % 28.2 % Mean Corpuscular Volume 81.2 FL 80.6 FL Mean Corpuscular Hemoglobin 26.7 PG 26.7 PG Mean Corpuscular Hemoglobin Concent 32.8 % 33.1 % Red Cell Distribution Width 15.5 % 15.9 % Platelet Count 226 TH/MM3 283 TH/MM3 Mean Platelet Volume 9.6 FL 9.8 FL Neutrophils (%) (Auto) 74.6 % 73.0 % Lymphocytes (%) (Auto) 17.2 % 19.6 % Monocytes (%) (Auto) 7.6 % 6.7 % Eosinophils (%) (Auto) 0.1 % 0.4 % Basophils (%) (Auto) 0.5 % 0.3 % Neutrophils # (Auto) 7.1 TH/MM3 7.8 TH/MM3 Lymphocytes # (Auto) 1.6 TH/MM3 2.1 TH/MM3 Monocytes # (Auto) 0.7 TH/MM3 0.7 TH/MM3 Eosinophils # (Auto) 0.0 TH/MM3 0.0 TH/MM3 Basophils # (Auto) 0.0 TH/MM3 0.0 TH/MM3 CBC Comment DIFF FINAL DIFF FINAL Differential Comment Imaging Last Impressions Chest X-Ray 10/26/17 0000 Signed Impressions: Service Date/Time: Thursday, October 26, 2017 03:07 - CONCLUSION: Increasing consolidative density in the right chest. Titus Sparks MD CT Angiography 10/18/17 0000 Signed Impressions: Service Date/Time: Wednesday, October 18, 2017 11:56 - CONCLUSION: 1. No evidence of pulmonary embolism. 2. No significant change in the extensive infiltrative mass of the right lung, mediastinal and left axillary lymphadenopathy, lytic destructive lesion of the left T1 vertebral body, and noncalcified nodules within the left lower lobe. Yair Munguia MD Objective Remarks GENERAL: Awake alert and oriented 3 talkative and cooperative SKIN: Warm and dry. HEAD: Atraumatic. Normocephalic. EYES: Pupils equal and round. No scleral icterus. No injection or drainage. Extraocular muscles intact ENT: No nasal bleeding or discharge. Mucous membranes pink and moist. Tongue is midline NECK: Trachea midline. No JVD. Supple CARDIOVASCULAR: Regular rate and rhythm. S1-S2 no S3 or S4 no heave or thrill or rub or gallop RESPIRATORY: No accessory muscle use. Clear to auscultation. Breath sounds equal bilaterally. GASTROINTESTINAL: Abdomen soft, non-tender, nondistended. Hepatic and splenic margins not palpable. MUSCULOSKELETAL: Extremities without clubbing, cyanosis, or edema. No obvious deformities. NEUROLOGICAL: Awake and alert. No obvious cranial nerve deficits. Motor grossly within normal limits. Five out of 5 muscle strength in the arms and legs. Normal speech. PSYCHIATRIC: Appropriate mood and affect; insight and judgment normal. Procedures NONE Medications and IVs Current Medications Sodium Chloride (NS Flush) 2 ml UNSCH PRN IV FLUSH FLUSH AFTER USING IV ACCESS Last administered on 10/27/17at 03:54; Start 10/17/17 at 16:30 Sodium Chloride (NS Flush) 2 ml BID IV FLUSH Last administered on 10/30/17at 20: 17; Start 10/17/17 at 21:00 Ondansetron HCl (Zofran Inj) 4 mg Q6H PRN IVP NAUSEA OR VOMITING; Start at 16:30 Enoxaparin Sodium (Lovenox Inj) 40 mg Q24H SQ Last administered on 10/30/17at 18: 41; Start 10/17/17 at 17:00 Morphine Sulfate (Morphine Inj) 2 mg Q3H PRN IV PUSH Pain 3-5; if unable to take PO; Start 10/17/17 at 16:30; Stop 10/18/17 at 14:40; Status DC Morphine Sulfate (Morphine Inj) 4 mg Q3H PRN IV PUSH Pain 6-10;if unable to take PO; Start 10/17/17 at 16:30; Stop 10/18/17 at 14:40; Status DC Naloxone HCl (Narcan Inj) 0.4 mg UNSCH PRN IV PUSH SEE LABEL COMMENTS; Start at 16:30; Stop 10/27/17 at 11:15; Status DC Magnesium Hydroxide (Milk Of Magnesia Liq) 30 ml Q12H PRN PO Mild constipation Last administered on 10/23/17at 20:44; Start 10/17/17 at 16:30; Stop 10/27/17 at 11:16; Status DC Aspirin (Aspirin) 325 mg DAILY PO Last administered on 10/31/17at 08:47; Start at 09:00 Nitroglycerin (Nitrostat Sl) 0.4 mg Q5M PRN SL X 3 doses for chest pain; Start 10/17/17 at 16:30 Ipratropium [place] (Atrovent Hfa Inh) 2 puff Q6HR PRN INH SHORTNESS OF BREATH ; Start 10/18/17 at 10:15; Status Cancel Prednisone (Deltasone) 10 mg DAILY PO Last administered on 10/18/17at 12:23; Start 10/18/17 at 12:00; Stop 10/18/17 at 13:16; Status DC Budesonide/ Formoterol Fumarate (Symbicort 160-4.5 Mcg Inh) 2 puff Q12HR INH Last administered on 10/30/17at 20:04; Start 10/18/17 at 13:00 Iohexol (Omnipaque 350 Inj) 69 ml STK-MED ONCE IVCONTRAST Last administered on 10/18/17at 12:07; Start 10/18/17 at 12:07; Stop 10/18/17 at 12:08; Status DC Ipratropium [place] (Atrovent Neb) 0.5 mg Q6HR NEB PRN NEB SHORTNESS OF BREATH Last administered on 10/23/17at 18:36; Start 10/18/17 at 13:00; Stop 10/29/17 at 01:32; Status DC Prednisone (Deltasone) 20 mg BID PO Last administered on 10/22/17at 08:05; Start 10/18/17 at 21:00; Stop 10/22/17 at 15:21; Status DC Ipratropium [place] (Atrovent Neb) 0.5 mg TID NEB NEB Last administered on 10/26 21:04; Start 10/18/17 at 14:00; Stop 10/29/17 at 01:32; Status DC Acetaminophen/ Hydrocodone Bitart ([place] 5-325 Mg) 1 tab Q4H PRN PO PAIN SCALE 3 TO 5 Last administered on 10/31/17at 08:48; Start 10/18/17 at 15:00 Acetaminophen/ Hydrocodone Bitart ([place] 7.5-325 Mg) 1 tab Q4H PRN PO PAIN SCALE 6 TO 10 Last administered on 10/30/17at 02:01; Start 10/18/17 at 15:00 Morphine Sulfate (Morphine Inj) 2 mg Q3H PRN IV PUSH BREAKTHROUGH PAIN; Start 10/18/17 at 15:00 Dextrose (D50w (Vial) Inj) 50 ml UNSCH PRN IV PUSH HYPOGLYCEMIA-SEE COMMENTS; Start 10/18/17 at 14:45 Glucagon (Glucagon Inj) 1 mg UNSCH PRN OTHER HYPOGLYCEMIA-SEE COMMENTS; Start 10/18/17 at 14:45 Insulin Aspart (NovoLOG SUPPLEMENTAL SCALE) 1 ACHS SLIDING SCALE SQ Last administered on 10/30/17 20:24; Start 10/18/17 at 17:00 Heparin Sodium (Porcine) (Heparin Central Flush) 250 units UNSCH PRN IV FLUSH SEE PROTOCOL TABLE Last administered on 10/29/17 21:25; Start 10/20/17 at 11:30 Heparin Sodium (Porcine) (Heparin Central Flush) 500 units UNSCH IV FLUSH Last administered on 10/26/17 02:24; Start 10/20/17 at 11:30 Sodium Chloride (NS Flush) 5 ml UNSCH PRN IV FLUSH SEE DOSE INSTRUCTIONS Last administered on 10/27/17 06:45; Start 10/20/17 at 11:30 Prednisone (Deltasone) 20 mg DAILY PO Last administered on 10/31/17 08:47; Start 10/23/17 at 09:00 Senna/Docusate Sodium (Hahn-Colace) 1 tab DAILY PO Last administered on 09:44; Start 10/25/17 at 09:00; Stop 10/27/17 at 10:25; Status DC Acetaminophen (Tylenol) 650 mg Q4H PRN PO temperature > 100.4 Last administered on 10/27/17 00:49; Start 10/26/17 at 01:45 Vancomycin HCl 1000 mg/Sodium Chloride 250 ml @ 250 mls/hr ONCE ONCE IV ; Start 10/26/17 at 04:00; Stop 10/26/17 at 04:02; Status DC Cefepime HCl 2000 mg/Sodium Chloride 100 ml @ 200 mls/hr Q8H IV Last administered on 10/31/17at 04:32; Start 10/26/17 at 05:00 Pharmacy Profile Note 0 ml @ 0 mls/hr UNSCH OTHER ; Start 10/26/17 at 04:15 Vancomycin HCl 1000 mg/ Vancomycin/Sodium Chloride 200 ml @ 200 mls/hr ONCE ONCE IV ; Start 10/26/17 at 04:15; Stop 10/26/17 at 04:15; Status DC Albuterol/ Ipratropium (Duoneb Neb) 1 ampule Q6HR NEB NEB Last administered on 10/30/17 04:49; Start 10/26/17 at 10:00; Stop 10/30/17 at 09:59; Status DC Albuterol/ Ipratropium (Duoneb Neb) 1 ampule Q4HR NEB PRN NEB sob/wheezing; Start 10/26/17 at 04:15 Vancomycin/Sodium Chloride 200 ml @ 200 mls/hr ONCE ONCE IV Last administered on 10/26/17at 04:54; Start 10/26/17 at 04:15; Stop 10/26/17 at 05:14; Status DC Vancomycin HCl 1250 mg/Sodium Chloride 262.5 ml @ 250 mls/hr Q12H IV Last administered on 10/27/17at 14:48; Start 10/26/17 at 15:00; Stop 10/27/17 at 16:42; Status DC Miscellaneous Information SPECIFIC LAB TO BE DRAWN:VANCOMYCIN TROUGH DATE TO... ONCE ONCE .XX Last administered on 10/27/17at 14:43; Start 10/27/17 at 14:45; Stop 10/27/17 at 14:46; Status DC Guaifenesin (Mucinex Er) 600 mg BID PO Last administered on 10/31/17at 08:47; Start 10/27/17 at 11:30 Senna/Docusate Sodium (Hanh-Colace) 2 tab BID PO Last administered on 10/31/17at 08:47; Start 10/27/17 at 21:00 Tiotropium [place] (Spiriva Inh) 18 mcg DAILY INH Last administered on at 10:47; Start 10/27/17 at 12:00 Naloxone HCl (Narcan Inj) 0.4 mg UNSCH PRN IV PUSH SEE LABEL COMMENTS; Start at 10:30 Magnesium Hydroxide (Milk Of Magnesia Liq) 30 ml Q12H PRN PO Mild constipation Last administered on 10/29/17at 18:22; Start 10/27/17 at 10:30 Sennosides (Senokot) 17.2 mg Q12H PRN PO Moderate constipation; Start 10/27/17 at 10:30 Bisacodyl (Dulcolax Supp) 10 mg DAILY PRN RECTAL SEVERE CONSITIPATION; Start at 10:30 Lactulose (Lactulose Liq) 30 ml DAILY PRN PO SEVERE CONSITIPATION; Start at 10:30 Vancomycin HCl 1250 mg/Sodium Chloride 262.5 ml @ 250 mls/hr Q8H IV Last administered on 10/31/17at 00:16; Start 10/28/17 at 00:00 Miscellaneous Information SPECIFIC LAB TO BE DRAWN:VANCOMYCIN TROUGH DATE TO... ONCE ONCE .XX Last administered on 10/28/17at 23:24; Start 10/28/17 at 23:45; Stop 10/28/17 at 23:46; Status DC A/P Problem List: (1) Stage IV adenocarcinoma of the lung Assessment and Plan 67-year-old male with history of tobacco use, COPD, recently diagnosed stage IV adenocarcinoma of lung with metastases, presents with worsening back pain and shortness of breath. Stage IV Bronchogenic Adenocarcinoma: recently diagnosed this month September 2017. Returned to ED with worsening shortness of breath, cough, back pains. Symptoms likely all related to advanced cancer. -Repeat CT-PA today 10/18 negative for PE, showed again large infiltrative right lung mass; mediastinal and left axillary lymphadenopathy, lytic destructive lesion of left T1 vertebral body, and noncalcified nodules within LLL; no significant change compared to previous CT -Continue duonebs -Incentive spirometer -Continue pain control with [place] prn and IV morphine prn breakthrough pain -Appreciate palliative care following. Discussed with oncology team. Patient and family wants to proceed with chemotherapy. He needs to find a place to stay and an oncologist in the [place] area. Case management aware. Daughter will arrive tomorrow. Discussed with case management to have further discussions with the patient's daughter. Continue on Vanco cefepime Needs safe place for discharge otherwise Fever:Worsening consolidation R lung. PNA vs ?Cancer burden - Started on Vanc, Cefepime. Blood cultures - Would consider transitioning to oral antibiotics if cultures neg at 48 hrs. Needs follow up outpatient for cancer treatment. Incentive spirometry Physical therapy Mucinex Leslie richter STILL HAD BORDERLINE FEVERS ON 5-5 COPD with mild exacerbation: imaging as above. -continue duonebs -Wean off steroids. -monitor for improvement Leslie richter Mucinex Improving. Continue on current treatment. Tobacco use: patient quit 1 week prior to admission. Smokes tobacco 2PPD since age 18 -counseled on continued cessation Borderline Diabetes: patient on metformin. Last HgbA1c 6.1 on 10/08/17. Expect higher blood glucose while on steroids. -monitor accu-cheks and cover with SSI Weight Loss, Protein Calorie Malnutrition: suspect secondary to cancer -Encourage oral intake. Colace for GI PPx. Needs a safe place for discharge lives in [place] May need SNF versus assisted living DVT Prophylaxis: Lovenox sq Discharge Planning PENDING SAFE DISCHARGE Anshul Ley DO Oct 31, 2017 10:23
[2017-10-31] MEDS: TIOTROPIUM BROMIDE 18 MCG INH INH SCH (11:06)
[2017-10-31] MEDS: BUDESONIDE-FORMOTEROL 160/4.5 MCG INHALER INH SCH ×2 (11:07→21:23)
[2017-10-31] MEDS: SODIUM CHLORIDE 0.9% FLUSH 10 ML FLUSH IV FLUSH SCH ×2 (11:08→21:23)
[2017-10-31] MEDS: ENOXAPARIN SODIUM 40 MG/0.4 ML SYRINGE SQ SCH (17:42)
[2017-11-01] VITALS (7 sets, daily range): BP systolic 96–135; BP diastolic 59–72; PULSE 94–110; RESP 16–18; TEMP 97.2–100; O2SAT 96–98
[2017-11-01] MEDS: VANCOMYCIN INJ 1,250 MG in SODIUM CHLOR 0.9% 250 ML INJ 250 ML IV SCH ×3 (01:21→16:00)
[2017-11-01] MEDS: ACETAMINOPHEN/HYDROcodone 325 MG/5 MG TAB PO PRN ×3 (01:24→23:22)
[2017-11-01] MEDS: ACETAMINOPHEN 325 MG TAB PO PRN (01:29)
[2017-11-01] MEDS: CEFEPIME INJ 2,000 MG in SODIUM CHLORIDE 0.9% INJ 100 ML IV SCH ×3 (05:30→21:00)
[2017-11-01 06:22] LABS: BASOPHIL # 0.1 TH/MM3 (0-0.2); BASOPHIL % 0.5 % (0.0-2.0); EOSINOPHIL % 0.3 % (0.0-4.0); HEMATOCRIT 27.7 % (39.0-51.0); HEMOGLOBIN 9.1 GM/DL (13.0-17.0); LYMPH % 19.9 % (9.0-44.0); LYMPHOCYTE # 1.9 TH/MM3 (1.0-4.8); MEAN CELL VOLUME 82.3 FL (80.0-100.0); MEAN CORPUSCULAR HGB CONC 32.8 % (32.0-36.0); MEAN PLATELET VOLUME 8.8 FL (7.0-11.0); MONO % 6.8 % (0.0-8.0); MONOCYTE # 0.7 TH/MM3 (0-0.9); NEUT % 72.5 % (16.0-70.0); PLATELET COUNT 289 TH/MM3 (150-450); RED BLOOD COUNT 3.36 MIL/MM3 (4.50-5.90); WHITE BLOOD COUNT 9.6 TH/MM3 (4.0-11.0)
[2017-11-01 06:41] LABS: ALBUMIN 1.4 GM/DL (3.4-5.0); AST (GOT) 35 U/L (15-37); BICARBONATE 26.4 MEQ/L (21.0-32.0); BLOOD UREA NITROGEN 12 MG/DL (7-18); CALCIUM 7.6 MG/DL (8.5-10.1); CHLORIDE 100 MEQ/L (98-107); CREATININE 0.55 MG/DL (0.60-1.30); GLOMERULAR FILTRATION RATE 149 ML/MIN (>89); GLUCOSE,RANDOM 103 MG/DL (74-106); SODIUM (NA) 133 MEQ/L (136-145)
[2017-11-01 06:42] LABS: ALT (GPT) 55 U/L (12-78); PHOSPHORUS 2.3 MG/DL (2.5-4.9)
[2017-11-01 06:44] LABS: ALKALINE PHOSPHATASE 74 U/L (45-117); TOTAL BILIRUBIN ADULT 0.3 MG/DL (0.2-1.0); TOTAL PROTEIN 5.7 GM/DL (6.4-8.2)
[2017-11-01] MEDS: INSULIN ASPART SUPPLEMENTAL SCALE SQ SCH ×4 (08:00→21:11)
[2017-11-01] MEDS: DOCUSATE SODIUM 50 MG/SENNA 8.6 MG TAB PO SCH ×2 (09:24→21:08)
[2017-11-01] MEDS: predniSONE 20 MG TAB PO SCH (09:24)
[2017-11-01] MEDS: guaiFENesin E.R. 600 MG TAB PO SCH ×2 (09:24→21:00)
[2017-11-01] MEDS: ASPIRIN 325 MG TAB PO SCH (09:24)
[2017-11-01] MEDS: BUDESONIDE-FORMOTEROL 160/4.5 MCG INHALER INH SCH ×2 (09:25→21:09)
[2017-11-01] MEDS: TIOTROPIUM BROMIDE 18 MCG INH INH SCH (09:25)
[2017-11-01] MEDS: SODIUM CHLORIDE 0.9% FLUSH 10 ML FLUSH IV FLUSH SCH ×2 (09:27→21:10)
--- NOTE | 2017-11-01 10:13 | HHI.PR ---
Subjective Remarks 4-3 Fever overnight. Xray showing increasing consolidative changes right chest. States he is feeling ok this morning. No increased in SOB. Started on antibiotics. Blood cultures ordered. 4-4 NO FEVERS TODAY on vanco and cefepime DW RN AND PT AND CM PT AND CONSTIPATION MEDS 4-5 PATIENT MET WITH PALLIATIVE CARE YESTERDAY AND FAMILY TO MEET WITH PALLIATIVE CARE LATER TODAY CONTINUE CURRENT TREATMENTS ON ANTIBIOTICS DW RN AND PT AND CM STILL HAVING BORDERLINE FEVERS TODAY 4-6 needs a safe discharge Lives in [place] area Still on IV antibiotics Family has not found a safe place for him to be discharged to Discussed with vocational case manager and patient Patient has not selected hospice yet is considering Chemotherapy but does not have a oncologists in [place] YET 4-7 NOTHING SET UP OUTPATIENT YET STILL NEEDS SAFE PLACEMENT DW CM AND RN AND PT NOT SELECTED HOSPICE YET 4-[address] DC WILL NEED SNF PROBABLY DW RN AND PT AND CM LIVES ALONE DOES NOT SOUND LIKE WANTS CHEMO HAD SOME ATYPICAL PAIN IN CHEST RESOLVED AND SOME FEVERS 4-9 DC TO SNF TODAY DW RN AND PT AND CM [facility] DOES NOT WANT CHEMO NEEDS OUTPT ONCOLOGY AND [facility] FOLLOW UPS DC TODAY Objective Vitals Vital Signs Date Time Temp Pulse Resp B/P (MAP) Pulse Ox O2 Delivery O2 Flow Rate FiO2 11/01/17 08:00 98.2 103 18 106/68 (81) 96 11/01/17 04:00 95 11/01/17 04:00 98.7 99 16 96/59 (71) 96 11/01/17 00:00 100.0 108 16 135/72 (93) 97 11/01/17 00:00 110 10/31/17 20:00 98.0 92 18 138/82 (100) 98 10/31/17 20:00 104 10/31/17 17:18 98.6 105 18 102/66 (78) 97 10/31/17 16:43 102 10/31/17 12:33 98.5 82 16 112/69 (83) 98 10/31/17 12:30 82 I/O 10/31/17 10/31/17 10/31/17 11/01/17 11/01/17 11/01/17 07:00 15:00 23:00 07:00 15:00 23:00 Intake Total 922.5 ml 1682.5 ml 510 ml Output Total 800 ml 1425 ml 800 ml Balance 122.5 ml 257.5 ml -290 ml Intake Oral 460 ml 1317 ml 240 ml IV Total 462.5 ml 365.5 ml 270 ml Output Urine Total 800 ml 1425 ml 800 ml # Voids 1 # Bowel Movements 1 Result Diagram: 11/01/17 0525 11/01/17 0525 Other Results Laboratory Tests Test 10/31/17 04:45 11/01/17 05:25 White Blood Count 10.7 TH/MM3 9.6 TH/MM3 Red Blood Count 3.50 MIL/MM3 3.36 MIL/MM3 Hemoglobin 9.4 GM/DL 9.1 GM/DL Hematocrit 28.2 % 27.7 % Mean Corpuscular Volume 80.6 FL 82.3 FL Mean Corpuscular Hemoglobin 26.7 PG 27.0 PG Mean Corpuscular Hemoglobin Concent 33.1 % 32.8 % Red Cell Distribution Width 15.9 % 16.0 % Platelet Count 283 TH/MM3 289 TH/MM3 Mean Platelet Volume 9.8 FL 8.8 FL Neutrophils (%) (Auto) 73.0 % 72.5 % Lymphocytes (%) (Auto) 19.6 % 19.9 % Monocytes (%) (Auto) 6.7 % 6.8 % Eosinophils (%) (Auto) 0.4 % 0.3 % Basophils (%) (Auto) 0.3 % 0.5 % Neutrophils # (Auto) 7.8 TH/MM3 7.0 TH/MM3 Lymphocytes # (Auto) 2.1 TH/MM3 1.9 TH/MM3 Monocytes # (Auto) 0.7 TH/MM3 0.7 TH/MM3 Eosinophils # (Auto) 0.0 TH/MM3 0.0 TH/MM3 Basophils # (Auto) 0.0 TH/MM3 0.1 TH/MM3 CBC Comment DIFF FINAL DIFF FINAL Differential Comment Blood Urea Nitrogen 11 MG/DL 12 MG/DL Creatinine 0.53 MG/DL 0.55 MG/DL Random Glucose 92 MG/DL 103 MG/DL Total Protein 5.8 GM/DL 5.7 GM/DL Albumin 1.4 GM/DL 1.4 GM/DL Calcium Level 7.8 MG/DL 7.6 MG/DL Phosphorus Level 2.2 MG/DL 2.3 MG/DL Magnesium Level 2.1 MG/DL 2.0 MG/DL Alkaline Phosphatase 77 U/L 74 U/L Aspartate Amino Transf (AST/SGOT) 30 U/L 35 U/L Alanine Aminotransferase (ALT/SGPT) 54 U/L 55 U/L Total Bilirubin 0.3 MG/DL 0.3 MG/DL Sodium Level 136 MEQ/L 133 MEQ/L Potassium Level 4.2 MEQ/L 4.2 MEQ/L Chloride Level 100 MEQ/L 100 MEQ/L Carbon Dioxide Level 26.6 MEQ/L 26.4 MEQ/L Anion Gap 9 MEQ/L 7 MEQ/L Estimat Glomerular Filtration Rate 155 ML/MIN 149 ML/MIN Imaging Last Impressions Chest X-Ray 10/26/17 0000 Signed Impressions: Service Date/Time: Thursday, October 26, 2017 03:07 - CONCLUSION: Increasing consolidative density in the right chest. Titus Sparks MD CT Angiography 10/18/17 0000 Signed Impressions: Service Date/Time: Wednesday, October 18, 2017 11:56 - CONCLUSION: 1. No evidence of pulmonary embolism. 2. No significant change in the extensive infiltrative mass of the right lung, mediastinal and left axillary lymphadenopathy, lytic destructive lesion of the left T1 vertebral body, and noncalcified nodules within the left lower lobe. Yair Munguia MD Objective Remarks GENERAL: Awake alert and oriented 3 talkative and cooperative SKIN: Warm and dry. HEAD: Atraumatic. Normocephalic. EYES: Pupils equal and round. No scleral icterus. No injection or drainage. Extraocular muscles intact ENT: No nasal bleeding or discharge. Mucous membranes pink and moist. Tongue is midline NECK: Trachea midline. No JVD. Supple CARDIOVASCULAR: Regular rate and rhythm. S1-S2 no S3 or S4 no heave or thrill or rub or gallop RESPIRATORY: No accessory muscle use. Clear to auscultation. Breath sounds equal bilaterally. GASTROINTESTINAL: Abdomen soft, non-tender, nondistended. Hepatic and splenic margins not palpable. MUSCULOSKELETAL: Extremities without clubbing, cyanosis, or edema. No obvious deformities. NEUROLOGICAL: Awake and alert. No obvious cranial nerve deficits. Motor grossly within normal limits. Five out of 5 muscle strength in the arms and legs. Normal speech. PSYCHIATRIC: Appropriate mood and affect; insight and judgment normal. Procedures NONE Medications and IVs Current Medications Sodium Chloride (NS Flush) 2 ml UNSCH PRN IV FLUSH FLUSH AFTER USING IV ACCESS Last administered on 10/27/17 03:54; Start 10/17/17 at 16:30 Sodium Chloride (NS Flush) 2 ml BID IV FLUSH Last administered on 11/01/17at 09: 27; Start 10/17/17 at 21:00 Ondansetron HCl (Zofran Inj) 4 mg Q6H PRN IVP NAUSEA OR VOMITING; Start at 16:30 Enoxaparin Sodium (Lovenox Inj) 40 mg Q24H SQ Last administered on 10/31/17at 17: 42; Start 10/17/17 at 17:00 Morphine Sulfate (Morphine Inj) 2 mg Q3H PRN IV PUSH Pain 3-5; if unable to take PO; Start 10/17/17 at 16:30; Stop 10/18/17 at 14:40; Status DC Morphine Sulfate (Morphine Inj) 4 mg Q3H PRN IV PUSH Pain 6-10;if unable to take PO; Start 10/17/17 at 16:30; Stop 10/18/17 at 14:40; Status DC Naloxone HCl (Narcan Inj) 0.4 mg UNSCH PRN IV PUSH SEE LABEL COMMENTS; Start at 16:30; Stop 10/27/17 at 11:15; Status DC Magnesium Hydroxide (Milk Of Magnmagui Liq) 30 ml Q12H PRN PO Mild constipation Last administered on 10/23/17at 20:44; Start 10/17/17 at 16:30; Stop 10/27/17 at 11:16; Status DC Aspirin (Aspirin) 325 mg DAILY PO Last administered on 11/01/17at 09:24; Start at 09:00 Nitroglycerin (Nitrostat Sl) 0.4 mg Q5M PRN SL X 3 doses for chest pain; Start 10/17/17 at 16:30 Ipratropium Tow (Atrovent Hfa Inh) 2 puff Q6HR PRN INH SHORTNESS OF BREATH ; Start 10/18/17 at 10:15; Status Cancel Prednisone (Deltasone) 10 mg DAILY PO Last administered on 10/18/17at 12:23; Start 10/18/17 at 12:00; Stop 10/18/17 at 13:16; Status DC Budesonide/ Formoterol Fumarate (Symbicort 160-4.5 Mcg Inh) 2 puff Q12HR INH Last administered on 11/01/17 09:25; Start 10/18/17 at 13:00 Iohexol (Omnipaque 350 Inj) 69 ml STK-MED ONCE IVCONTRAST Last administered on 10/18/17at 12:07; Start 10/18/17 at 12:07; Stop 10/18/17 at 12:08; Status DC Ipratropium Tow (Atrovent Neb) 0.5 mg Q6HR NEB PRN NEB SHORTNESS OF BREATH Last administered on 10/23/17at 18:36; Start 10/18/17 at 13:00; Stop 10/29/17 at 01:32; Status DC Prednisone (Deltasone) 20 mg BID PO Last administered on 10/22/17at 08:05; Start 10/18/17 at 21:00; Stop 10/22/17 at 15:21; Status DC Ipratropium Tow (Atrovent Neb) 0.5 mg TID NEB NEB Last administered on 10/26 21:04; Start 10/18/17 at 14:00; Stop 10/29/17 at 01:32; Status DC Acetaminophen/ Hydrocodone Bitart (Stoddard 5-325 Mg) 1 tab Q4H PRN PO PAIN SCALE 3 TO 5 Last administered on 11/01/17at 09:32; Start 10/18/17 at 15:00 Acetaminophen/ Hydrocodone Bitart (Stoddard 7.5-325 Mg) 1 tab Q4H PRN PO PAIN SCALE 6 TO 10 Last administered on 10/30/17at 02:01; Start 10/18/17 at 15:00 Morphine Sulfate (Morphine Inj) 2 mg Q3H PRN IV PUSH BREAKTHROUGH PAIN; Start 10/18/17 at 15:00 Dextrose (D50w (Vial) Inj) 50 ml UNSCH PRN IV PUSH HYPOGLYCEMIA-SEE COMMENTS; Start 10/18/17 at 14:45 Glucagon (Glucagon Inj) 1 mg UNSCH PRN OTHER HYPOGLYCEMIA-SEE COMMENTS; Start 10/18/17 at 14:45 Insulin Aspart (NovoLOG SUPPLEMENTAL SCALE) 1 ACHS SLIDING SCALE SQ Last administered on 10/31/17at 21:46; Start 10/18/17 at 17:00 Heparin Sodium (Porcine) (Heparin Central Flush) 250 units UNSCH PRN IV FLUSH SEE PROTOCOL TABLE Last administered on 10/29/17at 21:25; Start 10/20/17 at 11:30 Heparin Sodium (Porcine) (Heparin Central Flush) 500 units UNSCH IV FLUSH Last administered on 10/26/17at 02:24; Start 10/20/17 at 11:30 Sodium Chloride (NS Flush) 5 ml UNSCH PRN IV FLUSH SEE DOSE INSTRUCTIONS Last administered on 10/27/17 06:45; Start 10/20/17 at 11:30 Prednisone (Deltasone) 20 mg DAILY PO Last administered on 11/01/17 09:24; Start 10/23/17 at 09:00 Senna/Docusate Sodium (Hanh-Colace) 1 tab DAILY PO Last administered on 09:44; Start 10/25/17 at 09:00; Stop 10/27/17 at 10:25; Status DC Acetaminophen (Tylenol) 650 mg Q4H PRN PO temperature > 100.4 Last administered on 11/01/17at 01:29; Start 10/26/17 at 01:45 Vancomycin HCl 1000 mg/Sodium Chloride 250 ml @ 250 mls/hr ONCE ONCE IV ; Start 10/26/17 at 04:00; Stop 10/26/17 at 04:02; Status DC Cefepime HCl 2000 mg/Sodium Chloride 100 ml @ 200 mls/hr Q8H IV Last administered on 11/01/17at 05:30; Start 10/26/17 at 05:00 Pharmacy Profile Note 0 ml @ 0 mls/hr UNSCH OTHER ; Start 10/26/17 at 04:15 Vancomycin HCl 1000 mg/ Vancomycin/Sodium Chloride 200 ml @ 200 mls/hr ONCE ONCE IV ; Start 10/26/17 at 04:15; Stop 10/26/17 at 04:15; Status DC Albuterol/ Ipratropium (Duoneb Neb) 1 ampule Q6HR NEB NEB Last administered on 10/30/17at 04:49; Start 10/26/17 at 10:00; Stop 10/30/17 at 09:59; Status DC Albuterol/ Ipratropium (Duoneb Neb) 1 ampule Q4HR NEB PRN NEB sob/wheezing; Start 10/26/17 at 04:15 Vancomycin/Sodium Chloride 200 ml @ 200 mls/hr ONCE ONCE IV Last administered on 10/26/17at 04:54; Start 10/26/17 at 04:15; Stop 10/26/17 at 05:14; Status DC Vancomycin HCl 1250 mg/Sodium Chloride 262.5 ml @ 250 mls/hr Q12H IV Last administered on 10/27/17at 14:48; Start 10/26/17 at 15:00; Stop 10/27/17 at 16:42; Status DC Miscellaneous Information SPECIFIC LAB TO BE DRAWN:VANCOMYCIN TROUGH DATE TO... ONCE ONCE .XX Last administered on 10/27/17at 14:43; Start 10/27/17 at 14:45; Stop 10/27/17 at 14:46; Status DC Guaifenesin (Mucinex Er) 600 mg BID PO Last administered on 11/01/17 09:24; Start 10/27/17 at 11:30 Senna/Docusate Sodium (Hanh-Colace) 2 tab BID PO Last administered on 11/01/17 09:24; Start 10/27/17 at 21:00 Tiotropium Tow (Spiriva Inh) 18 mcg DAILY INH Last administered on 09:25; Start 10/27/17 at 12:00 Naloxone HCl (Narcan Inj) 0.4 mg UNSCH PRN IV PUSH SEE LABEL COMMENTS; Start at 10:30 Magnesium Hydroxide (Milk Of Magnesia Liq) 30 ml Q12H PRN PO Mild constipation Last administered on 10/29/17at 18:22; Start 10/27/17 at 10:30 Sennosides (Senokot) 17.2 mg Q12H PRN PO Moderate constipation; Start 10/27/17 at 10:30 Bisacodyl (Dulcolax Supp) 10 mg DAILY PRN RECTAL SEVERE CONSITIPATION; Start at 10:30 Lactulose (Lactulose Liq) 30 ml DAILY PRN PO SEVERE CONSITIPATION; Start at 10:30 Vancomycin HCl 1250 mg/Sodium Chloride 262.5 ml @ 250 mls/hr Q8H IV Last administered on 11/01/17at 09:24; Start 10/28/17 at 00:00 Miscellaneous Information SPECIFIC LAB TO BE DRAWN:VANCOMYCIN TROUGH DATE TO... ONCE ONCE .XX Last administered on 10/28/17at 23:24; Start 10/28/17 at 23:45; Stop 10/28/17 at 23:46; Status DC A/P Problem List: (1) Stage IV adenocarcinoma of the lung Assessment and Plan 67-year-old male with history of tobacco use, COPD, recently diagnosed stage IV adenocarcinoma of lung with metastases, presents with worsening back pain and shortness of breath. Stage IV Bronchogenic Adenocarcinoma: recently diagnosed this month September 2017. Returned to ED with worsening shortness of breath, cough, back pains. Symptoms likely all related to advanced cancer. -Repeat CT-PA today 10/18 negative for PE, showed again large infiltrative right lung mass; mediastinal and left axillary lymphadenopathy, lytic destructive lesion of left T1 vertebral body, and noncalcified nodules within LLL; no significant change compared to previous CT -Continue duonebs -Incentive spirometer -Continue pain control with Stoddard prn and IV morphine prn breakthrough pain -Appreciate palliative care following. Discussed with oncology team. Patient and family wants to proceed with chemotherapy. He needs to find a place to stay and an oncologist in the [place] area. Case management aware. Daughter will arrive tomorrow. Discussed with case management to have further discussions with the patient's daughter. Continue on Vanco cefepime Needs safe place for discharge otherwise SWITCH TO PO MEDS DC TO HOME WITH [facility] Fever:Worsening consolidation R lung. PNA vs ?Cancer burden - Started on Vanc, Cefepime. Blood cultures - Would consider transitioning to oral antibiotics if cultures neg at 48 hrs. Needs follow up outpatient for cancer treatment. Incentive spirometry Physical therapy Mucinex Duo rober STILL HAD BORDERLINE FEVERS ON 5-5 COPD with mild exacerbation: imaging as above. -continue duonebs -Wean off steroids. -monitor for improvement [facility] Mucinex Improving. Continue on current treatment. SWITCH TO PO MEDS DC TO HOME WITH [facility] Tobacco use: patient quit 1 week prior to admission. Smokes tobacco 2PPD since age 18 -counseled on continued cessation Borderline Diabetes: patient on metformin. Last HgbA1c 6.1 on 10/08/17. Expect higher blood glucose while on steroids. -monitor accu-cheks and cover with SSI Weight Loss, Protein Calorie Malnutrition: suspect secondary to cancer -Encourage oral intake. Colace for GI PPx. Needs a safe place for discharge lives in [place] May need SNF versus assisted living DVT Prophylaxis: Lovenox sq DC TO HOME WITH [facility] AND PO ANTIBIOTICS Discharge Planning DC TO HOME WITH [facility] Anshul Ley DO Nov 01, 2017 10:13
[2017-11-01] MEDS ORDERED: PRED20 PO (10:19)
[2017-11-01] MEDS ORDERED: NEBULIZER1 MI1 (10:19)
[2017-11-01] MEDS ORDERED: PERI PO (10:19)
[2017-11-01] MEDS ORDERED: IPRA17I INH (10:19)
[2017-11-01] MEDS ORDERED: SPIRCAP INH (10:19)
[2017-11-01] MEDS ORDERED: HYDR-3516 PO (10:19)
[2017-11-01] MEDS ORDERED: VENTAER INH (10:19)
[2017-11-01] MEDS ORDERED: Albuterol-Ipratropium Neb NEB (10:19)
[2017-11-01] MEDS ORDERED: AUGM875T3 PO (10:19)
[2017-11-01] MEDS ORDERED: guaiFENesin ER PO (10:19)
[2017-11-01] MEDS ORDERED: METF500T PO (10:19)
[2017-11-01] MEDS ORDERED: ASA325 PO (10:19)
[2017-11-01] MEDS ORDERED: Budeson-Formot 160-4.5 Mcg Inh INH (10:19)
--- NOTE | 2017-11-01 10:22 | HHI.FF ---
Face to Face Verification Diagnosis: (1) COPD type A (2) COPD with exacerbation (3) Bronchogenic carcinoma (4) Diabetes (5) Hyperlipidemia (6) Pain (7) Emphysema of lung (8) Postobstructive pneumonia Physical Therapy Order: Evaluate and Treat, Improve ambulation, Strength and gait training Occupational Therapy Order: Evaluate and Treat, Gross motor coordination, Fine motor coordination Home Health Nursing Order: Medical education Signs/symptoms of disease process Nursing assessment with vital signs Home Health Aide Order: To Assist In: Bathing and personal care, manager client service and meal prep I have seen patient Sacha Lala on 11/01/17. My clinical findings support the need for the requested home health care services because: Patient has SOB Deconditioned w/ increased weakness I certify that my clinical findings support that this patient is homebound because: Hx COPD- exertion dyspnea/weakness Anshul Ley DO Nov 01, 2017 10:22
--- NOTE | 2017-11-01 10:24 | HHI.DS ---
Discharge Summary Admission Date Oct 26, 2017 at 12:22 Discharge Date: Nov 01, 2017 Admitting Diagnosis LUNG CANCER PNEUMONIA (1) Stage IV adenocarcinoma of the lung Diagnosis: Principal (2) COPD with exacerbation ICD Code: J44.1 - Chronic obstructive pulmonary disease with (acute) exacerbation Diagnosis: Principal (3) COPD type A ICD Code: J43.9 - COPD type A Diagnosis: Principal (4) Postobstructive pneumonia ICD Code: J18.9 - Pneumonia, unspecified organism Diagnosis: Principal (5) Bronchogenic carcinoma ICD Code: C34.90 - Malignant neoplasm of unspecified part of unspecified bronchus or lung Diagnosis: Principal (6) Emphysema of lung ICD Code: J43.9 - Emphysema, unspecified Diagnosis: Principal (7) Diabetes Diagnosis: Secondary (8) Hyperlipidemia Diagnosis: Secondary (9) Malnutrition, albumin 1.7 Diagnosis: Secondary (10) Bronchogenic cancer ICD Code: C34.90 - Malignant neoplasm of unspecified part of unspecified bronchus or lung Diagnosis: Principal (11) Diabetes mellitus, type 2 ICD Code: E11.9 - Type 2 diabetes mellitus without complications Diagnosis: Secondary (12) Bronchogenic carcinoma of right lung ICD Code: C34.91 - Malignant neoplasm of unspecified part of right bronchus or lung Diagnosis: Principal Procedures NONE Brief History - From Admission 67-year-old male with history of tobacco use, COPD, recently diagnosed stage IV adenocarcinoma of lung with metastases, presents with worsening back pain and shortness of breath. The patient was recently admitted 10/07-10/14, diagnosed with metastatic bronchogenic adenocarcinoma, port placed 10/14, seen by Dr. Arellano and Dr. Palmer, discharged home with outpatient f/up planned for chemotherapy to start 10/21. The patient reports ever since he was discharged, he has had worsening symptoms. He reports increasing diffuse mid back pain, worse with deep inspiration and cough. He's also had worsening shortness of breath since discharge. He does not recall having any chest pain. He reports subjective fevers/chills with sweats. He has a dry hacking cough, no sputum production. Denies any abdominal pain, nausea, vomiting. His last BM was 3 days ago, but he does not feel constipated. Denies diarrhea. He does endorse lightheadedness that has been intermittent over the past month. He has felt like he's going to pass out a few times. He endorses 20+ lbs weight loss. He has no other medical complaints at this time. CBC/BMP: 11/01/17 0525 11/01/17 0525 Significant Findings Laboratory Tests Test 10/31/17 04:45 11/01/17 05:25 Red Blood Count 3.50 MIL/MM3 (4.50-5.90) 3.36 MIL/MM3 (4.50-5.90) Hemoglobin 9.4 GM/DL (13.0-17.0) 9.1 GM/DL (13.0-17.0) Hematocrit 28.2 % (39.0-51.0) 27.7 % (39.0-51.0) Mean Corpuscular Hemoglobin 26.7 PG (27.0-34.0) Neutrophils (%) (Auto) 73.0 % (16.0-70.0) 72.5 % (16.0-70.0) Neutrophils # (Auto) 7.8 TH/MM3 (1.8-7.7) Creatinine 0.53 MG/DL (0.60-1.30) 0.55 MG/DL (0.60-1.30) Total Protein 5.8 GM/DL (6.4-8.2) 5.7 GM/DL (6.4-8.2) Albumin 1.4 GM/DL (3.4-5.0) 1.4 GM/DL (3.4-5.0) Calcium Level 7.8 MG/DL (8.5-10.1) 7.6 MG/DL (8.5-10.1) Phosphorus Level 2.2 MG/DL (2.5-4.9) 2.3 MG/DL (2.5-4.9) Sodium Level 133 MEQ/L (136-145) Imaging Last Impressions Chest X-Ray 10/26/17 0000 Signed Impressions: Service Date/Time: Thursday, October 26, 2017 03:07 - CONCLUSION: Increasing consolidative density in the right chest. Titus Sparks MD CT Angiography 10/18/17 0000 Signed Impressions: Service Date/Time: Wednesday, October 18, 2017 11:56 - CONCLUSION: 1. No evidence of pulmonary embolism. 2. No significant change in the extensive infiltrative mass of the right lung, mediastinal and left axillary lymphadenopathy, lytic destructive lesion of the left T1 vertebral body, and noncalcified nodules within the left lower lobe. Yair Munguia MD PE at Discharge GENERAL: Awake alert and oriented 3 talkative and cooperative SKIN: Warm and dry. HEAD: Atraumatic. Normocephalic. EYES: Pupils equal and round. No scleral icterus. No injection or drainage. Extraocular muscles intact ENT: No nasal bleeding or discharge. Mucous membranes pink and moist. Tongue is midline NECK: Trachea midline. No JVD. Supple CARDIOVASCULAR: Regular rate and rhythm. S1-S2 no S3 or S4 no heave or thrill or rub or gallop RESPIRATORY: No accessory muscle use. Clear to auscultation. Breath sounds equal bilaterally. GASTROINTESTINAL: Abdomen soft, non-tender, nondistended. Hepatic and splenic margins not palpable. MUSCULOSKELETAL: Extremities without clubbing, cyanosis, or edema. No obvious deformities. NEUROLOGICAL: Awake and alert. No obvious cranial nerve deficits. Motor grossly within normal limits. Five out of 5 muscle strength in the arms and legs. Normal speech. PSYCHIATRIC: Appropriate mood and affect; insight and judgment normal. Hospital Course 4-3 Fever overnight. Xray showing increasing consolidative changes right chest. States he is feeling ok this morning. No increased in SOB. Started on antibiotics. Blood cultures ordered. 4-4 NO FEVERS TODAY on vanco and cefepime DW RN AND PT AND CM PT AND CONSTIPATION MEDS 4-5 PATIENT MET WITH PALLIATIVE CARE YESTERDAY AND FAMILY TO MEET WITH PALLIATIVE CARE LATER TODAY CONTINUE CURRENT TREATMENTS ON ANTIBIOTICS DW RN AND PT AND CM STILL HAVING BORDERLINE FEVERS TODAY 4-6 needs a safe discharge Lives in [place] area Still on IV antibiotics Family has not found a safe place for him to be discharged to Discussed with bottle caser and patient Patient has not selected hospice yet is considering Chemotherapy but does not have a oncologists in [place] YET 4-7 NOTHING SET UP OUTPATIENT YET STILL NEEDS SAFE PLACEMENT DW CM AND RN AND PT NOT SELECTED HOSPICE YET 4-[address] DC WILL NEED SNF PROBABLY DW RN AND PT AND CM LIVES ALONE DOES NOT SOUND LIKE WANTS CHEMO HAD SOME ATYPICAL PAIN IN CHEST RESOLVED AND SOME FEVERS 4-9 DC TO SNF TODAY DW RN AND PT AND CM [facility] DOES NOT WANT CHEMO NEEDS OUTPT ONCOLOGY AND [facility] FOLLOW UPS DC TODAY Pt Condition on Discharge: Fair Discharge Disposition: Disch w/ Home Health Serv Discharge Time: > 30 minutes Discharge Instructions DIET: Follow Instructions for: Heart Healthy Diet, Diabetic Diet Speech Therapy-Diet Recommends: Regular Activities you can perform: Regular-No Restrictions Follow up Referrals: Home Health Oncology - 1 Week PCP Follow-up - 2-3 Days @ [facility] Pulmonology - 10 Days with Noah Palmer MD New Medications: Amoxicillin-Clavulanate (Augmentin) 875-125 Mg Tab 1 TAB PO BID for Infection for 7 Days, #14 TAB 0 Refills Nebulizer (Nebulizer) 1 Mis Mis EA .XX DIRECTED for Breathing Treatment, #1 0 Refills Aspirin (Px Aspirin) 325 Mg Tab 325 MG PO DAILY for Blood Clot Prevention, #90 TAB Hydrocodone/Acetaminophen (Hydrocodone-Acetamin 5-325 mg) 5 Mg-325 Mg Tablet 1 TAB PO Q4H PRN for PAIN SCALE 3 TO 5, #30 TAB Prednisone (Prednisone) 20 Mg Tab 20 MG PO DAILY for Inflammation, #30 TAB TAKE WITH FOOD Sennosides-Docusate Sodium (Gnp Senna Plus 8.6-50 mg) 8.6 Mg-50 Mg Tab 2 TAB PO BID for Constipation, #120 TAB [Albuterol-Ipratropium Neb] () 1 AMPULE NEBU 1 AMPULE NEB Q4HR NEB PRN for sob/wheezing, #180 AMPULE [guaiFENesin ER] () 600 MG TABCR 600 MG PO BID for Cough, #60 TAB Changed Medications: [Budeson-Formot 160-4.5 Mcg Inh] () 60 PUFF AERO 2 PUFF INH Q12HR for Infection, #20 3 Refills (Changed from: [Budeson-Formot 160 -4.5 Mcg Inh] (Symbicort 160-4.5 Mcg Inh) 60 PUFF AERO 2 Puff INH Q12HR #20 Ref 3) Continued Medications: Albuterol 18 GM Inh (Ventolin Hfa 18 GM Inh) 90 Mcg/Act Aer 2 PUFF INH Q4-6H PRN for SHORTNESS OF BREATH, #1 INHALER 3 Refills (This prescription has been renewed) Ipratropium HFA 12.9 GM Inh (Atrovent HFA 12.9 GM Inh) 17 Mcg/Actuation Aer 2 PUFF INH Q6HR PRN for SHORTNESS OF BREATH, #1 INHALER 3 Refills (This prescription has been renewed) Metformin (Metformin) 500 Mg Tab 500 MG PO DAILY for Blood Sugar Management, #30 TAB 0 Refills (This prescription has been renewed) With a meal Tiotropium Inh (Spiriva Handihaler) 18 Mcg Cap 18 MCG INH DAILY for COPD, #30 CAP 3 Refills (This prescription has been renewed ) 1 capsule = 18 mcg Discontinued Medications: Prednisone (Prednisone) 10 Mg Tab 10 MG PO DAILY for Breathing Treatment, #7 TAB 0 Refills Anshul Ley DO Nov 01, 2017 10:24
--- NOTE | 2017-11-01 12:30 | HHI.HCPN ---
Met with Mr. Long, no family/friends at bedside. Verbalizes understanding of discharge. Inquires about home health care and he is currently in the process of identifying which company he wishes to go with. Answered his questions and concerns to the best of my ability. Gently reviewed option for hospice services should he decide to discontinue aggressive care including chemotherapy. He verbalizes he still wishes to try chemo as he desires for his daughter "to be ok ". Spoke with daughter Razia via telephone. [facility], unfortunately this is a slow moving process. She states she has been in contact with an oncology office near the [facility] and will be setting up an appointment. Answered her questions and concerns to the best of my ability regarding home health services. Gently explored hospice services should they decide to discontinue aggress care and transition to comfort focused measures. Encouraged her to visit a care center prior to traveling back home. Mr. Long completed his [facility]. Copy faxed to HIM to be scanned into EMR. Patient and family appreciative of palliative support. Palliative care will continue to follow throughout hospitalization. Dena Mark, FIRE SPRINKLER DESIGNER Nov 01, 2017 12:30
--- NOTE | 2017-11-01 16:13 | PD.ONC.PN ---
Subjective Subjective Remarks Afebrile overnight. Patient resting in bed in nad. No complaints. Objective Data Date Time Temp Pulse Resp B/P (MAP) Pulse Ox O2 Delivery O2 Flow Rate FiO2 11/01/17 12:00 94 11/01/17 11:59 97.2 96 18 104/65 (78) 98 11/01/17 08:00 94 11/01/17 08:00 98.2 103 18 106/68 (81) 96 11/01/17 04:00 95 11/01/17 04:00 98.7 99 16 96/59 (71) 96 11/01/17 00:00 100.0 108 16 135/72 (93) 97 11/01/17 00:00 110 10/31/17 20:00 98.0 92 18 138/82 (100) 98 10/31/17 20:00 104 10/31/17 17:18 98.6 105 18 102/66 (78) 97 10/31/17 16:43 102 11/01/17 11/01/17 11/01/17 07:00 15:00 23:00 Intake Total 510 ml Output Total 800 ml 590 ml Balance -290 ml -590 ml Result Diagram: 11/01/17 0525 11/01/17 0525 Laboratory Results Laboratory Tests Test 11/01/17 05:25 White Blood Count 9.6 TH/MM3 Red Blood Count 3.36 MIL/MM3 Hemoglobin 9.1 GM/DL Hematocrit 27.7 % Mean Corpuscular Volume 82.3 FL Mean Corpuscular Hemoglobin 27.0 PG Mean Corpuscular Hemoglobin Concent 32.8 % Red Cell Distribution Width 16.0 % Platelet Count 289 TH/MM3 Mean Platelet Volume 8.8 FL Neutrophils (%) (Auto) 72.5 % Lymphocytes (%) (Auto) 19.9 % Monocytes (%) (Auto) 6.8 % Eosinophils (%) (Auto) 0.3 % Basophils (%) (Auto) 0.5 % Neutrophils # (Auto) 7.0 TH/MM3 Lymphocytes # (Auto) 1.9 TH/MM3 Monocytes # (Auto) 0.7 TH/MM3 Eosinophils # (Auto) 0.0 TH/MM3 Basophils # (Auto) 0.1 TH/MM3 CBC Comment DIFF FINAL Differential Comment Blood Urea Nitrogen 12 MG/DL Creatinine 0.55 MG/DL Random Glucose 103 MG/DL Total Protein 5.7 GM/DL Albumin 1.4 GM/DL Calcium Level 7.6 MG/DL Phosphorus Level 2.3 MG/DL Magnesium Level 2.0 MG/DL Alkaline Phosphatase 74 U/L Aspartate Amino Transf (AST/SGOT) 35 U/L Alanine Aminotransferase (ALT/SGPT) 55 U/L Total Bilirubin 0.3 MG/DL Sodium Level 133 MEQ/L Potassium Level 4.2 MEQ/L Chloride Level 100 MEQ/L Carbon Dioxide Level 26.4 MEQ/L Anion Gap 7 MEQ/L Estimat Glomerular Filtration Rate 149 ML/MIN Administered Medications Medications (Trade) Dose Ordered Sig/Jeremiah Route PRN Reason Start Time Stop Time Status Last Admin Dose Admin Sodium Chloride (NS Flush) 2 ml UNSCH PRN IV FLUSH FLUSH AFTER USING IV ACCESS 10/17/17 16:30 10/27/17 03:54 Sodium Chloride (NS Flush) 2 ml BID IV FLUSH 10/17/17 21:00 11/01/17 09:27 Enoxaparin Sodium (Lovenox Inj) 40 mg Q24H SQ 10/17/17 17:00 10/31/17 17:42 Aspirin (Aspirin) 325 mg DAILY PO 10/19/17 09:00 11/01/17 09:24 Budesonide/ Formoterol Fumarate (Symbicort 160-4.5 Mcg Inh) 2 puff Q12HR INH 10/18/17 13:00 11/01/17 09:25 Acetaminophen/ Hydrocodone Bitart (Pevely 5-325 Mg) 1 tab Q4H PRN PO PAIN SCALE 3 TO 5 10/18/17 15:00 11/01/17 09:32 Acetaminophen/ Hydrocodone Bitart (Pevely 7.5-325 Mg) 1 tab Q4H PRN PO PAIN SCALE 6 TO 10 10/18/17 15:00 10/30/17 02:01 Insulin Aspart (NovoLOG SUPPLEMENTAL SCALE) 1 ACHS SLIDING SCALE SQ 10/18/17 17:00 10/31/17 21:46 Heparin Sodium (Porcine) (Heparin Central Flush) 250 units UNSCH PRN IV FLUSH SEE PROTOCOL TABLE 10/20/17 11:30 10/29/17 21:25 Heparin Sodium (Porcine) (Heparin Central Flush) 500 units UNSCH IV FLUSH 10/20/17 11:30 10/26/17 02:24 Sodium Chloride (NS Flush) 5 ml UNSCH PRN IV FLUSH SEE DOSE INSTRUCTIONS 10/20/17 11:30 10/27/17 06:45 Prednisone (Deltasone) 20 mg DAILY PO 10/23/17 09:00 11/01/17 09:24 Acetaminophen (Tylenol) 650 mg Q4H PRN PO temperature > 100.4 10/26/17 01:45 11/01/17 01:29 Cefepime HCl 2000 mg/Sodium Chloride 100 ml @ 200 mls/hr Q8H IV 10/26/17 05:00 11/01/17 12:16 Guaifenesin (Mucinex Er) 600 mg BID PO 10/27/17 11:30 11/01/17 09:24 Senna/Docusate Sodium (Hanh-Colace) 2 tab BID PO 10/27/17 21:00 11/01/17 09:24 Tiotropium Cotter (Spiriva Inh) 18 mcg DAILY INH 10/27/17 12:00 11/01/17 09:25 Magnesium Hydroxide (Milk Of Magnmagui Liq) 30 ml Q12H PRN PO Mild constipation 10/27/17 10:30 10/29/17 18:22 Vancomycin HCl 1250 mg/Sodium Chloride 262.5 ml @ 250 mls/hr Q8H IV 10/28/17 00:00 11/01/17 09:24 Objective Remarks GENERAL: Middle aged male, sitting up in bed in [facility]. SKIN: Warm and dry. HEAD: Normocephalic. EYES: No injection or drainage. NECK: Supple, trachea midline CARDIOVASCULAR: Regular rate and rhythm RESPIRATORY: diminished at bases, occasional rhonchi. GASTROINTESTINAL: Abdomen soft, non-tender, nondistended. EXTREMITIES: No cyanosis, or edema. MUSCULOSKELETAL: Adequate muscle tone. NEUROLOGICAL: awake and alert. normal speech. Assessment/Plan Problem List: (1) Stage IV adenocarcinoma of the lung Assessment 67 y/o male with stage IV adenocarcinoma of the lung Plan 1. patient is with stage IV adenocarcinoma of the lung. discussed with patient and daughter at the bedside. prognosis is poor. The five year survival rate for stage IV NSCLC is around 1%. The patient does not have a mutation, so his treatment would be chemotherapy if he desired it. [facility] I have given his daughter a copy of his pathology and imaging studies in an attempt to expedite that process and at her and his (the patient' s request). Kristy Carlin Nov 01, 2017 16:13
--- NOTE | 2017-11-01 16:16 | HHI.FF ---
Face to Face Verification Diagnosis: (1) Bronchogenic carcinoma of right lung (2) Postobstructive pneumonia (3) COPD with exacerbation (4) Bronchogenic cancer (5) Diabetes mellitus, type 2 (6) Bronchogenic carcinoma (7) Emphysema of lung (8) COPD type A (9) Stage IV adenocarcinoma of the lung (10) Diabetes (11) Hyperlipidemia (12) Malnutrition, albumin 1.7 Physical Therapy Order: Evaluate and Treat, Improve ambulation, Strength and gait training Occupational Therapy Order: Evaluate and Treat, Improve ADL, Gross motor coordination, Fine motor coordination Home Health Nursing Order: Medical education Signs/symptoms of disease process Nursing assessment with vital signs Home Health Aide Order: To Assist In: Bathing and personal care, computer game programmer and meal prep Railroad Dispatcher Order: To Evaluate: Living conditions/environment, Support services Order: To Provide: Long range planning, Community services I have seen patient Sacha Lala on 11/01/17. My clinical findings support the need for the requested home health care services because: Ltd mobility - disease progression Deconditioned w/ increased weakness Med compliance is questionable Need for psychosocial assistance I certify that my clinical findings support that this patient is homebound because: Hx COPD- exertion dyspnea/weakness Unsafe to leave home unassisted Need for psychosocial assistance Anshul Ley DO Nov 01, 2017 16:16
[2017-11-01] MEDS: ENOXAPARIN SODIUM 40 MG/0.4 ML SYRINGE SQ SCH (17:00)
[2017-11-01] MEDS ORDERED: AZIT250T3 PO (21:57)
--- NOTE | 2017-11-01 21:59 | HHI.PR ---
Addendum to Inpatient Note Addendum Reason: Additional Documentation Additional Information Augmentin ordered for patient for fevers/ possible pneumonia, patient is allergic to PCN RX changed to Azithromycin 250mg PO daily for 5 days. Caitlyn Westfall Nov 01, 2017 21:59
[2017-11-01] MEDS ORDERED: AZITHROMYCIN 250 MG TAB PO ONE (23:00)
[2017-11-02 00:44] VITALS: BP 121/69; PULSE 111; RESP 18; TEMP 100.7; O2SAT 97
[2017-11-02 04:30] VITALS: BP 116/68; PULSE 102; RESP 18; TEMP 99.3; O2SAT 97
[2017-11-02] MEDS: INSULIN ASPART SUPPLEMENTAL SCALE SQ SCH ×3 (07:54→17:00)
[2017-11-02] MEDS: BUDESONIDE-FORMOTEROL 160/4.5 MCG INHALER INH SCH (07:55)
[2017-11-02] MEDS: SODIUM CHLORIDE 0.9% FLUSH 10 ML FLUSH IV FLUSH SCH (07:55)
[2017-11-02] MEDS: TIOTROPIUM BROMIDE 18 MCG INH INH SCH (07:55)
[2017-11-02] MEDS: ASPIRIN 325 MG TAB PO SCH (07:56)
[2017-11-02] MEDS: predniSONE 20 MG TAB PO SCH (07:56)
[2017-11-02] MEDS: guaiFENesin E.R. 600 MG TAB PO SCH (07:56)
[2017-11-02] MEDS: DOCUSATE SODIUM 50 MG/SENNA 8.6 MG TAB PO SCH (07:56)
[2017-11-02 08:00] VITALS: BP 117/60; PULSE 105; RESP 18; TEMP 98.4; O2SAT 95
--- NOTE | 2017-11-02 10:06 | HHI.HCPN ---
Received a call from daughter Razia and friend Jarad. After much discussion family has decided they are unable to care for Mr. Long in the home setting even with hospice support. They feel the best place for him would be a facility supported by hospice services. Left CM a message with this information for assistance with finding an accepting facility. Hospice to meet with patient and family today to sign consents. Jewel Randle requested letters for airline as she and her have changed their flights to further assist with discharge plan. Letters provided. Palliative care will continue to follow throughout hospitalization. Dena Mark, ADULT MANAGER Nov 02, 2017 10:05
--- NOTE | 2017-11-02 10:51 | HHI.PR ---
Subjective Remarks 4-3 Fever overnight. Xray showing increasing consolidative changes right chest. States he is feeling ok this morning. No increased in SOB. Started on antibiotics. Blood cultures ordered. 4-4 NO FEVERS TODAY on vanco and cefepime DW RN AND PT AND CM PT AND CONSTIPATION MEDS 4-5 PATIENT MET WITH PALLIATIVE CARE YESTERDAY AND FAMILY TO MEET WITH PALLIATIVE CARE LATER TODAY CONTINUE CURRENT TREATMENTS ON ANTIBIOTICS DW RN AND PT AND CM STILL HAVING BORDERLINE FEVERS TODAY 4-6 needs a safe discharge Lives in [place] area Still on IV antibiotics Family has not found a safe place for him to be discharged to Discussed with disability case manager and patient Patient has not selected hospice yet is considering Chemotherapy but does not have a oncologists in [place] YET 4-7 NOTHING SET UP OUTPATIENT YET STILL NEEDS SAFE PLACEMENT DW CM AND RN AND PT NOT SELECTED HOSPICE YET MEDS ADJUSTED DUE TO ALLERGIES 4-[address] FOR DC WILL NEED SNF PROBABLY DW RN AND PT AND CM LIVES ALONE DOES NOT SOUND LIKE WANTS CHEMO HAD SOME ATYPICAL PAIN IN CHEST RESOLVED AND SOME FEVERS 4-9 DC TO SNF TODAY DW RN AND PT AND CM [facility] DOES NOT WANT CHEMO NEEDS OUTPT ONCOLOGY AND [facility] FOLLOW UPS DC TODAY 4-10 WILL NEED SNF WITH HOSPICE DW RN AND PT AND CM DOES NOT WANT CHEMO CANNOT TAKE CARE OF HIMSELF AT HOME DC TO SNF [facility]LLOW UP WITH [facility] AND [facility] Objective Vitals Vital Signs Date Time Temp Pulse Resp B/P (MAP) Pulse Ox O2 Delivery O2 Flow Rate FiO2 11/02/17 08:00 98.4 105 18 117/60 (79) 95 11/02/17 04:30 99.3 102 18 116/68 (84) 97 11/02/17 00:44 100.7 111 18 121/69 (86) 97 11/01/17 21:45 97 21 11/01/17 20:58 98.3 100 18 114/68 (83) 96 11/01/17 12:00 94 11/01/17 11:59 97.2 96 18 104/65 (78) 98 I/O 11/01/17 11/01/17 11/01/17 11/02/17 11/02/17 11/02/17 07:00 15:00 23:00 07:00 15:00 23:00 Intake Total 510 ml 240 ml Output Total 800 ml 590 ml 400 ml 400 ml Balance -290 ml -590 ml -400 ml -160 ml Intake Oral 240 ml 240 ml IV Total 270 ml Output Urine Total 800 ml 590 ml 400 ml 400 ml Result Diagram: 11/01/17 0525 11/01/17 0525 Other Results Laboratory Tests Test 10/31/17 04:45 11/01/17 05:25 White Blood Count 10.7 TH/MM3 9.6 TH/MM3 Red Blood Count 3.50 MIL/MM3 3.36 MIL/MM3 Hemoglobin 9.4 GM/DL 9.1 GM/DL Hematocrit 28.2 % 27.7 % Mean Corpuscular Volume 80.6 FL 82.3 FL Mean Corpuscular Hemoglobin 26.7 PG 27.0 PG Mean Corpuscular Hemoglobin Concent 33.1 % 32.8 % Red Cell Distribution Width 15.9 % 16.0 % Platelet Count 283 TH/MM3 289 TH/MM3 Mean Platelet Volume 9.8 FL 8.8 FL Neutrophils (%) (Auto) 73.0 % 72.5 % Lymphocytes (%) (Auto) 19.6 % 19.9 % Monocytes (%) (Auto) 6.7 % 6.8 % Eosinophils (%) (Auto) 0.4 % 0.3 % Basophils (%) (Auto) 0.3 % 0.5 % Neutrophils # (Auto) 7.8 TH/MM3 7.0 TH/MM3 Lymphocytes # (Auto) 2.1 TH/MM3 1.9 TH/MM3 Monocytes # (Auto) 0.7 TH/MM3 0.7 TH/MM3 Eosinophils # (Auto) 0.0 TH/MM3 0.0 TH/MM3 Basophils # (Auto) 0.0 TH/MM3 0.1 TH/MM3 CBC Comment DIFF FINAL DIFF FINAL Differential Comment Blood Urea Nitrogen 11 MG/DL 12 MG/DL Creatinine 0.53 MG/DL 0.55 MG/DL Random Glucose 92 MG/DL 103 MG/DL Total Protein 5.8 GM/DL 5.7 GM/DL Albumin 1.4 GM/DL 1.4 GM/DL Calcium Level 7.8 MG/DL 7.6 MG/DL Phosphorus Level 2.2 MG/DL 2.3 MG/DL Magnesium Level 2.1 MG/DL 2.0 MG/DL Alkaline Phosphatase 77 U/L 74 U/L Aspartate Amino Transf (AST/SGOT) 30 U/L 35 U/L Alanine Aminotransferase (ALT/SGPT) 54 U/L 55 U/L Total Bilirubin 0.3 MG/DL 0.3 MG/DL Sodium Level 136 MEQ/L 133 MEQ/L Potassium Level 4.2 MEQ/L 4.2 MEQ/L Chloride Level 100 MEQ/L 100 MEQ/L Carbon Dioxide Level 26.6 MEQ/L 26.4 MEQ/L Anion Gap 9 MEQ/L 7 MEQ/L Estimat Glomerular Filtration Rate 155 ML/MIN 149 ML/MIN Imaging Last Impressions Chest X-Ray 10/26/17 0000 Signed Impressions: Service Date/Time: Thursday, October 26, 2017 03:07 - CONCLUSION: Increasing consolidative density in the right chest. Titus Sparks MD CT Angiography 10/18/17 0000 Signed Impressions: Service Date/Time: Wednesday, October 18, 2017 11:56 - CONCLUSION: 1. No evidence of pulmonary embolism. 2. No significant change in the extensive infiltrative mass of the right lung, mediastinal and left axillary lymphadenopathy, lytic destructive lesion of the left T1 vertebral body, and noncalcified nodules within the left lower lobe. Yair Munguia MD Objective Remarks GENERAL: Awake alert and oriented 3 talkative and cooperative SKIN: Warm and dry. HEAD: Atraumatic. Normocephalic. EYES: Pupils equal and round. No scleral icterus. No injection or drainage. Extraocular muscles intact ENT: No nasal bleeding or discharge. Mucous membranes pink and moist. Tongue is midline NECK: Trachea midline. No JVD. Supple CARDIOVASCULAR: Regular rate and rhythm. S1-S2 no S3 or S4 no heave or thrill or rub or gallop RESPIRATORY: No accessory muscle use. Clear to auscultation. Breath sounds equal bilaterally. GASTROINTESTINAL: Abdomen soft, non-tender, nondistended. Hepatic and splenic margins not palpable. MUSCULOSKELETAL: Extremities without clubbing, cyanosis, or edema. No obvious deformities. NEUROLOGICAL: Awake and alert. No obvious cranial nerve deficits. Motor grossly within normal limits. Five out of 5 muscle strength in the arms and legs. Normal speech. PSYCHIATRIC: Appropriate mood and affect; insight and judgment normal. Procedures NONE Medications and IVs Current Medications Sodium Chloride (NS Flush) 2 ml UNSCH PRN IV FLUSH FLUSH AFTER USING IV ACCESS Last administered on 10/27/17at 03:54; Start 10/17/17 at 16:30 Sodium Chloride (NS Flush) 2 ml BID IV FLUSH Last administered on 11/01/17at 21: 10; Start 10/17/17 at 21:00 Ondansetron HCl (Zofran Inj) 4 mg Q6H PRN IVP NAUSEA OR VOMITING; Start at 16:30 Enoxaparin Sodium (Lovenox Inj) 40 mg Q24H SQ Last administered on 10/31/17at 17: 42; Start 10/17/17 at 17:00 Morphine Sulfate (Morphine Inj) 2 mg Q3H PRN IV PUSH Pain 3-5; if unable to take PO; Start 10/17/17 at 16:30; Stop 10/18/17 at 14:40; Status DC Morphine Sulfate (Morphine Inj) 4 mg Q3H PRN IV PUSH Pain 6-10;if unable to take PO; Start 10/17/17 at 16:30; Stop 10/18/17 at 14:40; Status DC Naloxone HCl (Narcan Inj) 0.4 mg UNSCH PRN IV PUSH SEE LABEL COMMENTS; Start at 16:30; Stop 10/27/17 at 11:15; Status DC Magnesium Hydroxide (Milk Of Magnesia Liq) 30 ml Q12H PRN PO Mild constipation Last administered on 10/23/17at 20:44; Start 10/17/17 at 16:30; Stop 10/27/17 at 11:16; Status DC Aspirin (Aspirin) 325 mg DAILY PO Last administered on 11/02/17at 07:56; Start 10/19/17 at 09:00 Nitroglycerin (Nitrostat Sl) 0.4 mg Q5M PRN SL X 3 doses for chest pain; Start 10/17/17 at 16:30 Ipratropium [place] (Atrovent Hfa Inh) 2 puff Q6HR PRN INH SHORTNESS OF BREATH ; Start 10/18/17 at 10:15; Status Cancel Prednisone (Deltasone) 10 mg DAILY PO Last administered on 10/18/17at 12:23; Start 10/18/17 at 12:00; Stop 10/18/17 at 13:16; Status DC Budesonide/ Formoterol Fumarate (Symbicort 160-4.5 Mcg Inh) 2 puff Q12HR INH Last administered on 11/02/17at 07:55; Start 10/18/17 at 13:00 Iohexol (Omnipaque 350 Inj) 69 ml STK-MED ONCE IVCONTRAST Last administered on 10/18/17at 12:07; Start 10/18/17 at 12:07; Stop 10/18/17 at 12:08; Status DC Ipratropium [place] (Atrovent Neb) 0.5 mg Q6HR NEB PRN NEB SHORTNESS OF BREATH Last administered on 10/23/17at 18:36; Start 10/18/17 at 13:00; Stop 10/29/17 at 01:32; Status DC Prednisone (Deltasone) 20 mg BID PO Last administered on 10/22/17 08:05; Start 10/18/17 at 21:00; Stop 10/22/17 at 15:21; Status DC Ipratropium [place] (Atrovent Neb) 0.5 mg TID NEB NEB Last administered on 10/26 21:04; Start 10/18/17 at 14:00; Stop 10/29/17 at 01:32; Status DC Acetaminophen/ Hydrocodone Bitart ([place] 5-325 Mg) 1 tab Q4H PRN PO PAIN SCALE 3 TO 5 Last administered on 11/01/17 23:22; Start 10/18/17 at 15:00 Acetaminophen/ Hydrocodone Bitart ([place] 7.5-325 Mg) 1 tab Q4H PRN PO PAIN SCALE 6 TO 10 Last administered on 10/30/17at 02:01; Start 10/18/17 at 15:00 Morphine Sulfate (Morphine Inj) 2 mg Q3H PRN IV PUSH BREAKTHROUGH PAIN; Start 10/18/17 at 15:00 Dextrose (D50w (Vial) Inj) 50 ml UNSCH PRN IV PUSH HYPOGLYCEMIA-SEE COMMENTS; Start 10/18/17 at 14:45 Glucagon (Glucagon Inj) 1 mg UNSCH PRN OTHER HYPOGLYCEMIA-SEE COMMENTS; Start 10/18/17 at 14:45 Insulin Aspart (NovoLOG SUPPLEMENTAL SCALE) 1 ACHS SLIDING SCALE SQ Last administered on 11/01/17at 21:11; Start 10/18/17 at 17:00 Heparin Sodium (Porcine) (Heparin Central Flush) 250 units UNSCH PRN IV FLUSH SEE PROTOCOL TABLE Last administered on 10/29/17at 21:25; Start 10/20/17 at 11:30 Heparin Sodium (Porcine) (Heparin Central Flush) 500 units UNSCH IV FLUSH Last administered on 10/26/17at 02:24; Start 10/20/17 at 11:30 Sodium Chloride (NS Flush) 5 ml UNSCH PRN IV FLUSH SEE DOSE INSTRUCTIONS Last administered on 10/27/17at 06:45; Start 10/20/17 at 11:30 Prednisone (Deltasone) 20 mg DAILY PO Last administered on 11/02/17at 07:56; Start 10/23/17 at 09:00 Senna/Docusate Sodium (Hanh-Colace) 1 tab DAILY PO Last administered on at 09:44; Start 10/25/17 at 09:00; Stop 10/27/17 at 10:25; Status DC Acetaminophen (Tylenol) 650 mg Q4H PRN PO temperature > 100.4 Last administered on 11/01/17at 01:29; Start 10/26/17 at 01:45 Vancomycin HCl 1000 mg/Sodium Chloride 250 ml @ 250 mls/hr ONCE ONCE IV ; Start 10/26/17 at 04:00; Stop 10/26/17 at 04:02; Status DC Cefepime HCl 2000 mg/Sodium Chloride 100 ml @ 200 mls/hr Q8H IV Last administered on 11/01/17at 12:16; Start 10/26/17 at 05:00; Stop 11/01/17 at 23:01; Status DC Pharmacy Profile Note 0 ml @ 0 mls/hr UNSCH OTHER ; Start 10/26/17 at 04:15 Vancomycin HCl 1000 mg/ Vancomycin/Sodium Chloride 200 ml @ 200 mls/hr ONCE ONCE IV ; Start 10/26/17 at 04:15; Stop 10/26/17 at 04:15; Status DC Albuterol/ Ipratropium (Duoneb Neb) 1 ampule Q6HR NEB NEB Last administered on 10/30/17at 04:49; Start 10/26/17 at 10:00; Stop 10/30/17 at 09:59; Status DC Albuterol/ Ipratropium (Duoneb Neb) 1 ampule Q4HR NEB PRN NEB sob/wheezing; Start 10/26/17 at 04:15 Vancomycin/Sodium Chloride 200 ml @ 200 mls/hr ONCE ONCE IV Last administered on 10/26/17 04:54; Start 10/26/17 at 04:15; Stop 10/26/17 at 05:14; Status DC Vancomycin HCl 1250 mg/Sodium Chloride 262.5 ml @ 250 mls/hr Q12H IV Last administered on 10/27/17at 14:48; Start 10/26/17 at 15:00; Stop 10/27/17 at 16:42; Status DC Miscellaneous Information SPECIFIC LAB TO BE DRAWN:VANCOMYCIN TROUGH DATE TO... ONCE ONCE .XX Last administered on 10/27/17at 14:43; Start 10/27/17 at 14:45; Stop 10/27/17 at 14:46; Status DC Guaifenesin (Mucinex Er) 600 mg BID PO Last administered on 11/02/17at 07:56; Start 10/27/17 at 11:30 Senna/Docusate Sodium (Hanh-Colace) 2 tab BID PO Last administered on 11/01/17at 21:08; Start 10/27/17 at 21:00 Tiotropium [place] (Spiriva Inh) 18 mcg DAILY INH Last administered on at 07:55; Start 10/27/17 at 12:00 Naloxone HCl (Narcan Inj) 0.4 mg UNSCH PRN IV PUSH SEE LABEL COMMENTS; Start at 10:30 Magnesium Hydroxide (Milk Of Magnesia Liq) 30 ml Q12H PRN PO Mild constipation Last administered on 10/29/17at 18:22; Start 10/27/17 at 10:30 Sennosides (Senokot) 17.2 mg Q12H PRN PO Moderate constipation; Start 10/27/17 at 10:30 Bisacodyl (Dulcolax Supp) 10 mg DAILY PRN RECTAL SEVERE CONSITIPATION; Start at 10:30 Lactulose (Lactulose Liq) 30 ml DAILY PRN PO SEVERE CONSITIPATION; Start at 10:30 Vancomycin HCl 1250 mg/Sodium Chloride 262.5 ml @ 250 mls/hr Q8H IV Last administered on 11/01/17at 09:24; Start 10/28/17 at 00:00; Stop 11/01/17 at 23:01; Status DC Miscellaneous Information SPECIFIC LAB TO BE DRAWN:VANCOMYCIN TROUGH DATE TO... ONCE ONCE .XX Last administered on 10/28/17at 23:24; Start 10/28/17 at 23:45; Stop 10/28/17 at 23:46; Status DC Azithromycin (Zithromax) 250 mg DAILY PO ; Start 11/02/17 at 22:00 Azithromycin (Zithromax) 250 mg ONCE ONCE PO Last administered on 11/01/17at 23: 20; Start 11/01/17 at 23:00; Stop 11/01/17 at 23:03; Status DC A/P Problem List: (1) Stage IV adenocarcinoma of the lung (2) COPD with exacerbation ICD Code: J44.1 - Chronic obstructive pulmonary disease with (acute) exacerbation (3) COPD type A ICD Code: J43.9 - COPD type A (4) Postobstructive pneumonia ICD Code: J18.9 - Pneumonia, unspecified organism (5) Bronchogenic carcinoma ICD Code: C34.90 - Malignant neoplasm of unspecified part of unspecified bronchus or lung (6) Emphysema of lung ICD Code: J43.9 - Emphysema, unspecified (7) Diabetes (8) Hyperlipidemia (9) Malnutrition, albumin 1.7 (10) Bronchogenic cancer ICD Code: C34.90 - Malignant neoplasm of unspecified part of unspecified bronchus or lung (11) Diabetes mellitus, type 2 ICD Code: E11.9 - Type 2 diabetes mellitus without complications (12) Bronchogenic carcinoma of right lung ICD Code: C34.91 - Malignant neoplasm of unspecified part of right bronchus or lung Assessment and Plan 67-year-old male with history of tobacco use, COPD, recently diagnosed stage IV adenocarcinoma of lung with metastases, presents with worsening back pain and shortness of breath. Stage IV Bronchogenic Adenocarcinoma: recently diagnosed this month September 2017. Returned to ED with worsening shortness of breath, cough, back pains. Symptoms likely all related to advanced cancer. -Repeat CT-PA today 10/18 negative for PE, showed again large infiltrative right lung mass; mediastinal and left axillary lymphadenopathy, lytic destructive lesion of left T1 vertebral body, and noncalcified nodules within LLL; no significant change compared to previous CT -Continue duonebs -Incentive spirometer -Continue pain control with [place] prn and IV morphine prn breakthrough pain -Appreciate palliative care following. Discussed with oncology team. Patient and family wants to proceed with chemotherapy. He needs to find a place to stay and an oncologist in the [place] area. Case management aware. Daughter will arrive tomorrow. Discussed with case management to have further discussions with the patient's daughter. Continue on Vanco cefepime Needs safe place for discharge otherwise SWITCH TO PO MEDS DC TO HOME WITH [facility] Fever:Worsening consolidation R lung. PNA vs ?Cancer burden - Started on Vanc, Cefepime. Blood cultures - Would consider transitioning to oral antibiotics if cultures neg at 48 hrs. Needs follow up outpatient for cancer treatment. Incentive spirometry Physical therapy Mucinex Leslie richter STILL HAD BORDERLINE FEVERS ON 5-5 COPD with mild exacerbation: imaging as above. -continue duonebs -Wean off steroids. -monitor for improvement Leslie richter Mucinex Improving. Continue on current treatment. SWITCH TO PO MEDS DC TO HOME WITH [facility] Tobacco use: patient quit 1 week prior to admission. Smokes tobacco 2PPD since age 18 -counseled on continued cessation Borderline Diabetes: patient on metformin. Last HgbA1c 6.1 on 10/08/17. Expect higher blood glucose while on steroids. -monitor accu-cheks and cover with SSI Weight Loss, Protein Calorie Malnutrition: suspect secondary to cancer -Encourage oral intake. Colace for GI PPx. Needs a safe place for discharge lives in [place] May need SNF versus assisted living DVT Prophylaxis: Lovenox sq DC TO HOME WITH [facility] AND PO ANTIBIOTICS Discharge Planning DC TO SNF WITH HOSPICE TO FOLLOW Anshul Ley DO Nov 02, 2017 10:51
[2017-11-02] MEDS ORDERED: AZIT250T3 PO (10:53)
[2017-11-02 12:19] VITALS: BP 105/63; PULSE 113; RESP 18; TEMP 97.5; O2SAT 98
[2017-11-02] MEDS: ENOXAPARIN SODIUM 40 MG/0.4 ML SYRINGE SQ SCH (17:00)
[2017-11-02] MEDS ORDERED: AZITHROMYCIN 250 MG TAB PO SCH (22:00)
== END 2017-11-02 17:19 | DRG 180 ==
LOC: NEDDLT 22:57 → NEPGCP 23:07 → HCIN 10-19 13:07 → OBSVTOIN 10-26 12:22
PROVIDERS: ADMIT Hospitalist; ATTEND Hospitalist
DX: C34.91 Malignant neoplasm of unspecified part of right bronchus or lung (principal); J18.9 Pneumonia, unspecified organism; E46 Unspecified protein-calorie malnutrition; J44.0 Chronic obstructive pulmonary disease with (acute) lower respiratory infection; C77.1 Secondary and unspecified malignant neoplasm of intrathoracic lymph nodes; J44.1 Chronic obstructive pulmonary disease with (acute) exacerbation; M48.04 Spinal stenosis, thoracic region; R59.0 Localized enlarged lymph nodes; Z66 Do not resuscitate; K21.9 Gastro-esophageal reflux disease without esophagitis; E78.00 Pure hypercholesterolemia, unspecified; F10.21 Alcohol dependence, in remission; E78.5 Hyperlipidemia, unspecified; E11.9 Type 2 diabetes mellitus without complications; M54.6 Pain in thoracic spine; K59.00 Constipation, unspecified; Z51.5 Encounter for palliative care; Z79.84 Long term (current) use of oral hypoglycemic drugs; Z88.0 Allergy status to penicillin; Z87.891 Personal history of nicotine dependence; Z86.73 Personal history of transient ischemic attack (TIA), and cerebral infarction without residual deficits; Z87.442 Personal history of urinary calculi
CPT/HCPCS: 71045; 71275; 80048; 80053; 80069; 80202; 81001; 82948; 83036; 83735; 83880; 84100; 84439; 84443; 84484; 85025; 87040; 93005; 94150; 94640; 94664; 96372; 96374; G0378; J0692; J1642; J1650; J1815; J2930; J3370; J7050; J7512; J7644; Q9967